=== PATIENT | male | born 1935 | race Caucasian/White ===

== ENCOUNTER 2016-08-31 14:00 | Emergency (ER) | payer OTHER ==
[2016-08-31 14:10] VITALS: BP 140/79; PULSE 70; TEMP 98; BMI 38.9
[2016-08-31] MEDS ORDERED: METHOCARBAMOL 500 MG TABLET PO ONE (15:13)
--- NOTE | 2016-08-31 15:13 | PDOC ---
History of Present Illness - General History Source: Patient Exam Limitations: No Limitations - History of Present Illness Initial Comments: 08/31/16 15:27 The patient is a 80 year old male, with a significant past medical history of diabetes, hypertension, hyperlipidemia, CABG (on coumadin), and colonic polyps, who presents to the emergency department complaining of right side chest pain for approximately 2 weeks. The patient reports the pain was initially localized to the right side of his chest, however, it now radiates into his right upper back, just below his shoulder. The patient denies any trauma to the area or heavy lifting. The patient reports the pain is worse when lying on his right side or coughing. Occasionally, he reports he hears the right side of his upper back crack (like a knuckle) when he sits on the couch. The patient denies any shortness of breath, diaphoresis, palpitations, or lower extremity edema. He denies any fever, chills, cough, headache, or dizziness. He denies any recent travel or sick contacts. Allergies: None reported. Past Surgical History: CABG (1997), umbilical hernia repair, cholecystectomy, left hand fx Social History: Former smoker. Social ETOH use. No recreational drug use. PCP: Dr. Brewer <Dao Orellana - Last Filed: 08/31/16 18:33> <Jesika Ospina - Last Filed: 08/31/16 18:49> - General Chief Complaint: Back Pain Stated Complaint: BACK PAIN Time Seen by Provider: 08/31/16 14:07 Past History <Dao Orellana - Last Filed: 08/31/16 18:33> - Past Medical History Anemia: No Asthma: No Cancer: No Cardiac Disorders: Yes (CABG 1997) CVA: No COPD: No CHF: No Dementia: No Diabetes: Yes GI Disorders: Yes (COLONIC POLYPS) Disorders: No HTN: Yes Hypercholesterolemia: Yes Liver Disease: No Seizures: No Thyroid Disease: No - Surgical History Abdominal Surgery: Yes (UMBILICAL HERNIA REPAIR X 2) Appendectomy: No Cardiac Surgery: No Cholecystectomy: Yes Lung Surgery: No Neurologic Surgery: No Orthopedic Surgery: Yes (LEFT HAND FX 1996) - Psycho/Social/Smoking Cessation Hx Suicidal Ideation: No Smoking History: Former smoker Have you smoked in the past 12 months: No Number of Cigarettes Smoked Daily: 0 If you are a former smoker, when did you quit?: 1967 Information on smoking cessation initiated: Yes Hx Alcohol Use: Yes Drug/Substance Use Hx: No Substance Use Type: Alcohol Hx Substance Use Treatment: No <Jesika Osipna - Last Filed: 08/31/16 18:49> - Past Medical History Allergies/Adverse Reactions: Allergies Allergy/AdvReac Type Severity Reaction Status Date / Time No Known Allergies Allergy Verified 08/31/16 14:05 Home Medications: Ambulatory Orders Canagliflozin [Invokana] 300 mg PO DAILY 08/31/16 Carvedilol [Coreg] 25 mg PO ASDIR 08/31/16 Digoxin [Lanoxin -] 0.125 mg PO DAILY 08/31/16 Metformin HCl [Glucophage] 1,000 mg PO BID 08/31/16 Methocarbamol [Robaxin -] 1 - 2 tab PO BID PRN #28 tablet 08/31/16 Simvastatin 20 mg PO DAILY 08/31/16 Tramadol HCl 50 mg PO Q6H PRN #12 tablet MDD 4 tabs 08/31/16 Warfarin Sodium [Coumadin] 5 mg PO ASDIR 08/31/16 Review of Systems - Review of Systems Able to Perform ROS?: Yes Comments:: 08/31/16 15:29 GENERAL/CONSTITUTIONAL: No fever or chills. No weakness. HEAD, EYES, EARS, NOSE AND THROAT: No change in vision. No ear pain or discharge. No sore throat. CARDIOVASCULAR: Yes: +chest pain. No shortness of breath. RESPIRATORY: No cough, wheezing, or hemoptysis. GASTROINTESTINAL: No nausea, vomiting, diarrhea or constipation. GENITOURINARY: No dysuria, frequency, or change in urination. MUSCULOSKELETAL: Yes: +right scapular pain, +back pain. No joint or muscle swelling. No neck pain. SKIN: No rash NEUROLOGIC: No headache, vertigo, loss of consciousness, or change in strength/ sensation. ENDOCRINE: No increased thirst. No abnormal weight change. HEMATOLOGIC/LYMPHATIC: No anemia, easy bleeding, or history of blood clots. ALLERGIC/IMMUNOLOGIC: No hives or skin allergy. <Dao Orellana - Last Filed: 08/31/16 18:33> *Physical Exam - Vital Signs Last Vital Signs Temp Pulse Resp BP Pulse Ox 98 F 70 18 140/79 96 08/31/16 14:00 08/31/16 14:00 08/31/16 14:00 08/31/16 14:00 08/31/16 14:00 <Dao Orellana - Last Filed: 08/31/16 18:33> - Vital Signs Last Vital Signs Temp Pulse Resp BP Pulse Ox 98 F 70 18 140/79 96 08/31/16 14:00 08/31/16 14:00 08/31/16 14:00 08/31/16 14:00 08/31/16 14:00 - Physical Exam Comments: GENERAL: Awake, alert, and fully oriented, in no acute distress. Appears uncomfortable. HEAD: No signs of trauma EYES: PERRLA, EOMI, sclera anicteric, conjunctiva clear ENT: Auricles normal inspection, hearing grossly normal, nares patent, oropharynx clear without exudates. Moist mucosa NECK: Normal ROM, supple, no lymphadenopathy, JVD, or masses LUNGS: Breath sounds equal, clear to auscultation bilaterally. No wheezes, and no crackles HEART: Regular rate and rhythm, normal S1 and S2, no murmurs, rubs or gallops ABDOMEN: Soft, nontender, normoactive bowel sounds. No guarding, no rebound. No masses EXTREMITIES: +Tenderness to the R upper back between the scapula and the spine, +muscle spasm. Remainder of extremities with normal range of motion, no edema. No clubbing or cyanosis. No cords, erythema, or tenderness NEUROLOGICAL: Cranial nerves II through XII grossly intact. Normal speech, normal gait SKIN: Warm, Dry, normal turgor, no rashes or lesions noted. <Jesika Ospina - Last Filed: 08/31/16 18:49> ED Treatment Course - RADIOLOGY Radiograph Interpretation: 08/31/16 18:33 EXAM: Right Scapula X-Ray INTERPRETED BY: Dr. Hernandez REVIEWED BY: Dr. Ospina IMPRESSION: No Fracture or acute pathology. EXAM: X-Ray right-sided ribs INTERPRETED BY: Dr. Hernandez REVIEWED BY: Dr. Ospina IMPRESSION: No Fracture or acute pathology. <Dao Orellana - Last Filed: 08/31/16 18:33> Medical Decision Making - Medical Decision Making Exam is suggestive of a rotator cuff injury. Will treat with analgesics and muscle relaxers. Stable for DC home with outpatient ortho f/u. <Jesika Ospina - Last Filed: 08/31/16 18:49> *DC/Admit/Observation/Transfer - Attestations Scribe Attestion: 08/31/16 15:30 Documentation prepared by Dao Orellana, acting as medical or surgical instrument maker for Jesika Ospina MD. <Dao Orellana - Last Filed: 08/31/16 18:33> - Discharge Dispostion Admit: No <Jesika Ospina - Last Filed: 08/31/16 18:49> Diagnosis at time of Disposition: Shoulder pain Qualifiers: Chronicity: acute Laterality: right Qualified Code(s): M25.511 - Pain in right shoulder - Discharge Dispostion Disposition: HOME Condition at time of disposition: Stable - Prescriptions Prescriptions: Methocarbamol [Robaxin -] 1 - 2 tab PO BID PRN #28 tablet PRN Reason: Muscle Spasms Tramadol HCl 50 mg PO Q6H PRN #12 tablet MDD 4 tabs PRN Reason: Severe Pain - Referrals Referrals: Abdifatah Marie MD [Staff Physician] - - Patient Instructions Printed Discharge Instructions: DI for Shoulder Pain
[2016-08-31] MEDS ORDERED: traMADol HCL 50 MG TABLET PO ONE (17:35)
[2016-08-31] MEDS ORDERED: traMADol HCL 50 MG TABLET ONE (17:50)
== END 2016-08-31 18:14 | disposition home or self-care (01) ==
LOC: FER 14:00
DX: M25.511 Pain in right shoulder (principal); E11.9 Type 2 diabetes mellitus without complications; I10 Essential (primary) hypertension; E78.00 Pure hypercholesterolemia, unspecified; Z95.1 Presence of aortocoronary bypass graft; Z79.01 Long term (current) use of anticoagulants; Z87.891 Personal history of nicotine dependence
CPT/HCPCS: 71101-TC-RT; 73010-TC; 99282-25

== ENCOUNTER 2017-02-16 09:05 | Inpatient (IN) | payer OTHER, BC ==
[2017-02-16] MEDS ORDERED: ACETAMINOPHEN 325 MG TABLET (FP) PO ONE (09:34)
--- NOTE | 2017-02-16 09:40 | PDOC ---
History of Present Illness - General Chief Complaint: Injury Stated Complaint: BIBA FALL, BACK PAIN Time Seen by Provider: 02/16/17 09:17 History Source: Patient, Spouse Exam Limitations: No Limitations - History of Present Illness Initial Comments: 02/16/17 09:35 CHIEF COMPLAINT: 81-year-old man was sitting on a chair with wheels yesterday when he fell, twisting his lower back, and hitting his head. HISTORY OF PRESENT ILLNESS: This patient is a 81-year-old man who has decided to go back to college. Yesterday he was at [facility] [employer] in class. He was sitting on a chair with rolling wheels. When he turned to get his jacket off the back of his chair, the chair slid on the wheels and he lost his balance falling on the floor. He hit the back of his head but there was no loss of consciousness. There is no neck pain. There is no headache. There is no dizziness. There is no change in vision. There is no nausea or vomiting. He also twisted his lower back in the process of the fall. He got up with the assistance of one of the young students. He continues to have pain across the lumbar region without radiation. There is no numbness or weakness in the legs. There is no change in bowel or bladder function. There is no change in sensation. Of note, last week when he saw his primary physician his INR was elevated. His Coumadin dose was adjusted from 5 mg 6 days a week and 10 mg on Saturdays to hold Coumadin for 1 day, then resume at 5 mg daily 7 days a week. He denies any abnormal bleeding of his gums or other areas. REVIEW OF SYSTEMS: GENERAL/CONSTITUTIONAL: No fever or chills. No weakness. No weight change. Positive pain in the lower back, increased with turning or bending. Able to ambulate. Patient is walking slower than normal. HEAD, EYES, EARS, NOSE AND THROAT: No change in vision. No ear pain or discharge. No sore throat. CARDIOVASCULAR: No chest pain or shortness of breath. RESPIRATORY: No cough, wheezing, or hemoptysis. GASTROINTESTINAL: No nausea, vomiting, diarrhea or constipation. No rectal bleeding. GENITOURINARY: No dysuria, frequency, or change in urination. MUSCULOSKELETAL: Positive lumbar back pain. No neck pain. No joint pain or extremity pain. SKIN AND BREASTS: No rash or easy bruising. NEUROLOGIC: No headache, vertigo, loss of consciousness, or loss of sensation. Positive head injury yesterday, minor, no symptoms currently. PSYCHIATRIC: No depression or anxiety. ENDOCRINE: No increased thirst. No abnormal weight change. HEMATOLOGIC/LYMPHATIC: No anemia, easy bleeding, or history of blood clots. Patient takes Coumadin daily. ALLERGIC/IMMUNOLOGIC: No hives or skin allergy. No latex allergy. Past History - Past Medical History Allergies/Adverse Reactions: Allergies Allergy/AdvReac Type Severity Reaction Status Date / Time No Known Allergies Allergy Verified 02/16/17 09:07 Home Medications: Ambulatory Orders Canagliflozin [Invokana] 300 mg PO DAILY 08/31/16 Carvedilol [Coreg] 6.25 mg PO BID 08/31/16 Digoxin [Lanoxin -] 0.125 mg PO DAILY 08/31/16 Metformin HCl [Glucophage] 1,000 mg PO BID 08/31/16 Simvastatin 20 mg PO ASDIR 08/31/16 Warfarin Sodium [Coumadin] 5 mg PO DAILY 08/31/16 Anemia: No Asthma: No Cancer: No Cardiac Disorders: Yes (CABG 1997, atrial fibrillation.) CVA: No COPD: No CHF: No Dementia: No Diabetes: Yes GI Disorders: Yes (COLONIC POLYPS) Disorders: No HTN: Yes Hypercholesterolemia: Yes Liver Disease: No Seizures: No Thyroid Disease: No - Surgical History Abdominal Surgery: Yes (UMBILICAL HERNIA REPAIR X 2) Appendectomy: No Cardiac Surgery: No Cholecystectomy: Yes Lung Surgery: No Neurologic Surgery: No Orthopedic Surgery: Yes (LEFT HAND FX 1996) - Suicide/Smoking/Psychosocial Hx Smoking History: Former smoker Have you smoked in the past 12 months: No Number of Cigarettes Smoked Daily: 0 If you are a former smoker, when did you quit?: 1967 Information on smoking cessation initiated: No Hx Alcohol Use: No Drug/Substance Use Hx: No Substance Use Type: Alcohol Hx Substance Use Treatment: No *Physical Exam - Vital Signs Last Vital Signs Temp Pulse Resp BP Pulse Ox 97.7 F 65 18 141/75 96 02/16/17 09:05 02/16/17 09:05 02/16/17 09:05 02/16/17 09:05 02/16/17 09:05 - Physical Exam Comments: 02/16/17 09:40 GENERAL: The patient is awake, alert, and fully oriented, in no acute distress. He complains of discomfort in his lumbar spine upon turning on the stretcher. HEAD: Normal with no signs of trauma. No hematoma. No scalp abrasion. EYES: Pupils equal, round and reactive to light, extraocular movements intact, sclera anicteric, conjunctiva clear. ENT: Ears normal, nares patent, oropharynx clear without exudates. Moist mucous membranes. NECK: Normal range of motion, supple without lymphadenopathy, JVD, or masses. No midline cervical spine tenderness. No lateral neck tenderness. No pain with range of motion. LUNGS: Breath sounds equal, clear to auscultation bilaterally. No wheezes, and no crackles. No rib tenderness. HEART: Regular rate and rhythm, normal S1 and S2 without murmur, rub or gallop. ABDOMEN: Soft, nontender, normoactive bowel sounds. No guarding, no rebound. No masses. BACK: There is tenderness diffusely in the lumbar spine both over the spinous processes and in the paralumbar region bilaterally. There is no deformity. The skin is normal without bruising. EXTREMITIES: Normal range of motion, mild pitting ankle edema. No clubbing or cyanosis. No cords, erythema, or tenderness. NEUROLOGICAL: Cranial nerves II through XII grossly intact. Normal speech, normal gait. Sensation and motor strength is normal in both lower extremities. PSYCH: Normal mood, normal affect. SKIN: Warm, Dry, normal turgor, no rashes or lesions noted. No bruising or ecchymosis. ED Treatment Course - LABORATORY CBC & Chemistry Diagram: 02/16/17 10:25 02/16/17 10:25 - RADIOLOGY Radiology Studies Ordered: Category Date Time Status HEAD CT WITHOUT CONTRAST [CT] Stat CT Scan 02/16/17 09:33 Ordered SPINE-LUMBAR SACRAL [RAD] Stat Radiology 02/16/17 09:34 Ordered Medical Decision Making - Medical Decision Making 02/16/17 09:42 Patient presents after a mechanical fall yesterday. He lost his balance while sitting on the chair on wheels that was moving. He did hit his head but he is completely asymptomatic from a neurological perspective. However, given his age and his Coumadin which was recently notable for elevated INR, CT of the head will be performed. Repeat INR level will be checked given the adjustment in his dose. He also has lumbar spine pain with tenderness after the fall. X-rays of the lumbosacral spine have been ordered. Symptomatic treatment with Percocet and Tylenol has been ordered. Patient is not a good candidate for nonsteroidals given his warfarin therapy. 02/16/17 13:04 I have been busy arranging ICU monitoring for Mr. Narvaez. His head CT shows a very small intrahemispheric bleed in the frontal area on the head CT. Stat IV vitamin K was given. Type and cross along with fresh frozen plasma was requested stat. Critical care consult with Dr. Javi Escobedo was accepted. Primary admitting team will be [facility], Dr. Conner, patient accepted. Neurosurgery consult with Dr. Covarrubias was accepted. Patient will go by ambulance, ALS unit, to [facility] ICU 6. 02/16/17 13:07 Lumbosacral spine x-ray shows a compression fracture of L1. CT scan of the lumbosacral spine confirms that this L1 fracture is acute. There is no spinal cord involvement. *DC/Admit/Observation/Transfer Diagnosis at time of Disposition: Intracerebral hemorrhage Qualifiers: Intracerebral hemorrhage etiology: traumatic Encounter type: initial encounter Laterality: unspecified laterality Loss of consciousness presence/duration: without LOC Qualified Code(s): S06.360A - Traumatic hemorrhage of cerebrum, unspecified, without loss of consciousness, initial encounter Lumbar compression fracture Qualifiers: Encounter type: initial encounter Lumbar vertebra fracture level: L1 Fracture type: closed Qualified Code(s): S32.010A - Wedge compression fracture of first lumbar vertebra, initial encounter for closed fracture - Discharge Dispostion Condition at time of disposition: Stable Admit: Yes Decision to Admit order Date/Time: 02/16/17 13:[address] Ubaldo arthur's team, Dr. Waters aware and accepting. - Referrals - Patient Instructions - Post Discharge Activity
[2017-02-16] MEDS ORDERED: ACETAMINOPHEN 325 MG TABLET (FP) ONE (09:44)
[2017-02-16 10:34] LABS: BASO % 0.4 % (0-2.0); EOS % 1.3 % (0-4.5); HEMATOCRIT 30.9 % (35.4-49); HEMOGLOBIN 10.5 GM/dl (11.7-16.9); LYMPH % 28.2 % (8-40); MCH 32.9 pg (25.7-33.7); MCHC 33.9 g/dl (32.0-35.9); MEAN PLT VOLUME 6.4 fl (7.5-11.1); MONO % 2.8 % (3.8-10.2); NEUT % 67.3 % (42.8-82.8); PLATELET COUNT 189 K/MM3 (134-434); RBC 3.18 M/mm3 (4.00-5.60); RDW 15.2 % (11.9-15.9); WHITE BLOOD COUNT 3.9 K/mm3 (4.0-10.8)
[2017-02-16 11:00] LABS: INR 2.62 (0.82-1.09); PROTHROMBIN TIME (PATIENT) 28.8 SEC (10.2-13.0)
[2017-02-16 11:07] LABS: ALBUMIN 3.1 g/dl (3.5-5.0); ALK PHOS 72 U/L (32-92); ANION GAP 11 (8-16); BILIRUBIN,TOTAL 1.3 mg/dl (0.2-1.0); BLOOD UREA NITROGEN 20 mg/dl (7-18); CALCIUM 9.8 mg/dl (8.4-10.2); CHLORIDE 97 mmol/L (98-107); CO2 25 mmol/L (22-28); CREATININE 0.9 mg/dl (0.6-1.3); GLUCOSE,RANDOM 152 mg/dl (74-106); POTASSIUM 4.7 mmol/L (3.5-5.1); SGOT/AST 19 U/L (10-42); SGPT/ALT 11 U/L (10-40); SODIUM 133 mmol/L (136-145); TOT PROT 9.2 g/dl (6.4-8.3)
[2017-02-16] MEDS ORDERED: PHYTONADIONE 10 MG/1 ML AMP IVPB ONE (11:25)
[2017-02-16] MEDS ORDERED: PHYTONADIONE 10 MG/1 ML AMP ONE (11:28)
[2017-02-16 14:56] VITALS: BMI 37.9
[2017-02-16] MEDS ORDERED: PATIENT'S OWN MEDICATION (NON-FORMULARY) (Simvastatin [Simvastatin] 20 MG) PO SCH (16:15)
--- NOTE | 2017-02-16 16:23 | PN ---
Teaching Attending Note Name of Resident: Cirilo Simon ATTENDING PHYSICIAN STATEMENT I saw and evaluated the patient. I reviewed the resident's note and discussed the case with the resident. I agree with the resident's findings and plan as documented. SUBJECTIVE: 81 yom with PMHx of CAD s/p CABG 1997, Atrial fibrillation on coumadin since 1997, HTN, HLD, NIDDM, was at class in college yesterday, sitting on chair with rolling wheels, when got up, chair slid and patient fell on his back on the floor hitting his head and lower back. He was supported up by one of the students. Patient reports having lower back pain since then. However denies any leg weakness, tingling, numbness, urinary or bowel symptoms. Has been ambulating since the fall but with pain. he waited for a day, but given pain, today came to [place] ED, when had head CT showing small acute Left sided frontal interhemisphere subdural hematoma and L1 compression fracture. As per him, his INR was high recently, he was on coumadin 5 mg for 6 days and 10 mg on Saturdays, but was told to hold coumadin for a day and start 5 mg daily. His INR here was 2.6. He received 10 mg IV Vitamin K and was transferred to [facility] for FFP and close neurological monitoring. Currently patient is in the ICU, denies any headache, neck pain, visual changes , weakness, tingling/numbness, speech changes. Only complaint is lower back pain worse with movements but neg for urinary,bowel or urinary concerns. 12 point ROS done, neg for bleed, neg except above. OBJECTIVE: Vital Signs Period Temp Pulse Resp BP Sys/Uribe Pulse Ox Last 24 Hr 97.7 F-98.2 F 65-89 17-22 108-141/43-85 90-98 Intake & Output 02/13/17 02/14/17 02/15/17 02/16/17 23:59 23:59 23:59 23:59 Weight 242 lb GENERAL: Awake, alert, and fully oriented, in no acute distress. HEAD: Normal with no signs of trauma. EYES: Pupils equal, round and reactive to light, extraocular movements intact, sclera anicteric, conjunctiva clear. No lid lag. EARS, NOSE, THROAT: Ears normal, nares patent, oropharynx clear without exudates. Moist mucous membranes. NECK: Normal range of motion, supple without lymphadenopathy, JVD, or masses. LUNGS: Breath sounds equal, clear to auscultation bilaterally. No wheezes, and no crackles. No accessory muscle use. HEART: S1S2 irregular, rate controlled ABDOMEN: Soft, nontender, not distended, normoactive bowel sounds, no guarding, no rebound, no masses. MUSCULOSKELETAL: lumbar spinal tenderness in the L1 region, SLR neg bilaterally , UPPER EXTREMITIES: 2+ pulses, warm, well-perfused. No cyanosis. No clubbing. No peripheral edema. LOWER EXTREMITIES: 2+ pulses, warm, well-perfused. No calf tenderness. No peripheral edema. NEUROLOGICAL: AAOx3, facial symmetry, visual lopez grossly intact, PERRLA, EOMI, sensation symmetric to light touch, no pronator drift, power 5/5, facial symmetry, tongue midline, toes downgoing PSYCHIATRIC: Cooperative. Good eye contact. Appropriate mood and affect. SKIN: Warm, dry, normal turgor, no rashes or lesions noted, normal capillary refill. Home Medication List Medication Instructions Recorded Confirmed Type Canagliflozin [Invokana] 300 mg PO DAILY 08/31/16 02/16/17 History Carvedilol [Coreg] 6.25 mg PO BID 08/31/16 02/16/17 History Digoxin [Lanoxin -] 0.125 mg PO DAILY 08/31/16 02/16/17 History Metformin HCl [Glucophage] 1,000 mg PO BID 08/31/16 02/16/17 History Simvastatin 20 mg PO ASDIR 08/31/16 02/16/17 History Warfarin Sodium [Coumadin] 5 mg PO DAILY 08/31/16 02/16/17 History Active Medications Generic Name Dose Route Start Last Admin Trade Name Freq PRN Reason Stop Dose Admin Carvedilol 6.25 mg 02/16/17 22:00 Coreg - PO BID [facility] Chlorhexidine Gluconate 1 applic 02/16/17 22:00 Hibiclens For Decolonization - TP HS LEIDY Digoxin 0.125 mg 02/17/17 10:00 Lanoxin - PO DAILY LEIDY Insulin Aspart 0 vial 02/16/17 16:30 Novolog Vial Sliding Scale - SQ ACHS [facility] Protocol Mupirocin 1 applic 02/16/17 22:00 Bactroban Ointment (For Decolonization) - NS 02/21/17 21:59 BID LEIDY Non-Formulary Medication 20 mg 02/16/17 16:15 Simvastatin [Simvastatin] PO ASDIR LEIDY Oxycodone/Acetaminophen 2 combo 02/16/17 16:03 Percocet 5/325 - PO Q4H PRN PAIN LEVEL 6-10 Laboratory Results - last 24 hr 02/16/17 02/16/17 02/16/17 10:25 10:25 10:25 WBC 3.9 L RBC 3.18 L Hgb 10.5 L Hct 30.9 L MCV 97.0 H MCH 32.9 MCHC 33.9 RDW 15.2 Plt Count 189 MPV 6.4 L Neutrophils % 67.3 D Lymphocytes % 28.2 D Monocytes % 2.8 L Eosinophils % 1.3 Basophils % 0.4 PT with INR 28.8 H INR 2.62 H D Sodium 133 L Potassium 4.7 Chloride 97 L Carbon Dioxide 25 Anion Gap 11 BUN 20 H Creatinine 0.9 Creat Clearance w eGFR > 60 Random Glucose 152 H Calcium 9.8 Total Bilirubin 1.3 H AST 19 D ALT 11 Alkaline Phosphatase 72 Total Protein 9.2 H Albumin 3.1 L Blood Type Antibody Screen 02/16/17 02/16/17 12:14 13:19 WBC RBC Hgb Hct MCV MCH MCHC RDW Plt Count MPV Neutrophils % Lymphocytes % Monocytes % Eosinophils % Basophils % PT with INR INR Sodium Potassium Chloride Carbon Dioxide Anion Gap BUN Creatinine Creat Clearance w eGFR Random Glucose Calcium Total Bilirubin AST ALT Alkaline Phosphatase Total Protein Albumin Blood Type O POSITIVE O POSITIVE Antibody Screen Negative EKG afib 60s, no acute ST-T changes CT brain - small acute left frontal interhemispheric subdural hematoma CT L spine - Acute mild to moderate L1 compression fracture Marked L4-L5 and moderate to marked L3-L4 central canal stenosis Lumbar spine Xray - probable acute L1 compression fracture ASSESSMENT AND PLAN: 81 yom with CAD s/p CABG, Afib on coumadin, HTN, HLD, NIDDM admitted with mechanical fall a day ago with SDH, Acute L1 compression fracture. -Acute left frontal interhemispheric subdural hematoma -Coumadin coagulopathy -Acute L1 compression fracture -mechanical fall -CAD s/p CABG -Atrial fibrllation on coumadin -HTN -HLD -NIDDM Plan: ICU neuro montoring. S/p Vitamin K 10 mg IV in ED. 4 units FFP. Repeat INR later today. CT brain follow up in 6 hours. Neurosurgery consulted in ED, Readdress once repeat CT head available, also discuss need for anti-epileptics. No ASA/NSAIDS, coumadin or ant-coagulation, suspect atleast for 14 days, then per neurosurgery. Tylenol/oxycodone prn for pain. PT eval once neurological status stable. Continue coreg to be held for SBP < 110 Continue digoxin, statin. HOld oral hypoglycemics, metformin. ISS, NPO till repeat CT brain available. DVTPPx with SCDs in bed Dispo ICU monitoring given bleed with elevated INR and need for close neurological monitoring. Plan discussed with patient in detail, all questions answered. Total critical care admit time spent in ICU 55 min.
[2017-02-16] MEDS ORDERED: SENNOSIDES 8.6MG TABLET (FP) PO PRN (16:39)
--- NOTE | 2017-02-16 16:54 | HP ---
CHIEF COMPLAINT: "I fell" PCP: Dr. Brewer HISTORY OF PRESENT ILLNESS: Mr. Narvaez is a pleasant 81yo M with a PMHx of Afib on Coumadin who presented to [place] [facility] s/p fall. 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 Was helped up by classmate. Subsequently had mid-back pain. Went home, and returned to the ER the next day due to unrelenting 10/10 sharp mid-back nonradiating pain worse with movements. Denies leg weakness or numbness, denies gait instability, denies urinary or bowel incontinence. Denies headache, neck pain, vision changes, dizziness, speech changes, mental status changes. In [place] [facility], patient was found to have L1 vertebral compression fracture on Lumbar CT. Head CT was notable for small acute L frontal interhemispheric hematoma. The patient denies neurologic symptoms including headache, only complained of back pain. Vital signs were within normal limits. BP 116/85. INR was therapeutic at 2.65. He was given IV Vitamin K 10mg x1. The patient was [facility] due to FFP availability. Recent Travel: Denies PAST MEDICAL HISTORY: CAD s/p CABG 1997, Afib on Coumadin, HLD, NIDDM PAST SURGICAL HISTORY: Umbilical hernia repair, cholecystectomy, CABG Social History: Smoking: Ex-smoker, 50+ pack year history Alcohol: Denies Drugs: Denies Allergies: No Known Allergies Allergy (Verified 02/16/17 09:07) HOME MEDICATIONS: Home Medications Medication Instructions Recorded Canagliflozin [Invokana] 300 mg PO DAILY 08/31/16 Carvedilol [Coreg] 6.25 mg PO BID 08/31/16 Digoxin [Lanoxin -] 0.125 mg PO DAILY 08/31/16 Metformin HCl [Glucophage] 1,000 mg PO BID 08/31/16 Simvastatin 20 mg PO ASDIR 08/31/16 Warfarin Sodium [Coumadin] 5 mg PO DAILY 08/31/16 REVIEW OF SYSTEMS CONSTITUTIONAL: Absent: fever, chills, diaphoresis, generalized weakness, malaise, loss of appetite, weight change HEENT: Absent: rhinorrhea, nasal congestion, throat pain, throat swelling, difficulty swallowing, mouth swelling, ear pain, eye pain, visual changes CARDIOVASCULAR: Absent: chest pain, syncope, palpitations, irregular heart rate, lightheadedness , peripheral edema RESPIRATORY: Absent: cough, shortness of breath, dyspnea with exertion, orthopnea, wheezing, stridor, hemoptysis GASTROINTESTINAL: Absent: abdominal pain, abdominal distension, nausea, vomiting, diarrhea, constipation, melena, hematochezia GENITOURINARY: Absent: dysuria, frequency, urgency, hesitancy, hematuria, flank pain, genital pain MUSCULOSKELETAL: Absent: myalgia, arthralgia, joint swelling, back pain, neck pain SKIN: Absent: rash, itching, pallor HEMATOLOGIC/IMMUNOLOGIC: Absent: easy bleeding, easy bruising, lymphadenopathy, frequent infections ENDOCRINE: Absent: unexplained weight gain, unexplained weight loss, heat intolerance, cold intolerance NEUROLOGIC: Absent: headache, focal weakness or paresthesias, dizziness, unsteady gait, seizure, mental status changes, bladder or bowel incontinence PSYCHIATRIC: Absent: anxiety, depression, suicidal or homicidal ideation, hallucinations. Vital Signs Temperature 98.2 F 02/16/17 14:50 Pulse Rate 84 02/16/17 16:03 Respiratory Rate 22 02/16/17 16:03 Blood Pressure 134/43 02/16/17 16:03 O2 Sat by Pulse Oximetry (%) 90 L 02/16/17 15:09 PHYSICAL EXAMINATION GEN: AAOx3, NAD, Lying very comfortably, smiling HEENT: Pupils are constricted but reactive, EOMi CV: S1, S2, irregularly irregular rhythm LUNG: Decreased lung sounds at bases, no focal crackles or wheezes ABD: Mild chronic distension from hernia surgeries, but soft, NT MSK: Bilateral venous stasis changes with 1+ pitting edema NEURO: CN 2-12 intact, no facial drool, no sensation or MSK deficits, 5/5 strength throughout. Laboratory Last Values WBC 3.9 K/mm3 (4.0-10.8) L 02/16/17 10:25 RBC 3.18 M/mm3 (4.00-5.60) L 02/16/17 10:25 Hgb 10.5 GM/dl (11.7-16.9) L 02/16/17 10:25 Hct 30.9 % (35.4-49) L 02/16/17 10:25 MCV 97.0 fl (80-96) H 02/16/17 10:25 MCH 32.9 pg (25.7-33.7) 02/16/17 10:25 MCHC 33.9 g/dl (32.0-35.9) 02/16/17 10:25 RDW 15.2 % (11.9-15.9) 02/16/17 10:25 Plt Count 189 K/MM3 (134-434) 02/16/17 10:25 MPV 6.4 fl (7.5-11.1) L 02/16/17 10:25 Neutrophils % 67.3 % (42.8-82.8) D 02/16/17 10:25 Lymphocytes % 28.2 % (8-40) D 02/16/17 10:25 Monocytes % 2.8 % (3.8-10.2) L 02/16/17 10:25 Eosinophils % 1.3 % (0-4.5) 02/16/17 10:25 Basophils % 0.4 % (0-2.0) 02/16/17 10:25 PT with INR 28.8 SEC (10.2-13.0) H 02/16/17 10:25 INR 2.62 (0.82-1.09) H D 02/16/17 10:25 Sodium 133 mmol/L (136-145) L 02/16/17 10:25 Potassium 4.7 mmol/L (3.5-5.1) 02/16/17 10:25 Chloride 97 mmol/L (98-107) L 02/16/17 10:25 Carbon Dioxide 25 mmol/L (22-28) 02/16/17 10:25 Anion Gap 11 (8-16) 02/16/17 10:25 BUN 20 mg/dl (7-18) H 02/16/17 10:25 Creatinine 0.9 mg/dl (0.6-1.3) 02/16/17 10:25 Creat Clearance w eGFR > 60 (>60) 02/16/17 10:25 Random Glucose 152 mg/dl (74-106) H 02/16/17 10:25 Calcium 9.8 mg/dl (8.4-10.2) 02/16/17 10:25 Total Bilirubin 1.3 mg/dl (0.2-1.0) H 02/16/17 10:25 AST 19 U/L (10-42) D 02/16/17 10:25 ALT 11 U/L (10-40) 02/16/17 10:25 Alkaline Phosphatase 72 U/L (32-92) 02/16/17 10:25 Total Protein 9.2 g/dl (6.4-8.3) H 02/16/17 10:25 Albumin 3.1 g/dl (3.5-5.0) L 02/16/17 10:25 Blood Type O POSITIVE 02/16/17 13:19 Antibody Screen Negative 02/16/17 12:14 Active Medications Generic Name Dose Route Start Last Admin Trade Name Freq PRN Reason Stop Dose Admin Carvedilol 6.25 mg 02/16/17 22:00 Coreg - PO BID [facility] Chlorhexidine Gluconate 1 applic 02/16/17 22:00 Hibiclens For Decolonization - TP HS [facility] Digoxin 0.125 mg 02/17/17 10:00 Lanoxin - PO DAILY [facility] Insulin Aspart 0 vial 02/16/17 16:30 Novolog Vial Sliding Scale - SQ ACHS [facility] Protocol Mupirocin 1 applic 02/16/17 22:00 Bactroban Ointment (For Decolonization) - NS 02/21/17 21:59 BID [facility] Non-Formulary Medication 20 mg 02/16/17 16:15 Simvastatin [Simvastatin] PO ASDIR [facility] Oxycodone/Acetaminophen 2 combo 02/16/17 16:03 Percocet 5/325 - PO Q4H PRN PAIN LEVEL 6-10 ASSESSMENT/PLAN: Mr. Narvaez is a pleasant 81yo M with a PMHx of Afib on Coumadin who presented to [place] [facility] s/p fall. Found to have subdural interhemispheric hematoma and L1 compression fracture #L Frontal Interhemispheric Subdural Hematoma - - 2/2 mechanical fall yesterday while on Coumadin. Hemodynamically stable. Will need to lower INR to subtherapeutic level. Already given IV Vit K 10mg. Will order 4 units FFP. Hold Coumadin. Repeat INR at 8pm. Repeat Head CT to assess if bleed has extended. NPO until repeat head CT findings return. Neuro checks. Neurosurgery on board. Dr Covarrubias aware of the case. # L1 Compression Fracture - 2/2 mechanical fall. No sustained neurological symptoms. Pain well controlled on Percocet PRN. Conservative management for now. PT eval ordered # Afib - Rate controlled, Continue Coreg 6.25 BID + Digoxin 0.125 daily. Coumadin held for bleed. Risks of stroke vs bleed explained to patient. # CAD - s/p CABG, not in ACS. # HLD - Continue statin # NIDDM - Hold oral hypoglycemics. Continue ISS + BGMs ACHS # Venous Insufficiency - Has venous stasis and edema bilaterally, monitor # FEN - No IVF, elec wnl. NPO for not until repeat Head CT back. # PPx - No pharmacologic AC due to bleed. SCDs. No GI ppx needed. PT ordered # Dispo - Admit to ICU for close neuro checks and hemodynamic monitoring. Total critical care time 60min d/w Dr Waters and Dr Ubaldo Simon MD - Resident PGY1 Internal Medicine Visit type - Emergency Visit Emergency Visit: No - New Patient This patient is new to me today: No - Critical Care Critical Care patient: No
[2017-02-16] MEDS: ACETAMINOPHEN 325 MG TABLET (FP) PO PRN (18:59)
[2017-02-16] MEDS: oxyCODONE HCL 5 MG TABLET PO PRN (18:59)
[2017-02-16] MEDS: INSULIN SLIDING SCALE (NOVOLOG) 1 VIAL SQ SCH ×2 (19:00→22:55)
--- NOTE | 2017-02-16 20:24 | CONSULT ---
Consult - text type - Consultation Consultation Note: Pulm/CCM Pt seen and examined in ICU CC: fall HPI: Briefly Mr. Narvaez is a 81yo M with a PMHx CAD s/p ?vessel CABG in " with resultant Afib on Coumadin since that time, who presented to [place] [facility] s/p mechanical fall on Saturday. 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 There was no visible trauma, there was no LOC, he was able to be helped up by classmate. He C/o mid-back pain. Went home, and returned to the ER today unrelenting 10/10 sharp mid-back non-radiating pain exacerbated by movements. He denied chest pain, dizzines, leg weakness or numbness, gait instability, denies urinary or bowel incontinence. Also denies headache, cervical neck pain, vision changes, speech changes, mental status changes. Today in [place] ER, patient was awake, alert, hemodyanmically stable. Imaging found L1 vertebral compression fracture on Lumbar CT and Head CT was notable for small acute L frontal interhemispheric hematoma. INR was therapeutic at 2.65. Given ICH and only on coumadin for afib, pt was given IV Vitamin K 10mg IV x1. Transferred to [facility] from [facility] for Neurosurg evaluation and correction of INR. Two FFP being infused and repeat INR being drawn. Neurosurg reviewed pt and intervention was deemed unnecessary. Repeat CT scan planned for AM. Recent Travel: Denies PAST MEDICAL HISTORY: CAD s/p CABG 1997, Afib on Coumadin, HLD, NIDDM PAST SURGICAL HISTORY: Umbilical hernia repair, cholecystectomy, CABG Social History: Smoking: Ex-smoker, 50+ pack year history Alcohol: Denies Drugs: Denies Allergies: No Known Allergies Allergy (Verified 02/16/17 09:07) HOME MEDICATIONS: Home Medications Medication Instructions Recorded Canagliflozin [Invokana] 300 mg PO DAILY 08/31/16 Carvedilol [Coreg] 6.25 mg PO BID 08/31/16 Digoxin [Lanoxin -] 0.125 mg PO DAILY 08/31/16 Metformin HCl [Glucophage] 1,000 mg PO BID 08/31/16 Simvastatin 20 mg PO ASDIR 08/31/16 Warfarin Sodium [Coumadin] 5 mg PO DAILY 08/31/16 REVIEW OF SYSTEMS 10 pt review negative except as per HPI. Vital Signs Temp 98.6 F 02/16/17 19:00 Pulse 78 02/16/17 20:00 Resp 20 02/16/17 20:00 BP 130/105 02/16/17 20:00 Pulse Ox 95 02/16/17 19:43 Intake & Output 02/15/17 02/16/17 02/16/17 23:59 11:59 23:59 Intake Total 452 Output Total 400 Balance 52 Weight 113.398 kg 109.769 kg Intake: Oral 120 Fresh Frozen Plasma 332 Output: Urine 400 Void 400 Other: Height 5 ft 7 in 5 ft 7 in Body Mass Index (BMI) 39.1 37.9 Weight Measurement Method Built in [facility] PHYSICAL EXAMINATION GEN: AAOx3, INAD, conversant HEENT: PERRL at 3mm, EOMI, no caroitid bruits CV: S1, S2, irregularly irregular rhythm LUNG: Clear anterior ABD: Mild chronic distension from hernia surgeries, but soft, NT MSK: Bilateral venous stasis changes with 1+ pitting edema NEURO: CN 2-12 intact, no facial drool, 5/5 x 4 ext, no pronator drift CT Head reviewed CT L spine reviewed Laboratory Last Values WBC 3.9 K/mm3 (4.0-10.8) L 02/16/17 10:25 RBC 3.18 M/mm3 (4.00-5.60) L 02/16/17 10:25 Hgb 10.5 GM/dl (11.7-16.9) L 02/16/17 10:25 Hct 30.9 % (35.4-49) L 02/16/17 10:25 MCV 97.0 fl (80-96) H 02/16/17 10:25 MCH 32.9 pg (25.7-33.7) 02/16/17 10:25 MCHC 33.9 g/dl (32.0-35.9) 02/16/17 10:25 RDW 15.2 % (11.9-15.9) 02/16/17 10:25 Plt Count 189 K/MM3 (134-434) 02/16/17 10:25 MPV 6.4 fl (7.5-11.1) L 02/16/17 10:25 Neutrophils % 67.3 % (42.8-82.8) D 02/16/17 10:25 Lymphocytes % 28.2 % (8-40) D 02/16/17 10:25 Monocytes % 2.8 % (3.8-10.2) L 02/16/17 10:25 Eosinophils % 1.3 % (0-4.5) 02/16/17 10:25 Basophils % 0.4 % (0-2.0) 02/16/17 10:25 PT with INR 28.8 SEC (10.2-13.0) H 02/16/17 10:25 INR 2.62 (0.82-1.09) H D 02/16/17 10:25 Sodium 133 mmol/L (136-145) L 02/16/17 10:25 Potassium 4.7 mmol/L (3.5-5.1) 02/16/17 10:25 Chloride 97 mmol/L (98-107) L 02/16/17 10:25 Carbon Dioxide 25 mmol/L (22-28) 02/16/17 10:25 Anion Gap 11 (8-16) 02/16/17 10:25 BUN 20 mg/dl (7-18) H 02/16/17 10:25 Creatinine 0.9 mg/dl (0.6-1.3) 02/16/17 10:25 Creat Clearance w eGFR > 60 (>60) 02/16/17 10:25 Random Glucose 152 mg/dl (74-106) H 02/16/17 10:25 Calcium 9.8 mg/dl (8.4-10.2) 02/16/17 10:25 Total Bilirubin 1.3 mg/dl (0.2-1.0) H 02/16/17 10:25 AST 19 U/L (10-42) D 02/16/17 10:25 ALT 11 U/L (10-40) 02/16/17 10:25 Alkaline Phosphatase 72 U/L (32-92) 02/16/17 10:25 Total Protein 9.2 g/dl (6.4-8.3) H 02/16/17 10:25 Albumin 3.1 g/dl (3.5-5.0) L 02/16/17 10:25 Blood Type O POSITIVE 02/16/17 13:19 Antibody Screen Negative 02/16/17 12:14 Active Medications Generic Name Dose Route Start Last Admin Trade Name Freq PRN Reason Stop Dose Admin Carvedilol 6.25 mg 02/16/17 22:00 Coreg - PO BID [facility] Chlorhexidine Gluconate 1 applic 02/16/17 22:00 Hibiclens For Decolonization - TP HS [facility] Digoxin 0.125 mg 02/17/17 10:00 Lanoxin - PO DAILY [facility] Insulin Aspart 0 vial 02/16/17 16:30 Novolog Vial Sliding Scale - SQ ACHS [facility] Protocol Mupirocin 1 applic 02/16/17 22:00 Bactroban Ointment (For Decolonization) - NS 02/21/17 21:59 BID [facility] Non-Formulary Medication 20 mg 02/16/17 16:15 Simvastatin [Simvastatin] PO ASDIR [facility] Oxycodone/Acetaminophen 2 combo 02/16/17 16:03 Percocet 5/325 - PO Q4H PRN PAIN LEVEL 6-10 ASSESSMENT/PLAN: 81yo M with a PMHx of Afib on Coumadin admitted after mechanical fall, found to have subdural interhemispheric hematoma and L1 compression fracture Neuro: Frontal Interhemispheric Subdural Hematoma , L1 Compression Fracture -correct INR 10 vit k, 2 FFP, repeat INR pending -frequent neuro check -repeat CT head in AM as per Neuro surg/ Dr Covarrubias aware of the case. -conservative management of CV: afib with rate control and anticoaguation -cont Coreg and Dig -rechallenge Coumadin as per Neurosurgery, likely later next week -Continue statin NIDDM - Hold oral hypoglycemics. Continue ISS + BGMs ACHS FEN - No IVF, elec wnl. NPO for not until repeat Head CT back PPx - No pharmacologic AC due to bleed. SCDs. No indicaiton for GI prophy Dispo - Admit to ICU for close neuro checks, ok for floor after repeat CT head in am. 35CCT Yves Flores ACNP [id number]
[2017-02-16 20:58] LABS: INR 1.67 (0.82-1.09); PROTHROMBIN TIME (PATIENT) 18.9 SEC (9.98-11.88)
[2017-02-16] MEDS ORDERED: CARVEDILOL 25 MG TABLET (FP) PO SCH ×2 (22:00)
--- NOTE | 2017-02-16 22:32 | EKG ---
Test Reason : Blood Pressure : / mmHG Vent. Rate : 066 BPM Atrial Rate : 066 BPM P-R Int : 000 ms QRS Dur : 096 ms QT Int : 406 ms P-R-T Axes : 000 -08 -02 degrees QTc Int : 425 ms POSSIBLE ATRIAL FIBRILLATION LOW VOLTAGE QRS NONSPECIFIC ST AND T WAVE ABNORMALITY ABNORMAL ECG NO PREVIOUS ECGS AVAILABLE Confirmed by NASEEM MARQUES MD ([id number]) on 02/16/2017 10:31:36 PM Referred By: CHARISSE TOLEDO Confirmed By:NASEEM MARQUES MD
[2017-02-16] MEDS ORDERED: INSULIN (NOVOLOG) ASPART 100 UNITS/ML 10ML VIAL ONE (22:48)
[2017-02-16] MEDS: DOCUSATE SODIUM 100 MG CAPSULE (FP) PO SCH (22:53)
[2017-02-16] MEDS: CARVEDILOL 6.25 MG TABLET (FP) PO SCH (22:53)
[2017-02-16] MEDS: ATORVASTATIN CA 10 MG TABLET (FP) PO SCH (22:55)
[2017-02-16] MEDS: CHLORHEXIDINE GLUCONATE 4% CLEANSER FOR DECOLONIZATION TP SCH (22:55)
[2017-02-16] MEDS: MUPIROCIN 2% TOPICAL OINTMENT FOR DECOLONIZATION NS SCH (22:55)
[2017-02-16] MEDS ORDERED: MELATONIN 5 MG TABLETS PO ONE (23:39)
[2017-02-17] MEDS: ACETAMINOPHEN 325 MG TABLET (FP) PO PRN ×4 (04:14→22:48)
[2017-02-17] MEDS: oxyCODONE HCL 5 MG TABLET PO PRN ×4 (04:14→22:47)
[2017-02-17 05:56] LABS: BASO % 0.4 % (0-2.0); EOS % 2.1 % (0-4.5); HEMATOCRIT 26.2 % (35.4-49); HEMOGLOBIN 9.1 GM/dL (11.7-16.9); LYMPH % 32.6 % (8-40); MCHC 34.7 g/dl (32.0-35.9); MEAN CELL VOLUME 97.8 fl (80-96); MEAN PLT VOLUME 6.8 fl (7.5-11.1); MONO % 3.6 % (3.8-10.2); NEUT % 61.3 % (42.8-82.8); PLATELET COUNT 142 K/MM3 (134-434); RBC 2.68 M/mm3 (4.00-5.60); RDW 15.1 % (11.9-15.9); WHITE BLOOD COUNT 3.1 K/mm3 (4.0-10.0)
[2017-02-17] MEDS: INSULIN SLIDING SCALE (NOVOLOG) 1 VIAL SQ SCH ×4 (06:12→22:00)
[2017-02-17 06:15] LABS: INR 1.45 (0.82-1.09); PROTHROMBIN TIME (PATIENT) 16.4 SEC (9.98-11.88)
[2017-02-17 06:24] LABS: ALBUMIN 2.8 g/dl (3.4-5.0); ALK PHOS 89 U/L (45-117); ANION GAP 7 (8-16); BILIRUBIN,TOTAL 1.2 mg/dL (0.2-1.0); BLOOD UREA NITROGEN 19 mg/dL (7-18); CALCIUM 9.3 mg/dL (8.5-10.1); CHLORIDE 102 mmol/L (98-107); CO2 27 mmol/L (21-32); CREATININE 0.9 mg/dL (0.7-1.3); GLUCOSE,RANDOM 128 mg/dL (74-106); MAGNESIUM 1.9 mg/dL (1.8-2.4); PHOSPHOROUS 3.5 mg/dL (2.5-4.9); POTASSIUM 4.2 mmol/L (3.5-5.1); SGOT/AST 14 U/L (15-37); SGPT/ALT 17 U/L (12-78); SODIUM 136 mmol/L (136-145); TOT PROT 8.4 g/dl (6.4-8.2)
[2017-02-17] MEDS ORDERED: DIGOXIN 0.125 MG TABLET (FP) PO SCH ×2 (10:00)
[2017-02-17] MEDS: CARVEDILOL 6.25 MG TABLET (FP) PO SCH ×2 (10:01→22:35)
[2017-02-17] MEDS: DOCUSATE SODIUM 100 MG CAPSULE (FP) PO SCH ×2 (10:01→22:35)
[2017-02-17] MEDS: MUPIROCIN 2% TOPICAL OINTMENT FOR DECOLONIZATION NS SCH ×2 (10:08→22:35)
--- NOTE | 2017-02-17 10:43 | PN ---
Progress Note (short form) - Note Progress Note: PULMONARY/CCM Pt seen and examined in the ICU. Repeat CT head without significant change. Denies headache, nausea or vomiting but with back pain which has been controlled with current regimen. Last Vital Signs Temp Pulse Resp BP Pulse Ox 98.2 F 67 17 118/53 96 02/17/17 06:00 02/17/17 10:01 02/17/17 08:00 02/17/17 08:00 02/17/17 08:34 Intake & Output 02/14/17 02/15/17 02/16/17 02/17/17 23:59 23:59 23:59 23:59 Intake Total 1312 430 Output Total 400 350 Balance 912 80 Weight 242 lb 247 lb 6.4 oz Gen: NAD at rest Heart: irregular Lung: decreased breath sounds at the bases Abd: soft, nontender Ext: no edema CBC, BMP 02/17/17 05:00 02/17/17 05:00 Active Medications Acetaminophen (Tylenol -) 650 mg PO Q4H PRN PRN Reason: PAIN LEVEL 6-10 Stop: 02/19/17 16:51 Last Admin: 02/17/17 04:14 Dose: 650 mg Atorvastatin Calcium (Lipitor -) 10 mg PO HS [facility] Last Admin: 02/16/17 22:55 Dose: 10 mg Carvedilol (Coreg -) 6.25 mg PO BID [facility] Last Admin: 02/17/17 10:01 Dose: 6.25 mg Chlorhexidine Gluconate (Hibiclens For Decolonization -) 1 applic TP HS [facility] Last Admin: 02/16/17 22:55 Dose: Not Given Digoxin (Lanoxin -) 0.125 mg PO DAILY [facility] Last Admin: 02/17/17 10:01 Dose: 0.125 mg Docusate Sodium (Colace -) 100 mg PO BID [facility] Last Admin: 02/17/17 10:01 Dose: 100 mg Insulin Aspart (Novolog Vial Sliding Scale -) 1 vial SQ ACHS [facility] PRN Reason: Protocol Last Admin: 02/17/17 06:12 Dose: Not Given Mupirocin (Bactroban Ointment (For Decolonization) -) 1 applic NS BID [facility] Stop: 02/21/17 21:59 Last Admin: 02/17/17 10:08 Dose: 1 applic Oxycodone HCl (Roxicodone -) 10 mg PO Q4H PRN PRN Reason: PAIN LEVEL 6-10 Last Admin: 02/17/17 10:01 Dose: 10 mg Senna (Senna -) 2 tab PO HS PRN PRN Reason: CONSTIPATION A/P s/p Fall Intracranial Hemorrhage Atrial Fibrillation DM - hold all anticoagulation - neuro checks - neuro consult regarding timing of resumption of anticoagulation, likely at least 1 week - rate control with coreg, digoxin - PO as tolerated - DVT prophylaxis - can monitor on telemetry
--- NOTE | 2017-02-17 11:34 | PN ---
Teaching Attending Note Name of Resident: . Time of evaluation: 7:40 AM SUBJECTIVE: Patient seen and examined. No headache, vision changes, new weakness, chest pain , dizziness, palpitations, abdominal or urinary complaints. OBJECTIVE: Vital Signs Period Temp Pulse Resp BP Sys/Uribe Pulse Ox Last 24 Hr 98 F-98.8 F 62-89 16-22 96-136/43-105 90-98 Intake & Output 02/14/17 02/15/17 02/16/17 02/17/17 23:59 23:59 23:59 23:59 Intake Total 1312 430 Output Total 400 350 Balance 912 80 Weight 242 lb 247 lb 6.4 oz General: lying in bed in no acute distress CVS:S1S2 irregular Chest: CTAB, no rales or wheezing abdomen: soft, obese, NT Extremities: no edema, chronic skin hyperpigmentation Neuro: AAOx3, power 5/5, sensation intact to light touch and symmetrical, EOMI, PERRLA, DTR bilaterally symmetric, no pronator drift, facial symmetry, non focal exam Active Medications Acetaminophen (Tylenol -) 650 mg PO Q4H PRN PRN Reason: PAIN LEVEL 6-10 Stop: 02/19/17 16:51 Last Admin: 02/17/17 04:14 Dose: 650 mg Atorvastatin Calcium (Lipitor -) 10 mg PO [facility] Last Admin: 02/16/17 22:55 Dose: 10 mg Carvedilol (Coreg -) 6.25 mg PO BID [facility] Last Admin: 02/17/17 10:01 Dose: 6.25 mg Chlorhexidine Gluconate (Hibiclens For Decolonization -) 1 applic TP [facility] Last Admin: 02/16/17 22:55 Dose: Not Given Digoxin (Lanoxin -) 0.125 mg PO DAILY [facility] Last Admin: 02/17/17 10:01 Dose: 0.125 mg Docusate Sodium (Colace -) 100 mg PO BID [facility] Last Admin: 02/17/17 10:01 Dose: 100 mg Insulin Aspart (Novolog Vial Sliding Scale -) 1 vial SQ ACHS [facility] PRN Reason: Protocol Last Admin: 02/17/17 06:12 Dose: Not Given Mupirocin (Bactroban Ointment (For Decolonization) -) 1 applic NS BID [facility] Stop: 02/21/17 21:59 Last Admin: 02/17/17 10:08 Dose: 1 applic Oxycodone HCl (Roxicodone -) 10 mg PO Q4H PRN PRN Reason: PAIN LEVEL 6-10 Last Admin: 02/17/17 10:01 Dose: 10 mg Senna (Senna -) 2 tab PO HS PRN PRN Reason: CONSTIPATION Laboratory Results - last 24 hr 02/16/17 02/16/17 02/16/17 12:14 13:19 20:30 WBC RBC Hgb Hct MCV MCH MCHC RDW Plt Count MPV Neutrophils % Lymphocytes % Monocytes % Eosinophils % Basophils % PT with INR 18.90 H INR 1.67 H Sodium Potassium Chloride Carbon Dioxide Anion Gap BUN Creatinine Creat Clearance w eGFR POC Glucometer Random Glucose Calcium Phosphorus Magnesium Total Bilirubin AST ALT Alkaline Phosphatase Total Protein Albumin Blood Type O POSITIVE O POSITIVE Antibody Screen Negative 02/16/17 02/17/17 02/17/17 22:52 05:00 05:00 WBC 3.1 L RBC 2.68 L Hgb 9.1 L Hct 26.2 L MCV 97.8 H MCH 34.0 H MCHC 34.7 RDW 15.1 Plt Count 142 MPV 6.8 L Neutrophils % 61.3 Lymphocytes % 32.6 Monocytes % 3.6 L Eosinophils % 2.1 Basophils % 0.4 PT with INR 16.40 H INR 1.45 H Sodium Potassium Chloride Carbon Dioxide Anion Gap BUN Creatinine Creat Clearance w eGFR POC Glucometer [phone] Random Glucose Calcium Phosphorus Magnesium Total Bilirubin AST ALT Alkaline Phosphatase Total Protein Albumin Blood Type Antibody Screen 02/17/17 02/17/17 05:00 06:09 WBC RBC Hgb Hct MCV MCH MCHC RDW Plt Count MPV Neutrophils % Lymphocytes % Monocytes % Eosinophils % Basophils % PT with INR INR Sodium 136 Potassium 4.2 Chloride 102 Carbon Dioxide 27 Anion Gap 7 L BUN 19 H Creatinine 0.9 Creat Clearance w eGFR > 60 POC Glucometer [phone] Random Glucose 128 H Calcium 9.3 Phosphorus 3.5 Magnesium 1.9 Total Bilirubin 1.2 H AST 14 L ALT 17 Alkaline Phosphatase 89 Total Protein 8.4 H Albumin 2.8 L Blood Type Antibody Screen CT brain 02/17/2017 - no change ASSESSMENT AND PLAN: 81 yom with CAD s/p CABG, Afib on coumadin, HTN, HLD, NIDDM admitted with mechanical fall a day ago with SDH, Acute L1 compression fracture. -Acute left frontal interhemispheric subdural hematoma -Coumadin coagulopathy -Acute L1 compression fracture -mechanical fall -CAD s/p CABG -Atrial fibrllation on coumadin -HTN -HLD -NIDDM Plan: Neuro exam unchanged.CT brain stable. S/p 4 units FFP and 10 mg IV VItamin K on admission, INR noted. Resume anti-coagulation per neurosurgery. Discussed with patient about potential risks of CVA in the absence of anti- coagulation for his atrial fibrillation but given SDH, risks of resuming coumadin currently outweigh benefits, patient relays understanding of the same. No ASA/NSAIDS. Tylenol/oxycodone prn for pain. PT eval as neurological stable now. Continue coreg , digoxin statin. Patient reports allergy to insulin, reports having localized itching after administration that last a day. . Discussed with patient to rechallenge to insulin while in hospital under monitoring as may need it in the future. Patient agreable to the same, discussed with RN, monitor closely for any allergic concerns. Continue ISS. Hold Metformin, oral hypoglycemics for now, resume on dc. PT eval and dispo planning in 24 hours if stable, pain controlled and disposition arranged. DVTPPx with SCDs in bed Ok for transfer to telemetry. Plan discussed with patient in detail, all questions answered. Total critical care time spent in ICU 30 min.
--- NOTE | 2017-02-17 19:38 | CONSULT ---
Consult - text type - Consultation Consultation Note: Neurosugery Consult Spike Narvaez is a pleasant 81 year old male who suffered a fall on Saturday at [facility]. At the end of his class, as he was preparing to stand, his rolling chair slid backwards and he fell landing on his backside while also hitting his head on a bar. The patient had no loss of consciousness and denies headache or other symptoms associated with the head injury. The patient immediately noted lower back pain and required assistance in standing and getting to his vehicle. Although his encouraged him to seek medical attention, he declined. When his back pain persisted the following morning, they decided to present to the ER at [place] where his Head CT was remarkable for a small, Left sided, intrahemispheric subdural hematoma. Lumbar CT was remarkable for an endplate fracture of L1. This was not present on imaging obtained in 2014 and is felt to represent an acute compression fracture. The patient has severe pain associated with bearing weight. On exam, the patient awakens easily and is A+Ox3. He is very appropriate and demonstrates fluid speech and is able to recall events from as far back as 1959. He has grossly full strength and normal sensation in his extremities and the only notable finding is that he demonstrates pain associated with shifting in bed. Repeat head CT is unchanged. The patient is taking Coumadin for atrial fibrillation. By his report, he has no mechanical heart valve or known vegetations/thrombi. I feel that if he can wait one week off Coumadin, his intracranial condition should stabilize. With regards to his Lumbar fracture, MRI Lumbar without contrast will be helpful in guiding management. I recommend TLSO bracing for comfort and likely treatment of this fracture. I will obtain standing plain films in the brace once MRI is reviewed. If there is suggestion of disc herniation or ligamentous injury on MRI or if the patient cannot bear weight or angulates in a brace, will consider further surgical management.
[2017-02-17] MEDS: ATORVASTATIN CA 10 MG TABLET (FP) PO SCH (22:34)
[2017-02-17] MEDS: CHLORHEXIDINE GLUCONATE 4% CLEANSER FOR DECOLONIZATION TP SCH (22:35)
[2017-02-18] MEDS: ACETAMINOPHEN 325 MG TABLET (FP) PO PRN ×3 (05:25→22:06)
[2017-02-18] MEDS: oxyCODONE HCL 5 MG TABLET PO PRN ×4 (05:25→22:07)
[2017-02-18] MEDS: INSULIN SLIDING SCALE (NOVOLOG) 1 VIAL SQ SCH ×4 (06:05→22:12)
[2017-02-18 06:11] LABS: BASO % 0.5 % (0-2.0); EOS % 3.3 % (0-4.5); HEMATOCRIT 28.6 % (35.4-49); HEMOGLOBIN 9.8 GM/dL (11.7-16.9); LYMPH % 40.6 % (8-40); MCH 33.9 pg (25.7-33.7); MCHC 34.3 g/dl (32.0-35.9); MEAN CELL VOLUME 98.8 fl (80-96); MEAN PLT VOLUME 7.1 fl (7.5-11.1); MONO % 3.3 % (3.8-10.2); NEUT % 52.3 % (42.8-82.8); PLATELET COUNT 157 K/MM3 (134-434); RBC 2.89 M/mm3 (4.00-5.60); RDW 15.8 % (11.9-15.9); WHITE BLOOD COUNT 3.4 K/mm3 (4.0-10.0)
[2017-02-18 06:21] LABS: INR 1.27 (0.82-1.09); PROTHROMBIN TIME (PATIENT) 14.3 SEC (9.98-11.88)
[2017-02-18 06:36] LABS: ALBUMIN 2.7 g/dl (3.4-5.0); ANION GAP 7 (8-16); BLOOD UREA NITROGEN 21 mg/dL (7-18); CALCIUM 10.1 mg/dL (8.5-10.1); CHLORIDE 99 mmol/L (98-107); CO2 29 mmol/L (21-32); GLUCOSE,RANDOM 93 mg/dL (74-106); MAGNESIUM 1.8 mg/dL (1.8-2.4); PHOSPHOROUS 3.2 mg/dL (2.5-4.9); POTASSIUM 4.5 mmol/L (3.5-5.1); SGOT/AST 13 U/L (15-37); SODIUM 135 mmol/L (136-145)
[2017-02-18 06:38] LABS: ALK PHOS 87 U/L (45-117); BILIRUBIN,TOTAL 1.1 mg/dL (0.2-1.0); SGPT/ALT 15 U/L (12-78); TOT PROT 8.9 g/dl (6.4-8.2)
[2017-02-18] MEDS ORDERED: SENNOSIDES 8.6MG TABLET (FP) PO PRN (07:33)
--- NOTE | 2017-02-18 08:00 | PN ---
Physical Exam: SUBJECTIVE: Patient seen and examined. Doing well. Asymptomatic. Back pain well controlled w/ pain meds OBJECTIVE: Vital Signs Period Temp Pulse Resp BP Sys/Uribe Pulse Ox Last 24 Hr 97.8 F-98.9 F 64-75 17-29 90-145/51-92 89-98 GEN: AAOx3, NAD, Lying very comfortably, smiling HEENT: Pupils are constricted but reactive, EOMi CV: S1, S2, irregularly irregular rhythm LUNG: Decreased lung sounds at bases, no focal crackles or wheezes ABD: Mild chronic distension from hernia surgeries, but soft, NT MSK: Bilateral venous stasis changes with 1+ pitting edema NEURO: CN 2-12 intact, no facial droop, no sensation or MSK deficits, 5/5 strength throughout. Active Medications Generic Name Dose Route Start Last Admin Trade Name Freq PRN Reason Stop Dose Admin Acetaminophen 650 mg 02/18/17 07:33 Tylenol - PO 02/19/17 16:51 Q4H PRN PAIN LEVEL 6-10 Atorvastatin Calcium 10 mg 02/18/17 22:00 Lipitor - PO HS [facility] Carvedilol 6.25 mg 02/18/17 10:00 Coreg - PO BID [facility] Digoxin 0.125 mg 02/18/17 10:00 Lanoxin - PO DAILY [facility] Docusate Sodium 100 mg 02/18/17 10:00 Colace - PO BID [facility] Insulin Aspart 1 vial 02/18/17 11:00 Novolog Vial Sliding Scale - SQ ACHS [facility] Protocol Oxycodone HCl 10 mg 02/18/17 07:33 Roxicodone - PO Q4H PRN PAIN LEVEL 6-10 Senna 2 tab 02/18/17 07:33 Senna - PO HS PRN CONSTIPATION ASSESSMENT/PLAN: Mr. Narvaez is a pleasant 81yo M with a PMHx of Afib on Coumadin who presented to [place] ER s/p fall. Found to have subdural interhemispheric hematoma and L1 compression fracture #L Frontal Interhemispheric Subdural Hematoma - - 2/2 mechanical fall yesterday while on Coumadin. S/p Vit K and 4u FFP. INR now 1.27. Repeat CT unchanged. Neurosurgery states no intervention. Recommends 1 week off Coumadin (till 02/23) # L1 Compression Fracture - 2/2 mechanical fall. No sustained neurological symptoms, but has pain, well controlled w/ Percocet PRN. As per Dr Covarrubias, will order Lumbar MRI and consider surgical intervention. TLSO brace. PT eval ordered # Afib - Rate controlled, Continue Coreg 6.25 BID + Digoxin 0.125 daily. Coumadin held for bleed. Risks of stroke vs bleed explained to patient. # CAD - s/p CABG, not in ACS. # HLD - Continue statin # NIDDM - Hold oral hypoglycemics. Continue ISS + BGMs ACHS # Venous Insufficiency - Has venous stasis and edema bilaterally, monitor # FEN - No IVF, elec wnl. NPO for not until repeat Head CT back. # PPx - No pharmacologic AC due to bleed. SCDs. No GI ppx needed. PT ordered # Dispo - Transfer to floors. Likely d/c today or tmrw d/w Dr Luiza Simon MD - Resident PGY1 Internal Medicine Visit type - Emergency Visit Emergency Visit: No - New Patient This patient is new to me today: No - Critical Care Critical Care patient: No - Discharge Referral Referred to [facility] Med P.C.: No
[2017-02-18] MEDS: DIGOXIN 0.125 MG TABLET (FP) PO SCH (10:46)
[2017-02-18] MEDS: CARVEDILOL 6.25 MG TABLET (FP) PO SCH ×2 (10:47→22:06)
[2017-02-18] MEDS: DOCUSATE SODIUM 100 MG CAPSULE (FP) PO SCH ×2 (10:47→22:06)
--- NOTE | 2017-02-18 11:37 | PN ---
Teaching Attending Note Name of Resident: Cirilo Simon ATTENDING PHYSICIAN STATEMENT Time of evaluation: 9:00 AM I saw and evaluated the patient. I reviewed the resident's note and discussed the case with the resident. I agree with the resident's findings and plan as documented. SUBJECTIVE: Patient seen and examined. no headache, new weakness, or new complaints. Still with back pain but medication helps. Overall feels good. OBJECTIVE: Vital Signs Period Temp Pulse Resp BP Sys/Uribe Pulse Ox Last 24 Hr 97.8 F-99.2 F 64-78 16-29 90-145/51-92 96-99 Intake & Output 02/15/17 02/16/17 02/17/17 02/18/17 23:59 23:59 23:59 23:59 Intake Total 1312 1280 Output Total 400 1300 200 Balance 912 -20 -200 Weight 242 lb 247 lb 6.4 oz 244 lb General: lying in bed in no acute distress CVS:S1S2 irregular Chest: CTAB, no rales or wheezing Abdomen: soft, obese, NT Extremities: no edema Musculoskeletal: lumbar spinal tenderness in L1 region, Neuro AAOX3, unchanged exam from yesterday Home Medication List Medication Instructions Recorded Confirmed Type Canagliflozin [Invokana] 300 mg PO DAILY 08/31/16 02/16/17 History Carvedilol [Coreg] 6.25 mg PO BID 08/31/16 02/16/17 History Digoxin [Lanoxin -] 0.125 mg PO DAILY 08/31/16 02/16/17 History Metformin HCl [Glucophage] 1,000 mg PO BID 08/31/16 02/16/17 History Simvastatin 20 mg PO ASDIR 08/31/16 02/16/17 History Warfarin Sodium [Coumadin] 5 mg PO DAILY 08/31/16 02/16/17 History Active Medications Generic Name Dose Route Start Last Admin Trade Name Freq PRN Reason Stop Dose Admin Acetaminophen 650 mg 02/18/17 07:33 Tylenol - PO 02/19/17 16:51 Q4H PRN PAIN LEVEL 6-10 Atorvastatin Calcium 10 mg 02/18/17 22:00 Lipitor - PO HS [facility] Carvedilol 6.25 mg 02/18/17 10:00 02/18/17 10:47 Coreg - PO Not Given BID [facility] Digoxin 0.125 mg 02/18/17 10:00 02/18/17 10:46 Lanoxin - PO 0.125 mg DAILY [facility] Administration Docusate Sodium 100 mg 02/18/17 10:00 02/18/17 10:47 Colace - PO 100 mg BID [facility] Administration Insulin Aspart 1 vial 02/18/17 11:00 Novolog Vial Sliding Scale - SQ ACHS [facility] Protocol Nystatin 1 applic 02/18/17 11:30 Nystop Powder - TP DAILY [facility] Oxycodone HCl 10 mg 02/18/17 07:33 02/18/17 10:47 Roxicodone - PO 10 mg Q4H PRN Administration PAIN LEVEL 6-10 Senna 2 tab 02/18/17 07:33 Senna - PO HS PRN CONSTIPATION Laboratory Results - last 24 hr 02/17/17 02/17/17 02/17/17 12:15 17:08 22:43 WBC RBC Hgb Hct MCV MCH MCHC RDW Plt Count MPV Neutrophils % Lymphocytes % Monocytes % Eosinophils % Basophils % PT with INR INR Sodium Potassium Chloride Carbon Dioxide Anion Gap BUN Creatinine Creat Clearance w eGFR POC Glucometer 162.27091 154.36332 140.34944 Random Glucose Calcium Phosphorus Magnesium Total Bilirubin AST ALT Alkaline Phosphatase Total Protein Albumin 02/18/17 02/18/17 02/18/17 05:18 06:00 06:00 WBC 3.4 L RBC 2.89 L Hgb 9.8 L Hct 28.6 L MCV 98.8 H MCH 33.9 H MCHC 34.3 RDW 15.8 Plt Count 157 MPV 7.1 L Neutrophils % 52.3 Lymphocytes % 40.6 H D Monocytes % 3.3 L Eosinophils % 3.3 Basophils % 0.5 PT with INR 14.30 H INR 1.27 H Sodium Potassium Chloride Carbon Dioxide Anion Gap BUN Creatinine Creat Clearance w eGFR POC Glucometer [phone] Random Glucose Calcium Phosphorus Magnesium Total Bilirubin AST ALT Alkaline Phosphatase Total Protein Albumin 02/18/17 06:00 WBC RBC Hgb Hct MCV MCH MCHC RDW Plt Count MPV Neutrophils % Lymphocytes % Monocytes % Eosinophils % Basophils % PT with INR INR Sodium 135 L Potassium 4.5 Chloride 99 Carbon Dioxide 29 Anion Gap 7 L BUN 21 H Creatinine 1.0 Creat Clearance w eGFR > 60 POC Glucometer Random Glucose 93 D Calcium 10.1 Phosphorus 3.2 Magnesium 1.8 Total Bilirubin 1.1 H AST 13 L ALT 15 Alkaline Phosphatase 87 Total Protein 8.9 H Albumin 2.7 L ASSESSMENT AND PLAN: 81 yom with CAD s/p CABG, Afib on coumadin, HTN, HLD, NIDDM admitted with mechanical fall a day ago with SDH, Acute L1 compression fracture. -Acute left frontal interhemispheric subdural hematoma -Coumadin coagulopathy -Acute L1 compression fracture -mechanical fall -CAD s/p CABG -Atrial fibrllation on coumadin -HTN -HLD -NIDDM Plan: Neuro exam unchanged.CT brain stable. S/p 4 units FFP and 10 mg IV VItamin K on admission, INR noted. Resume anti-coagulation per neurosurgery. Discussed with patient about potential risks of CVA in the absence of anti- coagulation for his atrial fibrillation but given SDH, risks of resuming coumadin currently outweigh benefits, patient relays understanding of the same. No ASA/NSAIDS. Tylenol/oxycodone prn for pain. PT eval as neurological stable now. Neurosurgery input noted, MRI L-spine and TLSO brace. PT eval with pain control and TLSO brace, if doing well, can have further work up outpatient. Continue coreg , digoxin statin. Patient reports allergy to insulin, reports having localized itching after administration that lasted a day. . Tolerating insulin well here, no concerns. Continue ISS, hold metformin/oral hypoglycemic, resume on dc. Nocturnal hypoxia noted, patient reports snoring at home suspect underlying WINSTON. Discuss with pulmonary for sleep study outpatient and possible nightly CPAP on d.c. Check daytime RA oxygen saturations. PT eval and dispo planning in 24 hours if stable, pain controlled and disposition arranged. DVTPPx with SCDs in bed Pending transfer to telemetry. Plan discussed with patient in detail, all questions answered. Total time spent in ICU 30 min.
--- NOTE | 2017-02-18 12:31 | PN ---
Teaching Attending Note Name of Resident: Juarez Wild ATTENDING PHYSICIAN STATEMENT I saw and evaluated the patient. I reviewed the resident's note and discussed the case with the resident. I agree with the resident's findings and plan as documented. SUBJECTIVE: Patient seen and examined in the ICU. Awake and alert. No dizziness or NGUYỄN. CT Head stable. Intake & Output 02/15/17 02/16/17 02/17/17 02/18/17 23:59 23:59 23:59 23:59 Intake Total 1312 1280 Output Total 400 1300 200 Balance 912 -20 -200 Weight 242 lb 247 lb 6.4 oz 244 lb Last Vital Signs Temp Pulse Resp BP Pulse Ox 99.2 F 78 22 90/60 99 02/18/17 10:11 02/18/17 10:46 02/18/17 10:11 02/18/17 10:11 02/18/17 10:43 Active Medications Acetaminophen (Tylenol -) 650 mg PO Q4H PRN PRN Reason: PAIN LEVEL 6-10 Stop: 02/19/17 16:51 Atorvastatin Calcium (Lipitor -) 10 mg PO HS [facility] Carvedilol (Coreg -) 6.25 mg PO BID [facility] Last Admin: 02/18/17 10:47 Dose: Not Given Digoxin (Lanoxin -) 0.125 mg PO DAILY [facility] Last Admin: 02/18/17 10:46 Dose: 0.125 mg Docusate Sodium (Colace -) 100 mg PO BID [facility] Last Admin: 02/18/17 10:47 Dose: 100 mg Insulin Aspart (Novolog Vial Sliding Scale -) 1 vial SQ ACHS [facility] PRN Reason: Protocol Nystatin (Nystop Powder -) 1 applic TP DAILY [facility] Oxycodone HCl (Roxicodone -) 10 mg PO Q4H PRN PRN Reason: PAIN LEVEL 6-10 Last Admin: 02/18/17 10:47 Dose: 10 mg Senna (Senna -) 2 tab PO HS PRN PRN Reason: CONSTIPATION Gen: NAD at rest Heart: irregular Lung: decreased breath sounds at the bases Abd: soft, nontender Ext: no edema Laboratory Results - last 24 hr 02/17/17 02/17/17 02/17/17 12:15 17:08 22:43 WBC RBC Hgb Hct MCV MCH MCHC RDW Plt Count MPV Neutrophils % Lymphocytes % Monocytes % Eosinophils % Basophils % PT with INR INR Sodium Potassium Chloride Carbon Dioxide Anion Gap BUN Creatinine Creat Clearance w eGFR POC Glucometer [phone] 140.73322 Random Glucose Calcium Phosphorus Magnesium Total Bilirubin AST ALT Alkaline Phosphatase Total Protein Albumin 02/18/17 02/18/17 02/18/17 05:18 06:00 06:00 WBC 3.4 L RBC 2.89 L Hgb 9.8 L Hct 28.6 L MCV 98.8 H MCH 33.9 H MCHC 34.3 RDW 15.8 Plt Count 157 MPV 7.1 L Neutrophils % 52.3 Lymphocytes % 40.6 H D Monocytes % 3.3 L Eosinophils % 3.3 Basophils % 0.5 PT with INR 14.30 H INR 1.27 H Sodium Potassium Chloride Carbon Dioxide Anion Gap BUN Creatinine Creat Clearance w eGFR POC Glucometer [phone] Random Glucose Calcium Phosphorus Magnesium Total Bilirubin AST ALT Alkaline Phosphatase Total Protein Albumin 02/18/17 06:00 WBC RBC Hgb Hct MCV MCH MCHC RDW Plt Count MPV Neutrophils % Lymphocytes % Monocytes % Eosinophils % Basophils % PT with INR INR Sodium 135 L Potassium 4.5 Chloride 99 Carbon Dioxide 29 Anion Gap 7 L BUN 21 H Creatinine 1.0 Creat Clearance w eGFR > 60 POC Glucometer Random Glucose 93 D Calcium 10.1 Phosphorus 3.2 Magnesium 1.8 Total Bilirubin 1.1 H AST 13 L ALT 15 Alkaline Phosphatase 87 Total Protein 8.9 H Albumin 2.7 L IMP: S/P Fall Intracranial Hemorrhage Atrial Fibrillation DM PLAN: - AC when ok with NSG - Neuro checks - Rate control with coreg, digoxin - PO as tolerated - DVT prophylaxis - Cardiac Telemetry monitoring - Incentive Spirometry Dr Medina Critical care time spent in reviewing chart, evaluating patient and formulating plan - 36 minutes.
[2017-02-18] MEDS: NYSTATIN POWDER 100,000 UNITS/GM - 15 GM TOPICAL POWDER TP SCH (14:00)
--- NOTE | 2017-02-18 14:20 | PN ---
Progress Note (short form) - Note Progress Note: Patient remains Neurologically stable Has pain with attempts to mobilize TLSO brace obtained Await MRI Lumbar and standing films with brace Physical Therapy once brace in place GI/DVT prophylaxis Discussed Anticoagulation management with Dr. Medina, plans currently are to resume Coumadin on Saturday
--- NOTE | 2017-02-18 14:24 | PN ---
Physical Exam: SUBJECTIVE: The patient is a 81M with a PMH of CAD s/p CABG with resultant a- fib on coumadin who fell in his wheelchair. He was found to have an L1 vertebral compression fracture OBJECTIVE: Vital Signs Period Temp Pulse Resp BP Sys/Uribe Pulse Ox Last 24 Hr 97.8 F-99.2 F 64-78 16-22 90-145/51-92 96-99 GENERAL: The patient is awake, alert, and fully oriented, in no acute distress. HEAD: Normal with no signs of trauma. EYES: PERRL, extraocular movements intact, sclera anicteric, conjunctiva clear. No ptosis. NECK: Trachea midline, full range of motion, supple. LUNGS: Breath sounds equal, clear to auscultation bilaterally, no wheezes, no crackles, no accessory muscle use. HEART: Regular rate and rhythm, S1, S2 without murmur, rub or gallop. ABDOMEN: Soft, nontender, nondistended, normoactive bowel sounds, no guarding, no rebound, no hepatosplenomegaly, no masses. EXTREMITIES: 2+ pulses, warm, well-perfused, no edema. MSK: TTP over lumbar spine. NEUROLOGICAL: Cranial nerves II through XII grossly intact. Normal speech, gait not observed. Neurovascularly intact in LE b/l. PSYCH: Normal mood, normal affect. SKIN: Warm, dry, normal turgor, no rashes or lesions noted Laboratory Results - last 24 hr 02/17/17 02/17/17 02/18/17 17:08 22:43 05:18 WBC RBC Hgb Hct MCV MCH MCHC RDW Plt Count MPV Neutrophils % Lymphocytes % Monocytes % Eosinophils % Basophils % PT with INR INR Sodium Potassium Chloride Carbon Dioxide Anion Gap BUN Creatinine Creat Clearance w eGFR POC Glucometer 154.83362 140.51246 110.78407 Random Glucose Calcium Phosphorus Magnesium Total Bilirubin AST ALT Alkaline Phosphatase Total Protein Albumin 02/18/17 02/18/17 02/18/17 06:00 06:00 06:00 WBC 3.4 L RBC 2.89 L Hgb 9.8 L Hct 28.6 L MCV 98.8 H MCH 33.9 H MCHC 34.3 RDW 15.8 Plt Count 157 MPV 7.1 L Neutrophils % 52.3 Lymphocytes % 40.6 H D Monocytes % 3.3 L Eosinophils % 3.3 Basophils % 0.5 PT with INR 14.30 H INR 1.27 H Sodium 135 L Potassium 4.5 Chloride 99 Carbon Dioxide 29 Anion Gap 7 L BUN 21 H Creatinine 1.0 Creat Clearance w eGFR > 60 POC Glucometer Random Glucose 93 D Calcium 10.1 Phosphorus 3.2 Magnesium 1.8 Total Bilirubin 1.1 H AST 13 L ALT 15 Alkaline Phosphatase 87 Total Protein 8.9 H Albumin 2.7 L 02/18/17 12:57 WBC RBC Hgb Hct MCV MCH MCHC RDW Plt Count MPV Neutrophils % Lymphocytes % Monocytes % Eosinophils % Basophils % PT with INR INR Sodium Potassium Chloride Carbon Dioxide Anion Gap BUN Creatinine Creat Clearance w eGFR POC Glucometer [phone] Random Glucose Calcium Phosphorus Magnesium Total Bilirubin AST ALT Alkaline Phosphatase Total Protein Albumin Active Medications Generic Name Dose Route Start Last Admin Trade Name Freq PRN Reason Stop Dose Admin Acetaminophen 650 mg 02/18/17 07:33 Tylenol - PO 02/19/17 16:51 Q4H PRN PAIN LEVEL 6-10 Atorvastatin Calcium 10 mg 02/18/17 22:00 Lipitor - PO HS [facility] Carvedilol 6.25 mg 02/18/17 10:00 02/18/17 10:47 Coreg - PO Not Given BID [facility] Digoxin 0.125 mg 02/18/17 10:00 02/18/17 10:46 Lanoxin - PO 0.125 mg DAILY [facility] Administration Docusate Sodium 100 mg 02/18/17 10:00 02/18/17 10:47 Colace - PO 100 mg BID [facility] Administration Insulin Aspart 1 vial 02/18/17 11:00 Novolog Vial Sliding Scale - SQ ACHS [facility] Protocol Nystatin 1 applic 02/18/17 11:30 Nystop Powder - TP DAILY [facility] Oxycodone HCl 10 mg 02/18/17 07:33 02/18/17 10:47 Roxicodone - PO 10 mg Q4H PRN Administration PAIN LEVEL 6-10 Senna 2 tab 02/18/17 07:33 Senna - PO HS PRN CONSTIPATION ASSESSMENT/PLAN: The patient is a 81M with a PMH of CAD s/p CABG with a-fib who has a lumbar fracture and small intracranial hemorrhage. Neuro: - Continue doing neuro checks, especially on LE - Restart anticoagulation on 02/22/17 CV: - Continue digoxin and carvedilol for a-fib control MSK: - Pain control with Oxy and Acetaminophen - Pending MRI lumbar spine PPX: - Restart AC on 02/22/17 FEN (Fluids, electrolytes, nutrition): - Diabetic diet Dispo: - Continue to monitor in ICU; july t/f to tele tomorrow Visit type - Emergency Visit Emergency Visit: Yes ED Registration Date: 02/16/17 Care time: The patient presented to the Emergency Department on the above date and was hospitalized for further evaluation of their emergent condition. - New Patient This patient is new to me today: Yes Date on this admission: 02/18/17 - Critical Care Critical Care patient: Yes Total Critical Care Time (in minutes): 40 Critical Care Statement: The care of this patient involved high complexity decision making to prevent further life threatening deterioration of the patient 's condition and/or to evaluate & treat vital organ system(s) failure or risk of failure.
[2017-02-18] MEDS: ATORVASTATIN CA 10 MG TABLET (FP) PO SCH (22:06)
[2017-02-18] MEDS ORDERED: MELATONIN 5 MG TABLETS PO ONE (23:36)
[2017-02-19] MEDS: ACETAMINOPHEN 325 MG TABLET (FP) PO PRN ×3 (02:49→11:45)
[2017-02-19] MEDS: oxyCODONE HCL 5 MG TABLET PO PRN ×4 (02:50→21:36)
[2017-02-19] MEDS: INSULIN SLIDING SCALE (NOVOLOG) 1 VIAL SQ SCH ×4 (06:07→21:51)
[2017-02-19 07:23] LABS: BASO % 0.5 % (0-2.0); EOS % 3.4 % (0-4.5); HEMATOCRIT 27.9 % (35.4-49); HEMOGLOBIN 9.2 GM/dL (11.7-16.9); LYMPH % 34.8 % (8-40); MCH 32.6 pg (25.7-33.7); MCHC 33.1 g/dl (32.0-35.9); MEAN CELL VOLUME 98.6 fl (80-96); MONO % 3.3 % (3.8-10.2); PLATELET COUNT 158 K/MM3 (134-434); RBC 2.83 M/mm3 (4.00-5.60); RDW 15.7 % (11.9-15.9); WHITE BLOOD COUNT 3.6 K/mm3 (4.0-10.0)
[2017-02-19 07:44] LABS: INR 1.27 (0.82-1.09); PROTHROMBIN TIME (PATIENT) 14.3 SEC (9.98-11.88)
[2017-02-19 07:46] LABS: ACTIVATED PTT 33.5 SECONDS (26.9-34.4)
[2017-02-19 07:53] LABS: CHLORIDE 97 mmol/L (98-107); POTASSIUM 4.8 mmol/L (3.5-5.1); SODIUM 133 mmol/L (136-145)
[2017-02-19 07:59] LABS: ALBUMIN 2.5 g/dl (3.4-5.0); ALK PHOS 87 U/L (45-117); ANION GAP 7 (8-16); BILIRUBIN,TOTAL 0.9 mg/dL (0.2-1.0); BLOOD UREA NITROGEN 24 mg/dL (7-18); CO2 29 mmol/L (21-32); CREATININE 1.1 mg/dL (0.7-1.3); GLUCOSE,RANDOM 106 mg/dL (74-106); MAGNESIUM 1.9 mg/dL (1.8-2.4); PHOSPHOROUS 3.6 mg/dL (2.5-4.9); SGOT/AST 11 U/L (15-37); SGPT/ALT 14 U/L (12-78); TOT PROT 8.5 g/dl (6.4-8.2)
--- NOTE | 2017-02-19 08:19 | PN ---
Physical Exam: SUBJECTIVE: Patient seen and examined. Doing well. Slept through the night. No difficulty breathing, no CP. Waiting for large TLSO brace and walk with PT OBJECTIVE: Vital Signs Period Temp Pulse Resp BP Sys/Uribe Pulse Ox Last 24 Hr 97.4 F-99.6 F 66-84 16-26 90-123/49-68 95-99 GEN: AAOx3, NAD, Lying very comfortably, smiling HEENT: Pupils are constricted but reactive, EOMi CV: S1, S2, irregularly irregular rhythm LUNG: Decreased lung sounds at bases, no focal crackles or wheezes ABD: Mild chronic distension from hernia surgeries, but soft, NT MSK: Bilateral venous stasis changes with 1+ pitting edema NEURO: CN 2-12 intact, no facial droop, no sensation or MSK deficits, 5/5 strength throughout. Active Medications Generic Name Dose Route Start Last Admin Trade Name Freq PRN Reason Stop Dose Admin Acetaminophen 650 mg 02/18/17 07:33 02/19/17 07:35 Tylenol - PO 02/19/17 16:51 650 mg Q4H PRN Administration PAIN LEVEL 6-10 Atorvastatin Calcium 10 mg 02/18/17 22:00 02/18/17 22:06 Lipitor - PO 10 mg HS [facility] Administration Carvedilol 6.25 mg 02/18/17 10:00 02/18/17 22:06 Coreg - PO 6.25 mg BID [facility] Administration Digoxin 0.125 mg 02/18/17 10:00 02/18/17 10:46 Lanoxin - PO 0.125 mg DAILY [facility] Administration Docusate Sodium 100 mg 02/18/17 10:00 02/18/17 22:06 Colace - PO 100 mg BID [facility] Administration Insulin Aspart 1 vial 02/18/17 11:00 02/19/17 06:07 Novolog Vial Sliding Scale - SQ Not Given ACHS [facility] Protocol Nystatin 1 applic 02/18/17 11:30 02/18/17 14:00 Nystop Powder - TP 1 applic DAILY [facility] Administration Oxycodone HCl 10 mg 02/18/17 07:33 02/19/17 07:37 Roxicodone - PO 10 mg Q4H PRN Administration PAIN LEVEL 6-10 Senna 2 tab 02/18/17 07:33 Senna - PO HS PRN CONSTIPATION ASSESSMENT/PLAN: Mr. Narvaez is a pleasant 81yo M with a PMHx of Afib on Coumadin who presented to [place] ER s/p fall. Found to have subdural interhemispheric hematoma and L1 compression fracture #L Frontal Interhemispheric Subdural Hematoma - - 2/2 mechanical fall while on Coumadin. S/p Vit K and 4u FFP. INR continues to be 1.27. Repeat CT unchanged. Neurosurgery states no intervention. Recommends 1 week off Coumadin (till 02/22) # L1 Compression Fracture - 2/2 mechanical fall. No sustained neurological symptoms, but has pain, well controlled w/ Percocet PRN. As per Dr Covarrubias, will order Lumbar MRI and consider surgical intervention. - TLSO brace ordered, will arrive tmrw. After patient gets TLSO brace, he needs Lumbar XR and PT evaluation. Will get VNS, but also may need ADILENE # Constipation - Allready on Colace and Senna, will add Relistor and Dulcolax. Likely because the patient has been in bed without TLSO brace. # Afib - Rate controlled, Continue Coreg 6.25 BID + Digoxin 0.125 daily. Coumadin held for bleed. Risks of stroke vs bleed explained to patient. # CAD - s/p CABG, not in ACS. # HLD - Continue statin # NIDDM - Hold oral hypoglycemics. Continue ISS + BGMs ACHS # Venous Insufficiency - Has venous stasis and edema bilaterally, monitor # FEN - No IVF, elec wnl. NPO for not until repeat Head CT back. # PPx - No pharmacologic AC due to bleed. SCDs. No GI ppx needed. # Dispo - Patient needs MRI today. On the schedule as per Radiology. TLSO brace arrives tmrw. Post brace, needs XR and PT eval, will get VNS, may also need ADILENE. d/w Dr Abel and Dr. Marci Simon MD - Resident PGY1 Internal Medicine Visit type - Emergency Visit Emergency Visit: No - New Patient This patient is new to me today: No - Critical Care Critical Care patient: No - Discharge Referral Referred to [facility] Med P.C.: No
[2017-02-19] MEDS: DOCUSATE SODIUM 100 MG CAPSULE (FP) PO SCH ×2 (09:24→21:35)
[2017-02-19] MEDS: CARVEDILOL 6.25 MG TABLET (FP) PO SCH ×2 (09:25→21:36)
[2017-02-19] MEDS: DIGOXIN 0.125 MG TABLET (FP) PO SCH (09:25)
[2017-02-19] MEDS: NYSTATIN POWDER 100,000 UNITS/GM - 15 GM TOPICAL POWDER TP SCH (09:26)
[2017-02-19 09:33] LABS: CHOLESTEROL 87 mg/dL (50-200); LDL CHOLESTEROL (ONLY SJRH) 53 mg/dL (5-100); TRIGLYCERIDES 74 mg/dL (35-160)
[2017-02-19 09:34] LABS: HDL CHOLESTEROL 28 mg/dL (40-60)
--- NOTE | 2017-02-19 10:42 | PN ---
Progress Note (short form) - Note Progress Note: Patient remains stable and in good spirits. Bowel movement pending. Awaiting MRI Lumbar and TLSO with standing films in brace. Will follow with team.
[2017-02-19] MEDS ORDERED: SENNOSIDES/DOCUSATE COMBO (SENNA PLUS) TABLET (UD) PO SCH (13:00)
[2017-02-19] MEDS ORDERED: BISACODYL 10 MG SUPP.RECT RC PRN (13:13)
--- NOTE | 2017-02-19 13:34 | PN ---
Teaching Attending Note Name of Resident: Cirilo Simon ATTENDING PHYSICIAN STATEMENT I saw and evaluated the patient. I reviewed the resident's note and discussed the case with the resident. I agree with the resident's findings and plan as documented. SUBJECTIVE:c/o back pain which is improved with pain medications. denies Cp, SOB , fever, chills, N/V/D, numbness/tingling of LE, bowel incontinence. no BM in 5 days OBJECTIVE: Last Vital Signs Temp Pulse Resp BP Pulse Ox 98 F 66 18 100/60 100 02/19/17 10:00 02/19/17 10:00 02/19/17 10:00 02/19/17 10:02/19/17 09:00 General NAD CV S1 S2 RRR no murmru/rub/gallop Lungs CTA B/L no wheezing/rales/rhonchi ASSESSMENT AND PLAN: 81 yo M with PMH CAD s/p CABG, Afib on coumadin, HTN, HLD, NIDDM admitted with mechanical fall a day ago with SDH, Acute L1 compression fracture. 1. Acute L1 compression fracture- s/p mechanical fall. evaluated by neurosurgery. no intervention at this time. awaiting TSLO brace and MRI. pain management. will need PT assessment post brace application 2. constipation- due to opiates. relistor x1. start stool softeners 3. SDH- s/p mechanical fall. s/p 4FFP this admission. stable on repeat imaging. no neurological deficits. cont to hold coumadin till thursday 02/22 4. Macrocytic anemia- Hgb stable. no signs of bleeding. iron studies normal. check Vitb12 and folate 5. CAD s/p CABG 6. DM- controlled. re-start metformin and ivonkana on discharge. cont iss, bgm 7. afib on coumadin- rate controlled. coumadin on hold due to SDH. will restart 02/22 8. HTN- controlled 9. dyslipidemia- statin 10. DVT ppx- scd. hold pharmacologic anticoagulation with recent intracranial bleeding 11. PT assessment. may require ADILENE on discharge.
[2017-02-19] MEDS: BISACODYL 5 MG TABLET.DR (FP) PO PRN (13:38)
[2017-02-19] MEDS: Methylnaltrexone Bromide 12 MG/0.6 ML KIT SQ SCH (14:48)
[2017-02-19] MEDS: ATORVASTATIN CA 10 MG TABLET (FP) PO SCH (21:35)
[2017-02-19] MEDS ORDERED: ACETAMINOPHEN 325 MG TABLET (FP) PO ONE (21:35)
[2017-02-19] MEDS ORDERED: PT OWN MED DRAWER 7, Y5N ONE (21:40)
[2017-02-19] MEDS ORDERED: MELATONIN 1 MG TABLET PO PRN (22:00)
[2017-02-20] MEDS: INSULIN SLIDING SCALE (NOVOLOG) 1 VIAL SQ SCH ×4 (06:19→21:14)
[2017-02-20] MEDS: oxyCODONE HCL 5 MG TABLET PO PRN ×2 (06:38→17:21)
[2017-02-20] MEDS ORDERED: MELATONIN 5 MG TABLETS PO PRN (07:23)
--- NOTE | 2017-02-20 07:34 | PN ---
Physical Exam: SUBJECTIVE: Patient seen and examined. Doing well. Got lumbar MRI last night. Asymptomatic. OBJECTIVE: Vital Signs Period Temp Pulse Resp BP Sys/Uribe Pulse Ox Last 24 Hr 97.5 F-98.2 F 66-85 18-20 100-132/55-72 100-100 GEN: AAOx3, NAD, Lying very comfortably, smiling HEENT: Pupils are constricted but reactive, EOMi CV: S1, S2, irregularly irregular rhythm LUNG: Decreased lung sounds at bases, no focal crackles or wheezes ABD: Mild chronic distension from hernia surgeries, but soft, NT MSK: Bilateral venous stasis changes with 1+ pitting edema NEURO: CN 2-12 intact, no facial droop, no sensation or MSK deficits, 5/5 strength throughout. Active Medications Generic Name Dose Route Start Last Admin Trade Name Freq PRN Reason Stop Dose Admin Atorvastatin Calcium 10 mg 02/18/17 22:00 02/19/17 21:35 Lipitor - PO 10 mg HS LEIDY Administration Bisacodyl 5 mg 02/19/17 13:23 02/19/17 13:38 Dulcolax - PO 5 mg DAILY PRN Administration CONSTIPATION Carvedilol 6.25 mg 02/18/17 10:00 02/19/17 21:36 Coreg - PO 6.25 mg BID LEIDY Administration Digoxin 0.125 mg 02/18/17 10:00 02/19/17 09:25 Lanoxin - PO 0.125 mg DAILY LEIDY Administration Docusate Sodium 100 mg 02/18/17 10:00 02/19/17 21:35 Colace - PO 100 mg BID LEIDY Administration Insulin Aspart 1 vial 02/18/17 11:00 02/20/17 06:19 Novolog Vial Sliding Scale - SQ Not Given ACHS LEIDY Protocol Melatonin 5 mg 02/20/17 07:23 Melatonin PO HS PRN INSOMNIA Methylnaltrexone [place] 12 mg 02/19/17 14:00 02/19/17 14:48 Relistor - SQ 12 mg DAILY LEIDY Administration Nystatin 1 applic 02/18/17 11:30 02/19/17 09:26 Nystop Powder - TP 1 applic DAILY LEIDY Administration Oxycodone HCl 10 mg 02/18/17 07:33 02/20/17 06:38 Roxicodone - PO 10 mg Q4H PRN Administration PAIN LEVEL 6-10 Senna 2 tab 12/11/17 07:33 Senna - PO HS PRN CONSTIPATION ASSESSMENT/PLAN: Mr. Narvaez is a pleasant 81yo M with a PMHx of Afib on Coumadin who presented to [place] ER s/p fall. Found to have subdural interhemispheric hematoma and L1 compression fracture #L Frontal Interhemispheric Subdural Hematoma - - 2/2 mechanical fall while on Coumadin. S/p Vit K and 4u FFP. Discussed with Dr Covarrubias Neurosurgery, would like to keep INR subtherapeutic around 1.2. Unlikely needs neurosurgical intervention. Can restart Coumadin thursday 02/22. Repeat CT unchanged. # L1 Compression Fracture - 2/2 mechanical fall. No sustained neurological symptoms, but has pain, well controlled w/ Percocet PRN. Discussed MRI findings with Dr Covarrubias, patient has simple fracture and chronic disc herniations causing spinal stenosis that could benefit from semi-elective procedure as outpatient. Patient currently awaiting TLSO back brace. Needs XR Lumbar lateral films and PT eval. If patient has difficulty bearing weight or angulating, he will come re-evaluate. Dispo pending PT eval. Pt already set up with VNS # Constipation - Allready on Colace and Senna, will add Relistor and Dulcolax. Likely because the patient has been in bed without TLSO brace. # Afib - Rate controlled, Continue Coreg 6.25 BID + Digoxin 0.125 daily. Coumadin held for bleed. Risks of stroke vs bleed explained to patient. # CAD - s/p CABG, not in ACS. # HLD - Continue statin # NIDDM - Hold oral hypoglycemics. Continue ISS + BGMs ACHS # Venous Insufficiency - Has venous stasis and edema bilaterally, monitor # FEN - No IVF, elec wnl. NPO for not until repeat Head CT back. # PPx - No pharmacologic AC due to bleed. SCDs. No GI ppx needed. # Dispo - TLSO brace arrives today. Post brace, needs XR and PT eval, will get VNS, may also need ADILENE depending on PT eval d/w Dr Page Simon MD - Resident PGY1 Internal Medicine Visit type - Emergency Visit Emergency Visit: No - New Patient This patient is new to me today: No - Critical Care Critical Care patient: No - Discharge Referral Referred to [facility] Med P.C.: No
[2017-02-20 08:20] LABS: HEMATOCRIT 28.7 % (35.4-49); HEMOGLOBIN 9.7 GM/dL (11.7-16.9); MCH 33.1 pg (25.7-33.7); MCHC 33.6 g/dl (32.0-35.9); MEAN CELL VOLUME 98.6 fl (80-96); MEAN PLT VOLUME 6.6 fl (7.5-11.1); PLATELET COUNT 173 K/MM3 (134-434); RBC 2.91 M/mm3 (4.00-5.60); RDW 15.5 % (11.9-15.9); WHITE BLOOD COUNT 3.7 K/mm3 (4.0-10.0)
[2017-02-20 08:51] LABS: CHLORIDE 97 mmol/L (98-107); SODIUM 134 mmol/L (136-145)
[2017-02-20 08:59] LABS: INR 1.27 (0.82-1.09); PROTHROMBIN TIME (PATIENT) 14.3 SEC (9.98-11.88)
[2017-02-20] MEDS ORDERED: PT OWN MED DRAWER 7, Y5N ONE (09:14)
[2017-02-20 09:23] LABS: ANION GAP 8 (8-16); BLOOD UREA NITROGEN 22 mg/dL (7-18); CALCIUM 10.6 mg/dL (8.5-10.1); CO2 29 mmol/L (21-32); CREATININE 0.9 mg/dL (0.7-1.3); GLUCOSE,RANDOM 105 mg/dL (74-106)
[2017-02-20] MEDS: CARVEDILOL 6.25 MG TABLET (FP) PO SCH ×2 (09:28→21:07)
[2017-02-20] MEDS: DIGOXIN 0.125 MG TABLET (FP) PO SCH (09:28)
[2017-02-20] MEDS: DOCUSATE SODIUM 100 MG CAPSULE (FP) PO SCH ×2 (09:28→21:07)
[2017-02-20] MEDS: NYSTATIN POWDER 100,000 UNITS/GM - 15 GM TOPICAL POWDER TP SCH (09:36)
--- NOTE | 2017-02-20 12:11 | PN ---
Teaching Attending Note Name of Resident: Cirilo Simon ATTENDING PHYSICIAN STATEMENT I saw and evaluated the patient. I reviewed the resident's note and discussed the case with the resident. I agree with the resident's findings and plan as documented. SUBJECTIVE:continues to have back pain. relieved with pain medication. denies Cp , SOB, fever, chills, N/V/C/D OBJECTIVE: Last Vital Signs Temp Pulse Resp BP Pulse Ox 98.7 F 69 18 142/70 100 02/20/17 08:00 02/20/17 09:28 02/20/17 08:00 02/20/17 08:00 02/19/17 22:00 General NAD ASSESSMENT AND PLAN: 81 yo M with PMH CAD s/p CABG, Afib on coumadin, HTN, HLD, NIDDM admitted with mechanical fall a day ago with SDH, Acute L1 compression fracture. 1. Acute L1 compression fracture- s/p mechanical fall. evaluated by neurosurgery. MRI showing disc bulge at L3-L4 and L4-L5 bulge. awaiting TSLO brace. will need XR and PT eval after brace is placed. 2. constipation- due to opiates. no BM. relistor yesterday. start stool softeners 3. SDH- s/p mechanical fall. s/p 4FFP this admission. stable on repeat imaging. no neurological deficits. cont to hold coumadin till thursday 02/22 4. Macrocytic anemia- Hgb stable. no signs of bleeding. iron studies normal. check Vitb12 and folate 5. CAD s/p CABG 6. DM- controlled. re-start metformin and ivonkana on discharge. cont iss, bgm 7. afib on coumadin- rate controlled. coumadin on hold due to SDH. will restart 02/22 8. HTN- controlled 9. dyslipidemia- statin 10. DVT ppx- scd. hold pharmacologic anticoagulation with recent intracranial bleeding 11. PT assessment. may require ADILENE on discharge. if ambulates well with brace can d/c home with TSLO Brace. explained to pt plan of discharge is pending his ability to walk with PT. verbalized understanding of plan
[2017-02-20] MEDS ORDERED: INSULIN (NOVOLOG) ASPART 100 UNITS/ML 10ML VIAL ONE ×2 (12:17→17:17)
[2017-02-20] MEDS: Methylnaltrexone Bromide 12 MG/0.6 ML KIT SQ SCH (17:20)
--- NOTE | 2017-02-20 17:38 | PN ---
Progress Note (short form) - Note Progress Note: Patient remains in bed awaiting his TLSO brace. Neurologically stable. Will review his ability to bear weight and standing plain film radiographs in brace to determine discharge plans. Case and expected recovery reviewed in detail with patient and spouse. All questions answered. I explained that most likely, his simple L1 compression fracture will heal in the brace after 3 months , however, if he develops deficits/cannot stand/angulates in the brace, then he may benefit from focal stabilization. I explained that his L34 & L45 stenosis, which is longstanding, would be potentially incorporated into any treatment plan and that even if he heals completely, these could be electively addresed in the future.
[2017-02-20] MEDS: ATORVASTATIN CA 10 MG TABLET (FP) PO SCH (21:07)
[2017-02-21] MEDS: oxyCODONE HCL 5 MG TABLET PO PRN ×5 (03:30→20:21)
[2017-02-21] MEDS ORDERED: ACETAMINOPHEN 325 MG TABLET (FP) PO ONE (03:40)
[2017-02-21] MEDS: INSULIN SLIDING SCALE (NOVOLOG) 1 VIAL SQ SCH ×4 (06:13→21:10)
--- NOTE | 2017-02-21 06:56 | PN ---
Physical Exam: SUBJECTIVE: Patient seen and examined. Doing well last night. Had back pain last night, well tolerated with pain meds. Still has not received brace yet. OBJECTIVE: Vital Signs Period Temp Pulse Resp BP Sys/Uribe Pulse Ox Last 24 Hr 97.7 F-98.8 F 69-85 18-20 95-142/50-72 97-98 GEN: AAOx3, NAD, Lying very comfortably, smiling HEENT: Pupils reactive, EOMi CV: S1, S2, irregularly irregular rhythm LUNG: Decreased lung sounds at bases, no focal crackles or wheezes ABD: Mild chronic distension from hernia surgeries, but soft, NT MSK: Bilateral venous stasis changes with 1+ pitting edema NEURO: CN 2-12 intact, no facial droop, no sensation or MSK deficits, 5/5 strength throughout. Active Medications Generic Name Dose Route Start Last Admin Trade Name Freq PRN Reason Stop Dose Admin Acetaminophen 650 mg 02/21/17 05:46 Tylenol - PO 02/24/17 05:45 Q4H PRN PAIN Atorvastatin Calcium 10 mg 02/18/17 22:00 02/20/17 21:07 Lipitor - PO 10 mg HS LEIDY Administration Bisacodyl 5 mg 02/19/17 13:23 02/19/17 13:38 Dulcolax - PO 5 mg DAILY PRN Administration CONSTIPATION Carvedilol 6.25 mg 02/18/17 10:00 02/20/17 21:07 Coreg - PO 6.25 mg BID LEIDY Administration Digoxin 0.125 mg 02/18/17 10:00 02/20/17 09:28 Lanoxin - PO 0.125 mg DAILY LEIDY Administration Docusate Sodium 100 mg 02/18/17 10:00 02/20/17 21:07 Colace - PO 100 mg BID LEIDY Administration Insulin Aspart 1 vial 02/18/17 11:00 02/21/17 06:13 Novolog Vial Sliding Scale - SQ Not Given ACHS LEIDY Protocol Melatonin 5 mg 02/20/17 07:23 Melatonin PO HS PRN INSOMNIA Methylnaltrexone [place] 12 mg 02/19/17 14:00 02/20/17 17:20 Relistor - SQ 12 mg DAILY LEIDY Administration Nystatin 1 applic 02/18/17 11:30 02/20/17 09:36 Nystop Powder - TP Not Given DAILY LEIDY Oxycodone HCl 10 mg 02/21/17 05:46 Roxicodone - PO Q4H PRN PAIN Senna 2 tab 02/18/17 07:33 Senna - PO HS PRN CONSTIPATION ASSESSMENT/PLAN: Mr. Narvaez is a pleasant 81yo M with a PMHx of Afib on Coumadin who presented to [place] [facility] s/p fall. Found to have subdural interhemispheric hematoma and L1 compression fracture #L Frontal Interhemispheric Subdural Hematoma - - 2/2 mechanical fall while on Coumadin. S/p Vit K and 4u FFP. INR correctly subtherapeutic. No neurosurgical intervention. Can restart Coumadin tomorrow # L1 Compression Fracture - 2/2 mechanical fall. No sustained neurological symptoms, but has pain, well controlled w/ Percocet PRN. TLSO brace arrived and did not fit, a larger brace being ordered now. Post brace, needs lateral spinal films to assess angulation, and then PT eval to determine dispo. # Constipation - Already on Colace and Senna, added Relistor and Dulcolax. Likely because the patient has been in bed without TLSO brace. # Afib - Rate controlled, Continue Coreg 6.25 BID + Digoxin 0.125 daily. Coumadin held for bleed. Risks of stroke vs bleed explained to patient. # CAD - s/p CABG, not in ACS. # HLD - Continue statin # NIDDM - Hold oral hypoglycemics. Continue ISS + BGMs ACHS # Venous Insufficiency - Has venous stasis and edema bilaterally, monitor # FEN - No IVF, elec wnl. Diabetic diet # PPx - No pharmacologic AC due to bleed. SCDs. No GI ppx needed. # Dispo - Still awaiting TLSO brace. Post brace, needs XR and PT eval, will get VNS, may also need ADILENE depending on PT eval d/w Dr Page Simon MD - Resident PGY1 Internal Medicine Visit type - Emergency Visit Emergency Visit: No - New Patient This patient is new to me today: No - Critical Care Critical Care patient: No - Discharge Referral Referred to [facility] Med P.C.: No
[2017-02-21] MEDS: ACETAMINOPHEN 325 MG TABLET (FP) PO PRN ×4 (08:08→20:20)
[2017-02-21] MEDS ORDERED: PT OWN MED DRAWER 7, Y5N ONE (09:24)
[2017-02-21] MEDS: DOCUSATE SODIUM 100 MG CAPSULE (FP) PO SCH ×2 (10:29→21:09)
[2017-02-21] MEDS: DIGOXIN 0.125 MG TABLET (FP) PO SCH (10:29)
[2017-02-21] MEDS: CARVEDILOL 6.25 MG TABLET (FP) PO SCH ×2 (10:29→21:09)
[2017-02-21] MEDS: BISACODYL 5 MG TABLET.DR (FP) PO PRN (10:30)
[2017-02-21] MEDS: NYSTATIN POWDER 100,000 UNITS/GM - 15 GM TOPICAL POWDER TP SCH (10:30)
[2017-02-21] MEDS: Methylnaltrexone Bromide 12 MG/0.6 ML KIT SQ SCH (11:57)
--- NOTE | 2017-02-21 17:28 | PN ---
Teaching Attending Note Name of Resident: Cirilo Simon ATTENDING PHYSICIAN STATEMENT I saw and evaluated the patient. I reviewed the resident's note and discussed the case with the resident. I agree with the resident's findings and plan as documented. SUBJECTIVE:pain controlled iwth pain medications. denies Cp, SOB, fever, chills OBJECTIVE: Last Vital Signs Temp Pulse Resp BP Pulse Ox 97.8 F 67 18 124/61 98 02/21/17 14:00 02/21/17 14:00 02/21/17 10:00 02/21/17 14:00 02/21/17 09:00 General NAD ASSESSMENT AND PLAN: 81 yo M with PMH CAD s/p CABG, Afib on coumadin, HTN, HLD, NIDDM admitted with mechanical fall a day ago with SDH, Acute L1 compression fracture. 1. Acute L1 compression fracture- s/p mechanical fall. evaluated by neurosurgery. MRI showing disc bulge at L3-L4 and L4-L5 bulge. awaiting TSLO brace. brace today was too small. requiring XL. will need XR and PT eval after brace is placed. 2. constipation- due to opiates. no BM. s/p relistor. on stool softeners. consider additional relistor if no BM by tomorrow 3. SDH- s/p mechanical fall. s/p 4FFP this admission. stable on repeat imaging. no neurological deficits. cont to hold coumadin till thursday 02/22 4. Macrocytic anemia- Hgb stable. no signs of bleeding. iron studies normal. Vitb12 and folate 5. CAD s/p CABG 6. DM- controlled. re-start metformin and ivonkana on discharge. cont iss, bgm 7. afib on coumadin- rate controlled. coumadin on hold due to SDH. will restart 02/22 8. HTN- controlled 9. dyslipidemia- statin 10. DVT ppx- scd. hold pharmacologic anticoagulation with recent intracranial bleeding 11. PT assessment. may require ADILENE on discharge. if ambulates well with brace can d/c home with TSLO Brace. explained to pt plan of discharge is pending his ability to walk with PT. verbalized understanding of plan. can d/c cardiac monitoring
[2017-02-21] MEDS: ATORVASTATIN CA 10 MG TABLET (FP) PO SCH (21:09)
[2017-02-22] MEDS: oxyCODONE HCL 5 MG TABLET PO PRN ×5 (02:07→20:06)
[2017-02-22] MEDS: ACETAMINOPHEN 325 MG TABLET (FP) PO PRN ×5 (02:07→20:03)
[2017-02-22] MEDS: INSULIN SLIDING SCALE (NOVOLOG) 1 VIAL SQ SCH ×4 (06:16→22:20)
--- NOTE | 2017-02-22 07:00 | PN ---
Physical Exam: SUBJECTIVE: Patient seen and examined. Doing well. No signs/symptoms of stroke. Back pain is well controlled OBJECTIVE: Vital Signs Period Temp Pulse Resp BP Sys/Uribe Pulse Ox Last 24 Hr 97.4 F-98.8 F 67-71 18-20 91-134/53-68 98-98 GEN: AAOx3, NAD, Lying very comfortably, smiling HEENT: Pupils reactive, EOMi CV: S1, S2, irregularly irregular rhythm LUNG: Decreased lung sounds at bases, no focal crackles or wheezes ABD: Mild chronic distension from hernia surgeries, but soft, NT MSK: Bilateral venous stasis changes with 1+ pitting edema NEURO: CN 2-12 intact, no facial droop, no sensation or MSK deficits, 5/5 strength throughout. Active Medications Generic Name Dose Route Start Last Admin Trade Name Freq PRN Reason Stop Dose Admin Acetaminophen 650 mg 02/21/17 05:46 02/22/17 02:07 Tylenol - PO 02/24/17 05:45 650 mg Q4H PRN Administration PAIN Atorvastatin Calcium 10 mg 02/18/17 22:00 02/21/17 21:09 Lipitor - PO 10 mg HS LEIDY Administration Bisacodyl 5 mg 02/19/17 13:23 02/21/17 10:30 Dulcolax - PO 5 mg DAILY PRN Administration CONSTIPATION Carvedilol 6.25 mg 02/18/17 10:00 02/21/17 21:09 Coreg - PO 6.25 mg BID LEIDY Administration Digoxin 0.125 mg 02/18/17 10:00 02/21/17 10:29 Lanoxin - PO 0.125 mg DAILY LEIDY Administration Docusate Sodium 100 mg 02/18/17 10:00 02/21/17 21:09 Colace - PO 100 mg BID LEIDY Administration Insulin Aspart 1 vial 02/18/17 11:00 02/22/17 06:16 Novolog Vial Sliding Scale - SQ Not Given ACHS LEIDY Protocol Melatonin 5 mg 02/20/17 07:23 Melatonin PO HS PRN INSOMNIA Methylnaltrexone [place] 12 mg 02/19/17 14:00 02/21/17 11:57 Relistor - SQ 12 mg DAILY LEIDY Administration Nystatin 1 applic 02/18/17 11:30 02/21/17 10:30 Nystop Powder - TP Not Given DAILY LEIDY Oxycodone HCl 10 mg 02/21/17 05:46 02/22/17 02:07 Roxicodone - PO 10 mg Q4H PRN Administration PAIN Senna 2 tab 02/18/17 07:33 Senna - PO HS PRN CONSTIPATION Warfarin Sodium 5 mg 02/22/17 18:00 Coumadin - PO DAILY@1800 [facility] ASSESSMENT/PLAN: Mr. Narvaez is a pleasant 81yo M with a PMHx of Afib on Coumadin who presented to [place] ER s/p fall. Found to have subdural interhemispheric hematoma and L1 compression fracture #L Frontal Interhemispheric Subdural Hematoma - - 2/2 mechanical fall while on Coumadin. S/p Vit K and 4u FFP to make INR subtherapeutic. No neurosurgical intervention. No Coumadin today for surgery tmrw. # L1 Compression Fracture - 2/2 mechanical fall. No sustained neurological symptoms, but has pain, well controlled w/ Percocet PRN. TLSO brace arrived. Pt ambulated well w/ PT. Patient seemed comfortable while walking but was back pain was significant. PT recommends short term physical rehab. Pt also obtained lateral XRs. Not angulating as per Dr Covarrubias. However, on re-examination of the patient states that his back pain is excruciating and bearing weight is difficult. Dr Covarrubias notified. Patient scheduled for vertebral stabilization procedure tmrw. # Constipation - Already on Colace and Senna, added Relistor and Dulcolax. Will order enema # Afib - Rate controlled, Continue Coreg 6.25 BID + Digoxin 0.125 daily. Coumadin held for bleed. Risks of stroke vs bleed explained to patient. # CAD - s/p CABG, not in ACS. # HLD - Continue statin # NIDDM - Well controlled. Continue ISS + BGMs ACHS # Venous Insufficiency - Has venous stasis and edema bilaterally, monitor # FEN - No IVF, elec wnl. Diabetic diet. NPO after midnight # PPx - No pharmacologic AC due to bleed. SCDs. No GI ppx needed. # Dispo - OR tomorrow. No anticoag. NPO after midnight. To SNF on Saturday d/w Dr Page Simon MD - Resident PGY1 Internal Medicine Visit type - Emergency Visit Emergency Visit: No - New Patient This patient is new to me today: No - Critical Care Critical Care patient: No - Discharge Referral Referred to [facility] Med P.C.: No
[2017-02-22] MEDS: CARVEDILOL 6.25 MG TABLET (FP) PO SCH ×2 (10:25→22:04)
[2017-02-22] MEDS: DOCUSATE SODIUM 100 MG CAPSULE (FP) PO SCH ×2 (10:25→22:04)
[2017-02-22] MEDS: DIGOXIN 0.125 MG TABLET (FP) PO SCH (10:25)
[2017-02-22] MEDS: NYSTATIN POWDER 100,000 UNITS/GM - 15 GM TOPICAL POWDER TP SCH (10:53)
--- NOTE | 2017-02-22 11:35 | PN ---
Teaching Attending Note Name of Resident: Cirilo Simon ATTENDING PHYSICIAN STATEMENT I saw and evaluated the patient. I reviewed the resident's note and discussed the case with the resident. I agree with the resident's findings and plan as documented. SUBJECTIVE:no complaints OBJECTIVE: Last Vital Signs Temp Pulse Resp BP Pulse Ox 97.8 F 85 20 105/57 97 02/22/17 06:13 02/22/17 10:25 02/22/17 09:00 02/22/17 06:13 02/22/17 09:00 General NAD ASSESSMENT AND PLAN: 81 yo M with PMH CAD s/p CABG, Afib on coumadin, HTN, HLD, NIDDM admitted with mechanical fall a day ago with SDH, Acute L1 compression fracture. 1. Acute L1 compression fracture- s/p mechanical fall. evaluated by neurosurgery. MRI showing disc bulge at L3-L4 and L4-L5 bulge. awaiting TSLO brace. will need XR and PT eval after brace is placed. 2. constipation- due to opiates. no BM. s/p relistor. on stool softeners.refusing enema 3. SDH- s/p mechanical fall. s/p 4FFP this admission. stable on repeat imaging. no neurological deficits. will start coumadin today 4. Macrocytic anemia- Hgb stable. no signs of bleeding. iron studies normal. Vitb12 and folate 5. CAD s/p CABG 6. DM- controlled. re-start metformin and ivonkana on discharge. cont iss, bgm 7. afib on coumadin- rate controlled. coumadin on hold due to SDH. will restart today 8. HTN- controlled 9. dyslipidemia- statin 10. DVT ppx- scd. hold pharmacologic anticoagulation with recent intracranial bleeding 11. PT assessment. may require ADILENE on discharge. if ambulates well with brace can d/c home with TSLO Brace. explained to pt plan of discharge is pending his ability to walk with PT. verbalized understanding of plan. can d/c cardiac monitoring
[2017-02-22] MEDS: Methylnaltrexone Bromide 12 MG/0.6 ML KIT SQ SCH (11:53)
--- NOTE | 2017-02-22 13:21 | PN ---
Progress Note (short form) - Note Progress Note: Patient fit with appropriate sized TLSO brace for L1 compression fracture. Standing films in brace show good alignment and no angulation. Patient able to stand and bear weight with better pain control. Ambulation still somewhat painful. Patient may resume anticoagulation and be discharged to Rehabiliation. No routine cranial imaging required, however, any change in mental status, exam or development of headaches should be evaluated with non-contrast head CT on an expedited basis. I gave my office information to the patient and will see him in 3 months to assess his fracture healing.
[2017-02-22 17:53] LABS: INR 1.39 (0.82-1.09); PROTHROMBIN TIME (PATIENT) 15.7 SEC (9.98-11.88)
[2017-02-22] MEDS ORDERED: WARFARIN NA 5 MG TABLET (UD) PO SCH (18:00)
[2017-02-22] MEDS ORDERED: MINERAL OIL ENEMA 133 ML ENEMA PR ONE (18:11)
[2017-02-22 18:22] LABS: ANION GAP 6 (8-16); BLOOD UREA NITROGEN 27 mg/dL (7-18); CALCIUM 9.8 mg/dL (8.5-10.1); CHLORIDE 98 mmol/L (98-107); CO2 31 mmol/L (21-32); CREATININE 0.8 mg/dL (0.7-1.3); GLUCOSE,RANDOM 174 mg/dL (74-106); POTASSIUM 5.1 mmol/L (3.5-5.1); SODIUM 135 mmol/L (136-145)
[2017-02-22] MEDS: ATORVASTATIN CA 10 MG TABLET (FP) PO SCH (22:04)
[2017-02-22] MEDS: BISACODYL 5 MG TABLET.DR (FP) PO PRN (22:04)
[2017-02-23] MEDS: oxyCODONE HCL 5 MG TABLET PO PRN (02:50)
[2017-02-23] MEDS: ACETAMINOPHEN 325 MG TABLET (FP) PO PRN (02:50)
[2017-02-23] MEDS ORDERED: GENTAMICIN SO4 80 MG/2 ML VIAL ONE (09:38)
[2017-02-23] MEDS ORDERED: THROMBIN (BOVINE) 5,000 UNIT VIAL TP ONE ×4 (09:38→12:50)
[2017-02-23] MEDS ORDERED: VANCOMYCIN 1,000 MG VIAL (RESTRICTED TO ID ONLY) ONE ×2 (09:38→11:06)
[2017-02-23] MEDS ORDERED: LIDOCAINE 1%/EPI 1:100000 (20 ML MULTI DOSE VIAL) ONE (09:39)
[2017-02-23] MEDS: CARVEDILOL 6.25 MG TABLET (FP) PO SCH ×2 (09:41→21:45)
[2017-02-23] MEDS ORDERED: PROPOFOL 20 ML ONE (10:11)
[2017-02-23] MEDS ORDERED: ROCURONIUM BROMIDE 50 MG/5 ML VIAL ONE ×2 (10:11→11:35)
[2017-02-23] MEDS ORDERED: fentaNYL CITRATE 250 MCG/5 ML VIAL ONE (10:11)
[2017-02-23] MEDS ORDERED: ceFAZolin SODIUM 1 GM VIAL ONE ×2 (10:12→13:34)
[2017-02-23] MEDS ORDERED: DEXAMETHASONE SOD PHOSPHATE 4 MG/1 ML VIAL ONE ×2 (10:12→13:44)
[2017-02-23] MEDS ORDERED: ONDANSETRON 4 MG/2 ML VIAL ONE ×2 (10:12→13:44)
[2017-02-23] MEDS ORDERED: PHENYLEPHRINE HCL 10 MG/1 ML SINGLE DOSE VIAL ONE ×2 (10:44→13:02)
[2017-02-23] MEDS ORDERED: ceFAZolin SODIUM 1 GM VIAL IVPB ONE ×2 (10:45)
[2017-02-23] MEDS ORDERED: LIDOCAINE 1%/EPI 1:100000 (20 ML MULTI DOSE VIAL) IJ ONE (11:07)
[2017-02-23] MEDS ORDERED: VANCOMYCIN 1 GRAM (PRE-DOCKED) 1,000 MG/250 ML BAG IVPB ONE ×2 (11:10)
[2017-02-23] MEDS ORDERED: DESFLURANE GAS 240 ML BOTTLE IH ONE (11:12)
[2017-02-23] MEDS ORDERED: BACITRACIN 50,000 UNITS VIAL TP ONE (11:35)
[2017-02-23] MEDS ORDERED: BUPIVACAINE HCL/PF 0.5% (5MG/ML) 10 ML VIAL ONE ×2 (12:31→12:33)
[2017-02-23] MEDS ORDERED: GLYCOPYRROLATE 0.2 MG/1 ML VIAL ONE (13:36)
[2017-02-23] MEDS ORDERED: NEOSTIGMINE METHYLSULFATE 0.5 MG/ML - 10 ML MDV ONE (13:36)
[2017-02-23] MEDS ORDERED: CALCIUM CHLORIDE 1 GM/10 ML *DISP.SYRIN ONE (13:53)
[2017-02-23] MEDS ORDERED: BUPIVACAINE HCL/PF 0.5% (5MG/ML) 10 ML VIAL IJ ONE (14:00)
--- NOTE | 2017-02-23 14:36 | PN ---
Progress Note (short form) - Note Progress Note: pt not evaluated as been in surgery all day Last Vital Signs Temp Pulse Resp BP Pulse Ox 98 F 63 18 128/70 97 02/23/17 09:30 02/23/17 09:30 02/23/17 09:30 02/23/17 09:30 02/23/17 09:21 81 yo M with PMH CAD s/p CABG, Afib on coumadin, HTN, HLD, NIDDM admitted with mechanical fall a day ago with SDH, Acute L1 compression fracture. 1. Acute L1 compression fracture- s/p mechanical fall. evaluated by neurosurgery. MRI showing disc bulge at L3-L4 and L4-L5 bulge. significant pain on ambulation with brace. after long discussion with neurosurgery, pt decided to go for laminectomy. in OR currently. as per neurosurg can be OOB to chair and ambulating with brace post-op. 2. constipation- due to opiates. no BM. s/p relistor. on stool softeners.refusing enema 3. SDH- s/p mechanical fall. s/p 4FFP this admission. stable on repeat imaging. no neurological deficits. w 4. Macrocytic anemia- Hgb stable. no signs of bleeding. iron studies normal. Vitb12 and folate 5. CAD s/p CABG 6. DM- controlled. re-start metformin and ivonkana on discharge. cont iss, bgm 7. afib on coumadin- rate controlled. coumadin on hold for surgery, can re- start 02/25. will not bridge in setting of neurosurgery. 8. HTN- controlled 9. dyslipidemia- statin 10. DVT ppx- scd. hold pharmacologic anticoagulation with recent intracranial bleeding 11. will need ADILENE on discharge Visit type - Emergency Visit Emergency Visit: Yes ED Registration Date: 02/16/17 Care time: The patient presented to the Emergency Department on the above date and was hospitalized for further evaluation of their emergent condition. - New Patient This patient is new to me today: No - Critical Care Critical Care patient: No - Discharge Referral Referred to [facility] Med P.C.: No
[2017-02-23] MEDS ORDERED: MIDAZOLAM HCL 2 MG/2 ML SINGLE DOSE VIAL ONE (14:44)
[2017-02-23] MEDS ORDERED: HYDROmorphone HCL CARPU-JECT 1 MG/1 ML DISP.SYRIN IVPUSH PRN (14:58)
[2017-02-23] MEDS ORDERED: SODIUM CHLORIDE 1,000 ML IV SCH (15:15)
--- NOTE | 2017-02-23 15:18 | OP ---
Operative Note - Note: Operative Date: 02/23/17 Pre-Operative Diagnosis: L1 compression fracture, spinal stenosis L3/4 and L4/5 Surgeon: Enmanuel Covarrubias Child Care Development Specialist: Rema Rodríguez Anesthesiologist/OPERATOR HELPER: Alexi Olivia Anesthesia: General Estimated Blood Loss (mls): 1,500 Drains, Volume Out (mls): 300 (urine) Blood Volume Replaced (mls): 965 (2 PRBC/FFP) Fluid Volume Replaced (mls): 2,200 (1800 LR 400 NS) Operative Report Dictated: Yes
[2017-02-23 15:24] LABS: HEMOGLOBIN 10.3 GM/dL (11.7-16.9); RBC 3.23 M/mm3 (4.00-5.60); RDW 18.9 % (11.9-15.9)
--- NOTE | 2017-02-23 15:26 | SURG ---
Surgery Top Lift And Automatic Window Repairer Note Top Lift And Automatic Window Repairer: Rema Rodríguez PA-C Date of Service: 02/23/17 Diagnosis: lumbar stenosis L3/L4 and L4/L5, compression fracture of L1 Procedure: posterior fusion of T12 thru L2, laminectomy of L3/L4 and L4/L5 I was present for the entirety of the operative procedure. For further detail, please refer to operative report. Visit type - Case Type Case Type: ED Admission - Emergency Emergency Visit: Yes ED Registration Date: 02/16/17 Care time: The patient presented to the Emergency Department on the above date and was hospitalized for further evaluation of their emergent condition. - New patient This patient is new to me today: Yes Date on this admission: 02/23/17
[2017-02-23] MEDS: LORazepam 2 MG/ML SDV VIAL IVPUSH ONE ×3 (15:32→17:55)
[2017-02-23 15:33] LABS: BASO % 0.4 % (0-2.0); EOS % 0.6 % (0-4.5); HEMATOCRIT 30.5 % (35.4-49); LYMPH % 17.8 % (8-40); MCH 31.9 pg (25.7-33.7); MCHC 33.8 g/dl (32.0-35.9); MEAN CELL VOLUME 94.4 fl (80-96); MEAN PLT VOLUME 6.9 fl (7.5-11.1); MONO % 1.2 % (3.8-10.2); PLATELET COUNT 180 K/MM3 (134-434); WHITE BLOOD COUNT 4.9 K/mm3 (4.0-10.0)
[2017-02-23 15:47] LABS: INR 1.3 (0.82-1.09); PROTHROMBIN TIME (PATIENT) 14.7 SEC (9.98-11.88)
[2017-02-23 15:49] LABS: ANION GAP 8 (8-16); BLOOD UREA NITROGEN 25 mg/dL (7-18); CALCIUM 10.7 mg/dL (8.5-10.1); CHLORIDE 99 mmol/L (98-107); CO2 28 mmol/L (21-32); CREATININE 0.9 mg/dL (0.7-1.3); GLUCOSE,RANDOM 157 mg/dL (74-106); POTASSIUM 5.4 mmol/L (3.5-5.1); SODIUM 135 mmol/L (136-145)
[2017-02-23] MEDS ORDERED: MELATONIN 5 MG TABLETS PO PRN (16:23)
[2017-02-23] MEDS ORDERED: HYDROmorphone HCL CARPU-JECT 2 MG/1 ML DISP.SYRIN ONE (16:24)
[2017-02-23] MEDS: INSULIN SLIDING SCALE (NOVOLOG) 1 VIAL SQ SCH ×2 (17:30→21:58)
[2017-02-23] MEDS: HYDROmorphone HCL CARPU-JECT 2 MG/1 ML DISP.SYRIN IVPB PRN (20:22)
--- NOTE | 2017-02-23 20:50 | CONSULT ---
Consult Consult Specialty:: Pulm/CCM Reason for Consultation:: Post-op spinal surgery - History of Present Illness History of Present Illness: 81yom with PMHx HTN, HLD, NIDDM, CAD, A-fib on coumadin who suffered a mechanical fall c/b SDH and acute L1 compression fracture c/b disc bulge at L3- L4 and L4-L5 bulge with significant pain on ambulation now s/p laminectomy c/b moderate intra-op bleeding w/hypotension and decreased urine output being transferred to ICU for post-op care. In the OR EBL~1500cc. He received 2U PRBC and FFP. On arrival to ICU patient extubated, VSS, somnolent, PEÑA. GLORIA to bulb draining small amt bloody drainage. As per Dr. Morillo 2 U FFP given for INR 1.3. - History Source History Provided By: Patient, Medical Record - Past Medical History Cardio/Vascular: Yes: AFIB, CAD, HTN, Hyperlipdemia Musculoskeletal: Yes: Chronic low back pain Endocrine: Yes: Diabetes Mellitus - Alcohol/Substance Use Hx Alcohol Use: No - Smoking History Smoking history: Former smoker Have you smoked in the past 12 months: No Aproximately how many cigarettes per day: 0 If you are a former smoker, when did you quit?: 1967 Home Medications - Allergies Allergies/Adverse Reactions: Allergies Allergy/AdvReac Type Severity Reaction Status Date / Time No Known Allergies Allergy Verified 02/16/17 09:07 - Home Medications Home Medications: Ambulatory Orders Canagliflozin [Invokana] 300 mg PO DAILY 08/31/16 Carvedilol [Coreg] 6.25 mg PO BID 08/31/16 Digoxin [Lanoxin -] 0.125 mg PO DAILY 08/31/16 Metformin HCl [Glucophage] 1,000 mg PO BID 08/31/16 Simvastatin 20 mg PO ASDIR 08/31/16 Warfarin Sodium [Coumadin] 5 mg PO DAILY 08/31/16 Family Disease History - Family Disease History Family History: Unremarkable Physical Exam Vital Signs: Vital Signs Temperature 98.0 F 02/23/17 18:00 Pulse Rate 77 02/23/17 18:00 Respiratory Rate 15 02/23/17 18:00 Blood Pressure 125/76 02/23/17 18:00 O2 Sat by Pulse Oximetry (%) 100 02/23/17 17:30 Constitutional: Yes: Well Nourished, No Distress, Obese Eyes: Yes: WNL, PERRL HENT: Yes: Atraumatic, Normocephalic Neck: Yes: Supple, Trachea Midline Cardiovascular: Yes: Regular Rate and Rhythm, S1, S2 Respiratory: Yes: CTA Bilaterally Gastrointestinal: Yes: Soft, Abdomen, Obese Renal/: Yes: Wong Present Musculoskeletal: Yes: Back Pain Edema: Yes Edema: LLE: Trace, RLE: Trace Peripheral Pulses WNL: Yes Integumentary: Yes: WNL Wound/Incision: Yes: Clean/Dry, Dressing Dry and Intact, Other (GLORIA draining) Neurological: Yes: Alert, Oriented Labs: CBC, BMP 02/23/17 15:15 02/23/17 15:15 CBC,CMP WBC 4.2 K/mm3 (4.0-10.0) 02/23/17 21:30 RBC 2.79 M/mm3 (4.00-5.60) L 02/23/17 21:30 Hgb 9.0 GM/dL (11.7-16.9) L D 02/23/17 21:30 Hct 26.1 % (35.4-49) L 02/23/17 21:30 MCV 93.5 fl (80-96) 02/23/17 21:30 MCH 32.1 pg (25.7-33.7) 02/23/17 21:30 MCHC 34.4 g/dl (32.0-35.9) 02/23/17 21:30 RDW 18.9 % (11.9-15.9) H 02/23/17 21:30 Plt Count 145 K/MM3 (134-434) 02/23/17 21:30 MPV 6.6 fl (7.5-11.1) L 02/23/17 21:30 Neutrophils % 80.0 % (42.8-82.8) D 02/23/17 15:15 Lymphocytes % 17.8 % (8-40) D 02/23/17 15:15 Monocytes % 1.2 % (3.8-10.2) L 02/23/17 15:15 Eosinophils % 0.6 % (0-4.5) D 02/23/17 15:15 Basophils % 0.4 % (0-2.0) 02/23/17 15:15 Sodium 135 mmol/L (136-145) L 02/23/17 15:15 Potassium 5.4 mmol/L (3.5-5.1) H 02/23/17 15:15 Chloride 99 mmol/L (98-107) 02/23/17 15:15 Carbon Dioxide 28 mmol/L (21-32) 02/23/17 15:15 Anion Gap 8 (8-16) 02/23/17 15:15 BUN 25 mg/dL (7-18) H 02/23/17 15:15 Creatinine 0.9 mg/dL (0.7-1.3) 02/23/17 15:15 Creat Clearance w eGFR > 60 (>60) 02/19/17 05:05 POC Glucometer 120 UNITS (80-120) 02/23/17 06:32 Random Glucose 157 mg/dL (74-106) H 02/23/17 15:15 Calcium 10.7 mg/dL (8.5-10.1) H 02/23/17 15:15 Phosphorus 3.6 mg/dL (2.5-4.9) 02/19/17 05:05 Magnesium 1.9 mg/dL (1.8-2.4) 02/19/17 05:05 Total Bilirubin 0.9 mg/dL (0.2-1.0) 02/19/17 05:05 AST 11 U/L (15-37) L 02/19/17 05:05 ALT 14 U/L (12-78) 02/19/17 05:05 Alkaline Phosphatase 87 U/L (45-117) 02/19/17 05:05 Total Protein 8.5 g/dl (6.4-8.2) H 02/19/17 05:05 Albumin 2.5 g/dl (3.4-5.0) L 02/19/17 05:05 Triglycerides Cancelled 02/19/17 06:30 Cholesterol Cancelled 02/19/17 06:30 Total LDL Cholesterol Cancelled 02/19/17 06:30 HDL Cholesterol Cancelled 02/19/17 06:30 Vitamin B12 377 pg/ml (180-914) 02/20/17 06:45 Serum Folate 9 ng/ml (3.1-17.5) 02/20/17 06:45 Active Medications Acetaminophen (Tylenol -) 650 mg PO Q6H [facility] Stop: 02/24/17 05:45 Last Admin: 02/23/17 21:46 Dose: 650 mg Atorvastatin Calcium (Lipitor -) 10 mg PO HS [facility] Last Admin: 02/23/17 21:46 Dose: 10 mg Bisacodyl (Dulcolax -) 5 mg PO DAILY [facility] Carvedilol (Coreg -) 6.25 mg PO BID [facility] Last Admin: 02/23/17 21:45 Dose: 6.25 mg Chlorhexidine Gluconate (Hibiclens For Decolonization -) 1 applic TP HS [facility] Last Admin: 02/23/17 21:46 Dose: 1 applic Digoxin (Lanoxin -) 0.125 mg PO DAILY [facility] Docusate Sodium (Colace -) 100 mg PO BID [facility] Last Admin: 02/23/17 21:45 Dose: 100 mg Heparin Sodium (Porcine) (Heparin -) 5,000 unit SQ TID [facility] Hydromorphone HCl (Dilaudid Injection -) 1 mg IVPB Q4H PRN PRN Reason: PAIN Last Admin: 02/23/17 20:22 Dose: 1 mg Cefazolin Sodium (Ancef -) 1 gm in 10 mls @ 100 mls/hr IVPUSH Q8H-IV [facility] Last Admin: 02/23/17 21:43 Dose: 100 mls/hr Sodium Chloride (Normal Saline -) 1,000 mls @ 150 mls/hr IV ASDIR [facility] Last Admin: 02/23/17 17:30 Dose: 150 mls/hr Insulin Aspart (Novolog Vial Sliding Scale -) 1 vial SQ ACHS [facility] PRN Reason: Protocol Last Admin: 02/23/17 21:58 Dose: 4 units Melatonin (Melatonin) 5 mg PO HS PRN PRN Reason: INSOMNIA Mupirocin (Bactroban Ointment (For Decolonization) -) 1 applic NS BID [facility] Stop: 02/28/17 21:59 Last Admin: 02/23/17 21:45 Dose: 1 applic Nystatin (Nystop Powder -) 1 applic TP DAILY [facility] Senna (Senna -) 2 tab PO HS PRN PRN Reason: CONSTIPATION Vital Signs Period Temp Pulse Resp BP Sys/Uribe Pulse Ox Last 24 Hr 97.7 F-98.4 F 63-84 11-20 98-143/50-82 97-100 Problem List - Problems (1) Lumbar compression fracture Code(s): S32.000A - WEDGE COMPRESSION FRACTURE OF UNSP LUMBAR VERTEBRA, INIT Qualifiers: Encounter type: initial encounter Lumbar vertebra fracture level: L1 Fracture type: closed Qualified Code(s): S32.010A - Wedge compression fracture of first lumbar vertebra, initial encounter for closed fracture Assessment/Plan 81 yom w mechanical fall c/b SDH and L1 compression fracture with bulging disk and painful ambulation now s/p laminectomy c/b intra-op bleeding Plan: -Trend CBC -Monitor GLORIA drainageoutput -Pain management -Activity as per surgical team -bowel regimen -Advance diet -restart coumadin as per neurosurgery -Cont statin, Coreg 6.25 BID and digoxin 0.125 qd -DVT proh with SCD until Hgb stable
[2017-02-23] MEDS: CEFAZOLIN 1 GM PUSH 1 GM/10 ML DISP.SYRIN IVPUSH SCH (21:43)
[2017-02-23] MEDS: MUPIROCIN 2% TOPICAL OINTMENT FOR DECOLONIZATION NS SCH (21:45)
[2017-02-23] MEDS: DOCUSATE SODIUM 100 MG CAPSULE (FP) PO SCH (21:45)
[2017-02-23] MEDS: ATORVASTATIN CA 10 MG TABLET (FP) PO SCH (21:46)
[2017-02-23] MEDS: CHLORHEXIDINE GLUCONATE 4% CLEANSER FOR DECOLONIZATION TP SCH (21:46)
[2017-02-23] MEDS: ACETAMINOPHEN 325 MG TABLET (FP) PO SCH (21:46)
[2017-02-23 22:05] LABS: HEMATOCRIT 26.1 % (35.4-49); MCH 32.1 pg (25.7-33.7); MCHC 34.4 g/dl (32.0-35.9); MEAN CELL VOLUME 93.5 fl (80-96); MEAN PLT VOLUME 6.6 fl (7.5-11.1); PLATELET COUNT 145 K/MM3 (134-434); RBC 2.79 M/mm3 (4.00-5.60); RDW 18.9 % (11.9-15.9); WHITE BLOOD COUNT 4.2 K/mm3 (4.0-10.0)
[2017-02-23 22:18] LABS: INR 1.3 (0.82-1.09); PROTHROMBIN TIME (PATIENT) 14.7 SEC (9.98-11.88)
[2017-02-24] MEDS: CEFAZOLIN 1 GM PUSH 1 GM/10 ML DISP.SYRIN IVPUSH SCH ×3 (01:16→17:17)
[2017-02-24] MEDS: HYDROmorphone HCL CARPU-JECT 2 MG/1 ML DISP.SYRIN IVPB PRN ×4 (02:23→21:39)
[2017-02-24] MEDS: ACETAMINOPHEN 325 MG TABLET (FP) PO SCH (03:17)
[2017-02-24] MEDS: INSULIN SLIDING SCALE (NOVOLOG) 1 VIAL SQ SCH ×4 (06:14→22:25)
[2017-02-24 06:24] LABS: BASO % 0.1 % (0-2.0); EOS % 0.1 % (0-4.5); HEMATOCRIT 22.5 % (35.4-49); HEMOGLOBIN 7.7 GM/dL (11.7-16.9); LYMPH % 18.8 % (8-40); MCH 32.1 pg (25.7-33.7); MCHC 34.1 g/dl (32.0-35.9); MEAN CELL VOLUME 94.2 fl (80-96); MEAN PLT VOLUME 6.6 fl (7.5-11.1); MONO % 5.2 % (3.8-10.2); NEUT % 75.8 % (42.8-82.8); PLATELET COUNT 142 K/MM3 (134-434); RBC 2.39 M/mm3 (4.00-5.60); WHITE BLOOD COUNT 3.8 K/mm3 (4.0-10.0)
[2017-02-24 06:46] LABS: ALBUMIN 2.3 g/dl (3.4-5.0); ANION GAP 7 (8-16); BILIRUBIN,TOTAL 0.6 mg/dL (0.2-1.0); BLOOD UREA NITROGEN 25 mg/dL (7-18); CHLORIDE 104 mmol/L (98-107); CO2 29 mmol/L (21-32); CREATININE 0.8 mg/dL (0.7-1.3); GLUCOSE,RANDOM 129 mg/dL (74-106); POTASSIUM 4.8 mmol/L (3.5-5.1); SGOT/AST 11 U/L (15-37); SGPT/ALT 14 U/L (12-78); SODIUM 140 mmol/L (136-145); TOT PROT 6.9 g/dl (6.4-8.2)
[2017-02-24 06:47] LABS: ALK PHOS 91 U/L (45-117)
[2017-02-24] MEDS ORDERED: SENNOSIDES 8.6MG TABLET (FP) PO PRN (07:33)
--- NOTE | 2017-02-24 08:18 | PN ---
Progress Note (short form) - Note Progress Note: PULM/CCM Pt seen and examined in ICU 24HR: Now POD #1 L1 compression fracture, spinal stenosis L3/4 and L4/5 H/h down 9--> 7 but hemodynamically stable, minimal out put in GLORIA resting comfortably, pain controlled Vital Signs Temp 98.3 F 02/24/17 06:00 Pulse 69 02/24/17 06:00 Resp 17 02/24/17 06:00 BP 109/55 02/24/17 06:00 Pulse Ox 100 02/24/17 04:00 Intake & Output 02/23/17 02/23/17 02/24/17 11:59 23:59 11:59 Intake Total 1820 3891 2090 Output Total 250 2390 330 Balance 1570 1501 1760 Weight 117.055 kg 115.167 kg Intake: IV 1800 2225 1200 Normal Saline - 1,000 ml 825 1200 @ 150 mls/hr IV ASDIR [facility] Rx#:[id number] IVPB 100 100 Oral 20 0 240 Blood Product 965 Fresh Frozen Plasma 601 550 Output: Drainage 240 30 Right Back 110 30 Urine 250 650 300 Void 300 300 Estimated Blood Loss 1500 Other: Voiding Method Urinal Indwelling Catheter Indwelling Catheter Weight Measurement [facility] Active Medications Atorvastatin Calcium (Lipitor -) 10 mg PO HS [facility] Last Admin: 02/23/17 21:46 Dose: 10 mg Bisacodyl (Dulcolax -) 5 mg PO DAILY [facility] Carvedilol (Coreg -) 6.25 mg PO BID [facility] Last Admin: 02/23/17 21:45 Dose: 6.25 mg Chlorhexidine Gluconate (Hibiclens For Decolonization -) 1 applic TP [facility] Last Admin: 02/23/17 21:46 Dose: 1 applic Digoxin (Lanoxin -) 0.125 mg PO DAILY [facility] Docusate Sodium (Colace -) 100 mg PO BID [facility] Last Admin: 02/23/17 21:45 Dose: 100 mg Heparin Sodium (Porcine) (Heparin -) 5,000 unit SQ TID [facility] Hydromorphone HCl (Dilaudid Injection -) 1 mg IVPB Q4H PRN PRN Reason: PAIN Last Admin: 02/24/17 02:23 Dose: 1 mg Cefazolin Sodium (Ancef -) 1 gm in 10 mls @ 100 mls/hr IVPUSH Q8H-IV [facility] Last Admin: 02/24/17 01:16 Dose: 100 mls/hr Sodium Chloride (Normal Saline -) 1,000 mls @ 150 mls/hr IV ASDIR [facility] Last Admin: 02/23/17 17:30 Dose: 150 mls/hr Insulin Aspart (Novolog Vial Sliding Scale -) 1 vial SQ ACHS [facility] PRN Reason: Protocol Last Admin: 02/24/17 06:14 Dose: 2 units Melatonin (Melatonin) 5 mg PO HS PRN PRN Reason: INSOMNIA Mupirocin (Bactroban Ointment (For Decolonization) -) 1 applic NS BID [facility] Stop: 02/28/17 21:59 Last Admin: 02/23/17 21:45 Dose: 1 applic Nystatin (Nystop Powder -) 1 applic TP DAILY [facility] Senna (Senna -) 2 tab PO HS PRN PRN Reason: CONSTIPATION CBCD WBC 3.8 K/mm3 (4.0-10.0) L 02/24/17 06:00 RBC 2.39 M/mm3 (4.00-5.60) L 02/24/17 06:00 Hgb 7.7 GM/dL (11.7-16.9) L D 02/24/17 06:00 Hct 22.5 % (35.4-49) L 02/24/17 06:00 MCV 94.2 fl (80-96) 02/24/17 06:00 MCHC 34.1 g/dl (32.0-35.9) 02/24/17 06:00 RDW 19.0 % (11.9-15.9) H 02/24/17 06:00 Plt Count 142 K/MM3 (134-434) 02/24/17 06:00 MPV 6.6 fl (7.5-11.1) L 02/24/17 06:00 CMP Sodium 140 mmol/L (136-145) 02/24/17 06:00 Potassium 4.8 mmol/L (3.5-5.1) 02/24/17 06:00 Chloride 104 mmol/L (98-107) 02/24/17 06:00 Carbon Dioxide 29 mmol/L (21-32) 02/24/17 06:00 Anion Gap 7 (8-16) L 02/24/17 06:00 BUN 25 mg/dL (7-18) H 02/24/17 06:00 Creatinine 0.8 mg/dL (0.7-1.3) 02/24/17 06:00 Creat Clearance w eGFR > 60 (>60) 02/24/17 06:00 Calcium 9.0 mg/dL (8.5-10.1) 02/24/17 06:00 Total Bilirubin 0.6 mg/dL (0.2-1.0) D 02/24/17 06:00 AST 11 U/L (15-37) L 02/24/17 06:00 ALT 14 U/L (12-78) 02/24/17 06:00 Alkaline Phosphatase 91 U/L (45-117) 02/24/17 06:00 Total Protein 6.9 g/dl (6.4-8.2) 02/24/17 06:00 Albumin 2.3 g/dl (3.4-5.0) L 02/24/17 06:00 Constitutional: Yes: Well Nourished, No Distress= Eyes: Yes: WNL, PERRL HENT: Yes: Atraumatic, Normocephalic Neck: Yes: Supple, Trachea Midline Cardiovascular: Yes: Regular Rate and Rhythm, S1, S2 Respiratory: Yes: CTA Bilaterally Gastrointestinal: Yes: Soft, Abdomen, Obese, +BS Renal/: Yes: Wong Present Musculoskeletal: Yes: Back Pain, improved Edema: Yes Edema: LLE: Trace, RLE: Trace Peripheral Pulses WNL: Yes x 4 Integumentary: Yes: WNL Wound/Incision: Yes: Clean/Dry, Dressing Dry and Intact, GLORIA with small amt of sang output Neurological: Yes: Alert, Oriented Assessment/Plan 81 yom w mechanical fall c/b SDH and L1 compression fracture with bulging disk and painful ambulation now s/p laminectomy c/b intra-op bleeding Plan: -Trend CBC. 2 x PRBC ordered by surgery, will repeat CBC post -Monitor GLORIA drainageoutput -Pain management -Activity as per surgical team -bowel regimen -Advance diet -restart coumadin as per neurosurgery -Cont statin, Coreg 6.25 BID and digoxin 0.125 qd -DVT --SQH ok per Surg -ok for tele vs floor if approp response to red cells Yves Flores [id number] Critical Care Total Critical Care Time (in minutes): 35 Critical Care Statement: The care of this patient involved high complexity decision making to prevent further life threatening deterioration of the patient 's condition and/or to evaluate & treat vital organ system(s) failure or risk of failure.
[2017-02-24] MEDS ORDERED: PT OWN MED DRAWER 7, Y5N ONE ×3 (08:29→22:07)
--- NOTE | 2017-02-24 08:43 | PN ---
Progress Note (short form) - Note Progress Note: Anesthesia Post op Pt seen and examined S:Alert and awake eating breakfast O: Vital Signs Temperature 98.1 F 02/24/17 08:00 Pulse Rate 76 02/24/17 08:00 Respiratory Rate 02/24/17 08:00 Blood Pressure 104/51 02/24/17 08:00 O2 Sat by Pulse Oximetry (%) 100 02/24/17 04:00 CBC, BMP 02/24/17 06:00 02/24/17 06:00 A/P:Current Active Problems Intracerebral hemorrhage (Acute) Lumbar compression fracture (Acute) s/p decompression fixation of pedicle screws Anemic No apparent anesthesia related complications noted Continue current care Herrera Morgan MD
--- NOTE | 2017-02-24 08:46 | PN ---
Teaching Attending Note Name of Resident: Cirilo Simon ATTENDING PHYSICIAN STATEMENT I saw and evaluated the patient. I reviewed the resident's note and discussed the case with the resident. I agree with the resident's findings and plan as documented. SUBJECTIVE:asymptomatic. states he does not have pain but has not been out of bed. denies Cp, SOB, fever, chills, N/V/D. no BM OBJECTIVE: Last Vital Signs Temp Pulse Resp BP Pulse Ox 98.3 F 69 17 109/55 100 02/24/17 06:00 02/24/17 06:00 02/24/17 06:00 02/24/17 06:00 02/24/17 04:00 Intake & Output 02/21/17 02/22/17 02/23/17 02/24/17 23:59 23:59 23:59 23:59 Intake Total 306 798 7547 2090 Output Total 206 267 5710 330 Balance 75 170 3071 1760 Weight 258 lb 1 oz 253 lb 14.4 oz ASSESSMENT AND PLAN: 81 yo M with PMH CAD s/p CABG, Afib on coumadin, HTN, HLD, NIDDM admitted with mechanical fall a day ago with SDH, Acute L1 compression fracture. 1. Acute L1 compression fracture- s/p mechanical fall. s/p T12-L2 posterior fusion and laminectomy L3-L4 and L4-L5 on 02/23. imaging reviewed. with GLORIA drain with serosangenous drainage 110cc. OOB to chair with TSLO brace. plan for GLORIA to be removed tomorrow. PT assesssment tomorrow. pain control. incentive spirometer. 2. acute blood loss anemia- due to surgery. s/p 2 PRBC and 5 FFP this admission. will give additional 2 units PRBC and check hgb post-txn 3. constipation- due to opiates. will give enema this evening. cont stool softeners 4. SDH- s/p mechanical fall. s/p 4FFP this admission. stable on repeat imaging. no neurological deficits. w 5. CAD s/p CABG 6. DM- controlled. re-start metformin and ivonkana on discharge. cont iss, bgm 7. afib on coumadin- rate controlled. coumadin on hold for surgery, can re- start 02/25. will not bridge in setting of neurosurgery. 8. HTN- controlled 9. dyslipidemia- statin 10. DVT ppx- scd. hold pharmacologic anticoagulation with recent intracranial bleeding 11. will need ADILENE on discharge The care of this patient involved high complexity decision making to prevent further life threatening deterioration of the patient's condition and/or to evaluate & treat vital organ system(s) failure or risk of failure. 38 minutes
[2017-02-24] MEDS: MUPIROCIN 2% TOPICAL OINTMENT FOR DECOLONIZATION NS SCH ×2 (09:38→21:38)
[2017-02-24] MEDS: BISACODYL 5 MG TABLET.DR (FP) PO SCH (09:39)
[2017-02-24] MEDS: DIGOXIN 0.125 MG TABLET (FP) PO SCH (09:39)
[2017-02-24] MEDS: CARVEDILOL 6.25 MG TABLET (FP) PO SCH ×2 (09:39→21:39)
[2017-02-24] MEDS: HEPARIN NA (PORCINE) 5,000 UNITS/ML 1ML VIAL SQ SCH ×3 (09:39→21:39)
[2017-02-24] MEDS: DOCUSATE SODIUM 100 MG CAPSULE (FP) PO SCH ×2 (09:39→21:38)
[2017-02-24] MEDS: NYSTATIN POWDER 100,000 UNITS/GM - 15 GM TOPICAL POWDER TP SCH (09:40)
[2017-02-24] MEDS ORDERED: MINERAL OIL ENEMA 133 ML ENEMA PR ONE (10:50)
--- NOTE | 2017-02-24 14:33 | PN ---
Physical Exam: SUBJECTIVE: Patient seen and examined. Was sad this AM due to prior incident with PACU nurse. States he has no back pain, but has not tried to move. Has not moved bowels since admission. No CP, no SOB, no fevers, chills OBJECTIVE: Vital Signs Period Temp Pulse Resp BP Sys/Uribe Pulse Ox Last 24 Hr 97.7 F-98.4 F 65-84 11-19 85-143/49-84 97-100 GEN: AAOx3, NAD, Lying comfortably. HEENT: Pupils reactive, EOMi CV: S1, S2, irregularly irregular rhythm LUNG: Decreased lung sounds at bases, no focal crackles or wheezes ABD: Mild chronic distension from hernia surgeries, but soft, NT MSK: Back has +GLORIA drain with sanguinous fluid. Bilateral venous stasis changes with 1+ pitting edema NEURO: CN 2-12 intact, no facial droop, no sensation or MSK deficits, 5/5 strength throughout. Active Medications Generic Name Dose Route Start Last Admin Trade Name Freq PRN Reason Stop Dose Admin Atorvastatin Calcium 10 mg 02/23/17 22:00 02/23/17 21:46 Lipitor - PO 10 mg HS [facility] Administration Bisacodyl 5 mg 02/24/17 10:00 02/24/17 09:39 Dulcolax - PO 5 mg DAILY [facility] Administration Carvedilol 6.25 mg 02/23/17 22:00 02/24/17 09:39 Coreg - PO 6.25 mg BID [facility] Administration Chlorhexidine Gluconate 1 applic 02/23/17 22:00 02/23/17 21:46 Hibiclens For Decolonization - TP 1 applic HS [facility] Administration Digoxin 0.125 mg 02/24/17 10:00 02/24/17 09:39 Lanoxin - PO 0.125 mg DAILY [facility] Administration Docusate Sodium 100 mg 02/23/17 22:00 02/24/17 09:39 Colace - PO 100 mg BID [facility] Administration Heparin Sodium (Porcine) 5,000 unit 02/24/17 10:00 02/24/17 14:13 Heparin - SQ 5,000 unit TID [facility] Administration Hydromorphone HCl 1 mg 02/23/17 14:54 02/24/17 10:59 Dilaudid Injection - IVPB 1 mg Q4H PRN Administration PAIN Cefazolin Sodium 1 gm in 10 mls @ 100 mls/hr 02/23/17 22:00 02/24/17 10:59 Ancef - IVPUSH 100 mls/hr Q8H-IV [facility] Administration Insulin Aspart 1 vial 02/23/17 16:30 02/24/17 11:03 Novolog Vial Sliding Scale - SQ 4 units ACHS [facility] Administration Protocol Melatonin 5 mg 02/23/17 16:23 Melatonin PO HS PRN [facility] Mupirocin 1 applic 02/23/17 22:00 02/24/17 09:38 Bactroban Ointment (For Decolonization) - NS 02/28/17 21:59 1 applic BID [facility] Administration Nystatin 1 applic 02/24/17 10:00 02/24/17 09:40 Nystop Powder - TP 1 applic DAILY [facility] Administration Senna 2 tab 02/24/17 07:33 Senna - PO HS PRN CONSTIPATION ASSESSMENT/PLAN: 81yo M with a PMHx of Afib on Coumadin who presented to [place] ER s/p fall. Found to have subdural interhemispheric hematoma and L1 compression fracture #L Frontal Interhemispheric Subdural Hematoma - - 2/2 mechanical fall while on Coumadin. Repeat head CT showed that bleed was stable. S/p Vit K and 4u FFP to make INR subtherapeutic w/ goal around 1.2. No neurosurgical intervention to be done. Continue to hold Coumadin until tmrw. # L1 Compression Fracture - 2/2 mechanical fall. POD #1 from T12-L2 posterior fusion for compression fx and L3/L4 + L4/L5 laminectomy for disc herniations. GLORIA drain in place draining ~ 300cc sanguinous. In ICU for post-op management. Wong to measure Is&Os. # Acute Normocytic Anemia - Secondary to surgical blood loss. Asymptomatic. EBL from procedure was 1,500. Patient received 2uPRBC during procedure, but AM Hgb still dropped to 7.7. Will order another 2uPRBC. CBC post transfusion. # Constipation - Already on Colace and Senna, added Relistor and Dulcolax. Likely because the patient has been in bed for most of hospital stay. Abd looks more distended now, though patient not complaining of pain. Will give another mineral oil enema today. # Afib - Rate controlled, Continue Coreg 6.25 BID + Digoxin 0.125 daily. Hold Coumadin until tmrw # CAD - s/p CABG, not in ACS. # HLD - Continue statin # NIDDM - Well controlled on ISS ACHS. Hold oral hypoglycemics. # Venous Insufficiency - Has venous stasis and edema bilaterally, monitor # FEN - No IVF, elec wnl. Diabetic diet # PPx - No pharmacologic AC due to bleed. SCDs. No GI ppx needed. # Dispo - POD#1 from spinal fixation surgery. Will need PT eval on Saturday and d/ c to SNF. SW has worked on placement. d/w Dr Page Simon MD - PGY1 Internal Medicine Resident Visit type - Emergency Visit Emergency Visit: No - New Patient This patient is new to me today: No - Critical Care Critical Care patient: No - Discharge Referral Referred to [facility] No
[2017-02-24 16:36] LABS: HEMATOCRIT 28.4 % (35.4-49); HEMOGLOBIN 9.6 GM/dL (11.7-16.9); MCH 31.3 pg (25.7-33.7); MCHC 33.9 g/dl (32.0-35.9); MEAN CELL VOLUME 92.3 fl (80-96); MEAN PLT VOLUME 6.7 fl (7.5-11.1); PLATELET COUNT 155 K/MM3 (134-434); RBC 3.08 M/mm3 (4.00-5.60); RDW 18.5 % (11.9-15.9); WHITE BLOOD COUNT 3.9 K/mm3 (4.0-10.0)
[2017-02-24 18:55] LABS: INR 1.27 (0.82-1.09); PROTHROMBIN TIME (PATIENT) 14.3 SEC (9.98-11.88)
[2017-02-24] MEDS: ATORVASTATIN CA 10 MG TABLET (FP) PO SCH (21:39)
[2017-02-24] MEDS: CHLORHEXIDINE GLUCONATE 4% CLEANSER FOR DECOLONIZATION TP SCH (21:39)
[2017-02-25] MEDS: CEFAZOLIN 1 GM PUSH 1 GM/10 ML DISP.SYRIN IVPUSH SCH ×3 (02:00→21:37)
[2017-02-25] MEDS: HEPARIN NA (PORCINE) 5,000 UNITS/ML 1ML VIAL SQ SCH ×3 (06:20→21:40)
[2017-02-25] MEDS: INSULIN SLIDING SCALE (NOVOLOG) 1 VIAL SQ SCH ×4 (06:21→21:53)
[2017-02-25 06:31] LABS: HEMATOCRIT 28.5 % (35.4-49); HEMOGLOBIN 9.6 GM/dL (11.7-16.9); MCH 31.4 pg (25.7-33.7); MCHC 33.8 g/dl (32.0-35.9); MEAN PLT VOLUME 6.6 fl (7.5-11.1); PLATELET COUNT 156 K/MM3 (134-434); RBC 3.07 M/mm3 (4.00-5.60); RDW 19.1 % (11.9-15.9); WHITE BLOOD COUNT 4.4 K/mm3 (4.0-10.0)
[2017-02-25] MEDS ORDERED: INSULIN (NOVOLOG) ASPART 100 UNITS/ML 10ML VIAL ONE ×2 (06:31→17:15)
[2017-02-25 06:48] LABS: INR 1.27 (0.82-1.09); PROTHROMBIN TIME (PATIENT) 14.4 SEC (9.98-11.88)
[2017-02-25 06:52] LABS: ANION GAP 5 (8-16); BLOOD UREA NITROGEN 22 mg/dL (7-18); CALCIUM 9.5 mg/dL (8.5-10.1); CHLORIDE 101 mmol/L (98-107); CO2 32 mmol/L (21-32); CREATININE 0.8 mg/dL (0.7-1.3); GLUCOSE,RANDOM 166 mg/dL (74-106); POTASSIUM 4.7 mmol/L (3.5-5.1); SODIUM 138 mmol/L (136-145)
[2017-02-25] MEDS ORDERED: ACETAMINOPHEN 325 MG TABLET (FP) PO PRN ×4 (10:26→14:47)
[2017-02-25] MEDS: BISACODYL 5 MG TABLET.DR (FP) PO SCH (10:52)
[2017-02-25] MEDS: DOCUSATE SODIUM 100 MG CAPSULE (FP) PO SCH ×2 (10:52→21:38)
[2017-02-25] MEDS: CARVEDILOL 6.25 MG TABLET (FP) PO SCH ×2 (10:52→21:39)
[2017-02-25] MEDS: MUPIROCIN 2% TOPICAL OINTMENT FOR DECOLONIZATION NS SCH ×2 (10:53→21:38)
[2017-02-25] MEDS: DIGOXIN 0.125 MG TABLET (FP) PO SCH (10:53)
[2017-02-25] MEDS: NYSTATIN POWDER 100,000 UNITS/GM - 15 GM TOPICAL POWDER TP SCH (10:55)
[2017-02-25] MEDS ORDERED: HEMOQUE TEST 1 EACH EACH ONE (11:05)
[2017-02-25] MEDS ORDERED: oxyCODONE HCL 5 MG TABLET PO PRN ×4 (11:19→14:47)
--- NOTE | 2017-02-25 11:57 | PN ---
Teaching Attending Note Name of Resident: Ghazal Helms ATTENDING PHYSICIAN STATEMENT I saw and evaluated the patient. I reviewed the resident's note and discussed the case with the resident. I agree with the resident's findings and plan as documented. SUBJECTIVE:states back pain is controlled with pain medication. has not been out of bed like encouraged due to fear of pain. denies CP, SOB< fever, chills, no BM OBJECTIVE: Last Vital Signs Temp Pulse Resp BP Pulse Ox 98.4 F 80 16 128/80 100 02/25/17 06:00 02/25/17 10:53 02/25/17 06:00 02/25/17 06:00 02/25/17 10:10 General NAD Adomen soft slightly distended. ASSESSMENT AND PLAN: 81 yo M with PMH CAD s/p CABG, Afib on coumadin, HTN, HLD, NIDDM admitted with mechanical fall a day ago with SDH, Acute L1 compression fracture. 1. Acute L1 compression fracture- s/p mechanical fall. s/p T12-L2 posterior fusion and laminectomy L3-L4 and L4-L5 on 02/23. imaging reviewed. with GLORIA drain with serosangenous drainage 110cc. OOB to chair with TSLO brace. plan for GLORIA to be removed. PT assessment. pain control. incentive spirometer. 2. acute blood loss anemia- due to surgery. s/p 2 PRBC and 5 FFP this admission. will give additional 2 units PRBC and check hgb post-txn 3. constipation- due to opiates. no response to enema. give relistor x1. check AXR. cont stool softeners 4. SDH- s/p mechanical fall. s/p 4FFP this admission. stable on repeat imaging. no neurological deficits. 5. CAD s/p CABG 6. DM- controlled. re-start metformin and ivonkana on discharge. cont iss, bgm 7. afib on coumadin- rate controlled. coumadin on hold for surgery, can re- start 02/25. will not bridge in setting of neurosurgery. 8. HTN- controlled 9. dyslipidemia- statin 10. DVT ppx- scd. hold pharmacologic anticoagulation with recent intracranial bleeding 11. stable for transfer out of MICU. will need ADILENE on discharge pending neurosurgery eval The care of this patient involved high complexity decision making to prevent further life threatening deterioration of the patient's condition and/or to evaluate & treat vital organ system(s) failure or risk of failure. 32 minutes
--- NOTE | 2017-02-25 12:37 | PN ---
Teaching Attending Note Name of Resident: John Diez ATTENDING PHYSICIAN STATEMENT I saw and evaluated the patient. I reviewed the resident's note and discussed the case with the resident. I agree with the resident's findings and plan as documented. SUBJECTIVE: Pt seen and examined in the ICU. States pain better controlled on oral regimen. Denies headache, nausea or vomiting. No extremity weakness or numbness. OBJECTIVE: Last Vital Signs Temp Pulse Resp BP Pulse Ox 98.4 F 80 16 128/80 100 02/25/17 06:00 02/25/17 10:53 02/25/17 06:00 02/25/17 06:00 02/25/17 10:10 Intake & Output 02/22/17 02/23/17 02/24/17 02/25/17 23:59 23:59 23:59 23:59 Intake Total 470 5711 3740 100 Output Total 300 2640 1315 630 Balance 170 3071 2425 -530 Weight 258 lb 1 oz 253 lb 14.4 oz 253 lb 6.4 oz Gen: NAD at rest Heart: irregular Lung: decreased breath sounds at the bases Abd: soft, nontender Ext: no edema Back: drain with serosanguinous drainage CBC, BMP 02/25/17 06:15 02/25/17 06:15 Active Medications Acetaminophen (Tylenol -) 650 mg PO Q4H PRN PRN Reason: PAIN LEVEL 6-10 Acetaminophen (Tylenol -) 325 mg PO Q4H PRN PRN Reason: pain 1-5 Atorvastatin Calcium (Lipitor -) 10 mg PO [facility] Last Admin: 02/24/17 21:39 Dose: 10 mg Bisacodyl (Dulcolax -) 5 mg PO DAILY [facility] Last Admin: 02/25/17 10:52 Dose: 5 mg Carvedilol (Coreg -) 6.25 mg PO BID [facility] Last Admin: 02/25/17 10:52 Dose: 6.25 mg Chlorhexidine Gluconate (Hibiclens For Decolonization -) 1 applic TP [facility] Last Admin: 02/24/17 21:39 Dose: 1 applic Digoxin (Lanoxin -) 0.125 mg PO DAILY [facility] Last Admin: 02/25/17 10:53 Dose: 0.125 mg Docusate Sodium (Colace -) 100 mg PO BID [facility] Last Admin: 02/25/17 10:52 Dose: 100 mg Heparin Sodium (Porcine) (Heparin -) 5,000 unit SQ TID [facility] Last Admin: 02/25/17 06:20 Dose: 5,000 unit Cefazolin Sodium (Ancef -) 1 gm in 10 mls @ 100 mls/hr IVPUSH Q8H-IV [facility] Last Admin: 02/25/17 10:52 Dose: 100 mls/hr Insulin Aspart (Novolog Vial Sliding Scale -) 1 vial SQ ACHS [facility] PRN Reason: Protocol Last Admin: 02/25/17 12:19 Dose: 4 units Melatonin (Melatonin) 5 mg PO HS PRN PRN Reason: INSOMNIA Methylnaltrexone Mallory (Relistor -) 8 mg SQ ONCE ONE Stop: 02/25/17 11:59 Mupirocin (Bactroban Ointment (For Decolonization) -) 1 applic NS BID [facility] Stop: 02/28/17 21:59 Last Admin: 02/25/17 10:53 Dose: 1 applic Nystatin (Nystop Powder -) 1 applic TP DAILY [facility] Last Admin: 02/25/17 10:55 Dose: 1 applic Oxycodone HCl (Roxicodone -) 5 mg PO Q4H PRN PRN Reason: pain 1-5 Oxycodone HCl (Roxicodone -) 10 mg PO Q4H PRN PRN Reason: PAIN LEVEL 6-10 Senna (Senna -) 2 tab PO HS PRN PRN Reason: CONSTIPATION ASSESSMENT AND PLAN: s/p Fall Subdural Hematoma Lumbar Stenosis L1 compression fracture s/p posterior fusion of T12- L2/Laminectomy L3/L4 and L4/L5 Atrial Fibrillation Hypercholesterolemia - pain control - incentive spirometry - monitor drain output - rate control - resume anticoagulation when ok with surgery - OOB to chair - physical therapy - can monitor on floor
[2017-02-25] MEDS ORDERED: Methylnaltrexone Bromide 12 MG/0.6 ML KIT SQ ONE (13:00)
--- NOTE | 2017-02-25 13:46 | PN ---
Progress Note, Physician History of Present Illness: patient seen and examined at bedside complains of pain in the back - Current Medication List Current Medications: Active Medications Acetaminophen (Tylenol -) 650 mg PO Q4H PRN PRN Reason: PAIN LEVEL 6-10 Acetaminophen (Tylenol -) 325 mg PO Q4H PRN PRN Reason: pain 1-5 Atorvastatin Calcium (Lipitor -) 10 mg PO HS [facility] Last Admin: 02/24/17 21:39 Dose: 10 mg Bisacodyl (Dulcolax -) 5 mg PO DAILY [facility] Last Admin: 02/25/17 10:52 Dose: 5 mg Carvedilol (Coreg -) 6.25 mg PO BID [facility] Last Admin: 02/25/17 10:52 Dose: 6.25 mg Chlorhexidine Gluconate (Hibiclens For Decolonization -) 1 applic TP HS [facility] Last Admin: 02/24/17 21:39 Dose: 1 applic Digoxin (Lanoxin -) 0.125 mg PO DAILY [facility] Last Admin: 02/25/17 10:53 Dose: 0.125 mg Docusate Sodium (Colace -) 100 mg PO BID [facility] Last Admin: 02/25/17 10:52 Dose: 100 mg Heparin Sodium (Porcine) (Heparin -) 5,000 unit SQ TID [facility] Last Admin: 02/25/17 06:20 Dose: 5,000 unit Cefazolin Sodium (Ancef -) 1 gm in 10 mls @ 100 mls/hr IVPUSH Q8H-IV [facility] Last Admin: 02/25/17 10:52 Dose: 100 mls/hr Insulin Aspart (Novolog Vial Sliding Scale -) 1 vial SQ ACHS [facility] PRN Reason: Protocol Last Admin: 02/25/17 12:19 Dose: 4 units Melatonin (Melatonin) 5 mg PO HS PRN PRN Reason: INSOMNIA Mupirocin (Bactroban Ointment (For Decolonization) -) 1 applic NS BID [facility] Stop: 02/28/17 21:59 Last Admin: 02/25/17 10:53 Dose: 1 applic Nystatin (Nystop Powder -) 1 applic TP DAILY [facility] Last Admin: 02/25/17 10:55 Dose: 1 applic Oxycodone HCl (Roxicodone -) 5 mg PO Q4H PRN PRN Reason: pain 1-5 Oxycodone HCl (Roxicodone -) 10 mg PO Q4H PRN PRN Reason: PAIN LEVEL 6-10 Senna (Senna -) 2 tab PO HS PRN PRN Reason: CONSTIPATION - Objective Vital Signs: Vital Signs Temperature 98.4 F 02/25/17 06:00 Pulse Rate 80 02/25/17 10:53 Respiratory Rate 16 02/25/17 06:00 Blood Pressure 128/80 02/25/17 06:00 O2 Sat by Pulse Oximetry (%) 100 02/25/17 10:10 Constitutional: Yes: No Distress, Calm, Obese Eyes: Yes: EOM Intact HENT: Yes: Atraumatic Neck: Yes: Supple Cardiovascular: Yes: Pulse Irregular Respiratory: Yes: CTA Bilaterally Gastrointestinal: Yes: Soft Neurological: Yes: Alert, Oriented, Cran Nerves II-XII Intact, Other (4/5 strength in lower extremities movement mostly inhibited due to pain GLORIA drainage serosangenous) Labs: CBC, BMP 02/25/17 06:15 02/25/17 06:15 INR, PTT INR 1.27 (0.82-1.09) H 02/25/17 06:15 Assessment/Plan 81 yo M with PMH CAD s/p CABG, Afib on coumadin, HTN, HLD, NIDDM admitted with mechanical fall a day ago with SDH, Acute L1 compression fracture. mechanical fall s/p SDH while on coumadin continue to hold coumadin for now acute L1 compression fracture POD#2 s/p T12-L2 posterior fusion and laminectomy L3-L4 and L4-L5 GLORIA drain with serosangenous drainage Change pain control from dilaudid to percocet per patient's request OOC to chair TLSO brace PT consult acute blood loss anemia: secondary to operative blood loss s/p transfusion 2 units yesterday and 2 units during procedure Hb stable at this time trend H/H transfuse PRN Afib: Rate controlled restart coumadin when cleared by surgery and medical team DM: ISS HTN: Continue current medications BP controlled HLD: Continue statin FEN: no IVF no electrolyte issues advance diet PPx: HSQ/SCDs no GI PPx indicated PT consult CCTime 35 min Can transfer to med/surg
--- NOTE | 2017-02-25 15:43 | PN ---
Physical Exam: SUBJECTIVE: Patient seen and examined in ICU. He is complaining of back pain and constipation. No overnight events. OBJECTIVE: Vital Signs Period Temp Pulse Resp BP Sys/Uribe Pulse Ox Last 24 Hr 97.8 F-98.4 F 70-84 14-21 90-142/55-94 100-100 GENERAL: The patient is awake, alert, and fully oriented, in no acute distress. HEAD: Normal with no signs of trauma. EYES: PERRL, extraocular movements intact, ENT: oropharynx clear without exudates, moist mucous membranes. NECK: Trachea midline, full range of motion, supple LUNGS: Breath sounds equal, clear to auscultation bilaterally, no wheezes, no crackles, no accessory muscle use. HEART: Regular rate and rhythm, S1, S2 without murmur, rub or gallop. ABDOMEN: Soft, nontender, nondistended, normoactive bowel sounds, no guarding, no rebound, no hepatosplenomegaly, no masses. EXTREMITIES: 2+ pulses, warm, no edema. NEUROLOGICAL: No facial asymmetry, motor 5/5 in upper extremities, 3/5 in hip flexion, 5/5 in feet b/l, sensation intact, normal speech, gait not observed. PSYCH: Normal mood, normal affect. SKIN: Warm, dry, normal turgor, no rashes or lesions noted, GLORIA drain- serosanguineous fluid-65 cc. Laboratory Results - last 24 hr 02/24/17 02/24/17 02/24/17 16:27 16:27 16:27 WBC 3.9 L RBC 3.08 L D Hgb 9.6 L D Hct 28.4 L D MCV 92.3 MCH 31.3 MCHC 33.9 RDW 18.5 H Plt Count 155 MPV 6.7 L PT with INR 14.30 H INR 1.27 H PTT (Actin FS) 29.5 Sodium Potassium Chloride Carbon Dioxide Anion Gap BUN Creatinine Random Glucose Calcium 02/25/17 02/25/17 02/25/17 06:15 06:15 06:15 WBC 4.4 RBC 3.07 L Hgb 9.6 L Hct 28.5 L MCV 93.0 MCH 31.4 MCHC 33.8 RDW 19.1 H Plt Count 156 MPV 6.6 L PT with INR 14.40 H INR 1.27 H PTT (Actin FS) Sodium 138 Potassium 4.7 Chloride 101 Carbon Dioxide 32 Anion Gap 5 L BUN 22 H Creatinine 0.8 Random Glucose 166 H D Calcium 9.5 Active Medications Generic Name Dose Route Start Last Admin Trade Name Freq PRN Reason Stop Dose Admin Acetaminophen 650 mg 02/25/17 14:47 Tylenol - PO Q4H PRN PAIN LEVEL 6-10 Acetaminophen 325 mg 02/25/17 14:47 Tylenol - PO Q4H PRN pain 1-5 Atorvastatin Calcium 10 mg 02/25/17 22:00 Lipitor - PO HS [facility] Bisacodyl 5 mg 02/26/17 10:00 Dulcolax - PO DAILY [facility] Carvedilol 6.25 mg 02/25/17 22:00 Coreg - PO BID [facility] Digoxin 0.125 mg 02/26/17 10:00 Lanoxin - PO DAILY [facility] Docusate Sodium 100 mg 02/25/17 22:00 Colace - PO BID [facility] Heparin Sodium (Porcine) 5,000 unit 02/25/17 22:00 Heparin - SQ TID [facility] Cefazolin Sodium 1 gm in 10 mls @ 100 mls/hr 02/25/17 18:00 Ancef - IVPUSH Q8H-IV [facility] Insulin Aspart 1 vial 02/25/17 16:30 Novolog Vial Sliding Scale - SQ ACHS [facility] Protocol Melatonin 5 mg 02/25/17 14:47 Melatonin PO HS PRN INSOMNIA Mupirocin 1 applic 02/25/17 22:00 Bactroban Ointment (For Decolonization) - NS 02/28/17 21:59 BID [facility] Nystatin 1 applic 02/26/17 10:00 Nystop Powder - TP DAILY [facility] Oxycodone HCl 5 mg 02/25/17 14:47 Roxicodone - PO Q4H PRN pain 1-5 Oxycodone HCl 10 mg 02/25/17 14:47 Roxicodone - PO Q4H PRN PAIN LEVEL 6-10 Senna 2 tab 02/25/17 14:47 Senna - PO HS PRN CONSTIPATION ASSESSMENT/PLAN: 81 yo M with PMH CAD s/p CABG, Afib on coumadin, HTN, HLD, NIDDM s/p mechanical fall. He is admited for SDH, acute L1 compression fracture. Acute L1 compression fracture- s/p mechanical fall. s/p T12-L2 posterior fusion and laminectomy L3-L4 and L4-L5 on 02/23. imaging reviewed. with GLORIA drain with serosangenous drainage, PT eval., pain control with Oxycodone and Tylenol acute blood loss anemia due to surgery, s/p 2 PRBC and another 2 u post op, 5 FFP constipation due to opiates cont stool softeners Subdural interhemispheric hematoma no surgery recommended s/p mechanical fall, 4FFP given stable on repeat imaging no neurological deficits coumadin held will follow up with Neurosurgery recommendations CAD s/p CABG stable DM controlled, cont iss, bgm will restart home meds at discharge afib on coumadin rate controlled. coumadin on hold for surgery HTN controlled dyslipidemia cont. statin DVT ppx scds F/E/N no/no changes/diabetic diet Disposition stable for transfer to med surg Problem List - Problems (1) Intracerebral hemorrhage Code(s): I61.9 - NONTRAUMATIC INTRACEREBRAL HEMORRHAGE, UNSPECIFIED Qualifiers: Intracerebral hemorrhage etiology: traumatic Encounter type: initial encounter Laterality: unspecified laterality Loss of consciousness presence/ duration: without LOC Qualified Code(s): S06.360A - Traumatic hemorrhage of cerebrum, unspecified, without loss of consciousness, initial encounter (2) Lumbar compression fracture Code(s): S32.000A - WEDGE COMPRESSION FRACTURE OF UNSP LUMBAR VERTEBRA, INIT Qualifiers: Encounter type: initial encounter Lumbar vertebra fracture level: L1 Fracture type: closed Qualified Code(s): S32.010A - Wedge compression fracture of first lumbar vertebra, initial encounter for closed fracture Visit type - Emergency Visit Emergency Visit: Yes ED Registration Date: 02/16/17 Care time: The patient presented to the Emergency Department on the above date and was hospitalized for further evaluation of their emergent condition. - New Patient This patient is new to me today: Yes Date on this admission: 02/25/17 - Critical Care Critical Care patient: Yes Total Critical Care Time (in minutes): 40 Critical Care Statement: The care of this patient involved high complexity decision making to prevent further life threatening deterioration of the patient 's condition and/or to evaluate & treat vital organ system(s) failure or risk of failure.
--- NOTE | 2017-02-25 16:55 | PROC ---
Procedure Note Procedure: Patient seen and examined at bedside with Dr Covarrubias. GLORIA drain pulled with 15cc Serossanginous d/c in bulb, drain with tip fully intact. Patient tolerated procedure well. Incision c/d/i with sara insitu. No evidence of tracking erythema, edema or ecchymosis. Dermabond 4x4 and op site applied.
[2017-02-25] MEDS: SENNOSIDES 8.6MG TABLET (FP) PO PRN (21:38)
[2017-02-25] MEDS: ATORVASTATIN CA 10 MG TABLET (FP) PO SCH (21:39)
[2017-02-25] MEDS: MELATONIN 5 MG TABLETS PO PRN (21:39)
[2017-02-26] MEDS: CEFAZOLIN 1 GM PUSH 1 GM/10 ML DISP.SYRIN IVPUSH SCH ×3 (03:08→18:02)
[2017-02-26] MEDS: HEPARIN NA (PORCINE) 5,000 UNITS/ML 1ML VIAL SQ SCH ×3 (06:32→22:39)
[2017-02-26] MEDS: INSULIN SLIDING SCALE (NOVOLOG) 1 VIAL SQ SCH ×6 (06:32→22:44)
[2017-02-26 08:30] LABS: BASO % 0.1 % (0-2.0); HEMOGLOBIN 9.6 GM/dL (11.7-16.9); LYMPH % 19.4 % (8-40); MCH 30.8 pg (25.7-33.7); MCHC 33.2 g/dl (32.0-35.9); MEAN CELL VOLUME 92.7 fl (80-96); MEAN PLT VOLUME 6.7 fl (7.5-11.1); MONO % 3.8 % (3.8-10.2); NEUT % 76.7 % (42.8-82.8); PLATELET COUNT 173 K/MM3 (134-434); RBC 3.13 M/mm3 (4.00-5.60); WHITE BLOOD COUNT 4.7 K/mm3 (4.0-10.0)
[2017-02-26 09:00] LABS: CHLORIDE 99 mmol/L (98-107); POTASSIUM 4.1 mmol/L (3.5-5.1); SODIUM 137 mmol/L (136-145)
[2017-02-26 09:06] LABS: ALBUMIN 2.4 g/dl (3.4-5.0); ALK PHOS 134 U/L (45-117); ANION GAP 10 (8-16); BILIRUBIN,TOTAL 1.4 mg/dL (0.2-1.0); BLOOD UREA NITROGEN 22 mg/dL (7-18); CALCIUM 9.5 mg/dL (8.5-10.1); CO2 28 mmol/L (21-32); CREATININE 0.7 mg/dL (0.7-1.3); GLUCOSE,RANDOM 153 mg/dL (74-106); PHOSPHOROUS 2.1 mg/dL (2.5-4.9); SGOT/AST 14 U/L (15-37); SGPT/ALT 14 U/L (12-78); TOT PROT 7.8 g/dl (6.4-8.2)
[2017-02-26 09:23] LABS: INR 1.36 (0.82-1.09); PROTHROMBIN TIME (PATIENT) 15.4 SEC (9.98-11.88)
[2017-02-26 09:26] LABS: ACTIVATED PTT 29.8 SECONDS (26.9-34.4)
[2017-02-26] MEDS: MUPIROCIN 2% TOPICAL OINTMENT FOR DECOLONIZATION NS SCH ×2 (10:31→22:40)
[2017-02-26] MEDS: DIGOXIN 0.125 MG TABLET (FP) PO SCH (10:55)
[2017-02-26] MEDS: DOCUSATE SODIUM 100 MG CAPSULE (FP) PO SCH ×2 (10:55→22:39)
[2017-02-26] MEDS: BISACODYL 5 MG TABLET.DR (FP) PO SCH (10:55)
[2017-02-26] MEDS: CARVEDILOL 6.25 MG TABLET (FP) PO SCH ×2 (10:56→22:39)
[2017-02-26] MEDS ORDERED: INSULIN (NOVOLOG) ASPART 100 UNITS/ML 10ML VIAL ONE (11:23)
[2017-02-26] MEDS ORDERED: BISACODYL 10 MG SUPP.RECT PR ONE (13:13)
--- NOTE | 2017-02-26 13:31 | PN ---
Teaching Attending Note Name of Resident: Herrera Moore ATTENDING PHYSICIAN STATEMENT Time of evaluation: 11:30 AM I saw and evaluated the patient. I reviewed the resident's note and discussed the case with the resident. I agree with the resident's findings and plan as documented. SUBJECTIVE: Patient seen and examined. Awake, appropriately conversant, OX3, at bedside , reports some back pain, worsening. Denies any headache. Denies any nausea, vomiting or abdominal pain, had a BM twice since yesterday per him, also patient and report passing gas. No complaints otherwise. OBJECTIVE: Vital Signs Period Temp Pulse Resp BP Sys/Uribe Pulse Ox Last 24 Hr 97.2 F-98.4 F 81-95 18-20 110-139/71-80 94-95 Intake & Output 02/23/17 02/24/17 02/25/17 02/26/17 23:59 23:59 23:59 23:59 Intake Total 5711 3740 1230 375 Output Total 2640 1315 1465 Balance 3071 2425 -235 375 Weight 258 lb 1 oz 253 lb 14.4 oz 253 lb 6.4 oz General: sitting in bed in no acute distress CVS:S1S2 irregular Chest: decreased effort, no rales or wheezing Abdomen: soft, distended, NT, scattered bowel sounds Extremities; no edema musculoskeletal: dressing in place, no drain noted neuro:AAOX3, facial symmetry, EOMI, PERRLA, power 5/5, foot flexion/extension 5/ 5, limited exam otherwise LE from back pain but no focal deficit noted. Home Medication List Medication Instructions Recorded Confirmed Type Canagliflozin [Invokana] 300 mg PO DAILY 08/31/16 02/16/17 History Carvedilol [Coreg] 6.25 mg PO BID 08/31/16 02/16/17 History Digoxin [Lanoxin -] 0.125 mg PO DAILY 08/31/16 02/16/17 History Metformin HCl [Glucophage] 1,000 mg PO BID 08/31/16 02/16/17 History Simvastatin 20 mg PO ASDIR 08/31/16 02/16/17 History Warfarin Sodium [Coumadin] 5 mg PO DAILY 08/31/16 02/16/17 History Active Medications Generic Name Dose Route Start Last Admin Trade Name Freq PRN Reason Stop Dose Admin Acetaminophen 650 mg 02/25/17 14:47 Tylenol - PO Q4H PRN PAIN LEVEL 6-10 Acetaminophen 325 mg 02/25/17 14:47 Tylenol - PO Q4H PRN pain 1-5 Atorvastatin Calcium 10 mg 02/25/17 22:00 02/25/17 21:39 Lipitor - PO 10 mg HS [facility] Administration Bisacodyl 5 mg 02/26/17 10:00 02/26/17 10:55 Dulcolax - PO 5 mg DAILY [facility] Administration Carvedilol 6.25 mg 02/25/17 22:00 02/26/17 10:56 Coreg - PO 6.25 mg BID [facility] Administration Digoxin 0.125 mg 02/26/17 10:00 02/26/17 10:55 Lanoxin - PO 0.125 mg DAILY [facility] Administration Docusate Sodium 100 mg 02/25/17 22:00 02/26/17 10:55 Colace - PO 100 mg BID [facility] Administration Heparin Sodium (Porcine) 5,000 unit 02/25/17 22:00 02/26/17 06:32 Heparin - SQ Not Given TID [facility] Cefazolin Sodium 1 gm in 10 mls @ 100 mls/hr 02/25/17 18:00 02/26/17 11:16 Ancef - IVPUSH 100 mls/hr Q8H-IV [facility] Administration Sodium Phosphate 30 mm/ 510 mls @ 63.75 mls/hr 02/26/17 14:00 Dextrose IVPB 02/26/17 21:59 ONCE ONE Influenza Virus Vaccine Quadrival 60 mcg 02/26/17 11:43 Flulaval Quad [id number] IM 02/26/17 11:44 .ONCE ONE Insulin Aspart 1 vial 02/25/17 16:30 02/26/17 12:02 Novolog Vial Sliding Scale - SQ 2 units ACHS [facility] Administration Protocol Melatonin 5 mg 02/25/17 14:47 02/25/17 21:39 Melatonin PO 5 mg HS PRN Administration INSOMNIA Mupirocin 1 applic 02/25/17 22:00 02/26/17 10:31 Bactroban Ointment (For Decolonization) - NS 02/28/17 21:59 Not Given BID [facility] Nystatin 1 applic 02/26/17 10:00 Nystop Powder - TP DAILY [facility] Oxycodone HCl 5 mg 02/25/17 14:47 Roxicodone - PO Q4H PRN pain 1-5 Oxycodone HCl 10 mg 02/25/17 14:47 Roxicodone - PO Q4H PRN PAIN LEVEL 6-10 Senna 2 tab 02/25/17 14:47 02/25/17 21:38 Senna - PO 2 tab HS PRN Administration CONSTIPATION Laboratory Results - last 24 hr 02/22/17 02/25/17 02/25/17 17:15 12:06 16:52 WBC RBC Hgb Hct MCV MCH MCHC RDW Plt Count MPV Neutrophils % Lymphocytes % Monocytes % Eosinophils % Basophils % PT with INR INR PTT (Actin FS) Sodium Potassium Chloride Carbon Dioxide Anion Gap BUN Creatinine Creat Clearance w eGFR POC Glucometer [phone] Random Glucose Calcium Phosphorus Magnesium Total Bilirubin AST ALT Alkaline Phosphatase Total Protein Albumin Blood Type O POSITIVE Antibody Screen Negative Crossmatch See Detail Crossmatch IS Only See Detail 02/25/17 02/26/17 02/26/17 21:42 07:34 07:34 WBC 4.7 RBC 3.13 L Hgb 9.6 L Hct 29.0 L MCV 92.7 MCH 30.8 MCHC 33.2 RDW 18.0 H Plt Count 173 MPV 6.7 L Neutrophils % 76.7 Lymphocytes % 19.4 Monocytes % 3.8 Eosinophils % 0.0 D Basophils % 0.1 PT with INR 15.40 H INR 1.36 H PTT (Actin FS) 29.8 Sodium Potassium Chloride Carbon Dioxide Anion Gap BUN Creatinine Creat Clearance w eGFR POC Glucometer 174 Random Glucose Calcium Phosphorus Magnesium Total Bilirubin AST ALT Alkaline Phosphatase Total Protein Albumin Blood Type Antibody Screen Crossmatch Crossmatch IS Only 02/26/17 02/26/17 07:34 11:07 WBC RBC Hgb Hct MCV MCH MCHC RDW Plt Count MPV Neutrophils % Lymphocytes % Monocytes % Eosinophils % Basophils % PT with INR INR PTT (Actin FS) Sodium 137 Potassium 4.1 Chloride 99 Carbon Dioxide 28 Anion Gap 10 BUN 22 H Creatinine 0.7 Creat Clearance w eGFR > 60 POC Glucometer 170 Random Glucose 153 H Calcium 9.5 Phosphorus 2.1 L D Magnesium 2.0 Total Bilirubin 1.4 H D AST 14 L D ALT 14 Alkaline Phosphatase 134 H D Total Protein 7.8 Albumin 2.4 L Blood Type Antibody Screen Crossmatch Crossmatch IS Only CT brain - almost resolved bleed, no acute findings ASSESSMENT AND PLAN: 81 yo M with PMH CAD s/p CABG, Afib on coumadin, HTN, HLD, NIDDM admitted with mechanical fall a day ago with SDH, Acute L1 compression fracture s/p T12-L2 posterior fusion and L3-L4/L4-L5 laminectomy mariam 02/23. - Acute L1 compression fracture- s/p mechanical fall. PD #3 T12-L2 posterior fusion and laminectomy L3-L4 and L4-L5 on 02/23. - acute blood loss anemia, likely from surgical blood loss (965 per operative noted). s/p total 4units pRBC and additional FFP since surgery - constipation,? Ileus, abdominal xray noted - SDH- s/p mechanical fall. s/p 4FFP this admission. stable on repeat imaging. no neurological deficits. - CAD s/p CABG - DM- controlled - afib on coumadin- rate controlled. coumadin on hold for surgery, can re- start 02/25. will not bridge in setting of neurosurgery. - HTN- controlled - dyslipidemia- statin Plan: As discussed with , patient called her and was hallucinating this AM, currently OX3, at baseline. CT brain neg for acute bleed, shows almost resolved SDH. Suspect delirium from pain, hospitalization vs narcotic related ( reports prior h/o hallucinations with morphine). Neuro checks q4h for now. GLORIA drain removed, pain control with oxycodone/acetaminophen, PT eval, OOB to chair, TLSO brace, incentive spirometer, taper oxygen as tolerated Coumadin resumption per neurosurgery. Aggressive bowel regimen, senna/colace. s/p relistor x 1 yesterday and enema a day ago. Abdominal xray noted. However abdominal exam currently benign, and non tender. No BM charted, however patient reports passing gas. Check CT A/P non contrast and surgical consult NPO accordingly. Patient currently with no nausea, v omitting or concerning symptoms. Encourage ambulation. Aggressive bowel regimen if no obstruction confirmed on CT A/P. h/H stabilized now, continue to trend. Continue coreg/digoxin/statin. Coumadin resumption per neurosurgery. restart metformin and ivonkana on d/c, ISS, diabetic diet. DVTPPX, on heparin currently, confirm with neurosurgery. Plan discussed with patient and at bedside in detail, all questions answered.
[2017-02-26] MEDS: NYSTATIN POWDER 100,000 UNITS/GM - 15 GM TOPICAL POWDER TP SCH (13:40)
[2017-02-26] MEDS ORDERED: SODIUM PHOSPHATE - 30 MM in DEXTROSE 5%-WATER - 500 ML IVPB ONE (14:00)
[2017-02-26] MEDS ORDERED: FLU VACCINE QUAD 60 MCG/0.5 ML (MDV 17-18) IM ONE (14:00)
--- NOTE | 2017-02-26 14:03 | PN ---
Progress Note (short form) - Note Progress Note: Awake and conversant. (+) back pain. No CP or SOB. Intake & Output 02/23/17 02/24/17 02/25/17 02/26/17 23:59 23:59 23:59 23:59 Intake Total 5711 3740 1230 375 Output Total 2640 1315 1465 Balance 3071 2425 -235 375 Weight 258 lb 1 oz 253 lb 14.4 oz 253 lb 6.4 oz Last Vital Signs Temp Pulse Resp BP Pulse Ox 97.2 F L 94 H 18 139/80 95 02/26/17 10:00 02/26/17 10:55 02/26/17 10:00 02/26/17 10:00 02/26/17 09:00 Active Medications Acetaminophen (Tylenol -) 650 mg PO Q4H PRN PRN Reason: PAIN LEVEL 6-10 Acetaminophen (Tylenol -) 325 mg PO Q4H PRN PRN Reason: pain 1-5 Atorvastatin Calcium (Lipitor -) 10 mg PO HS [facility] Last Admin: 02/25/17 21:39 Dose: 10 mg Bisacodyl (Dulcolax -) 5 mg PO DAILY [facility] Last Admin: 02/26/17 10:55 Dose: 5 mg Carvedilol (Coreg -) 6.25 mg PO BID [facility] Last Admin: 02/26/17 10:56 Dose: 6.25 mg Digoxin (Lanoxin -) 0.125 mg PO DAILY [facility] Last Admin: 02/26/17 10:55 Dose: 0.125 mg Docusate Sodium (Colace -) 100 mg PO BID [facility] Last Admin: 02/26/17 10:55 Dose: 100 mg Heparin Sodium (Porcine) (Heparin -) 5,000 unit SQ TID [facility] Last Admin: 02/26/17 06:32 Dose: Not Given Cefazolin Sodium (Ancef -) 1 gm in 10 mls @ 100 mls/hr IVPUSH Q8H-IV [facility] Last Admin: 02/26/17 11:16 Dose: 100 mls/hr Sodium Phosphate 30 mm/ (Dextrose) 510 mls @ 63.75 mls/hr IVPB ONCE ONE Stop: 02/26/17 21:59 Insulin Aspart (Novolog Vial Sliding Scale -) 1 vial SQ ACHS [facility] PRN Reason: Protocol Last Admin: 02/26/17 12:02 Dose: 2 units Melatonin (Melatonin) 5 mg PO HS PRN PRN Reason: INSOMNIA Last Admin: 02/25/17 21:39 Dose: 5 mg Mupirocin (Bactroban Ointment (For Decolonization) -) 1 applic NS BID [facility] Stop: 02/28/17 21:59 Last Admin: 02/26/17 10:31 Dose: Not Given Nystatin (Nystop Powder -) 1 applic TP DAILY [facility] Last Admin: 02/26/17 13:40 Dose: 1 applic Oxycodone HCl (Roxicodone -) 5 mg PO Q4H PRN PRN Reason: pain 1-5 Oxycodone HCl (Roxicodone -) 10 mg PO Q4H PRN PRN Reason: PAIN LEVEL 6-10 Senna (Senna -) 2 tab PO HS PRN PRN Reason: CONSTIPATION Last Admin: 02/25/17 21:38 Dose: 2 tab Gen: NAD at rest Heart: irregular Lung: decreased breath sounds at the bases Abd: soft, nontender Ext: no edema Laboratory Results - last 24 hr 02/22/17 02/25/17 02/25/17 17:15 12:06 16:52 WBC RBC Hgb Hct MCV MCH MCHC RDW Plt Count MPV Neutrophils % Lymphocytes % Monocytes % Eosinophils % Basophils % PT with INR INR PTT (Actin FS) Sodium Potassium Chloride Carbon Dioxide Anion Gap BUN Creatinine Creat Clearance w eGFR POC Glucometer [phone] Random Glucose Calcium Phosphorus Magnesium Total Bilirubin AST ALT Alkaline Phosphatase Total Protein Albumin Blood Type O POSITIVE Antibody Screen Negative Crossmatch See Detail Crossmatch IS Only See Detail 02/25/17 02/26/17 02/26/17 21:42 07:34 07:34 WBC 4.7 RBC 3.13 L Hgb 9.6 L Hct 29.0 L MCV 92.7 MCH 30.8 MCHC 33.2 RDW 18.0 H Plt Count 173 MPV 6.7 L Neutrophils % 76.7 Lymphocytes % 19.4 Monocytes % 3.8 Eosinophils % 0.0 D Basophils % 0.1 PT with INR 15.40 H INR 1.36 H PTT (Actin FS) 29.8 Sodium Potassium Chloride Carbon Dioxide Anion Gap BUN Creatinine Creat Clearance w eGFR POC Glucometer 174 Random Glucose Calcium Phosphorus Magnesium Total Bilirubin AST ALT Alkaline Phosphatase Total Protein Albumin Blood Type Antibody Screen Crossmatch Crossmatch IS Only 02/26/17 02/26/17 07:34 11:07 WBC RBC Hgb Hct MCV MCH MCHC RDW Plt Count MPV Neutrophils % Lymphocytes % Monocytes % Eosinophils % Basophils % PT with INR INR PTT (Actin FS) Sodium 137 Potassium 4.1 Chloride 99 Carbon Dioxide 28 Anion Gap 10 BUN 22 H Creatinine 0.7 Creat Clearance w eGFR > 60 POC Glucometer 170 Random Glucose 153 H Calcium 9.5 Phosphorus 2.1 L D Magnesium 2.0 Total Bilirubin 1.4 H D AST 14 L D ALT 14 Alkaline Phosphatase 134 H D Total Protein 7.8 Albumin 2.4 L Blood Type Antibody Screen Crossmatch Crossmatch IS Only ASSESSMENT AND PLAN: s/p Fall Subdural Hematoma Lumbar Stenosis L1 compression fracture s/p posterior fusion of T12- L2/Laminectomy L3/L4 and L4/L5 Atrial Fibrillation Hypercholesterolemia - pain control - incentive spirometry - rate control - resume anticoagulation when ok with surgery - OOB to chair - physical therapy Dr Medina
--- NOTE | 2017-02-26 16:27 | PN ---
Physical Exam: SUBJECTIVE: Briefly, 81yo M with hx of Afib on Coumadin here s/p mechanical fall found to have hemorrhage of falx cerebri and L1 compression fracture. In recent events , pt is POD#3 from spinal fusion T12-L2 and laminectomy. Pt noted to be delirious throughout the night [facility] When questioned why he wants to go, pt only stated he felt more comfortable there and would speak in circles. Pt however is alert and oriented x3, but continues to have inappropriate responses this morning to some questioning. Pt only reports how his stomach is bloated. Denies any neurological symptoms, fevers/ chills, headaches, SOB, CP/discomfort. Pt reports flatus and bowel movements of normal character without any blood noted, however there are no reports in medical chart of BM. OBJECTIVE: Vital Signs Period Temp Pulse Resp BP Sys/Uribe Pulse Ox Last 24 Hr 97.2 F-98.1 F 82-95 18-20 122-139/67-80 94-95 GENERAL: NAD, awake, alert, laying in bed HEENT: NC/AT, EOMI, FRANCI, No JVD, no scleral icterus, no tongue deviation or uvula deviation. LUNGS: CTA bilaterally, no wheezes, rhonchi, or rales appreciated. No accessory muscle use. HEART: RRR, S1, S2 without murmur noted ABDOMEN: Soft, distended, hypo-normoactive BS, nontender, no guarding, no rebound, no hepatosplenomegaly, no masses. EXTREMITIES: 2+ DP pulses, warm, well-perfused, no edema. NEUROLOGICAL: Cranial nerves II through XII grossly intact. Strength 5/5 in lower extremities with exception of hip flexion (which could not be assessed). Normal speech, gait not observed. PSYCH: Normal mood, normal affect, cyclical thinking noted. SKIN: Warm, dry, no rashes or lesions noted Laboratory Results - last 24 hr 02/22/17 02/25/17 02/25/17 17:15 12:06 16:52 WBC RBC Hgb Hct MCV MCH MCHC RDW Plt Count MPV Neutrophils % Lymphocytes % Monocytes % Eosinophils % Basophils % PT with INR INR PTT (Actin FS) Sodium Potassium Chloride Carbon Dioxide Anion Gap BUN Creatinine Creat Clearance w eGFR POC Glucometer [phone] Random Glucose Calcium Phosphorus Magnesium Total Bilirubin AST ALT Alkaline Phosphatase Total Protein Albumin Blood Type O POSITIVE Antibody Screen Negative Crossmatch See Detail Crossmatch IS Only See Detail 02/25/17 02/26/17 02/26/17 21:42 07:34 07:34 WBC 4.7 RBC 3.13 L Hgb 9.6 L Hct 29.0 L MCV 92.7 MCH 30.8 MCHC 33.2 RDW 18.0 H Plt Count 173 MPV 6.7 L Neutrophils % 76.7 Lymphocytes % 19.4 Monocytes % 3.8 Eosinophils % 0.0 D Basophils % 0.1 PT with INR 15.40 H INR 1.36 H PTT (Actin FS) 29.8 Sodium Potassium Chloride Carbon Dioxide Anion Gap BUN Creatinine Creat Clearance w eGFR POC Glucometer 174 Random Glucose Calcium Phosphorus Magnesium Total Bilirubin AST ALT Alkaline Phosphatase Total Protein Albumin Blood Type Antibody Screen Crossmatch Crossmatch IS Only 02/26/17 02/26/17 07:34 11:07 WBC RBC Hgb Hct MCV MCH MCHC RDW Plt Count MPV Neutrophils % Lymphocytes % Monocytes % Eosinophils % Basophils % PT with INR INR PTT (Actin FS) Sodium 137 Potassium 4.1 Chloride 99 Carbon Dioxide 28 Anion Gap 10 BUN 22 H Creatinine 0.7 Creat Clearance w eGFR > 60 POC Glucometer 170 Random Glucose 153 H Calcium 9.5 Phosphorus 2.1 L D Magnesium 2.0 Total Bilirubin 1.4 H D AST 14 L D ALT 14 Alkaline Phosphatase 134 H D Total Protein 7.8 Albumin 2.4 L Blood Type Antibody Screen Crossmatch Crossmatch IS Only Active Medications Generic Name Dose Route Start Last Admin Trade Name Valerioq PRN Reason Stop Dose Admin Acetaminophen 650 mg 02/25/17 14:47 Tylenol - PO Q4H PRN PAIN LEVEL 6-10 Acetaminophen 325 mg 02/25/17 14:47 Tylenol - PO Q4H PRN pain 1-5 Atorvastatin Calcium 10 mg 02/25/17 22:00 02/25/17 21:39 Lipitor - PO 10 mg HS [facility] Administration Bisacodyl 5 mg 02/26/17 10:00 02/26/17 10:55 Dulcolax - PO 5 mg DAILY [facility] Administration Carvedilol 6.25 mg 02/25/17 22:00 02/26/17 10:56 Coreg - PO 6.25 mg BID [facility] Administration Digoxin 0.125 mg 02/26/17 10:00 02/26/17 10:55 Lanoxin - PO 0.125 mg DAILY [facility] Administration Docusate Sodium 100 mg 02/25/17 22:00 02/26/17 10:55 Colace - PO 100 mg BID [facility] Administration Heparin Sodium (Porcine) 5,000 unit 02/25/17 22:00 02/26/17 14:00 Heparin - SQ 5,000 unit TID [facility] Administration Cefazolin Sodium 1 gm in 10 mls @ 100 mls/hr 02/25/17 18:00 02/26/17 11:16 Ancef - IVPUSH 100 mls/hr Q8H-IV [facility] Administration Sodium Phosphate 30 mm/ 510 mls @ 63.75 mls/hr 02/26/17 14:00 Dextrose IVPB 02/26/17 21:59 ONCE ONE Insulin Aspart 1 vial 02/25/17 16:30 02/26/17 16:21 Novolog Vial Sliding Scale - SQ Not Given ACHS [facility] Protocol Melatonin 5 mg 02/25/17 14:47 02/25/17 21:39 Melatonin PO 5 mg HS PRN Administration INSOMNIA Mupirocin 1 applic 02/25/17 22:00 02/26/17 10:31 Bactroban Ointment (For Decolonization) - NS 02/28/17 21:59 Not Given BID [facility] Nystatin 1 applic 02/26/17 10:00 02/26/17 13:40 Nystop Powder - TP 1 applic DAILY [facility] Administration Oxycodone HCl 5 mg 02/25/17 14:47 Roxicodone - PO Q4H PRN pain 1-5 Oxycodone HCl 10 mg 02/25/17 14:47 Roxicodone - PO Q4H PRN PAIN LEVEL 6-10 Senna 2 tab 02/25/17 14:47 02/25/17 21:38 Senna - PO 2 tab HS PRN Administration CONSTIPATION ASSESSMENT/PLAN: 81yo M with hx of Afib on coumadin s/p mechanical fall found to have falx cerebri hemorrhage and L1 compression fx. Now PO3 spinal fusion and laminectomy 1) L frontal interhemispheric subdural hematoma --2/2 mechanical fall on Coumadin --S/p Vit K and 4U FFP initially --Spoke to pt's who reports that pt called her in the middle of the night reporting some hallucinations --In light of confusion will repeat Head CT noncontrast stat; showed resolving ICH from previous imaging --Most likely suspect delirium from pain and hospitalization --Currently A&Ox3 and more at baseline upon re-evaluation at later point --Neuro checks q4h for now 2) Abdominal distention --AXR shows diffuse distention with "less likely distal obstruction" however cannot r/o --Will administer dulcolax enema --Senna and Colace already on board --With refractory nature to bowel regiment would order CT Abd without contrast to r/o any obstruction --Most likely due to post-surgical intervention and prior pain medication use, however cannot r/o obstruction based on AXR findings 3) L1 compression fx --2/2 to mechanical fall --POD 3 T12-L2 posterior fusion and laminectomy of L3-L4/L4-L5 --GLORIA drained removed yesterday by neurosurgery with minimal drainage --Discussed with neurosurgery: would recommend resuming Coumadin tomorrow, however ideally will have CT Abd report to hopefully r/o mechanical obstruction. --Hgb stable currently 4) Acute normocytic anemia --Currently 9.6 Hgb today and stable --Resolving 5) Atrial fibrillation --Currently rate controlled --Coreg 6.25mg BID PO --Digoxin 0.125mg PO daily --Holding coumadin now; hopes of resuming tomorrow as above 6) CAD --s/p CABG; not in ACS 7) NIDDM --Remains controlled --ISS --BGM 8) HLD --Continue home statin FEN: Fluids: None currently Electrolyte abnormalities: Hypophosphatemia; repleted with NaPhos; trend tomorrow Nutrition: NPO due to distention for now; most likely will resume soon PPX DVT - SCDs for now; will resume coumadin soon Dispo: Continue M/S mgmt; will begin d/c planning and continue to work with physical therapy Case discussed with Dr. Ubaldo Moore, DO - Internal Medicine PGY-1 Visit type - Emergency Visit Emergency Visit: No - New Patient This patient is new to me today: No - Critical Care Critical Care patient: No
--- NOTE | 2017-02-26 17:21 | PN ---
Progress Note (short form) - Note Progress Note: Patient improving after Lumbar stabilization. Able to ambulate a few steps today with PT while wearing brace. Patient states that this was not possible prior to surgery. CT Abdomen pending to rule out obstruction, however, his abdomen is soft and he is passing gas. It seems that bowel regimen will yield results soon. Head CT unremarkable. He may resume anticoagulation and is ready for discharge to Rehabilitation[facility] from Neurosurgery standpoint. Skin clip removal can be planned for early March.
[2017-02-26] MEDS: SENNOSIDES 8.6MG TABLET (FP) PO PRN (22:39)
[2017-02-26] MEDS: ATORVASTATIN CA 10 MG TABLET (FP) PO SCH (22:39)
[2017-02-27] MEDS ORDERED: PT OWN MED DRAWER 7, Y5N ONE ×2 (02:07→10:02)
[2017-02-27] MEDS: CEFAZOLIN 1 GM PUSH 1 GM/10 ML DISP.SYRIN IVPUSH SCH ×2 (02:32→10:03)
[2017-02-27] MEDS: INSULIN SLIDING SCALE (NOVOLOG) 1 VIAL SQ SCH ×4 (06:31→22:06)
[2017-02-27] MEDS: HEPARIN NA (PORCINE) 5,000 UNITS/ML 1ML VIAL SQ SCH ×2 (06:31→15:53)
--- NOTE | 2017-02-27 07:33 | PN ---
Physical Exam: SUBJECTIVE: No acute events overnight. Pt noted to have continued bowel movements. Pt only complains of some back pain otherwise no new problems voiced. OBJECTIVE: Vital Signs Period Temp Pulse Resp BP Sys/Uribe Pulse Ox Last 24 Hr 97.2 F-98.0 F 78-94 18-18 122-144/67-80 95-98 GENERAL: NAD, awake, alert, laying in bed HEENT: NC/AT, EOMI, FRANCI, No JVD, no scleral icterus, no tongue deviation or uvula deviation. LUNGS: CTA bilaterally, no wheezes, rhonchi, or rales appreciated. No accessory muscle use. HEART: RRR, S1, S2 without murmur noted ABDOMEN: Soft, distended, hypo-normoactive BS, nontender, no guarding, no rebound, no hepatosplenomegaly, no masses. EXTREMITIES: 2+ DP pulses, warm, well-perfused, no edema. NEUROLOGICAL: Cranial nerves II through XII grossly intact. Strength 5/5 in lower extremities. Normal speech, gait not observed. PSYCH: Normal mood, normal affect, cyclical thinking noted. SKIN: Warm, dry, no rashes or lesions noted Laboratory Results - last 24 hr 02/22/17 02/23/17 02/23/17 17:15 18:09 21:56 WBC RBC Hgb Hct MCV MCH MCHC RDW Plt Count MPV Neutrophils % Lymphocytes % Monocytes % Eosinophils % Basophils % PT with INR INR PTT (Actin FS) Sodium Potassium Chloride Carbon Dioxide Anion Gap BUN Creatinine Creat Clearance w eGFR POC Glucometer [phone] Random Glucose Calcium Phosphorus Magnesium Total Bilirubin AST ALT Alkaline Phosphatase Total Protein Albumin Blood Type O POSITIVE Antibody Screen Negative Crossmatch See Detail Crossmatch IS Only See Detail 02/24/17 02/24/17 02/24/17 05:45 10:43 16:56 WBC RBC Hgb Hct MCV MCH MCHC RDW Plt Count MPV Neutrophils % Lymphocytes % Monocytes % Eosinophils % Basophils % PT with INR INR PTT (Actin FS) Sodium Potassium Chloride Carbon Dioxide Anion Gap BUN Creatinine Creat Clearance w eGFR POC Glucometer [phone] 170.22742 Random Glucose Calcium Phosphorus Magnesium Total Bilirubin AST ALT Alkaline Phosphatase Total Protein Albumin Blood Type Antibody Screen Crossmatch Crossmatch IS Only 02/24/17 02/25/17 02/26/17 21:59 06:14 07:34 WBC 4.7 RBC 3.13 L Hgb 9.6 L Hct 29.0 L MCV 92.7 MCH 30.8 MCHC 33.2 RDW 18.0 H Plt Count 173 MPV 6.7 L Neutrophils % 76.7 Lymphocytes % 19.4 Monocytes % 3.8 Eosinophils % 0.0 D Basophils % 0.1 PT with INR INR PTT (Actin FS) Sodium Potassium Chloride Carbon Dioxide Anion Gap BUN Creatinine Creat Clearance w eGFR POC Glucometer [phone] Random Glucose Calcium Phosphorus Magnesium Total Bilirubin AST ALT Alkaline Phosphatase Total Protein Albumin Blood Type Antibody Screen Crossmatch Crossmatch IS Only 02/26/17 02/26/17 02/26/17 07:34 07:34 11:07 WBC RBC Hgb Hct MCV MCH MCHC RDW Plt Count MPV Neutrophils % Lymphocytes % Monocytes % Eosinophils % Basophils % PT with INR 15.40 H INR 1.36 H PTT (Actin FS) 29.8 Sodium 137 Potassium 4.1 Chloride 99 Carbon Dioxide 28 Anion Gap 10 BUN 22 H Creatinine 0.7 Creat Clearance w eGFR > 60 POC Glucometer 170 Random Glucose 153 H Calcium 9.5 Phosphorus 2.1 L D Magnesium 2.0 Total Bilirubin 1.4 H D AST 14 L D ALT 14 Alkaline Phosphatase 134 H D Total Protein 7.8 Albumin 2.4 L Blood Type Antibody Screen Crossmatch Crossmatch IS Only 02/26/17 02/26/17 02/26/17 16:10 18:51 22:43 WBC RBC Hgb Hct MCV MCH MCHC RDW Plt Count MPV Neutrophils % Lymphocytes % Monocytes % Eosinophils % Basophils % PT with INR INR PTT (Actin FS) Sodium Potassium Chloride Carbon Dioxide Anion Gap BUN Creatinine Creat Clearance w eGFR POC Glucometer 163 171 176 Random Glucose Calcium Phosphorus Magnesium Total Bilirubin AST ALT Alkaline Phosphatase Total Protein Albumin Blood Type Antibody Screen Crossmatch Crossmatch IS Only 02/27/17 06:30 WBC RBC Hgb Hct MCV MCH MCHC RDW Plt Count MPV Neutrophils % Lymphocytes % Monocytes % Eosinophils % Basophils % PT with INR INR PTT (Actin FS) Sodium Potassium Chloride Carbon Dioxide Anion Gap BUN Creatinine Creat Clearance w eGFR POC Glucometer 171 Random Glucose Calcium Phosphorus Magnesium Total Bilirubin AST ALT Alkaline Phosphatase Total Protein Albumin Blood Type Antibody Screen Crossmatch Crossmatch IS Only Active Medications Generic Name Dose Route Start Last Admin Trade Name Freq PRN Reason Stop Dose Admin Acetaminophen 650 mg 02/25/17 14:47 Tylenol - PO Q4H PRN PAIN LEVEL 6-10 Acetaminophen 325 mg 02/25/17 14:47 Tylenol - PO Q4H PRN pain 1-5 Atorvastatin Calcium 10 mg 02/25/17 22:00 02/26/17 22:39 Lipitor - PO 10 mg HS [facility] Administration Bisacodyl 5 mg 02/26/17 10:00 02/26/17 10:55 Dulcolax - PO 5 mg DAILY [facility] Administration Carvedilol 6.25 mg 02/25/17 22:00 02/26/17 22:39 Coreg - PO 6.25 mg BID [facility] Administration Digoxin 0.125 mg 02/26/17 10:00 02/26/17 10:55 Lanoxin - PO 0.125 mg DAILY [facility] Administration Docusate Sodium 100 mg 02/25/17 22:00 02/26/17 22:39 Colace - PO 100 mg BID [facility] Administration Heparin Sodium (Porcine) 5,000 unit 02/25/17 22:00 02/27/17 06:31 Heparin - SQ 5,000 unit TID [facility] Administration Cefazolin Sodium 1 gm in 10 mls @ 100 mls/hr 02/25/17 18:00 02/27/17 02:32 Ancef - IVPUSH 100 mls/hr Q8H-IV [facility] Administration Insulin Aspart 1 vial 02/25/17 16:30 02/27/17 06:31 Novolog Vial Sliding Scale - SQ 2 units ACHS [facility] Administration Protocol Melatonin 5 mg 02/25/17 14:47 02/25/17 21:39 Melatonin PO 5 mg HS PRN Administration INSOMNIA Mupirocin 1 applic 02/25/17 22:00 02/26/17 22:40 Bactroban Ointment (For Decolonization) - NS 02/28/17 21:59 Not Given BID [facility] Nystatin 1 applic 02/26/17 10:00 02/26/17 13:40 Nystop Powder - TP 1 applic DAILY [facility] Administration Oxycodone HCl 5 mg 02/25/17 14:47 Roxicodone - PO Q4H PRN pain 1-5 Oxycodone HCl 10 mg 02/25/17 14:47 Roxicodone - PO Q4H PRN PAIN LEVEL 6-10 Senna 2 tab 02/25/17 14:47 02/26/17 22:39 Senna - PO 2 tab HS PRN Administration CONSTIPATION ASSESSMENT/PLAN: 81yo M with hx of Afib on coumadin s/p mechanical fall found to have falx cerebri hemorrhage and L1 compression fx. Now POD4 spinal fusion and laminectomy 1) L frontal interhemispheric subdural hematoma --2/2 mechanical fall on Coumadin --S/p Vit K and 4U FFP initially --Spoke to pt's who reports that pt was delirious this AM --Pt currently Oriented x3 --Rpt head CT noncontrast from previous day showed resolving ICH --Most likely 2/2 to pain, hospitalization, and some narcotic usage 2) Abdominal distention --Resolving --Continues to have BM --Continue Senna and Colace 3) L1 compression fx --2/2 to mechanical fall --POD 4 T12-L2 posterior fusion and laminectomy of L3-L4/L4-L5 --Hgb stable currently 4) Acute normocytic anemia --Currently 9.6 Hgb today and stable --Resolving 5) Atrial fibrillation --Currently rate controlled --Coreg 6.25mg BID PO --Digoxin 0.125mg PO daily --RESTARTED Coumadin 5mg PO --Check INR tomorrow; previous INR from 02/26 1.34 6) CAD --s/p CABG; not in ACS 7) NIDDM --Remains controlled --ISS --BGM 8) HLD --Continue home statin FEN: Fluids: None currently Electrolyte abnormalities: Hypophosphatemia; repleted; continue to trend Nutrition: Diabetic and sodium controlled diet PPX DVT - SCDs for now; will resume coumadin soon Dispo: Continue M/S mgmt; will begin d/c planning for tomorrow to [place] Case discussed with Dr. Ubaldo Moore, DO - Internal Medicine PGY-1 Visit type - Emergency Visit Emergency Visit: No - New Patient This patient is new to me today: No - Critical Care Critical Care patient: No
[2017-02-27 08:04] LABS: ALBUMIN 2.4 g/dl (3.4-5.0); ANION GAP 9 (8-16); BLOOD UREA NITROGEN 19 mg/dL (7-18); CALCIUM 9.5 mg/dL (8.5-10.1); CHLORIDE 96 mmol/L (98-107); CO2 31 mmol/L (21-32); GLUCOSE,RANDOM 144 mg/dL (74-106); MAGNESIUM 1.9 mg/dL (1.8-2.4); PHOSPHOROUS 2.6 mg/dL (2.5-4.9); POTASSIUM 4.2 mmol/L (3.5-5.1); SGOT/AST 18 U/L (15-37); SODIUM 136 mmol/L (136-145)
[2017-02-27 08:06] LABS: ALK PHOS 145 U/L (45-117); BILIRUBIN,TOTAL 1.3 mg/dL (0.2-1.0); CREATININE 0.7 mg/dL (0.7-1.3); SGPT/ALT 14 U/L (12-78); TOT PROT 7.7 g/dl (6.4-8.2)
[2017-02-27] MEDS: DOCUSATE SODIUM 100 MG CAPSULE (FP) PO SCH ×2 (09:59→22:04)
[2017-02-27] MEDS: DIGOXIN 0.125 MG TABLET (FP) PO SCH (09:59)
[2017-02-27] MEDS: CARVEDILOL 6.25 MG TABLET (FP) PO SCH ×2 (09:59→22:04)
[2017-02-27] MEDS: BISACODYL 5 MG TABLET.DR (FP) PO SCH (09:59)
[2017-02-27] MEDS: MUPIROCIN 2% TOPICAL OINTMENT FOR DECOLONIZATION NS SCH ×2 (10:00→22:06)
[2017-02-27] MEDS: NYSTATIN POWDER 100,000 UNITS/GM - 15 GM TOPICAL POWDER TP SCH (10:00)
[2017-02-27] MEDS ORDERED: INSULIN (NOVOLOG) ASPART 100 UNITS/ML 10ML VIAL ONE ×2 (11:33→17:41)
[2017-02-27] MEDS: WARFARIN NA 5 MG TABLET (UD) PO SCH ×2 (17:11→17:26)
--- NOTE | 2017-02-27 18:24 | PN ---
Teaching Attending Note Name of Resident: Herrera Moore ATTENDING PHYSICIAN STATEMENT Tme of evaluation: 11:10 Am I saw and evaluated the patient. I reviewed the resident's note and discussed the case with the resident. I agree with the resident's findings and plan as documented. SUBJECTIVE: Patient seen and examined. No abdominal pain. Still with back pain but better. No headache or new complaints. OBJECTIVE: Vital Signs Period Temp Pulse Resp BP Sys/Uribe Pulse Ox Last 24 Hr 97.4 F-98.0 F 78-89 18-18 110-153/67-77 95-98 Intake & Output 02/24/17 02/25/17 02/26/17 02/27/17 23:59 23:59 23:59 23:59 Intake Total 3740 1230 1445 1735 Output Total 1315 1465 Balance 2425 -235 1445 1735 Weight 253 lb 14.4 oz 253 lb 6.4 oz General; lying in bed in no acute distress CVS:S1S2 irregular Chest: decreased effort, no rales or wheezing Abdomen: soft, less distended, NT, positive bowel sounds neuro AAOx3, unchanged exam Home Medication List Medication Instructions Recorded Confirmed Type Canagliflozin [Invokana] 300 mg PO DAILY 08/31/16 02/16/17 History Carvedilol [Coreg] 6.25 mg PO BID 08/31/16 02/16/17 History Digoxin [Lanoxin -] 0.125 mg PO DAILY 08/31/16 02/16/17 History Metformin HCl [Glucophage] 1,000 mg PO BID 08/31/16 02/16/17 History Simvastatin 20 mg PO ASDIR 08/31/16 02/16/17 History Warfarin Sodium [Coumadin] 5 mg PO DAILY 08/31/16 02/16/17 History Active Medications Generic Name Dose Route Start Last Admin Trade Name Freq PRN Reason Stop Dose Admin Acetaminophen 650 mg 02/25/17 14:47 Tylenol - PO Q4H PRN PAIN LEVEL 6-10 Acetaminophen 325 mg 02/25/17 14:47 Tylenol - PO Q4H PRN pain 1-5 Atorvastatin Calcium 10 mg 02/25/17 22:00 02/26/17 22:39 Lipitor - PO 10 mg HS [facility] Administration Bisacodyl 5 mg 02/26/17 10:00 02/27/17 09:59 Dulcolax - PO 5 mg DAILY [facility] Administration Carvedilol 6.25 mg 02/25/17 22:00 02/27/17 09:59 Coreg - PO 6.25 mg BID [facility] Administration Digoxin 0.125 mg 02/26/17 10:00 02/27/17 09:59 Lanoxin - PO 0.125 mg DAILY [facility] Administration Docusate Sodium 100 mg 02/25/17 22:00 02/27/17 09:59 Colace - PO 100 mg BID [facility] Administration Insulin Aspart 1 vial 02/25/17 16:30 02/27/17 17:11 Novolog Vial Sliding Scale - SQ Not Given ACHS [facility] Protocol Melatonin 5 mg 02/25/17 14:47 02/25/17 21:39 Melatonin PO 5 mg HS PRN Administration INSOMNIA Mupirocin 1 applic 02/25/17 22:00 02/27/17 10:00 Bactroban Ointment (For Decolonization) - NS 02/28/17 21:59 Not Given BID [facility] Nystatin 1 applic 02/26/17 10:00 02/27/17 10:00 Nystop Powder - TP 1 applic DAILY [facility] Administration Oxycodone HCl 5 mg 02/25/17 14:47 Roxicodone - PO Q4H PRN pain 1-5 Oxycodone HCl 10 mg 02/25/17 14:47 Roxicodone - PO Q4H PRN PAIN LEVEL 6-10 Senna 2 tab 02/25/17 14:47 02/26/17 22:39 Senna - PO 2 tab HS PRN Administration CONSTIPATION Warfarin Sodium 5 mg 02/27/17 18:00 02/27/17 17:26 Coumadin - PO 5 mg DAILY@1800 [facility] Administration Laboratory Results - last 24 hr 02/22/17 02/23/17 02/23/17 17:15 18:09 21:56 Sodium Potassium Chloride Carbon Dioxide Anion Gap BUN Creatinine Creat Clearance w eGFR POC Glucometer 216.53816 201.23938 Random Glucose Calcium Phosphorus Magnesium Total Bilirubin AST ALT Alkaline Phosphatase Total Protein Albumin Blood Type O POSITIVE Antibody Screen Negative Crossmatch See Detail Crossmatch IS Only See Detail 02/24/17 02/24/17 02/24/17 05:45 10:43 16:56 Sodium Potassium Chloride Carbon Dioxide Anion Gap BUN Creatinine Creat Clearance w eGFR POC Glucometer 174.61745 228.66989 170.61654 Random Glucose Calcium Phosphorus Magnesium Total Bilirubin AST ALT Alkaline Phosphatase Total Protein Albumin Blood Type Antibody Screen Crossmatch Crossmatch IS Only 02/24/17 02/25/17 02/26/17 21:59 06:14 18:51 Sodium Potassium Chloride Carbon Dioxide Anion Gap BUN Creatinine Creat Clearance w eGFR POC Glucometer 206.14507 198.31069 171 Random Glucose Calcium Phosphorus Magnesium Total Bilirubin AST ALT Alkaline Phosphatase Total Protein Albumin Blood Type Antibody Screen Crossmatch Crossmatch IS Only 02/26/17 02/27/17 02/27/17 22:43 06:30 07:15 Sodium 136 Potassium 4.2 Chloride 96 L Carbon Dioxide 31 Anion Gap 9 BUN 19 H Creatinine 0.7 Creat Clearance w eGFR > 60 POC Glucometer 176 171 Random Glucose 144 H Calcium 9.5 Phosphorus 2.6 D Magnesium 1.9 Total Bilirubin 1.3 H AST 18 D ALT 14 Alkaline Phosphatase 145 H Total Protein 7.7 Albumin 2.4 L Blood Type Antibody Screen Crossmatch Crossmatch IS Only 02/27/17 02/27/17 11:31 17:10 Sodium Potassium Chloride Carbon Dioxide Anion Gap BUN Creatinine Creat Clearance w eGFR POC Glucometer 234 145 Random Glucose Calcium Phosphorus Magnesium Total Bilirubin AST ALT Alkaline Phosphatase Total Protein Albumin Blood Type Antibody Screen Crossmatch Crossmatch IS Only CT A/P results reviewed ASSESSMENT AND PLAN: 81 yo M with PMH CAD s/p CABG, Afib on coumadin, HTN, HLD, NIDDM admitted with mechanical fall a day ago with SDH, Acute L1 compression fracture s/p T12-L2 posterior fusion and L3-L4/L4-L5 laminectomy mariam 02/23. - Acute L1 compression fracture- s/p mechanical fall. PD #3 T12-L2 posterior fusion and laminectomy L3-L4 and L4-L5 on 02/23. - acute blood loss anemia, likely from surgical blood loss (965 per operative noted). s/p total 4units pRBC and additional FFP since surgery - constipation,? Ileus, abdominal xray noted - SDH- s/p mechanical fall. s/p 4FFP this admission. stable on repeat imaging. no neurological deficits. - CAD s/p CABG - DM- controlled - afib on coumadin- rate controlled. coumadin on hold for surgery, can re- start 02/25. will not bridge in setting of neurosurgery. - HTN- controlled - dyslipidemia- statin Plan: As discussed with , patient called her and was hallucinating this AM, currently OX3, at baseline. CT brain neg for acute bleed, shows almost resolved SDH. Suspect delirium from pain, hospitalization vs narcotic related ( reports prior h/o hallucinations with morphine). Neuro checks q4h for now. GLORIA drain removed, pain control with oxycodone/acetaminophen, PT eval, OOB to chair, TLSO brace, incentive spirometer, taper oxygen as tolerated Coumadin resumption today as discussed with neurosurgery. s/p BM, CT A/P non concerning. Bowel regimen on narcotics. Encourage ambulation. h/H stabilized now, continue to trend. Continue coreg/digoxin/statin. Coumadin resumption per neurosurgery. restart metformin and ivonkana on d/c, ISS, diabetic diet. DVTPPX, on heparin currently, started on coumadin today. Plan for d/c to [facility] in 24 hours as disposition arranged. Plan discussed with patient and at bedside in detail, all questions answered
[2017-02-27] MEDS: SENNOSIDES 8.6MG TABLET (FP) PO PRN (22:04)
[2017-02-27] MEDS: ATORVASTATIN CA 10 MG TABLET (FP) PO SCH (22:04)
[2017-02-27] MEDS: MELATONIN 5 MG TABLETS PO PRN (22:04)
[2017-02-28] MEDS: INSULIN SLIDING SCALE (NOVOLOG) 1 VIAL SQ SCH ×2 (06:41→11:26)
[2017-02-28] MEDS ORDERED: PT OWN MED DRAWER 7, Y5N ONE (06:47)
[2017-02-28] MEDS ORDERED: INSULIN (NOVOLOG) ASPART 100 UNITS/ML 10ML VIAL ONE (06:47)
[2017-02-28] MEDS ORDERED: INSULIN DETEMIR 100 UNITS/ML MDV SQ ONE (06:47)
--- NOTE | 2017-02-28 07:16 | DS ---
Physical Exam: SUBJECTIVE: No events overnight per nursing. Pt's only complaint is that he couldn't sleep. Pt reports continued bowel movements and no new symptoms. OBJECTIVE: Vital Signs Period Temp Pulse Resp BP Sys/Uribe Pulse Ox Last 24 Hr 97.5 F-98.6 F 81-86 18-18 110-153/61-87 95-96 PHYSICAL EXAM GENERAL: NAD, awake, alert, laying in bed HEENT: NC/AT, EOMI, FRANCI, No JVD, no scleral icterus, no tongue deviation or uvula deviation. LUNGS: CTA bilaterally, no wheezes, rhonchi, or rales appreciated. No accessory muscle use. HEART: RRR, S1, S2 without murmur noted ABDOMEN: Soft, distended, hypo-normoactive BS, nontender, no guarding, no rebound, no hepatosplenomegaly, no masses. EXTREMITIES: 2+ DP pulses, warm, well-perfused, no edema. NEUROLOGICAL: Cranial nerves II through XII grossly intact. Strength 5/5 in lower extremities. Normal speech, gait not observed. PSYCH: Normal mood, normal affect, more appropriate thinking today SKIN: Warm, dry, no rashes or lesions noted LABS Laboratory Results - last 24 hr 02/22/17 02/24/17 02/24/17 17:15 16:56 21:59 Sodium Potassium Chloride Carbon Dioxide Anion Gap BUN Creatinine Creat Clearance w eGFR POC Glucometer 170.82918 206.11207 Random Glucose Calcium Phosphorus Magnesium Total Bilirubin AST ALT Alkaline Phosphatase Total Protein Albumin Blood Type O POSITIVE Antibody Screen Negative Crossmatch See Detail Crossmatch IS Only See Detail 02/25/17 02/27/17 02/27/17 06:14 07:15 11:31 Sodium 136 Potassium 4.2 Chloride 96 L Carbon Dioxide 31 Anion Gap 9 BUN 19 H Creatinine 0.7 Creat Clearance w eGFR > 60 POC Glucometer 198.00601 234 Random Glucose 144 H Calcium 9.5 Phosphorus 2.6 D Magnesium 1.9 Total Bilirubin 1.3 H AST 18 D ALT 14 Alkaline Phosphatase 145 H Total Protein 7.7 Albumin 2.4 L Blood Type Antibody Screen Crossmatch Crossmatch IS Only 02/27/17 02/27/17 02/28/17 17:10 22:05 06:40 Sodium Potassium Chloride Carbon Dioxide Anion Gap BUN Creatinine Creat Clearance w eGFR POC Glucometer 145 153 169 Random Glucose Calcium Phosphorus Magnesium Total Bilirubin AST ALT Alkaline Phosphatase Total Protein Albumin Blood Type Antibody Screen Crossmatch Crossmatch IS Only HOSPITAL COURSE: Date of Admission:02/16/17 Date of Discharge: 02/28/17 Pt with known Afib on Coumadin presented to the ER s/p mechanical fall and was found to have a subdrual and interhemispheric hematoma and L1 compression fracture confirmed by CT Head and CT Lumbar spine respectively. Pt was managed by holding Coumadin, receiving Vitamin K IV, and 4U of FFP. Pt's INR was monitored and repeat Head CT showed a stablization of hemorrhage. Neurosurgery was consulted and agreed with conservative management for his ICH. For his L1 Compression fx pt received Lumbar MRI showing: Acute subacute compression fracture with residual bone marrow edema of L1 vertebral body with no retropulsion of significance with no evidence of epidural or prevertebral hematoma amongst chronic changes. Pt was taken to the OR by neurosurgery after having his ICH stabilized and received a T12-L2 posterior spinal fusion with Laminectomy of L3-L4 and L4-L5 due to spinal foraminal stenosis seen perioperatively. Pt's hospitalization was complicated with some waxing and waning delirium which a final Head CT w/o contrast was performed showing almost complete resolution of his ICH and no other acute changes. His delirium attributed to hospital stay and pain while on post-operative percocet and has markedly improved since initial presentation. Pt is being discharged in stable condition currently to [facility] facility in stable condition. Pt agrees with plan and plan was discussed with per 's request. He has appropriate follow-up with his general medical doctor, and neurosurgery for evaluation of post-op spinal surgery. Pt to follow his INR on 03-01 with [facility] facility. Minutes to complete discharge: 38 Discharge Summary Reason For Visit: INTRACEREBRAL BLEED Current Active Problems Intracerebral hemorrhage (Acute) Lumbar compression fracture (Acute) Condition: Improved - Instructions Diet, Activity, Other Instructions: RECOMMENDATIONS - You were admitted because you fell which caused you to have a small bleed in your head and a compression fracture of your back - The bleed is stable and resolving, you can continue with your Coumadin 5mg dose once per day. There is a small risk of stroke during this time, please be aware of the signs and symptoms of stroke such as weakness or numbness of the face or extremities, change in mental status, etc. - For the fracture, Dr. Covarrubias ordered a TLSO back brace which you received in the hospital. Please continue wearing that until you see Dr. Covarrubias in his office. -Please call Dr. Covarrubias's office the beginning of the new year, March 12, to facilitate staple removal. MEDICATION CHANGES - RESUME Coumadin 5mg once per day dose as usual - Check INR on 03-01 to follow - Continue pt's bowel regiment due to constipation from pain medication --If needed pt has required a docolax suppository which helped resolved his constipation before FOLLOWUPS - Dr. Brewer (Primary Care Doctor) - followup in 2 weeks - Dr. Enmanuel Covarrubias (Neurosurgeon) - followup in 1 week -INR on 03/01/2017 Referrals: Enmanuel Covarrubias MD, FAANS [Staff Physician] - Dilip Brewer MD [Primary Care Provider] - Disposition: [facility] - Home Medications Comprehensive Discharge Medication List: Ambulatory Orders Canagliflozin [Invokana] 300 mg PO DAILY 08/31/16 Carvedilol [Coreg] 6.25 mg PO BID 08/31/16 Digoxin [Lanoxin -] 0.125 mg PO DAILY 08/31/16 Metformin HCl [Glucophage] 1,000 mg PO BID 08/31/16 Simvastatin 20 mg PO ASDIR 08/31/16 Warfarin Sodium [Coumadin] 5 mg PO DAILY 08/31/16 This patient is new to me today: No Emergency Visit: No Critical Care patient: No - Discharge Referral Referred to [facility] No
[2017-02-28 07:28] LABS: HEMATOCRIT 30.2 % (35.4-49); HEMOGLOBIN 9.9 GM/dL (11.7-16.9); MCH 30.6 pg (25.7-33.7); MCHC 32.7 g/dl (32.0-35.9); MEAN CELL VOLUME 93.6 fl (80-96); MEAN PLT VOLUME 6.2 fl (7.5-11.1); PLATELET COUNT 233 K/MM3 (134-434); RBC 3.23 M/mm3 (4.00-5.60); RDW 17.5 % (11.9-15.9); WHITE BLOOD COUNT 5.4 K/mm3 (4.0-10.0)
[2017-02-28 07:46] LABS: INR 1.44 (0.82-1.09); PROTHROMBIN TIME (PATIENT) 16.3 SEC (9.98-11.88)
[2017-02-28 07:49] LABS: ANION GAP 7 (8-16); BLOOD UREA NITROGEN 18 mg/dL (7-18); CALCIUM 9.3 mg/dL (8.5-10.1); CHLORIDE 97 mmol/L (98-107); CO2 31 mmol/L (21-32); CREATININE 0.6 mg/dL (0.7-1.3); GLUCOSE,RANDOM 124 mg/dL (74-106); MAGNESIUM 1.8 mg/dL (1.8-2.4); PHOSPHOROUS 2.8 mg/dL (2.5-4.9); POTASSIUM 4.2 mmol/L (3.5-5.1); SODIUM 135 mmol/L (136-145)
--- NOTE | 2017-02-28 09:17 | PN ---
Progress Note (short form) - Note Progress Note: Patient resting comfortably in bed. No complaints. Having BM. Improved ambulation in TLSO. Patient ready for discharge to Rehab. Skin clips can be removed in early March. Discharge plans and subsequent followup discussed with patient and spouse yesterday.
[2017-02-28] MEDS: CARVEDILOL 6.25 MG TABLET (FP) PO SCH (09:37)
[2017-02-28] MEDS: NYSTATIN POWDER 100,000 UNITS/GM - 15 GM TOPICAL POWDER TP SCH (09:37)
[2017-02-28] MEDS: BISACODYL 5 MG TABLET.DR (FP) PO SCH (09:37)
[2017-02-28] MEDS: MUPIROCIN 2% TOPICAL OINTMENT FOR DECOLONIZATION NS SCH (09:37)
[2017-02-28] MEDS: DIGOXIN 0.125 MG TABLET (FP) PO SCH (09:37)
[2017-02-28] MEDS: DOCUSATE SODIUM 100 MG CAPSULE (FP) PO SCH (09:37)
[2017-02-28 09:38] VITALS: PULSE 77
[2017-02-28 09:39] VITALS: BP 130/85; TEMP 98.3
--- NOTE | 2017-02-28 12:04 | PN ---
Progress Note (short form) - Note Progress Note: Overall better. No CP or SOB. No acute events overnight. Intake & Output 02/25/17 02/26/17 02/27/17 02/28/17 23:59 23:59 23:59 23:59 Intake Total 1230 1445 2085 375 Output Total 1465 300 Balance -235 1445 2085 75 Weight 253 lb 6.4 oz Last Vital Signs Temp Pulse Resp BP Pulse Ox 98.3 F 77 20 130/85 96 02/28/17 09:39 02/28/17 09:39 02/28/17 09:39 02/28/17 09:39 02/27/17 21:00 Active Medications Acetaminophen (Tylenol -) 650 mg PO Q4H PRN PRN Reason: PAIN LEVEL 6-10 Acetaminophen (Tylenol -) 325 mg PO Q4H PRN PRN Reason: pain 1-5 Atorvastatin Calcium (Lipitor -) 10 mg PO HS [facility] Last Admin: 02/27/17 22:04 Dose: 10 mg Bisacodyl (Dulcolax -) 5 mg PO DAILY [facility] Last Admin: 02/28/17 09:37 Dose: 5 mg Carvedilol (Coreg -) 6.25 mg PO BID [facility] Last Admin: 02/28/17 09:37 Dose: 6.25 mg Digoxin (Lanoxin -) 0.125 mg PO DAILY [facility] Last Admin: 02/28/17 09:37 Dose: 0.125 mg Docusate Sodium (Colace -) 100 mg PO BID [facility] Last Admin: 02/28/17 09:37 Dose: 100 mg Insulin Aspart (Novolog Vial Sliding Scale -) 1 vial SQ ACHS [facility] PRN Reason: Protocol Last Admin: 02/28/17 11:26 Dose: Not Given Melatonin (Melatonin) 5 mg PO HS PRN PRN Reason: INSOMNIA Last Admin: 02/27/17 22:04 Dose: 5 mg Mupirocin (Bactroban Ointment (For Decolonization) -) 1 applic NS BID [facility] Stop: 02/28/17 21:59 Last Admin: 02/28/17 09:37 Dose: Not Given Nystatin (Nystop Powder -) 1 applic TP DAILY [facility] Last Admin: 02/28/17 09:37 Dose: 1 applic Oxycodone HCl (Roxicodone -) 5 mg PO Q4H PRN PRN Reason: pain 1-5 Oxycodone HCl (Roxicodone -) 10 mg PO Q4H PRN PRN Reason: PAIN LEVEL 6-10 Senna (Senna -) 2 tab PO HS PRN PRN Reason: CONSTIPATION Last Admin: 02/27/17 22:04 Dose: 2 tab Warfarin Sodium (Coumadin -) 5 mg PO DAILY@1800 [facility] Last Admin: 02/27/17 17:26 Dose: 5 mg Gen: NAD at rest Heart: irregular Lung: decreased breath sounds at the bases Abd: soft, nontender Ext: no edema Laboratory Results - last 24 hr 02/27/17 02/27/17 02/28/17 17:10 22:05 06:40 WBC RBC Hgb Hct MCV MCH MCHC RDW Plt Count MPV PT with INR INR Sodium Potassium Chloride Carbon Dioxide Anion Gap BUN Creatinine POC Glucometer 145 153 169 Random Glucose Calcium Phosphorus Magnesium 02/28/17 02/28/17 02/28/17 07:00 07:00 07:00 WBC 5.4 RBC 3.23 L Hgb 9.9 L Hct 30.2 L MCV 93.6 MCH 30.6 MCHC 32.7 RDW 17.5 H Plt Count 233 D MPV 6.2 L PT with INR 16.30 H INR 1.44 H Sodium 135 L Potassium 4.2 Chloride 97 L Carbon Dioxide 31 Anion Gap 7 L BUN 18 Creatinine 0.6 L POC Glucometer Random Glucose 124 H Calcium 9.3 Phosphorus 2.8 Magnesium 1.8 02/28/17 11:25 WBC RBC Hgb Hct MCV MCH MCHC RDW Plt Count MPV PT with INR INR Sodium Potassium Chloride Carbon Dioxide Anion Gap BUN Creatinine POC Glucometer 146 Random Glucose Calcium Phosphorus Magnesium ASSESSMENT AND PLAN: s/p Fall Subdural Hematoma Lumbar Stenosis L1 compression fracture s/p posterior fusion of T12- L2/Laminectomy L3/L4 and L4/L5 Atrial Fibrillation Hypercholesterolemia - pain control - incentive spirometry - rate control - OOB to chair - D/C planning in progress Dr Medina
--- NOTE | 2017-02-28 12:56 | PN ---
Teaching Attending Note Name of Resident: Herrera Moore ATTENDING PHYSICIAN STATEMENT Time of evaluation; 10:30 AM I saw and evaluated the patient. I reviewed the resident's note and discussed the case with the resident. I agree with the resident's findings and plan as documented. SUBJECTIVE: Patient seen and examined. pain well controlled, AAOx3, appropriate, no abdominal pain or new complaints. OBJECTIVE: Vital Signs Period Temp Pulse Resp BP Sys/Uribe Pulse Ox Last 24 Hr 97.5 F-98.6 F 77-86 18-20 110-144/61-87 94-96 Intake & Output 02/25/17 02/26/17 02/27/17 02/28/17 23:59 23:59 23:59 23:59 Intake Total 1230 1445 2085 375 Output Total 1465 300 Balance -235 1445 2085 75 Weight 253 lb 6.4 oz General: lying in bed in no acute distress Abdomen: soft, less distended, NT, positive bowel sounds Neuro AAOx3, grossly nonfocal exam Active Medications Acetaminophen (Tylenol -) 650 mg PO Q4H PRN PRN Reason: PAIN LEVEL 6-10 Acetaminophen (Tylenol -) 325 mg PO Q4H PRN PRN Reason: pain 1-5 Atorvastatin Calcium (Lipitor -) 10 mg PO HS [facility] Last Admin: 02/27/17 22:04 Dose: 10 mg Bisacodyl (Dulcolax -) 5 mg PO DAILY [facility] Last Admin: 02/28/17 09:37 Dose: 5 mg Carvedilol (Coreg -) 6.25 mg PO BID [facility] Last Admin: 02/28/17 09:37 Dose: 6.25 mg Digoxin (Lanoxin -) 0.125 mg PO DAILY [facility] Last Admin: 02/28/17 09:37 Dose: 0.125 mg Docusate Sodium (Colace -) 100 mg PO BID [facility] Last Admin: 02/28/17 09:37 Dose: 100 mg Insulin Aspart (Novolog Vial Sliding Scale -) 1 vial SQ ACHS [facility] PRN Reason: Protocol Last Admin: 02/28/17 11:26 Dose: Not Given Melatonin (Melatonin) 5 mg PO HS PRN PRN Reason: INSOMNIA Last Admin: 02/27/17 22:04 Dose: 5 mg Mupirocin (Bactroban Ointment (For Decolonization) -) 1 applic NS BID [facility] Stop: 02/28/17 21:59 Last Admin: 02/28/17 09:37 Dose: Not Given Nystatin (Nystop Powder -) 1 applic TP DAILY [facility] Last Admin: 02/28/17 09:37 Dose: 1 applic Oxycodone HCl (Roxicodone -) 5 mg PO Q4H PRN PRN Reason: pain 1-5 Oxycodone HCl (Roxicodone -) 10 mg PO Q4H PRN PRN Reason: PAIN LEVEL 6-10 Senna (Senna -) 2 tab PO HS PRN PRN Reason: CONSTIPATION Last Admin: 02/27/17 22:04 Dose: 2 tab Warfarin Sodium (Coumadin -) 5 mg PO DAILY@1800 [facility] Last Admin: 02/27/17 17:26 Dose: 5 mg Laboratory Results - last 24 hr 02/27/17 02/27/17 02/28/17 17:10 22:05 06:40 WBC RBC Hgb Hct MCV MCH MCHC RDW Plt Count MPV PT with INR INR Sodium Potassium Chloride Carbon Dioxide Anion Gap BUN Creatinine POC Glucometer 145 153 169 Random Glucose Calcium Phosphorus Magnesium 02/28/17 02/28/17 02/28/17 07:00 07:00 07:00 WBC 5.4 RBC 3.23 L Hgb 9.9 L Hct 30.2 L MCV 93.6 MCH 30.6 MCHC 32.7 RDW 17.5 H Plt Count 233 D MPV 6.2 L PT with INR 16.30 H INR 1.44 H Sodium 135 L Potassium 4.2 Chloride 97 L Carbon Dioxide 31 Anion Gap 7 L BUN 18 Creatinine 0.6 L POC Glucometer Random Glucose 124 H Calcium 9.3 Phosphorus 2.8 Magnesium 1.8 02/28/17 11:25 WBC RBC Hgb Hct MCV MCH MCHC RDW Plt Count MPV PT with INR INR Sodium Potassium Chloride Carbon Dioxide Anion Gap BUN Creatinine POC Glucometer 146 Random Glucose Calcium Phosphorus Magnesium ASSESSMENT AND PLAN: 81 yo M with PMH CAD s/p CABG, Afib on coumadin, HTN, HLD, NIDDM admitted with mechanical fall a day ago with SDH, Acute L1 compression fracture s/p T12-L2 posterior fusion and L3-L4/L4-L5 laminectomy mariam 02/23. - Acute L1 compression fracture- s/p mechanical fall. PD #3 T12-L2 posterior fusion and laminectomy L3-L4 and L4-L5 on 02/23. - acute blood loss anemia, likely from surgical blood loss (965 per operative noted). s/p total 4units pRBC and additional FFP since surgery - constipation,? Ileus, abdominal xray noted - SDH- s/p mechanical fall. s/p 4FFP this admission. stable on repeat imaging. no neurological deficits. - CAD s/p CABG - DM- controlled - afib on coumadin- rate controlled. coumadin on hold for surgery, can re- start 02/25. will not bridge in setting of neurosurgery. - HTN- controlled - dyslipidemia- statin Plan: doing well, not using oxycodone. Had multiple BM, abdomen soft with no concerns. Coumadin resumed, INR noted. resume home DM meds and continue home anti-hypertensives. Dc to [facility] today, plan and follow up instructions discussed with patient and in detail, all questions answered.
== END 2017-02-28 15:22 | DRG 453 ==
LOC: FER 09:05 → JERBED 12:44 → JICU 15:45 → J4W 02-18 21:03 → J8W 02-23 12:29 → JICU 02-23 15:15 → J5S 02-25 15:43
PROVIDERS: ADMIT Internal Medicine; ATTEND Hospitalist
PROC: 30233K1 Transfusion of Nonautologous Frozen Plasma into Peripheral Vein, Percutaneous Approach (ICD-10-PCS; 2017-02-16)
PROC: 0RGA071 Fusion of Thoracolumbar Vertebral Joint with Autologous Tissue Substitute, Posterior Approach, Posterior Column, Open Approach (ICD-10-PCS; 2017-02-23)
PROC: 0SG00AJ Fusion of Lumbar Vertebral Joint with Interbody Fusion Device, Posterior Approach, Anterior Column, Open Approach (ICD-10-PCS; 2017-02-23)
PROC: 01NB0ZZ Release Lumbar Nerve, Open Approach (ICD-10-PCS; 2017-02-23)
PROC: 0JX70ZC Transfer Back Subcutaneous Tissue and Fascia with Skin, Subcutaneous Tissue and Fascia, Open Approach (ICD-10-PCS; 2017-02-23)
PROC: 30233N1 Transfusion of Nonautologous Red Blood Cells into Peripheral Vein, Percutaneous Approach (ICD-10-PCS; 2017-02-23)
PROC: 0RGA0AJ Fusion of Thoracolumbar Vertebral Joint with Interbody Fusion Device, Posterior Approach, Anterior Column, Open Approach (ICD-10-PCS; principal; 2017-02-23 10:00)
DX: S32.010A Wedge compression fracture of first lumbar vertebra, initial encounter for closed fracture (principal); S06.5X0A Traumatic subdural hemorrhage without loss of consciousness, initial encounter; D68.8 Other specified coagulation defects; D62 Acute posthemorrhagic anemia; F05 Delirium due to known physiological condition; E11.9 Type 2 diabetes mellitus without complications; I48.91 Unspecified atrial fibrillation; I87.2 Venous insufficiency (chronic) (peripheral); M48.061 Spinal stenosis, lumbar region without neurogenic claudication; I25.10 Atherosclerotic heart disease of native coronary artery without angina pectoris; W07.XXXA Fall from chair, initial encounter; Y93.89 Activity, other specified; Y92.214 College as the place of occurrence of the external cause; Z95.1 Presence of aortocoronary bypass graft; E78.5 Hyperlipidemia, unspecified; Z79.01 Long term (current) use of anticoagulants; Z87.891 Personal history of nicotine dependence
CPT/HCPCS: 36415; 36430; 36511; 70450-TC; 71010-TC; 72050-TC; 72070-TC; 72100-TC; 72131-TC; 72148-TC; 74000-TC; 74176-TC; 76000-TC; 80048; 80053; 80061; 82607; 82728; 82746; 83540; 83550; 83721; 83735; 84100; 85025; 85027; 85610; 85730; 86850; 86900; 86901; 86922; 90688; 93005; 94010; 94760; 97116-GP; 97161-GP; 99284-25; G0008; J1644; P9017; P9038; P9058

== ENCOUNTER 2017-05-24 08:45 | Inpatient (IN) | payer OTHER, BC ==
--- NOTE | 2017-05-24 09:06 | PDOC ---
History of Present Illness - General Stated Complaint: FALL Time Seen by Provider: 05/24/17 09:06 Past History - Past Medical History Allergies/Adverse Reactions: Allergies Allergy/AdvReac Type Severity Reaction Status Date / Time No Known Allergies Allergy Verified 02/16/17 09:07 Home Medications: Ambulatory Orders Canagliflozin [Invokana] 300 mg PO DAILY 08/31/16 Carvedilol [Coreg] 6.25 mg PO BID 08/31/16 Digoxin [Lanoxin -] 0.125 mg PO DAILY 08/31/16 Metformin HCl [Glucophage] 1,000 mg PO BID 08/31/16 Simvastatin 20 mg PO ASDIR 08/31/16 Warfarin Sodium [Coumadin] 5 mg PO DAILY 08/31/16 Bisacodyl [Bisacodyl -] 5 mg PO Q48H PRN tablet. 02/28/17 Docusate Sodium [Colace -] 100 mg PO BID capsule 02/28/17 Insulin Sliding Scale [Novolog Vial Sliding Scale -] 1 vial SQ ACHS units 02/28 Sennosides [Senna -] 2 tab PO HS PRN tablet 02/28/17 Anemia: No Asthma: No Cancer: No Cardiac Disorders: Yes (CABG 1997, atrial fibrillation.) CVA: No COPD: No CHF: No Dementia: No Diabetes: Yes GI Disorders: Yes (COLONIC POLYPS) Disorders: No HTN: Yes Hypercholesterolemia: Yes Liver Disease: No Seizures: No Thyroid Disease: No - Surgical History Abdominal Surgery: Yes (UMBILICAL HERNIA REPAIR X 2) Appendectomy: No Cardiac Surgery: No Cholecystectomy: Yes Lung Surgery: No Neurologic Surgery: No Orthopedic Surgery: Yes (LEFT HAND FX 1996) - Suicide/Smoking/Psychosocial Hx Smoking History: Former smoker Have you smoked in the past 12 months: No Number of Cigarettes Smoked Daily: 0 If you are a former smoker, when did you quit?: 1968 Hx Alcohol Use: No Drug/Substance Use Hx: No Substance Use Type: Alcohol Hx Substance Use Treatment: No *DC/Admit/Observation/Transfer - Referrals Referrals: Dilip Brewer MD [Primary Care Provider] - - Patient Instructions - Post Discharge Activity
--- NOTE | 2017-05-24 09:51 | PDOC ---
*Physical Exam - Vital Signs Last Vital Signs Temp Pulse Resp BP Pulse Ox 98 F 85 16 122/74 100 05/24/17 09:00 05/24/17 09:00 05/24/17 09:00 05/24/17 09:00 05/24/17 09:37 Heart Score/ECG Review #1 ECG reviewed & interpreted by me at: 09:10 05/24/17 09:50 atrial fibrillation 88, TWI V1-V3, ST & T abnormality, no GEM, QTC 430 msec ED Treatment Course - LABORATORY CBC & Chemistry Diagram: 05/30/17 07:45 05/30/17 07:45 Medical Decision Making - Medical Decision Making 05/24/17 09:49 Pt seen by the Advanced Practice Provider under my direct supervision Ancillary studies reviewed I agree with plan as outlined by the Advanced Practice Provider [id number] Wilson *DC/Admit/Observation/Transfer Diagnosis at time of Disposition: Bilateral leg weakness, Back pain - Discharge Dispostion Condition at time of disposition: Stable - Referrals - Patient Instructions - Post Discharge Activity
--- NOTE | 2017-05-24 09:57 | PDOC ---
History of Present Illness - General Chief Complaint: Pain, Acute Stated Complaint: FALL Time Seen by Provider: 05/24/17 09:06 History Source: Patient Exam Limitations: No Limitations - History of Present Illness Initial Comments: CHIEF COMPLAINT: 81 y/o afebrile male with PMH NIDDM, HTN, HLD, (CABG - on coumadin), a-fib, colonic polyps, lumbar spine trauma with slipped discs and rods BIB EMS for leg weakness. HISTORY OF PRESENT ILLNESS: The patient had surgery on his lumbar spine in February of 2017 s/p fall. He states 4 weeks ago his doctor scheduled an MRI to check the progress of healing. He went to the MRI appointment in [place] and the heat transfer technician dropped him on the table by accident. Since that time he's been in excrutiating pain and has needed a walker to get around. He states last night he got up to go into the bedroom and his legs became very weak and shaky. He states he slid down his walker onto his knees and then laid down on the floor. He states he couldn't get up so he slept there all night. When his tried to help him up this morning he could not stand because his legs were too weak. He denies f/c, n/v/d, CP, SOB, abd pain, numbness/tingling in extremities, saddle anesthesia, bowel/bladder incontinence. Allergies: None reported. Past Surgical History: CABG (1997), umbilical hernia repair, cholecystectomy, left hand fx Social History: Former smoker. Social ETOH use. No recreational drug use. PCP: Dr. Brewer Factory Assembler: Dr. Pizano Vital signs on arrival are within normal limits. REVIEW OF SYSTEMS: GENERAL/CONSTITUTIONAL: No fever/chills. +weakness. No weight change. HEAD, EYES, EARS, NOSE AND THROAT: No change in vision. No ear pain or discharge. No sore throat. CARDIOVASCULAR: No chest pain or shortness of breath. RESPIRATORY: No cough, wheezing, or hemoptysis. GASTROINTESTINAL: No abd pain, nausea, vomiting, diarrhea. GENITOURINARY: No dysuria, frequency, or change in urination. MUSCULOSKELETAL: No joint or muscle swelling or pain. No neck pain. + left back pain SKIN: No rash or easy bruising. NEUROLOGIC: No headache, vertigo, loss of consciousness, or loss of sensation. +leg weakness PHYSICAL EXAM: GENERAL: The patient is awake, alert, and fully oriented, in no acute distress. He admits he has no pain while lying flat on his back. HEAD: Normal with no signs of trauma. ENT: Pupils equal, round and reactive to light, extraocular movements intact, sclera anicteric, conjunctiva clear. Neck supple. LUNGS: Clear to auscultation bilaterally. Normal excursion. No respiratory distress or use of accessory muscles. CV: RRR, S1/S2, no MRG. Cap refill < 2 sec. ABDOMEN: Soft, non-distended, non-tender even to deep palpation, no hepatomegaly or splenomegaly, no masses. BACK: Pain with palpation of left posterior ribs, T8-T10. Well healed lumbar spine scar from L1-L5. No midline spine TTP, crepitus or step offs. EXTREMITIES: Normal range of motion. Brawny edema to b/l LEs. NEUROLOGICAL: Normal speech. Gait not assessed. CN II-XII grossly intact. No saddle anesthesia. Motor and sensory intact in b/l LEs. PSYCH: Normal mood, normal affect. SKIN: Warm, dry, normal turgor, no rashes or lesions noted. Past History - Past Medical History Allergies/Adverse Reactions: Allergies Allergy/AdvReac Type Severity Reaction Status Date / Time No Known Allergies Allergy Verified 05/24/17 10:26 Home Medications: Ambulatory Orders Carvedilol [Coreg -] 6.25 mg PO BID 05/24/17 Digoxin [Lanoxin -] 0.125 mg PO DAILY 05/24/17 Diltiazem Cd [Cardizem Cd -] 120 mg PO DAILY 05/24/17 Metformin HCl [Metformin HCl ER] 1,000 mg PO BID 05/24/17 Oxycodone HCl/Acetaminophen [Percocet 5-325 mg Tablet] 1 tab PO Q6H PRN Simvastatin [Zocor] 10 mg PO HS 05/24/17 Sitagliptin Phosphate [Januvia] 100 mg PO DAILY 05/24/17 Warfarin Sodium 4 mg PO ASDIR 05/24/17 Warfarin Sodium 5 mg PO ASDIR 05/24/17 Zolpidem Tartrate [Ambien] 5 mg PO HS 05/24/17 Anemia: No Asthma: No Cancer: No Cardiac Disorders: Yes (CABG 1997, atrial fibrillation.) CVA: No COPD: No CHF: No DVT: No Dementia: No Diabetes: Yes GI Disorders: Yes (COLONIC POLYPS) Disorders: No HTN: Yes Hypercholesterolemia: Yes Liver Disease: No Seizures: No Thyroid Disease: No - Surgical History Abdominal Surgery: Yes (UMBILICAL HERNIA REPAIR X 2) Appendectomy: No Cardiac Surgery: No Cholecystectomy: Yes GI Surgery: Yes (amb hernia) Lung Surgery: No Neurologic Surgery: No Orthopedic Surgery: Yes (LEFT HAND FX 1996) - Suicide/Smoking/Psychosocial Hx Smoking History: Former smoker Have you smoked in the past 12 months: No Number of Cigarettes Smoked Daily: 0 If you are a former smoker, when did you quit?: 1967 Information on smoking cessation initiated: No Hx Alcohol Use: No Drug/Substance Use Hx: No Substance Use Type: Alcohol Hx Substance Use Treatment: No *Physical Exam - Vital Signs Last Vital Signs Temp Pulse Resp BP Pulse Ox 98 F 85 16 122/74 100 05/24/17 09:00 05/24/17 09:00 05/24/17 09:00 05/24/17 09:00 05/24/17 09:37 Heart Score/ECG Review - ECG Intrepretation Comment:: Twelve-lead EKG was performed and reviewed by Dr. Shaikh. There is atrial fibrillation. The axis is normal. The intervals are normal. There are no ST or T wave abnormalities. Impression: Abnormal twelve-lead EKG ED Treatment Course - LABORATORY CBC & Chemistry Diagram: 05/24/17 10:25 05/24/17 10:25 - RADIOLOGY Radiology Studies Ordered: Category Date Time Status LUMBAR SPINE MRI W/O CONTRAST [MRI] Stat MRI 05/24/17 09:46 Ordered RIBS-LEFT SIDE [RAD] Stat Radiology 05/24/17 09:46 Ordered Medical Decision Making - Medical Decision Making A/P: 81 y/o male with progressively worsening LE weakness secondary to back trauma 4 weeks ago. Plan is as follows: 1. Labs 2. EKG 3. Rib xray 4. MRI lumbar spine patient states he does not need pain medication at this time. Creatinine at 1.4 - elevated from normal. Will give IV fluids Spoke with Dr. Brewer, patient's PCP, who would like the patient admitted to the Hospitalist with most likely discharge in 3 days to a rehab facility. Microblogged Hospitalist for admission at 2:57pm. Spoke with Hospitalist resident who accepts admission to Dr. Hedrick patient and his made aware of the plan. *DC/Admit/Observation/Transfer Diagnosis at time of Disposition: Bilateral leg weakness Back pain Qualifiers: Back pain location: thoracic back pain Chronicity: chronic Back pain laterality : bilateral Qualified Code(s): M54.6 - Pain in thoracic spine - Discharge Dispostion Condition at time of disposition: Stable Admit: Yes - Referrals Referrals: Dilip Brewer MD [Primary Care Provider] - - Patient Instructions - Post Discharge Activity
[2017-05-24 10:03] VITALS: BMI 33.6
[2017-05-24 10:35] LABS: BASO % 0.4 % (0-2.0); EOS % 2.2 % (0-4.5); HEMOGLOBIN 11.7 GM/dL (11.7-16.9); LYMPH % 34.1 % (8-40); MCH 32.4 pg (25.7-33.7); MCHC 34.5 g/dl (32.0-35.9); MEAN PLT VOLUME 6.3 fl (7.5-11.1); MONO % 2.8 % (3.8-10.2); NEUT % 60.5 % (42.8-82.8); PLATELET COUNT 271 K/MM3 (134-434); RBC 3.61 M/mm3 (4.00-5.60); RDW 15.8 % (11.9-15.9); WHITE BLOOD COUNT 5.5 K/mm3 (4.0-10.0)
[2017-05-24 10:59] LABS: ALBUMIN 3.4 g/dl (3.4-5.0); ANION GAP 8 (8-16); BILIRUBIN,TOTAL 0.4 mg/dL (0.2-1.0); BLOOD UREA NITROGEN 36 mg/dL (7-18); CALCIUM 10.2 mg/dL (8.5-10.1); CHLORIDE 99 mmol/L (98-107); CO2 27 mmol/L (21-32); CREATININE 1.4 mg/dL (0.7-1.3); GLUCOSE,RANDOM 106 mg/dL (74-106); MAGNESIUM 1.4 mg/dL (1.8-2.4); POTASSIUM 4.3 mmol/L (3.5-5.1); SGOT/AST 8 U/L (15-37); SGPT/ALT 13 U/L (12-78); SODIUM 134 mmol/L (136-145); TOT PROT 9.1 g/dl (6.4-8.2)
[2017-05-24 11:02] LABS: INR 2.47 (0.82-1.09); PROTHROMBIN TIME (PATIENT) 27.9 SEC (9.98-11.88)
[2017-05-24 11:05] LABS: ACTIVATED PTT 47.7 SECONDS (26.9-34.4)
[2017-05-24 11:13] LABS: ALK PHOS 85 U/L (45-117)
[2017-05-24] MEDS ORDERED: SODIUM CHLORIDE 1,000 ML IV STA (11:50)
--- NOTE | 2017-05-24 14:51 | EKG ---
Test Reason : Blood Pressure : / mmHG Vent. Rate : 088 BPM Atrial Rate : 108 BPM P-R Int : 000 ms QRS Dur : 092 ms QT Int : 356 ms P-R-T Axes : 000 -18 001 degrees QTc Int : 430 ms ATRIAL FIBRILLATION ABNORMAL ECG WHEN COMPARED WITH ECG OF 16-FEB-2017 12:37, INVERTED T WAVES HAVE REPLACED NONSPECIFIC T WAVE ABNORMALITY IN ANTERIOR LEADS Confirmed by BLAKE KILGORE MD ([id number]) on 05/24/2017 2:51:10 PM Referred By: Confirmed By:BLAKE KILGORE MD
--- NOTE | 2017-05-24 15:31 | HP ---
CHIEF COMPLAINT: "My legs gave out" PCP: Dr. Brewer Bottle And Glass Inspector: Dr. Pizano HISTORY OF PRESENT ILLNESS: This is a 81 yo M with PMH of lumbar surgery 02/23/17 (posterior fusion T12-L2, laminectomy L3/L4/L5), NIDDM, HTN, HLD, (CABG on coum), a-fib, colonic polyps, who presents due to b/l LE weakness and back pain. Initial lumbar surgery was preceded by mechanical fall and patient has been residing in a Rehab facility until this wed when he was discharged. At the rehab he was able to ambulate easily with a walker. When he got home, he experienced b/l LE weakness (wobbly legs) while attempting to ambulate with walker, slid out of walker to floor and stayed on the floor until admission; he has not tried to ambulate since. He reports worsened lower back pain 4 w ago after possible re-injury (unclear etiology). His last lumbar MRI was 4 weeks ago. He states his lumbar pain only occurs with bending forward and does not occur at rest. It is sharp, across the whole lumbar are and nonradiating. He denies CP, SOB, f/c, n/v/d, abd pain, numbness/tingling in LE, saddle anesthesia or incontinence. ER course was notable for: (1)labs (2)ekg, cxr (3)lumbar MRI Recent Travel: denies PAST MEDICAL HISTORY: as above PAST SURGICAL HISTORY:CABG (1997), umbilical hernia repair, cholecystectomy, left hand fx Social History: lives with Smoking:Former smoker Alcohol:Social ETOH Drugs: denies Family History: noncontributory Allergies No Known Allergies Allergy (Verified 05/24/17 10:26) HOME MEDICATIONS: Home Medications Medication Instructions Recorded Carvedilol [Coreg -] 6.25 mg PO BID 05/24/17 Digoxin [Lanoxin -] 0.125 mg PO DAILY 05/24/17 Diltiazem Cd [Cardizem Cd -] 120 mg PO DAILY 05/24/17 Metformin HCl [Metformin HCl ER] 1,000 mg PO BID 05/24/17 Oxycodone HCl/Acetaminophen 1 tab PO Q6H PRN 05/24/17 [Percocet 5-325 mg Tablet] Simvastatin [Zocor] 10 mg PO HS 05/24/17 Sitagliptin Phosphate [Januvia] 100 mg PO DAILY 05/24/17 Warfarin Sodium 4 mg PO ASDIR 05/24/17 Warfarin Sodium 5 mg PO ASDIR 05/24/17 Zolpidem Tartrate [Ambien] 5 mg PO HS 05/24/17 REVIEW OF SYSTEMS CONSTITUTIONAL: Absent: fever, chills, loss of appetite, weight change HEENT: Absent: rhinorrhea, nasal congestion, throat pain CARDIOVASCULAR: Absent: chest pain, syncope, palpitations, irregular heart rate, lightheadedness , peripheral edema RESPIRATORY: Absent: cough, shortness of breath GASTROINTESTINAL: Absent: abdominal pain, abdominal distension, nausea, vomiting, diarrhea, constipation GENITOURINARY: Absent: dysuria, flank pain, genital pain MUSCULOSKELETAL: Absent: myalgia, arthralgia SKIN: Absent: rash, itching, pallor HEMATOLOGIC/IMMUNOLOGIC: Absent: frequent infections ENDOCRINE: Absent: unexplained weight gain, unexplained weight loss NEUROLOGIC: Absent: headache, focal weakness or paresthesias PSYCHIATRIC: Absent: anxiety, depression PHYSICAL EXAMINATION Vital Signs - 24 hr 05/24/17 05/24/17 09:00 09:37 Temperature 98 F Pulse Rate 85 Respiratory 16 Rate Blood Pressure 122/74 O2 Sat by Pulse 100 100 Oximetry (%) GENERAL: Awake, alert, and fully oriented, in no acute distress. HEAD: Normal with no signs of trauma. EYES: Pupils equal, round and reactive to light, extraocular movements intact, sclera anicteric, conjunctiva clear. No lid lag. EARS, NOSE, THROAT: Moist mucous membranes. NECK: supple LUNGS: Breath sounds equal, clear to auscultation bilaterally. HEART: irergularly irregular, normal S1 and S2 ABDOMEN: Soft, nontender, not distended, normoactive bowel sounds, no guarding, no rebound, no masses. MUSCULOSKELETAL: No CVA tenderness. mild r sided paraspinal lumbar tenderness UPPER EXTREMITIES: 2+ pulses, warm, well-perfused. No cyanosis. No clubbing. No peripheral edema. LOWER EXTREMITIES: 1+ pulses, warm, well-perfused. stasis dermatitis, No calf tenderness. trace peripheral edema. NEUROLOGICAL: Cranial nerves II-XII grossly intact. Normal speech. LE strength 5/5 b/l, 1+ patellare reflexes b/l, sensation intact, rectal tone intact PSYCHIATRIC: Cooperative. Good eye contact. Appropriate mood and affect. SKIN: Warm, dry Laboratory Results - last 24 hr 05/24/17 05/24/17 05/24/17 10:25 10:25 10:25 WBC 5.5 RBC 3.61 L Hgb 11.7 D Hct 34.0 L MCV 94.0 MCH 32.4 MCHC 34.5 RDW 15.8 Plt Count 271 MPV 6.3 L Neutrophils % 60.5 D Lymphocytes % 34.1 D Monocytes % 2.8 L Eosinophils % 2.2 D Basophils % 0.4 D PT with INR 27.90 H INR 2.47 H D PTT (Actin FS) 47.7 H D Sodium 134 L Potassium 4.3 Chloride 99 Carbon Dioxide 27 Anion Gap 8 BUN 36 H D Creatinine 1.4 H D Creat Clearance w eGFR 48.89 Random Glucose 106 Calcium 10.2 H Magnesium 1.4 L D Total Bilirubin 0.4 D AST 8 L D ALT 13 Alkaline Phosphatase 85 D Creatine Kinase 26 L Troponin I < 0.02 Total Protein 9.1 H Albumin 3.4 D Digoxin 0.3425 L ASSESSMENT/PLAN: This is a 81 yo M with PMH of lumbar surgery 02/23/17 (posterior fusion T12-L2, laminectomy L3/L4/L5), NIDDM, HTN, HLD, (CABG on coum), a-fib, colonic polyps, who presents due to b/l LE weakness. Worsening back pain and leg weakness in setting of prior lumbar surgery -questionable trauma withing last month -f/u lumbar MRI; neuro consult, neurosurgery consult -PT -pain control tylenol, oxycodone, iv morphine if necessary ABRAN -prerenal due to volume contraction, BUN/creat 36/1.4 baseline 0.7 -expect improvement with gentle IV hydration NS @ 75 -monitor creat -avoid nephrotoxic agents Hypomagnesemia -Mag 1gm IV Digoxin below desired level -0.03 currently; admisister .25 once then resume .125 daily; f/u am level Dispo: adm m/s, will need SNIF placement Problem List - Problem (1) Back pain Code(s): M54.9 - DORSALGIA, UNSPECIFIED Qualifiers: Back pain location: thoracic back pain Chronicity: chronic Back pain laterality: bilateral Qualified Code(s): M54.6 - Pain in thoracic spine; G89.29 - Other chronic pain; G89.29 - Other chronic pain (2) Bilateral leg weakness Code(s): R29.898 - OTH SYMPTOMS AND SIGNS INVOLVING THE MUSCULOSKELETAL SYSTEM (3) A-fib Code(s): I48.91 - UNSPECIFIED ATRIAL FIBRILLATION (4) Diabetes Code(s): E11.9 - TYPE 2 DIABETES MELLITUS WITHOUT COMPLICATIONS (5) HTN (hypertension) Code(s): I10 - ESSENTIAL (PRIMARY) HYPERTENSION (6) HLD (hyperlipidemia) Code(s): E78.5 - HYPERLIPIDEMIA, UNSPECIFIED Visit type - Emergency Visit Emergency Visit: Yes ED Registration Date: 05/24/17 Care time: The patient presented to the Emergency Department on the above date and was hospitalized for further evaluation of their emergent condition. - New Patient This patient is new to me today: No - Critical Care Critical Care patient: No
[2017-05-24] MEDS ORDERED: ACETAMINOPHEN 325 MG TABLET (FP) PO PRN (16:02)
--- NOTE | 2017-05-24 16:19 | HP ---
<Asad Bedolla - Last Filed: 05/24/17 18:10> CHIEF COMPLAINT: Leg weakness PCP: Dr. Berwer [place] Measurer: Dr. Pizano HISTORY OF PRESENT ILLNESS: 81 year old M with pmh of NIDDM, HTN, HLD, Afib, Colonic polyps, and lumbar surgery 02/23/2017 presented with bilateral lower extremity weakness/back pain. Patient states after his surgery in February, he went to rehab. After rehab 3 days prior he was walking at home with a walker. Yesterday, patient experienced lower extremity weakness (wobbly) and fell on the floor on his rug. Patient states his witnessed the fall and decided to leave him on the rug to sleep until the morning. Patient woke up and was unable to get up off the floor so he came to the ER. Patient denies fever, chills, chest pain, sob, n/v/d, abd pain, numbness/tingling, bowel/bladder incontinence. Patient states the pain is sharp and stabbing, but states he does not have pain at this time. ER course was notable for: (1) labs- cr-1.4 (2) EKG- Atrial fibrillation (3) Xray, lumbar spine MRI Recent Travel: denies PAST MEDICAL HISTORY: as per hpi PAST SURGICAL HISTORY: cabg, cholecystectomy, hernia repair, lumbar spine surgery Social History: Smoking: denies Alcohol: denies Drugs: denies Family History: Allergies No Known Allergies Allergy (Verified 05/24/17 10:26) HOME MEDICATIONS: Home Medications Medication Instructions Recorded Carvedilol [Coreg -] 6.25 mg PO BID 05/24/17 Digoxin [Lanoxin -] 0.125 mg PO DAILY 05/24/17 Diltiazem Cd [Cardizem Cd -] 120 mg PO DAILY 05/24/17 Metformin HCl [Metformin HCl ER] 1,000 mg PO BID 05/24/17 Oxycodone HCl/Acetaminophen 1 tab PO Q6H PRN 05/24/17 [Percocet 5-325 mg Tablet] Simvastatin [Zocor] 10 mg PO HS 05/24/17 Sitagliptin Phosphate [Januvia] 100 mg PO DAILY 05/24/17 Warfarin Sodium 4 mg PO ASDIR 05/24/17 Warfarin Sodium 5 mg PO ASDIR 05/24/17 Zolpidem Tartrate [Ambien] 5 mg PO HS 05/24/17 REVIEW OF SYSTEMS CONSTITUTIONAL: Absent: fever, chills, diaphoresis, generalized weakness, malaise HEENT: Absent: throat pain, throat swelling, difficulty swallowing CARDIOVASCULAR: Absent: chest pain, syncope, palpitations, lightheadedness, peripheral edema RESPIRATORY: Absent: cough, shortness of breath, dyspnea with exertion, orthopnea GASTROINTESTINAL: Absent: abdominal pain, abdominal distension, nausea, vomiting, diarrhea, constipation GENITOURINARY: Absent: dysuria, frequency, urgency, hesitancy, hematuria, flank pain, genital pain MUSCULOSKELETAL: Absent: myalgia, arthralgia, joint swelling, neck pain +Back pain NEUROLOGIC: Absent: headache, focal weakness or paresthesias, dizziness, unsteady gait, bladder or bowel incontinence PHYSICAL EXAMINATION Vital Signs - 24 hr 05/24/17 05/24/17 09:00 09:37 Temperature 98 F Pulse Rate 85 Respiratory 16 Rate Blood Pressure 122/74 O2 Sat by Pulse 100 100 Oximetry (%) GENERAL: Awake, alert, and fully oriented, in no acute distress. HEAD: Normal with no signs of trauma. EYES: Pupils equal, round and reactive to light, extraocular movements intact, sclera anicteric, conjunctiva clear. No lid lag. EARS, NOSE, THROAT: Ears normal, nares patent, oropharynx clear without exudates. Moist mucous membranes. NECK: Normal range of motion, supple without lymphadenopathy, JVD, or masses. LUNGS: Breath sounds equal, clear to auscultation bilaterally. No wheezes, and no crackles. No accessory muscle use. HEART: Regular rate and rhythm, normal S1 and S2 without murmur, rub or gallop. ABDOMEN: Soft, nontender, not distended, normoactive bowel sounds, no guarding, no rebound, no masses. No hepatomegaly or splenomegaly. MUSCULOSKELETAL: Normal range of motion at all joints. No bony deformities or tenderness. No CVA tenderness. UPPER EXTREMITIES: 2+ pulses, warm, well-perfused. No cyanosis. No clubbing. No peripheral edema. LOWER EXTREMITIES: 2+ pulses, warm, well-perfused. No calf tenderness. 2+ edema b/l NEUROLOGICAL: Cranial nerves II-XII intact. Normal speech. Normal gait. Lower extremities 5/5 strength, sensation intact b/l, reflexes 2+, no point tenderness along spine PSYCHIATRIC: Cooperative. Good eye contact. Appropriate mood and affect. SKIN: Warm, dry, normal turgor, no rashes or lesions noted, normal capillary refill. +Lumbar spine surgical scar Laboratory Results - last 24 hr 05/24/17 05/24/17 05/24/17 10:25 10:25 10:25 WBC 5.5 RBC 3.61 L Hgb 11.7 D Hct 34.0 L MCV 94.0 MCH 32.4 MCHC 34.5 RDW 15.8 Plt Count 271 MPV 6.3 L Neutrophils % 60.5 D Lymphocytes % 34.1 D Monocytes % 2.8 L Eosinophils % 2.2 D Basophils % 0.4 D PT with INR 27.90 H INR 2.47 H D PTT (Actin FS) 47.7 H D Sodium 134 L Potassium 4.3 Chloride 99 Carbon Dioxide 27 Anion Gap 8 BUN 36 H D Creatinine 1.4 H D Creat Clearance w eGFR 48.89 Random Glucose 106 Calcium 10.2 H Magnesium 1.4 L D Total Bilirubin 0.4 D AST 8 L D ALT 13 Alkaline Phosphatase 85 D Creatine Kinase 26 L Troponin I < 0.02 Total Protein 9.1 H Albumin 3.4 D Digoxin 0.3425 L ASSESSMENT/PLAN: 81 year old M with pmh of NIDDM, HTN, HLD, Atrial fibrillation on Coumadin, colonic polyps, and 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 #Low back pain with lower extremity weakness -Tylenol 650 mg q4h prn -Oxycodone 5mg q4h prn -Physical Therapy -Physician consultation, Dr. Covarrubias and Dr. Moreno #ABRAN, likely 2/2 to dehydration -NS @ 75 cc/hr -Avoid nephrotoxic medications -Monitor cr -Monitor urine output #NIDDM -BGM ACHS -ISS ACHS #HTN -Coreg 6.125 mg bid -Cardizem 120 mg po daily #HLD -Simvastatin 10 mg hs #Atrial Fibrillation on coumadin -Digoxin 0.125mg po daily, dig level low -Cardizem 120 mg po daily -Coreg 6.125 mg bid -Coumadin 5 mg po (Sat-) -Coumadin 4mg po (Sat-Sat) -INR b/w 2-3. Will give 1 dose of 3mg Coumadin today #FEN/GI -NS @ 75 cc/hr -Monitor electrolytes -Diabetic/Sodium Diet #PPx -Coumadin #Dispo: Will need PT and rehab Visit type - Emergency Visit Emergency Visit: Yes ED Registration Date: 05/24/17 Care time: The patient presented to the Emergency Department on the above date and was hospitalized for further evaluation of their emergent condition. - New Patient This patient is new to me today: Yes Date on this admission: 05/24/17 - Critical Care Critical Care patient: No Hospitalist Screening - Colonoscopy Questionnaire Colonoscopy Questionnaire: Colonoscopy Questionnaire - Patient: 50 - 75 years old and never had a screening colonoscopy: Unknown History of colon or rectal polyps, or CA: Unknown History of IBD, Crohn's disease or UC: Unknown History of abdominal radiation therapy as a child: Unknown - Relative: 1 with colon or rectal CA, or polyps at age 60 or younger: Unknown Colon or rectal CA diagnosed at age 45 or younger: Unknown Multiple relatives with colon or rectal CA: Unknown - Outcome: Screening Result: Negative Screen <Sasha Hedrick - Last Filed: 05/24/17 19:03> Patient is comfortable, c/o having low back pain, and having difficulty with his gait, s/p fall at night , where he ended up sleeping on the floor. Vital Signs Temperature 97.7 F 05/24/17 18:41 Pulse Rate 97 H 05/24/17 18:41 Respiratory Rate 20 05/24/17 18:41 Blood Pressure 132/69 05/24/17 18:41 O2 Sat by Pulse Oximetry (%) 99 05/24/17 16:20 CBCD WBC 5.5 K/mm3 (4.0-10.0) 05/24/17 10:25 RBC 3.61 M/mm3 (4.00-5.60) L 05/24/17 10:25 Hgb 11.7 GM/dL (11.7-16.9) D 05/24/17 10:25 Hct 34.0 % (35.4-49) L 05/24/17 10:25 MCV 94.0 fl (80-96) 05/24/17 10:25 MCHC 34.5 g/dl (32.0-35.9) 05/24/17 10:25 RDW 15.8 % (11.9-15.9) 05/24/17 10:25 Plt Count 271 K/MM3 (134-434) 05/24/17 10:25 MPV 6.3 fl (7.5-11.1) L 05/24/17 10:25 CMP Sodium 134 mmol/L (136-145) L 05/24/17 10:25 Potassium 4.3 mmol/L (3.5-5.1) 05/24/17 10:25 Chloride 99 mmol/L (98-107) 05/24/17 10:25 Carbon Dioxide 27 mmol/L (21-32) 05/24/17 10:25 Anion Gap 8 (8-16) 05/24/17 10:25 BUN 36 mg/dL (7-18) H D 05/24/17 10:25 Creatinine 1.4 mg/dL (0.7-1.3) H D 05/24/17 10:25 Creat Clearance w eGFR 48.89 (>60) 05/24/17 10:25 Random Glucose 106 mg/dL (74-106) 05/24/17 10:25 Calcium 10.2 mg/dL (8.5-10.1) H 05/24/17 10:25 Total Bilirubin 0.4 mg/dL (0.2-1.0) D 05/24/17 10:25 AST 8 U/L (15-37) L D 05/24/17 10:25 ALT 13 U/L (12-78) 05/24/17 10:25 Alkaline Phosphatase 85 U/L (45-117) D 05/24/17 10:25 Total Protein 9.1 g/dl (6.4-8.2) H 05/24/17 10:25 Albumin 3.4 g/dl (3.4-5.0) D 05/24/17 10:25 CARDIAC ENZYMES Creatine Kinase 26 IU/L (39-308) L 05/24/17 10:25 Troponin I < 0.02 ng/ml (0.00-0.05) 05/24/17 10:25 Current Medications Generic Name Dose Route Start Last Admin Trade Name Freq PRN Reason Stop Dose Admin Acetaminophen 650 mg 05/24/17 16:02 Tylenol - PO Q4H PRN PAIN LEVEL 1-5 Atorvastatin Calcium 10 mg 05/24/17 22:00 Lipitor - PO HS [facility] Carvedilol 6.25 mg 05/24/17 22:00 Coreg - PO BID [facility] Digoxin 0.125 mg 05/25/17 10:00 Lanoxin - PO DAILY [facility] Diltiazem HCl 120 mg 05/25/17 10:00 Cardizem Cd - PO DAILY [facility] Sodium Chloride 1,000 mls @ 75 mls/hr 05/24/17 16:15 05/24/17 17:44 Normal Saline - IV 75 mls/hr ASDIR [facility] Administration Insulin Aspart 1 vial 05/24/17 16:30 05/24/17 17:12 Novolog Vial Sliding Scale - SQ Not Given ACHS [facility] Protocol Oxycodone HCl 5 mg 05/24/17 16:02 Roxicodone - PO Q4H PRN PAIN LEVEL 6-10 Warfarin Sodium 5 mg 05/27/17 18:00 Coumadin - PO [email or web address] [facility] Warfarin Sodium 4 mg 05/25/17 18:00 Coumadin - PO [email or web address] [facility] Home Medications Medication Instructions Recorded Carvedilol [Coreg -] 6.25 mg PO BID 05/24/17 Digoxin [Lanoxin -] 0.125 mg PO DAILY 05/24/17 Diltiazem Cd [Cardizem Cd -] 120 mg PO DAILY 05/24/17 Metformin HCl [Metformin HCl ER] 1,000 mg PO BID 05/24/17 Oxycodone HCl/Acetaminophen 1 tab PO Q6H PRN 05/24/17 [Percocet 5-325 mg Tablet] Simvastatin [Zocor] 10 mg PO HS 05/24/17 Sitagliptin Phosphate [Januvia] 100 mg PO DAILY 05/24/17 Warfarin Sodium 4 mg PO ASDIR 05/24/17 Warfarin Sodium 5 mg PO ASDIR 05/24/17 Zolpidem Tartrate [Ambien] 5 mg PO HS 05/24/17 PE: lying in bed with no acute distress. Pleasant gentleman. Heart: Irregularly-irregular, rate controlled, S1S2 positive Abdomen:soft, NT, ND,positive for BS, lying in bed with elevated head and having dinner. Ext: left calf larger than the right , as per patient his left lower extremity larger than Right. No calf pain. Neuro: cn 2-12 grossly intact, gait is not observed. A/P: # Low back pain with difficulty with ambulation s/p fall , will get neurosx and neurology to see the patient.mri is pending of lower back #afib rate is controlled on coumadin Hospitalist Screening - Colonoscopy Questionnaire Colonoscopy Questionnaire: Colonoscopy Questionnaire
[2017-05-24] MEDS ORDERED: MAGNESIUM SULF 50% (8.12 MEQ/2 ML-1 GM VIAL) IVPB ONE (16:30)
[2017-05-24] MEDS: INSULIN SLIDING SCALE (NOVOLOG) 1 VIAL SQ SCH ×2 (17:12→22:01)
[2017-05-24] MEDS: SODIUM CHLORIDE 1,000 ML IV SCH (17:44)
[2017-05-24] MEDS ORDERED: HEPARIN NA (PORCINE) 5,000 UNITS/ML 1ML VIAL SQ SCH (18:00)
[2017-05-24] MEDS ORDERED: WARFARIN NA 3 MG TABLET PO ONE (18:08)
[2017-05-24] MEDS: CARVEDILOL 6.25 MG TABLET (FP) PO SCH (22:04)
[2017-05-24] MEDS: ATORVASTATIN CA 10 MG TABLET (FP) PO SCH (22:04)
[2017-05-25] MEDS: INSULIN SLIDING SCALE (NOVOLOG) 1 VIAL SQ SCH ×4 (06:06→21:35)
[2017-05-25 08:45] LABS: BASO % 0.3 % (0-2.0); EOS % 1.9 % (0-4.5); HEMATOCRIT 32.2 % (35.4-49); LYMPH % 41.5 % (8-40); MCHC 34.2 g/dl (32.0-35.9); MEAN CELL VOLUME 93.7 fl (80-96); MEAN PLT VOLUME 6.5 fl (7.5-11.1); MONO % 2.6 % (3.8-10.2); NEUT % 53.7 % (42.8-82.8); PLATELET COUNT 260 K/MM3 (134-434); RBC 3.44 M/mm3 (4.00-5.60); RDW 15.6 % (11.9-15.9); WHITE BLOOD COUNT 4.4 K/mm3 (4.0-10.0)
[2017-05-25 08:55] LABS: INR 2.16 (0.82-1.09); PROTHROMBIN TIME (PATIENT) 24.4 SEC (9.98-11.88)
[2017-05-25 08:59] LABS: ACTIVATED PTT 41.9 SECONDS (26.9-34.4)
[2017-05-25 09:08] LABS: ANION GAP 6 (8-16); BLOOD UREA NITROGEN 19 mg/dL (7-18); CALCIUM 9.5 mg/dL (8.5-10.1); CHLORIDE 103 mmol/L (98-107); CO2 28 mmol/L (21-32); CREATININE 0.7 mg/dL (0.7-1.3); GLUCOSE,RANDOM 109 mg/dL (74-106); MAGNESIUM 1.4 mg/dL (1.8-2.4); POTASSIUM 4.4 mmol/L (3.5-5.1); SODIUM 137 mmol/L (136-145)
--- NOTE | 2017-05-25 09:43 | PN ---
Physical Exam: SUBJECTIVE: Patient seen and examined Patient is comfortable lying in bed with no acute distress, is at bedside. States that he gets pain when he stands up. OBJECTIVE: Vital Signs Temperature 97.8 F 05/25/17 08:00 Pulse Rate 87 05/25/17 08:00 Respiratory Rate 18 05/25/17 08:00 Blood Pressure 135/64 05/25/17 08:00 O2 Sat by Pulse Oximetry (%) 97 05/25/17 06:00 GENERAL: The patient is awake, alert, and fully oriented, in no acute distress. HEAD: Normal with no signs of trauma. EYES: PERRL, extraocular movements intact, sclera anicteric, conjunctiva clear. No ptosis. ENT: Ears normal, nares patent, oropharynx clear without exudates, moist mucous membranes. NECK: Trachea midline, full range of motion, supple. LUNGS: Breath sounds equal, clear to auscultation bilaterally, no wheezes, no crackles, no accessory muscle use. HEART: Regular rate and rhythm, S1, S2 without murmur, rub or gallop. ABDOMEN: Soft, nontender, nondistended, normoactive bowel sounds, no guarding, no rebound, no hepatosplenomegaly, no masses. EXTREMITIES: 2+ pulses, warm, well-perfused, no edema. NEUROLOGICAL: Cranial nerves II through XII grossly intact. Normal speech, gait not observed. PSYCH: Normal mood, normal affect. SKIN: Warm, dry, normal turgor, no rashes or lesions noted CBCD WBC 4.4 K/mm3 (4.0-10.0) 05/25/17 08:00 RBC 3.44 M/mm3 (4.00-5.60) L 05/25/17 08:00 Hgb 11.0 GM/dL (11.7-16.9) L 05/25/17 08:00 Hct 32.2 % (35.4-49) L 05/25/17 08:00 MCV 93.7 fl (80-96) 05/25/17 08:00 MCHC 34.2 g/dl (32.0-35.9) 05/25/17 08:00 RDW 15.6 % (11.9-15.9) 05/25/17 08:00 Plt Count 260 K/MM3 (134-434) 05/25/17 08:00 MPV 6.5 fl (7.5-11.1) L 05/25/17 08:00 CMP Sodium 137 mmol/L (136-145) 05/25/17 08:00 Potassium 4.4 mmol/L (3.5-5.1) 05/25/17 08:00 Chloride 103 mmol/L (98-107) 05/25/17 08:00 Carbon Dioxide 28 mmol/L (21-32) 05/25/17 08:00 Anion Gap 6 (8-16) L 05/25/17 08:00 BUN 19 mg/dL (7-18) H D 05/25/17 08:00 Creatinine 0.7 mg/dL (0.7-1.3) D 05/25/17 08:00 Creat Clearance w eGFR 48.89 (>60) 05/24/17 10:25 Random Glucose 109 mg/dL (74-106) H 05/25/17 08:00 Calcium 9.5 mg/dL (8.5-10.1) 05/25/17 08:00 Total Bilirubin 0.4 mg/dL (0.2-1.0) D 05/24/17 10:25 AST 8 U/L (15-37) L D 05/24/17 10:25 ALT 13 U/L (12-78) 05/24/17 10:25 Alkaline Phosphatase 85 U/L (45-117) D 05/24/17 10:25 Total Protein 9.1 g/dl (6.4-8.2) H 05/24/17 10:25 Albumin 3.4 g/dl (3.4-5.0) D 05/24/17 10:25 CARDIAC ENZYMES Creatine Kinase 26 IU/L (39-308) L 05/24/17 10:25 Troponin I < 0.02 ng/ml (0.00-0.05) 05/24/17 10:25 Current Medications Generic Name Dose Route Start Last Admin Trade Name Freq PRN Reason Stop Dose Admin Acetaminophen 650 mg 05/24/17 16:02 Tylenol - PO Q4H PRN PAIN LEVEL 1-5 Atorvastatin Calcium 10 mg 05/24/17 22:00 05/24/17 22:04 Lipitor - PO 10 mg HS [facility] Administration Carvedilol 6.25 mg 05/24/17 22:00 05/24/17 22:04 Coreg - PO 6.25 mg BID [facility] Administration Digoxin 0.125 mg 05/25/17 10:00 Lanoxin - PO DAILY [facility] Diltiazem HCl 120 mg 05/25/17 10:00 Cardizem Cd - PO DAILY [facility] Sodium Chloride 1,000 mls @ 75 mls/hr 05/24/17 16:15 05/24/17 17:44 Normal Saline - IV 75 mls/hr ASDIR [facility] Administration Insulin Aspart 1 vial 05/24/17 16:30 05/25/17 06:06 Novolog Vial Sliding Scale - SQ Not Given ACHS [facility] Protocol Oxycodone HCl 5 mg 05/24/17 16:02 Roxicodone - PO Q4H PRN PAIN LEVEL 6-10 Warfarin Sodium 5 mg 05/27/17 18:00 Coumadin - PO [email or web address] [facility] Warfarin Sodium 4 mg 05/25/17 18:00 Coumadin - PO [email or web address] [facility] Home Medications Medication Instructions Recorded Carvedilol [Coreg -] 6.25 mg PO BID 05/24/17 Digoxin [Lanoxin -] 0.125 mg PO DAILY 05/24/17 Diltiazem Cd [Cardizem Cd -] 120 mg PO DAILY 05/24/17 Metformin HCl [Metformin HCl ER] 1,000 mg PO BID 05/24/17 Oxycodone HCl/Acetaminophen 1 tab PO Q6H PRN 05/24/17 [Percocet 5-325 mg Tablet] Simvastatin [Zocor] 10 mg PO HS 05/24/17 Sitagliptin Phosphate [Januvia] 100 mg PO DAILY 05/24/17 Warfarin Sodium 4 mg PO ASDIR 05/24/17 Warfarin Sodium 5 mg PO ASDIR 05/24/17 Zolpidem Tartrate [Ambien] 5 mg PO HS 05/24/17 Laboratory Tests 05/24/17 05/24/17 05/25/17 10:25 10:25 08:00 INR 2.47 H D 2.16 H Digoxin 0.3425 L A/P: 81 year old M with pmh of NIDDM, HTN, HLD, Atrial fibrillation on Coumadin, colonic polyps, and 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 #Low back pain with lower extremity weakness continue Tylenol with Oxycodone 5mg q4h prn, Physical Therapy, consulted and Dr. Moreno #ABRAN continue iVF #NIDDM BGM ACHS. ISS ACHS #HTN: continue Coreg 6.125 mg bid, Cardizem 120 mg po daily #HLD continue Simvastatin 10 mg hs #Atrial Fibrillation on coumadin; Digoxin 0.125mg po daily, continue Cardizem 120 mg po daily -Coreg 6.125 mg bid, Coumadin 5 mg po (Sat-), Coumadin 4mg po (Sat-Sat) -INR b/w 2-3. Will give 1 dose of 3mg Coumadin today #PPx :Coumadin PT and rehab Visit type - Emergency Visit Emergency Visit: Yes ED Registration Date: 05/24/17 Care time: The patient presented to the Emergency Department on the above date and was hospitalized for further evaluation of their emergent condition. - New Patient This patient is new to me today: No - Critical Care Critical Care patient: No - Discharge Referral Referred to [facility] Med [facility].C.: No
[2017-05-25] MEDS: DIGOXIN 0.125 MG TABLET (FP) PO SCH (10:23)
[2017-05-25] MEDS: CARVEDILOL 6.25 MG TABLET (FP) PO SCH ×2 (10:24→21:36)
[2017-05-25] MEDS: SODIUM CHLORIDE 1,000 ML IV SCH ×2 (16:16→21:43)
[2017-05-25] MEDS: WARFARIN NA 2 MG TABLET (UD) PO SCH (17:17)
[2017-05-25] MEDS: ATORVASTATIN CA 10 MG TABLET (FP) PO SCH (21:36)
[2017-05-26] MEDS: INSULIN SLIDING SCALE (NOVOLOG) 1 VIAL SQ SCH ×4 (06:34→21:59)
[2017-05-26 08:16] LABS: INR 1.89 (0.82-1.09); PROTHROMBIN TIME (PATIENT) 21.4 SEC (9.98-11.88)
[2017-05-26] MEDS: CARVEDILOL 6.25 MG TABLET (FP) PO SCH ×2 (10:05→21:58)
[2017-05-26] MEDS: DIGOXIN 0.125 MG TABLET (FP) PO SCH (10:05)
[2017-05-26] MEDS ORDERED: MAGNESIUM SULF 50% (8.12 MEQ/2 ML-1 GM VIAL) IVPB ONE (11:36)
[2017-05-26] MEDS ORDERED: INSULIN (NOVOLOG) ASPART 100 UNITS/ML 10ML VIAL ONE ×2 (11:43→16:45)
[2017-05-26] MEDS: MAGNESIUM OXIDE 400 MG TABLET (FP) PO SCH ×2 (13:09→21:58)
[2017-05-26] MEDS: oxyCODONE HCL 5 MG TABLET PO PRN ×2 (13:14→21:58)
[2017-05-26] MEDS: DOCUSATE SODIUM 100 MG CAPSULE (FP) PO SCH ×2 (13:19→21:58)
[2017-05-26] MEDS ORDERED: MAGNESIUM 4GM/H20 - 4 GM/100 ML IVPB IVPB ONE (13:30)
--- NOTE | 2017-05-26 15:03 | PN ---
Physical Exam: SUBJECTIVE: Patient seen and examined No acute events overnight. Patient with pain when moving. Has not had a bowel movement. OBJECTIVE: Vital Signs Period Temp Pulse Resp BP Sys/Uribe Pulse Ox Last 24 Hr 97.7 F-98.4 F 77-100 18-22 120-140/60-73 99-99 GENERAL: Awake, alert, and fully oriented, in no acute distress. HEAD: Normal with no signs of trauma. EYES: Pupils equal, round and reactive to light, extraocular movements intact, sclera anicteric, conjunctiva clear. No lid lag. EARS, NOSE, THROAT: Ears normal, nares patent, oropharynx clear without exudates. Moist mucous membranes. NECK: Normal range of motion, supple without lymphadenopathy, JVD, or masses. LUNGS: Breath sounds equal, clear to auscultation bilaterally. No wheezes, and no crackles. No accessory muscle use. HEART: irregularly irregular, normal S1 and S2 without murmur, rub or gallop. ABDOMEN: Soft, nontender, not distended, normoactive bowel sounds, no guarding, no rebound, no masses. No hepatomegaly or splenomegaly. MUSCULOSKELETAL: Normal range of motion at all joints. No bony deformities or tenderness. No CVA tenderness. UPPER EXTREMITIES: 2+ pulses, warm, well-perfused. No cyanosis. No clubbing. No peripheral edema. LOWER EXTREMITIES: 2+ pulses, warm, well-perfused. No calf tenderness. 2+ edema b/l NEUROLOGICAL: Cranial nerves II-XII intact. Normal speech. Normal gait. Lower extremities 5/5 strength, sensation intact b/l, reflexes 2+, no point tenderness along spine PSYCHIATRIC: Cooperative. Good eye contact. Appropriate mood and affect. SKIN: Warm, dry, normal turgor, no rashes or lesions noted, normal capillary refill. +Lumbar spine surgical scar Laboratory Results - last 24 hr 05/25/17 05/25/17 05/26/17 16:15 21:32 06:32 PT with INR INR POC Glucometer 135 163 102 05/26/17 05/26/17 06:40 11:42 PT with INR 21.40 H INR 1.89 H POC Glucometer 189 Active Medications Generic Name Dose Route Start Last Admin Trade Name Freq PRN Reason Stop Dose Admin Acetaminophen 650 mg 05/24/17 16:02 Tylenol - PO Q4H PRN PAIN LEVEL 1-5 Atorvastatin Calcium 10 mg 05/24/17 22:00 05/25/17 21:36 Lipitor - PO 10 mg HS [facility] Administration Carvedilol 6.25 mg 05/24/17 22:00 05/26/17 10:05 Coreg - PO 6.25 mg BID [facility] Administration Digoxin 0.125 mg 05/25/17 10:00 05/26/17 10:05 Lanoxin - PO 0.125 mg DAILY [facility] Administration Diltiazem HCl 120 mg 05/25/17 10:00 05/26/17 10:05 Cardizem Cd - PO 120 mg DAILY [facility] Administration Docusate Sodium 100 mg 05/26/17 14:00 05/26/17 13:19 Colace - PO 100 mg TID [facility] Administration Sodium Chloride 1,000 mls @ 75 mls/hr 05/24/17 16:15 05/25/17 21:43 Normal Saline - IV 75 mls/hr ASDIR [facility] Administration Magnesium Sulfate 4 gm in 100 mls @ 50 mls/hr 05/26/17 13:30 Magnesium 4gm/H20 - IVPB 05/26/17 15:29 ONCE ONE Insulin Aspart 1 vial 05/24/17 16:30 05/26/17 11:44 Novolog Vial Sliding Scale - SQ 2 units ACHS [facility] Administration Protocol Magnesium Oxide 400 mg 05/26/17 11:45 05/26/17 13:09 Mag-Ox - PO 05/28/17 22:01 400 mg BID [facility] Administration Oxycodone HCl 5 mg 05/24/17 16:02 05/26/17 13:14 Roxicodone - PO 5 mg Q4H PRN Administration PAIN LEVEL 6-10 Senna 8.6 mg 05/26/17 13:15 Senna Oral Solution - PO BID [facility] Warfarin Sodium 5 mg 05/27/17 18:00 Coumadin - PO [email or web address] [facility] Warfarin Sodium 4 mg 05/25/17 18:00 05/25/17 17:17 Coumadin - PO 4 mg [email or web address]@1800 [facility] Administration ASSESSMENT/PLAN: 81 year old M with pmh of NIDDM, HTN, HLD, Atrial fibrillation on Coumadin, colonic polyps, and 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 #Low back pain with lower extremity weakness -Tylenol 650 mg q4h prn -Oxycodone 5mg q4h prn -Physical Therapy -Physician consultation, Dr. Covarrubias and Dr. Moreno #ABRAN, likely 2/2 to dehydration -NS @ 75 cc/hr -Avoid nephrotoxic medications -Monitor cr -Monitor urine output #NIDDM -BGM ACHS -ISS ACHS #HTN -Coreg 6.125 mg bid -Cardizem 120 mg po daily #HLD -Simvastatin 10 mg hs #Atrial Fibrillation on coumadin -Digoxin 0.125mg po daily, dig level low -Cardizem 120 mg po daily -Coreg 6.125 mg bid -Coumadin 5 mg po (Sat-) -Coumadin 4mg po (Sat-Sat) -INR low today #FEN/GI -NS @ 75 cc/hr -Monitor electrolytes -Diabetic/Sodium Diet #PPx -Coumadin #Dispo: Will need PT and rehab Visit type - Emergency Visit Emergency Visit: Yes ED Registration Date: 05/24/17 Care time: The patient presented to the Emergency Department on the above date and was hospitalized for further evaluation of their emergent condition. - New Patient This patient is new to me today: No - Critical Care Critical Care patient: No
[2017-05-26] MEDS: SODIUM CHLORIDE 1,000 ML IV SCH (15:14)
[2017-05-26] MEDS: WARFARIN NA 2 MG TABLET (UD) PO SCH (17:13)
[2017-05-26] MEDS: SENNOSIDES 8.8 MG/5 ML BULK BOTTLE PO SCH ×2 (17:40→22:49)
--- NOTE | 2017-05-26 18:45 | CON.NEURO ---
Consult Consult Specialty:: Neurology Referred by:: Dr. Valdez Reason for Consultation:: Lumbar Spine pain - History of Present Illness Chief Complaint: Back Pain, My Legs wobbled and I slid to the floor History of Present Illness: The patient is a 81 year old man who recently underwent spinal surgery and in March had MRI scheduled to f/u on the healing but reports that the technicians accidentally dropped him on the table and that this hurt his back. Since then he has had severe back pain, just to the side of the incision scar without radiation, weakness or sensory loss. He denies bowel or bladder dysfunction. He says though the the pain has required him to ambulate with a walker and the other day, he suddenly felt his legs wobble and he slowly slid to the floor. He wasn't able to get up from the position and his suggested that he sleep the night there. The next day he still wasn't able to arise, and he was brought here. He still reports that his legs move fine and that he is without sensory loss, bowel or bladder dysfunction. - History Source History Provided By: Patient, Medical Record Limitations to Obtaining History: No Limitations - Past Medical History Cardio/Vascular: Yes: AFIB, CAD, HTN, Hyperlipdemia Gastrointestinal: Yes: Other (colonic polyps) Musculoskeletal: Yes: Chronic low back pain Endocrine: Yes: Diabetes Mellitus - Past Surgical History Past Surgical History: Yes: Laminectomy - Alcohol/Substance Use Hx Alcohol Use: No - Smoking History Smoking history: Former smoker Have you smoked in the past 12 months: No Aproximately how many cigarettes per day: 0 If you are a former smoker, when did you quit?: 1967 Home Medications - Allergies Allergies/Adverse Reactions: Allergies Allergy/AdvReac Type Severity Reaction Status Date / Time No Known Allergies Allergy Verified 05/24/17 10:26 - Home Medications Home Medications: Ambulatory Orders Carvedilol [Coreg -] 6.25 mg PO BID 05/24/17 Digoxin [Lanoxin -] 0.125 mg PO DAILY 05/24/17 Diltiazem Cd [Cardizem Cd -] 120 mg PO DAILY 05/24/17 Metformin HCl [Metformin HCl ER] 1,000 mg PO BID 05/24/17 Oxycodone HCl/Acetaminophen [Percocet 5-325 mg Tablet] 1 tab PO Q6H PRN Simvastatin [Zocor] 10 mg PO HS 05/24/17 Sitagliptin Phosphate [Januvia] 100 mg PO DAILY 05/24/17 Warfarin Sodium 4 mg PO ASDIR 05/24/17 Warfarin Sodium 5 mg PO ASDIR 05/24/17 Zolpidem Tartrate [Ambien] 5 mg PO HS 05/24/17 Physical Exam-Neuro Vital Signs: Vital Signs Temperature 98.4 F 05/26/17 14:09 Pulse Rate 100 H 05/26/17 14:09 Respiratory Rate 19 05/26/17 14:09 Blood Pressure 120/73 05/26/17 14:09 O2 Sat by Pulse Oximetry (%) 99 05/26/17 09:00 Constitutional: Yes: Well Nourished, Calm Labs: CBC, BMP 05/25/17 08:00 INR, PTT INR 1.89 (0.82-1.09) H 05/26/17 06:40 - Neuro Exam Level Of Consciousness: Yes: Alert, Oriented to Person, Oriented to Place, Oriented to Time Eyes: Yes: GONZALES Speech: WNL Cranial Nerves II-XII Intact: Yes DTR's: 1+ Left Achilles, 1+ Right Achilles, 2+ Left Bicep, 2+ Right Bicep, 2+ Left Tricep, 2+ Right Tricep, 2+ Left Brachioradialis, 2+ Right Brachioradialis Babinski: Absent Response to light touch: Normal Motor Strength: 5/5: Left Arm, Right Arm, Left Leg, Right Leg Gait: Deferred Imaging - Results MRI: Report Reviewed (Several small compression fractures without impact on neural structures), Image Reviewed Problem List - Problems (1) Back pain Code(s): M54.9 - DORSALGIA, UNSPECIFIED Qualifiers: Back pain location: thoracic back pain Chronicity: chronic Back pain laterality: bilateral Qualified Code(s): M54.6 - Pain in thoracic spine; G89.29 - Other chronic pain; G89.29 - Other chronic pain (2) Lumbar compression fracture Code(s): S32.000A - WEDGE COMPRESSION FRACTURE OF UNSP LUMBAR VERTEBRA, INIT Qualifiers: Encounter type: initial encounter Lumbar vertebra fracture level: L1 Fracture type: closed Qualified Code(s): S32.010A - Wedge compression fracture of first lumbar vertebra, initial encounter for closed fracture Assessment/Plan He has no deficits from this but two small compression fractures wtihout impact on neural structures and the main issue is the pain that they cause. Consideration to cement or other pain management techniques to control this, but fortunately, as there is no radicular or cauda equina impact, neurologically , he is fine. Recommend contacting surgeon who operated on patient at [place] and also Pain Management. thanks.
[2017-05-26 19:08] LABS: ANION GAP 13 (8-16); BLOOD UREA NITROGEN 18 mg/dL (7-18); CALCIUM 9.1 mg/dL (8.5-10.1); CHLORIDE 103 mmol/L (98-107); CO2 22 mmol/L (21-32); CREATININE 0.7 mg/dL (0.7-1.3); GLUCOSE,RANDOM 186 mg/dL (74-106); MAGNESIUM 2.7 mg/dL (1.8-2.4); PHOSPHOROUS 2.6 mg/dL (2.5-4.9); POTASSIUM 4.2 mmol/L (3.5-5.1); SODIUM 138 mmol/L (136-145)
[2017-05-26] MEDS: ATORVASTATIN CA 10 MG TABLET (FP) PO SCH (21:58)
[2017-05-27] MEDS: SODIUM CHLORIDE 1,000 ML IV SCH ×3 (04:30→18:16)
[2017-05-27] MEDS: DOCUSATE SODIUM 100 MG CAPSULE (FP) PO SCH ×3 (05:56→21:29)
[2017-05-27] MEDS: INSULIN SLIDING SCALE (NOVOLOG) 1 VIAL SQ SCH ×4 (06:01→21:29)
[2017-05-27 08:07] LABS: BASO % 0.3 % (0-2.0); EOS % 2.2 % (0-4.5); HEMATOCRIT 29.6 % (35.4-49); LYMPH % 29.8 % (8-40); MCH 32.1 pg (25.7-33.7); MCHC 33.9 g/dl (32.0-35.9); MEAN CELL VOLUME 94.6 fl (80-96); MEAN PLT VOLUME 6.4 fl (7.5-11.1); MONO % 3.3 % (3.8-10.2); NEUT % 64.4 % (42.8-82.8); PLATELET COUNT 239 K/MM3 (134-434); RBC 3.13 M/mm3 (4.00-5.60); RDW 15.7 % (11.9-15.9)
[2017-05-27 08:16] LABS: ANION GAP 6 (8-16); BLOOD UREA NITROGEN 15 mg/dL (7-18); CALCIUM 8.8 mg/dL (8.5-10.1); CHLORIDE 105 mmol/L (98-107); CO2 27 mmol/L (21-32); GLUCOSE,RANDOM 122 mg/dL (74-106); MAGNESIUM 1.8 mg/dL (1.8-2.4); SODIUM 138 mmol/L (136-145)
[2017-05-27 08:17] LABS: CREATININE 0.7 mg/dL (0.7-1.3); PHOSPHOROUS 2.4 mg/dL (2.5-4.9)
[2017-05-27 08:22] LABS: INR 1.75 (0.82-1.09); PROTHROMBIN TIME (PATIENT) 19.8 SEC (9.98-11.88)
[2017-05-27] MEDS: DIGOXIN 0.125 MG TABLET (FP) PO SCH (09:57)
[2017-05-27] MEDS: MAGNESIUM OXIDE 400 MG TABLET (FP) PO SCH ×2 (09:58→21:29)
[2017-05-27] MEDS: CARVEDILOL 6.25 MG TABLET (FP) PO SCH ×2 (09:58→21:29)
[2017-05-27] MEDS: SENNOSIDES 8.8 MG/5 ML BULK BOTTLE PO SCH ×2 (10:00→21:32)
[2017-05-27] MEDS: oxyCODONE HCL 5 MG TABLET PO PRN (10:08)
[2017-05-27] MEDS ORDERED: INSULIN (NOVOLOG) ASPART 100 UNITS/ML 10ML VIAL ONE (12:01)
--- NOTE | 2017-05-27 12:23 | PN ---
Teaching Attending Note Name of Resident: Asad Bedolla ATTENDING PHYSICIAN STATEMENT I saw and evaluated the patient. I reviewed the resident's note and discussed the case with the resident. I agree with the resident's findings and plan as documented. SUBJECTIVE: Patient complains of pain in his lower back whenever he moves. He says he can move his legs without pain but he is unable to participate with PT. OBJECTIVE: Vital Signs Period Temp Pulse Resp BP Sys/Uribe Pulse Ox Last 24 Hr 97 F-98.4 F 78-100 18-21 106-148/64-92 96-97 HEART: Irregularly irregular LUNGS: Clear ABDOMEN: Soft, non-tender, non-distended, normal BS EXTREMITIES: No edema Laboratory Results - last 24 hr 05/26/17 05/26/17 05/26/17 16:32 18:00 21:57 WBC RBC Hgb Hct MCV MCH MCHC RDW Plt Count MPV Neutrophils % Lymphocytes % Monocytes % Eosinophils % Basophils % PT with INR INR Sodium 138 Potassium 4.2 Chloride 103 Carbon Dioxide 22 D Anion Gap 13 BUN 18 Creatinine 0.7 POC Glucometer 201 137 Random Glucose 186 H D Calcium 9.1 Phosphorus 2.6 Magnesium 2.7 H D 05/27/17 05/27/17 05/27/17 05:56 06:30 06:30 WBC 6.0 D RBC 3.13 L Hgb 10.0 L Hct 29.6 L MCV 94.6 MCH 32.1 MCHC 33.9 RDW 15.7 Plt Count 239 MPV 6.4 L Neutrophils % 64.4 Lymphocytes % 29.8 D Monocytes % 3.3 L Eosinophils % 2.2 Basophils % 0.3 PT with INR 19.80 H INR 1.75 H Sodium Potassium Chloride Carbon Dioxide Anion Gap BUN Creatinine POC Glucometer 134 Random Glucose Calcium Phosphorus Magnesium 05/27/17 05/27/17 06:30 11:48 WBC RBC Hgb Hct MCV MCH MCHC RDW Plt Count MPV Neutrophils % Lymphocytes % Monocytes % Eosinophils % Basophils % PT with INR INR Sodium 138 Potassium 5.0 Chloride 105 Carbon Dioxide 27 D Anion Gap 6 L BUN 15 Creatinine 0.7 POC Glucometer 215 Random Glucose 122 H D Calcium 8.8 Phosphorus 2.4 L Magnesium 1.8 D Current Medications Generic Name Dose Route Start Last Admin Trade Name Freq PRN Reason Stop Dose Admin Acetaminophen 650 mg 05/24/17 16:02 Tylenol - PO Q4H PRN PAIN LEVEL 1-5 Atorvastatin Calcium 10 mg 05/24/17 22:00 05/26/17 21:58 Lipitor - PO 10 mg HS [facility] Administration Carvedilol 6.25 mg 05/24/17 22:00 05/27/17 09:58 Coreg - PO 6.25 mg BID [facility] Administration Digoxin 0.125 mg 05/25/17 10:00 05/27/17 09:57 Lanoxin - PO 0.125 mg DAILY [facility] Administration Diltiazem HCl 120 mg 05/25/17 10:00 05/27/17 09:59 Cardizem Cd - PO 120 mg DAILY [facility] Administration Docusate Sodium 100 mg 05/26/17 14:00 05/27/17 05:56 Colace - PO Not Given TID [facility] Sodium Chloride 1,000 mls @ 75 mls/hr 05/24/17 16:15 05/27/17 04:30 Normal Saline - IV 75 mls/hr ASDIR [facility] Administration Insulin Aspart 1 vial 05/24/17 16:30 05/27/17 12:07 Novolog Vial Sliding Scale - SQ 4 units ACHS [facility] Administration Protocol Magnesium Oxide 400 mg 05/26/17 11:45 05/27/17 09:58 Mag-Ox - PO 05/28/17 22:01 400 mg BID [facility] Administration Oxycodone HCl 5 mg 05/24/17 16:02 05/27/17 10:08 Roxicodone - PO 5 mg Q4H PRN Administration PAIN LEVEL 6-10 Senna 8.6 mg 05/26/17 13:15 05/27/17 10:00 Senna Oral Solution - PO 8.6 mg BID [facility] Administration Warfarin Sodium 5 mg 05/27/17 18:00 Coumadin - PO MoTuWeTh@1800 [facility] Warfarin Sodium 4 mg 05/25/17 18:00 05/26/17 17:13 Coumadin - PO 4 mg SuFrSa@1800 [facility] Administration ASSESSMENT AND PLAN: This is a 81 year old man with a history of type 2 DM, HTN, hyperlipidemia, atrial fibrillation, lumbar burst fracture and stabilization with pedicle screws who presented with low back pain and leg weakness. 1. T12 and L4 fractures - No improvement in symptoms with pain medication, PT - Neurosurgery consult 2. Acute kidney injury - Resolved 3. Type 2 DM - Continue Novolog sliding scale 4. HTN - Continue Coreg, Cardizem CD 5. Hyperlipidemia - Continue Lipitor 6. Permanent atrial fibrillation - Continue Coreg, Digoxin - Adjust Coumadin per INR
--- NOTE | 2017-05-27 13:41 | PN ---
Progress Note, Physician History of Present Illness: The patient is a 81 year old man who recently underwent spinal surgery and in March had MRI scheduled to f/u on the healing but reports that the technicians accidentally dropped him on the table and that this hurt his back. Since then he has had severe back pain, just to the side of the incision scar without radiation, weakness or sensory loss. He denies bowel or bladder dysfunction. He says though the the pain has required him to ambulate with a walker and the other day, he suddenly felt his legs wobble and he slowly slid to the floor. He wasn't able to get up from the position and his suggested that he sleep the night there. The next day he still wasn't able to arise, and he was brought here. He still reports that his legs move fine and that he is without sensory loss, bowel or bladder dysfunction. - Current Medication List Current Medications: Active Medications Acetaminophen (Tylenol -) 650 mg PO Q4H PRN PRN Reason: PAIN LEVEL 1-5 Atorvastatin Calcium (Lipitor -) 10 mg PO HS [facility] Last Admin: 05/26/17 21:58 Dose: 10 mg Carvedilol (Coreg -) 6.25 mg PO BID [facility] Last Admin: 05/27/17 09:58 Dose: 6.25 mg Digoxin (Lanoxin -) 0.125 mg PO DAILY [facility] Last Admin: 05/27/17 09:57 Dose: 0.125 mg Diltiazem HCl (Cardizem Cd -) 120 mg PO DAILY [facility] Last Admin: 05/27/17 09:59 Dose: 120 mg Docusate Sodium (Colace -) 100 mg PO TID [facility] Last Admin: 05/27/17 13:32 Dose: 100 mg Sodium Chloride (Normal Saline -) 1,000 mls @ 75 mls/hr IV ASDIR [facility] Last Admin: 05/27/17 04:30 Dose: 75 mls/hr Insulin Aspart (Novolog Vial Sliding Scale -) 1 vial SQ ACHS [facility] PRN Reason: Protocol Last Admin: 05/27/17 12:07 Dose: 4 units Magnesium Oxide (Mag-Ox -) 400 mg PO BID [facility] Stop: 05/28/17 22:01 Last Admin: 05/27/17 09:58 Dose: 400 mg Oxycodone HCl (Roxicodone -) 5 mg PO Q4H PRN PRN Reason: PAIN LEVEL 6-10 Last Admin: 05/27/17 10:08 Dose: 5 mg Senna (Senna Oral Solution -) 8.6 mg PO BID [facility] Last Admin: 05/27/17 10:00 Dose: 8.6 mg Warfarin Sodium (Coumadin -) 5 mg PO MoTuWeTh@1800 [facility] Warfarin Sodium (Coumadin -) 4 mg PO SuFrSa@1800 [facility] Last Admin: 05/26/17 17:13 Dose: 4 mg - Objective Vital Signs: Vital Signs Temperature 97.7 F 05/27/17 08:00 Pulse Rate 89 05/27/17 10:25 Respiratory Rate 18 05/27/17 08:00 Blood Pressure 130/73 05/27/17 10:25 O2 Sat by Pulse Oximetry (%) 97 05/27/17 08:11 Neurological: Yes: WNL Labs: CBC, BMP 05/27/17 06:30 05/27/17 06:30 INR, PTT INR 1.75 (0.82-1.09) H 05/27/17 06:30 Problem List - Problems (1) Back pain Code(s): M54.9 - DORSALGIA, UNSPECIFIED Qualifiers: Back pain location: thoracic back pain Chronicity: chronic Back pain laterality: bilateral Qualified Code(s): M54.6 - Pain in thoracic spine; G89.29 - Other chronic pain; G89.29 - Other chronic pain (2) Lumbar compression fracture Code(s): S32.000A - WEDGE COMPRESSION FRACTURE OF UNSP LUMBAR VERTEBRA, INIT Qualifiers: Encounter type: initial encounter Lumbar vertebra fracture level: L1 Fracture type: closed Qualified Code(s): S32.010A - Wedge compression fracture of first lumbar vertebra, initial encounter for closed fracture Assessment/Plan He has no deficits from this but two small compression fractures wtihout impact on neural structures and the main issue is the pain that they cause. Consideration to cement or other pain management techniques to control this, but fortunately, as there is no radicular or cauda equina impact, neurologically , he is fine. Recommend contacting Dr. Justin and Pain management.
[2017-05-27] MEDS ORDERED: NAPH,MB-DB/K PH,MBDB POWDER PACKET PO ONE (15:44)
--- NOTE | 2017-05-27 15:44 | PN ---
Physical Exam: SUBJECTIVE: Patient seen and examined No acute events overnight. Patient feels well this morning. Denies pain except for upon movement OBJECTIVE: Vital Signs Period Temp Pulse Resp BP Sys/Uribe Pulse Ox Last 24 Hr 97 F-98.0 F 78-89 18-21 106-148/58-92 96-97 GENERAL: Awake, alert, and fully oriented, in no acute distress. HEAD: Normal with no signs of trauma. EYES: Pupils equal, round and reactive to light, extraocular movements intact, sclera anicteric, conjunctiva clear. No lid lag. EARS, NOSE, THROAT: Ears normal, nares patent, oropharynx clear without exudates. Moist mucous membranes. NECK: Normal range of motion, supple without lymphadenopathy, JVD, or masses. LUNGS: Breath sounds equal, clear to auscultation bilaterally. No wheezes, and no crackles. No accessory muscle use. HEART: irregularly irregular, normal S1 and S2 without murmur, rub or gallop. ABDOMEN: Soft, nontender, not distended, normoactive bowel sounds, no guarding, no rebound, no masses. No hepatomegaly or splenomegaly. MUSCULOSKELETAL: Normal range of motion at all joints. No bony deformities or tenderness. No CVA tenderness. UPPER EXTREMITIES: 2+ pulses, warm, well-perfused. No cyanosis. No clubbing. No peripheral edema. LOWER EXTREMITIES: 2+ pulses, warm, well-perfused. No calf tenderness. 2+ edema b/l NEUROLOGICAL: Cranial nerves II-XII intact. Normal speech. Normal gait. Lower extremities 5/5 strength, sensation intact b/l, reflexes 2+, no point tenderness along spine PSYCHIATRIC: Cooperative. Good eye contact. Appropriate mood and affect. SKIN: Warm, dry, normal turgor, no rashes or lesions noted, normal capillary refill. +Lumbar spine surgical scar Laboratory Results - last 24 hr 05/26/17 05/26/17 05/26/17 16:32 18:00 21:57 WBC RBC Hgb Hct MCV MCH MCHC RDW Plt Count MPV Neutrophils % Lymphocytes % Monocytes % Eosinophils % Basophils % PT with INR INR Sodium 138 Potassium 4.2 Chloride 103 Carbon Dioxide 22 D Anion Gap 13 BUN 18 Creatinine 0.7 POC Glucometer 201 137 Random Glucose 186 H D Calcium 9.1 Phosphorus 2.6 Magnesium 2.7 H D 0305/27/17 05/27/17 05:56 06:30 06:30 WBC 6.0 D RBC 3.13 L Hgb 10.0 L Hct 29.6 L MCV 94.6 MCH 32.1 MCHC 33.9 RDW 15.7 Plt Count 239 MPV 6.4 L Neutrophils % 64.4 Lymphocytes % 29.8 D Monocytes % 3.3 L Eosinophils % 2.2 Basophils % 0.3 PT with INR 19.80 H INR 1.75 H Sodium Potassium Chloride Carbon Dioxide Anion Gap BUN Creatinine POC Glucometer 134 Random Glucose Calcium Phosphorus Magnesium 05/27/17 05/27/17 06:30 11:48 WBC RBC Hgb Hct MCV MCH MCHC RDW Plt Count MPV Neutrophils % Lymphocytes % Monocytes % Eosinophils % Basophils % PT with INR INR Sodium 138 Potassium 5.0 Chloride 105 Carbon Dioxide 27 D Anion Gap 6 L BUN 15 Creatinine 0.7 POC Glucometer 215 Random Glucose 122 H D Calcium 8.8 Phosphorus 2.4 L Magnesium 1.8 D Active Medications Generic Name Dose Route Start Last Admin Trade Name Freq PRN Reason Stop Dose Admin Acetaminophen 650 mg 05/24/17 16:02 Tylenol - PO Q4H PRN PAIN LEVEL 1-5 Atorvastatin Calcium 10 mg 05/24/17 22:00 05/26/17 21:58 Lipitor - PO 10 mg HS [facility] Administration Carvedilol 6.25 mg 05/24/17 22:00 05/27/17 09:58 Coreg - PO 6.25 mg BID [facility] Administration Digoxin 0.125 mg 05/25/17 10:00 05/27/17 09:57 Lanoxin - PO 0.125 mg DAILY [facility] Administration Diltiazem HCl 120 mg 05/25/17 10:00 05/27/17 09:59 Cardizem Cd - PO 120 mg DAILY [facility] Administration Docusate Sodium 100 mg 05/26/17 14:00 05/27/17 13:32 Colace - PO 100 mg TID [facility] Administration Sodium Chloride 1,000 mls @ 75 mls/hr 05/24/17 16:15 05/27/17 04:30 Normal Saline - IV 75 mls/hr ASDIR [facility] Administration Insulin Aspart 1 vial 05/24/17 16:30 05/27/17 12:07 Novolog Vial Sliding Scale - SQ 4 units ACHS [facility] Administration Protocol Magnesium Oxide 400 mg 05/26/17 11:45 05/27/17 09:58 Mag-Ox - PO 05/28/17 22:01 400 mg BID [facility] Administration Oxycodone HCl 5 mg 05/24/17 16:02 05/27/17 10:08 Roxicodone - PO 5 mg Q4H PRN Administration PAIN LEVEL 6-10 Senna 8.6 mg 05/26/17 13:15 05/27/17 10:00 Senna Oral Solution - PO 8.6 mg BID [facility] Administration Warfarin Sodium 5 mg 05/27/17 18:00 Coumadin - PO MoTuWeTh@1800 [facility] Warfarin Sodium 4 mg 05/25/17 18:00 05/26/17 17:13 Coumadin - PO 4 mg SuFrSa@1800 [facility] Administration ASSESSMENT/PLAN: 81 year old M with pmh of NIDDM, HTN, HLD, Atrial fibrillation on Coumadin, colonic polyps, and 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 #Low back pain with lower extremity weakness -Tylenol 650 mg q4h prn -Oxycodone 5mg q4h prn -Physical Therapy -Physician consultation, Dr. Covarrubias and Dr. Moreno -Pending neruosx #ABRAN, likely 2/2 to dehydration -NS @ 75 cc/hr -Avoid nephrotoxic medications -Monitor cr -Monitor urine output #NIDDM -BGM ACHS -ISS ACHS #HTN -Coreg 6.125 mg bid -Cardizem 120 mg po daily #HLD -Simvastatin 10 mg hs #Atrial Fibrillation on coumadin -Digoxin 0.125mg po daily, dig level low -Cardizem 120 mg po daily -Coreg 6.125 mg bid -Coumadin 5 mg po (Sat-) -Coumadin 4mg po () -INR low today #FEN/GI -NS @ 75 cc/hr -Monitor electrolytes -Diabetic/Sodium Diet #PPx -Coumadin #Dispo: Will need PT and rehab Visit type - Emergency Visit Emergency Visit: Yes ED Registration Date: 05/24/17 Care time: The patient presented to the Emergency Department on the above date and was hospitalized for further evaluation of their emergent condition. - New Patient This patient is new to me today: No - Critical Care Critical Care patient: No
[2017-05-27] MEDS ORDERED: WARFARIN NA 5 MG TABLET (UD) PO SCH (18:00)
[2017-05-27] MEDS: ATORVASTATIN CA 10 MG TABLET (FP) PO SCH (21:29)
[2017-05-27] MEDS ORDERED: oxyCODONE HCL 5 MG TABLET PO STA (21:44)
[2017-05-28] MEDS: INSULIN SLIDING SCALE (NOVOLOG) 1 VIAL SQ SCH ×4 (06:08→21:43)
[2017-05-28] MEDS: SODIUM CHLORIDE 1,000 ML IV SCH (06:08)
[2017-05-28] MEDS: DOCUSATE SODIUM 100 MG CAPSULE (FP) PO SCH ×3 (06:14→21:37)
[2017-05-28 08:24] LABS: BASO % 0.4 % (0-2.0); EOS % 3.1 % (0-4.5); HEMATOCRIT 30.4 % (35.4-49); HEMOGLOBIN 10.4 GM/dL (11.7-16.9); LYMPH % 39.6 % (8-40); MCH 32.1 pg (25.7-33.7); MCHC 34.1 g/dl (32.0-35.9); MEAN CELL VOLUME 94.2 fl (80-96); MEAN PLT VOLUME 6.6 fl (7.5-11.1); MONO % 3.2 % (3.8-10.2); NEUT % 53.7 % (42.8-82.8); PLATELET COUNT 254 K/MM3 (134-434); RBC 3.23 M/mm3 (4.00-5.60); RDW 15.6 % (11.9-15.9); WHITE BLOOD COUNT 5.3 K/mm3 (4.0-10.0)
[2017-05-28 08:41] LABS: ANION GAP 7 (8-16); BLOOD UREA NITROGEN 12 mg/dL (7-18); CALCIUM 9.1 mg/dL (8.5-10.1); CHLORIDE 105 mmol/L (98-107); CO2 25 mmol/L (21-32); CREATININE 0.6 mg/dL (0.7-1.3); GLUCOSE,RANDOM 114 mg/dL (74-106); MAGNESIUM 1.6 mg/dL (1.8-2.4); PHOSPHOROUS 2.8 mg/dL (2.5-4.9); POTASSIUM 4.5 mmol/L (3.5-5.1); SODIUM 137 mmol/L (136-145)
[2017-05-28 08:51] LABS: INR 1.57 (0.82-1.09); PROTHROMBIN TIME (PATIENT) 17.7 SEC (9.98-11.88)
--- NOTE | 2017-05-28 10:12 | PN ---
Progress Note, Physician Chief Complaint: Back Pain History of Present Illness: The patient is a 81 year old man who recently underwent spinal surgery and in March had MRI scheduled to f/u on the healing but reports that the technicians accidentally dropped him on the table and that this hurt his back. Since then he has had severe back pain, just to the side of the incision scar without radiation, weakness or sensory loss. He denies bowel or bladder dysfunction. He says though the the pain has required him to ambulate with a walker and the other day, he suddenly felt his legs wobble and he slowly slid to the floor. He wasn't able to get up from the position and his suggested that he sleep the night there. The next day he still wasn't able to arise, and he was brought here. He still reports that his legs move fine and that he is without sensory loss, bowel or bladder dysfunction. Pain localized to his lower back, and only present when he moves. - Current Medication List Current Medications: Active Medications Acetaminophen (Tylenol -) 650 mg PO Q4H PRN PRN Reason: PAIN LEVEL 1-5 Atorvastatin Calcium (Lipitor -) 10 mg PO HS [facility] Last Admin: 05/27/17 21:29 Dose: 10 mg Carvedilol (Coreg -) 6.25 mg PO BID [facility] Last Admin: 05/27/17 21:29 Dose: 6.25 mg Digoxin (Lanoxin -) 0.125 mg PO DAILY [facility] Last Admin: 05/27/17 09:57 Dose: 0.125 mg Diltiazem HCl (Cardizem Cd -) 120 mg PO DAILY [facility] Last Admin: 05/27/17 09:59 Dose: 120 mg Docusate Sodium (Colace -) 100 mg PO TID [facility] Last Admin: 05/28/17 06:14 Dose: 100 mg Sodium Chloride (Normal Saline -) 1,000 mls @ 75 mls/hr IV ASDIR [facility] Last Admin: 05/28/17 06:08 Dose: 75 mls/hr Insulin Aspart (Novolog Vial Sliding Scale -) 1 vial SQ ACHS [facility] PRN Reason: Protocol Last Admin: 05/28/17 06:08 Dose: Not Given Magnesium Oxide (Mag-Ox -) 400 mg PO BID [facility] Stop: 05/28/17 22:01 Last Admin: 05/27/17 21:29 Dose: 400 mg Senna (Senna -) 8.6 tab PO BID [facility] Warfarin Sodium (Coumadin -) 5 mg PO MoTuWeTh@1800 [facility] Last Admin: 05/27/17 18:15 Dose: 5 mg Warfarin Sodium (Coumadin -) 4 mg PO SuFrSa@1800 [facility] Last Admin: 05/26/17 17:13 Dose: 4 mg - Objective Vital Signs: Vital Signs Temperature 97.9 F 05/28/17 05:24 Pulse Rate 75 05/28/17 05:24 Respiratory Rate 20 05/28/17 05:24 Blood Pressure 120/78 05/28/17 05:24 O2 Sat by Pulse Oximetry (%) 96 05/27/17 20:43 Neurological: Yes: WNL, Cran Nerves II-XII Intact (now sensory loss), Other ...Motor Strength: WNL Labs: CBC, BMP 05/28/17 07:35 05/28/17 07:35 INR, PTT INR 1.57 (0.82-1.09) H 05/28/17 07:35 Problem List - Problems (1) Back pain Code(s): M54.9 - DORSALGIA, UNSPECIFIED Qualifiers: Back pain location: thoracic back pain Chronicity: chronic Back pain laterality: bilateral Qualified Code(s): M54.6 - Pain in thoracic spine; G89.29 - Other chronic pain; G89.29 - Other chronic pain (2) Lumbar compression fracture Code(s): S32.000A - WEDGE COMPRESSION FRACTURE OF UNSP LUMBAR VERTEBRA, INIT Qualifiers: Encounter type: initial encounter Lumbar vertebra fracture level: L1 Fracture type: closed Qualified Code(s): S32.010A - Wedge compression fracture of first lumbar vertebra, initial encounter for closed fracture Assessment/Plan He has no deficits from this but two small compression fractures wtihout impact on neural structures and the main issue is the pain that they cause. Consideration to cement or other pain management techniques to control this, but fortunately, as there is no radicular or cauda equina impact, neurologically , he is fine. Await Dr. Ashby input.
[2017-05-28] MEDS: SENNOSIDES 8.6MG TABLET (FP) PO SCH ×2 (10:39→21:37)
[2017-05-28] MEDS: CARVEDILOL 6.25 MG TABLET (FP) PO SCH ×2 (10:41→21:37)
[2017-05-28] MEDS: MAGNESIUM OXIDE 400 MG TABLET (FP) PO SCH ×2 (10:41→21:37)
[2017-05-28] MEDS: DIGOXIN 0.125 MG TABLET (FP) PO SCH (10:41)
[2017-05-28] MEDS ORDERED: MAGNESIUM OXIDE 400 MG TABLET (FP) PO ONE (14:03)
[2017-05-28] MEDS ORDERED: HEPARIN NA (PORCINE) 5,000 UNITS/ML 1ML VIAL IVPUSH PRN ×2 (14:34)
[2017-05-28] MEDS ORDERED: diphenhydrAMINE HCL 25 MG CAPSULE (FP) PO ONE (14:41)
--- NOTE | 2017-05-28 14:58 | CONSULT ---
Consult - text type - Consultation Consultation Note: NEUROSURGERY CONSULTATION Spike Narvaez is a 81 year old retired [employer] who I treated for an L1 burst fracture in late 2016. 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 He did not respond to extensive efforts to conservatively manage this injury with bracing and immobilization. He could not stand and bear weight despite several different braces being applied. I treated him with a posterior stabilization from T12-L2 with pedicle screws and also decompressed some caudal Lumbar stenosis. Overall, he did quite well and returned to ambulation and declares: "I had no pain, no pain at all." The patient was undergoing MRI of his Lumbar spine on April 21, 2017 and fell while being prepared for his study. This immediately resulted in severe pain which has not abated. He suffered another event last Saturday when he slumped down after feeling that his legs were wobbly and he was unable to get up and wound up sleeping on the floor since while immobile, he didn't have pain, but all attempts to arise or shift position were excruciating. New MRI shows that there is a new fracture in T12 and L4. He has been largely bedbound and unable to participate in Physical Therapy since last week when he was admitted. I described the risks, benefits and alternatives to four different treatment strategies: 1 - Expectant management 2 - Bracing 3 - Percutaneous Cement Augmentation 4 - Extension of his fusion to T11 It would appear that expectant management is not working and the risks of being restricted to be for weeks would outweigh the benefits of avoiding any intervention. Although he has not been able to ambulate with a brace, we will attempt Physical Therapy in a brace once again to confirm that he is unable to bear weight and ambulate, even with a properly fitted brace. I am not certain that cement augmentation may be possible at T12 with the hardware blocking the traditional route to the body, however, I agree that an opinion from Dr. Mercer would be reasonable before formally excluding this option. If the patient is unable to achieve relief, it may be reasonable to consider extension of his construct. This would entail opening the rostral half of his incision and possibly extending it by 2-3 cm and removing the rods, placing new screws at T11 and placing new rods to the T11 level, allowing internal support across the new T12 fractures. I explained that the risks included, but were not limited to: , coma, paralysis, bleeding, infection, CSF leak possibly requiring spinal drainage or additional surgery, failure to fuse, instrumentation migration/malposition/malfunction and the need for additional surgery. I explained that surgery was not absolutely required and would need to be coordinated with his anticoagulation. The patient and his spouse verbalize an understanding of this information. They asked intelligent questions and were offered the option of seeking another opinion or another surgeon. All questions were answered. Informed consent was obtained. I will coordinate potential surgical planning with the primary care team and will await one additional attempt to manage this with bracing and an opinion from Dr. Mercer regarding the feasibility of cement augmentation prior to proceeding.
--- NOTE | 2017-05-28 15:16 | PN ---
Physical Exam: SUBJECTIVE: Patient seen and examined No acute events overnight. Patient refuses to get up with physical therapy 2/2 to pain. Currently asymptomatic OBJECTIVE: Vital Signs Period Temp Pulse Resp BP Sys/Uribe Pulse Ox Last 24 Hr 97.1 F-98.4 F 75-83 18-20 112-136/58-90 96-96 GENERAL: Awake, alert, and fully oriented, in no acute distress. HEAD: Normal with no signs of trauma. EYES: Pupils equal, round and reactive to light, extraocular movements intact, sclera anicteric, conjunctiva clear. No lid lag. EARS, NOSE, THROAT: Ears normal, nares patent, oropharynx clear without exudates. Moist mucous membranes. NECK: Normal range of motion, supple without lymphadenopathy, JVD, or masses. LUNGS: Breath sounds equal, clear to auscultation bilaterally. No wheezes, and no crackles. No accessory muscle use. HEART: irregularly irregular, normal S1 and S2 without murmur, rub or gallop. ABDOMEN: Soft, nontender, not distended, normoactive bowel sounds, no guarding, no rebound, no masses. No hepatomegaly or splenomegaly. MUSCULOSKELETAL: Normal range of motion at all joints. No bony deformities or tenderness. No CVA tenderness. UPPER EXTREMITIES: 2+ pulses, warm, well-perfused. No cyanosis. No clubbing. No peripheral edema. LOWER EXTREMITIES: 2+ pulses, warm, well-perfused. No calf tenderness. 2+ edema b/l NEUROLOGICAL: Cranial nerves II-XII intact. Normal speech. Normal gait. Lower extremities 5/5 strength, sensation intact b/l, reflexes 2+, no point tenderness along spine PSYCHIATRIC: Cooperative. Good eye contact. Appropriate mood and affect. SKIN: Warm, dry, normal turgor, no rashes or lesions noted, normal capillary refill. +Lumbar spine surgical scar Laboratory Results - last 24 hr 05/27/17 05/27/17 05/28/17 16:43 21:28 06:07 WBC RBC Hgb Hct MCV MCH MCHC RDW Plt Count MPV Neutrophils % Lymphocytes % Monocytes % Eosinophils % Basophils % PT with INR INR Sodium Potassium Chloride Carbon Dioxide Anion Gap BUN Creatinine POC Glucometer 125 139 120 Random Glucose Calcium Phosphorus Magnesium 05/28/17 05/28/17 05/28/17 07:35 07:35 07:35 WBC 5.3 RBC 3.23 L Hgb 10.4 L Hct 30.4 L MCV 94.2 MCH 32.1 MCHC 34.1 RDW 15.6 Plt Count 254 MPV 6.6 L Neutrophils % 53.7 Lymphocytes % 39.6 D Monocytes % 3.2 L Eosinophils % 3.1 Basophils % 0.4 PT with INR 17.70 H INR 1.57 H Sodium 137 Potassium 4.5 Chloride 105 Carbon Dioxide 25 Anion Gap 7 L BUN 12 Creatinine 0.6 L POC Glucometer Random Glucose 114 H Calcium 9.1 Phosphorus 2.8 Magnesium 1.6 L 05/28/17 11:33 WBC RBC Hgb Hct MCV MCH MCHC RDW Plt Count MPV Neutrophils % Lymphocytes % Monocytes % Eosinophils % Basophils % PT with INR INR Sodium Potassium Chloride Carbon Dioxide Anion Gap BUN Creatinine POC Glucometer 149 Random Glucose Calcium Phosphorus Magnesium Active Medications Generic Name Dose Route Start Last Admin Trade Name Freq PRN Reason Stop Dose Admin Acetaminophen 650 mg 05/24/17 16:02 Tylenol - PO Q4H PRN PAIN LEVEL 1-5 Atorvastatin Calcium 10 mg 05/24/17 22:00 05/27/17 21:29 Lipitor - PO 10 mg HS [facility] Administration Carvedilol 6.25 mg 05/24/17 22:00 05/28/17 10:41 Coreg - PO 6.25 mg BID [facility] Administration Digoxin 0.125 mg 05/25/17 10:00 05/28/17 10:41 Lanoxin - PO 0.125 mg DAILY [facility] Administration Diltiazem HCl 120 mg 05/25/17 10:00 05/28/17 10:41 Cardizem Cd - PO 120 mg DAILY [facility] Administration Docusate Sodium 100 mg 05/26/17 14:00 05/28/17 14:07 Colace - PO 100 mg TID [facility] Administration Heparin Sodium (Porcine) 1,000 unit 05/28/17 14:34 Heparin - IVPUSH PRN PRN Heparin Heparin Sodium (Porcine) 5,000 unit 05/28/17 14:34 Heparin - IVPUSH PRN PRN Heparin Sodium Chloride 1,000 mls @ 75 mls/hr 05/24/17 16:15 05/28/17 06:08 Normal Saline - IV 75 mls/hr ASDIR [facility] Administration HEPARIN SOD,PORK IN 0.45% NACL 25,000 units in 500 mls @ 20 mls/hr 05/28/17 15 :00 Heparin-1/2ns 25,000 Units/500 IVPB TITR [facility] Protocol 1,000 UNIT/HR Insulin Aspart 1 vial 05/24/17 16:30 05/28/17 11:35 Novolog Vial Sliding Scale - SQ Not Given ACHS [facility] Protocol Magnesium Oxide 400 mg 05/26/17 11:45 05/28/17 10:41 Mag-Ox - PO 05/28/17 22:01 400 mg BID [facility] Administration Senna 8.6 tab 05/28/17 10:00 05/28/17 10:39 Senna - PO Not Given BID [facility] ASSESSMENT/PLAN: 81 year old M with pmh of NIDDM, HTN, HLD, Atrial fibrillation on Coumadin, colonic polyps, and 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 #Low back pain with lower extremity weakness -Tylenol 650 mg q4h prn -Oxycodone 5mg q4h prn -Physical Therapy -Physician consultation, Dr. Covarrubias and Dr. Moreno -Case discussed with Dr. Covarrubias, will attempt brace management for a few days with PT. If patient cannot tolerate, he will opt for surgery. #ABRAN, likely 2/2 to dehydration, resolved -Avoid nephrotoxic medications -Monitor cr -Monitor urine output #NIDDM -BGM ACHS -ISS ACHS #HTN -Coreg 6.125 mg bid -Cardizem 120 mg po daily #HLD -Simvastatin 10 mg hs #Atrial Fibrillation on coumadin -Digoxin 0.125mg po daily, dig level low -Cardizem 120 mg po daily -Coreg 6.125 mg bid -Coumadin 5 mg po (Sat-) -Coumadin 4mg po () -Will hold coumadin and place on heparin drip in preparation for surgery #FEN/GI -No IVF -Monitor electrolytes -Diabetic/Sodium Diet #PPx -Heparin drip Visit type - Emergency Visit Emergency Visit: Yes ED Registration Date: 05/24/17 Care time: The patient presented to the Emergency Department on the above date and was hospitalized for further evaluation of their emergent condition. - New Patient This patient is new to me today: No - Critical Care Critical Care patient: No
--- NOTE | 2017-05-28 16:01 | PN ---
Teaching Attending Note Name of Resident: Asad Bedolla ATTENDING PHYSICIAN STATEMENT I saw and evaluated the patient. I reviewed the resident's note and discussed the case with the resident. I agree with the resident's findings and plan as documented. SUBJECTIVE: Patient has no complaints while lying still in bed. OBJECTIVE: Vital Signs Period Temp Pulse Resp BP Sys/Uribe Pulse Ox Last 24 Hr 97.1 F-98.4 F 75-80 20-20 112-136/58-90 96-96 HEART: Irregularly irregular LUNGS: Clear ABDOMEN: Soft, non-tender, non-distended, normal BS EXTREMITIES: No edema Laboratory Results - last 24 hr 05/27/17 05/27/17 05/28/17 16:43 21:28 06:07 WBC RBC Hgb Hct MCV MCH MCHC RDW Plt Count MPV Neutrophils % Lymphocytes % Monocytes % Eosinophils % Basophils % PT with INR INR Sodium Potassium Chloride Carbon Dioxide Anion Gap BUN Creatinine POC Glucometer 125 139 120 Random Glucose Calcium Phosphorus Magnesium 05/28/17 05/28/17 05/28/17 07:35 07:35 07:35 WBC 5.3 RBC 3.23 L Hgb 10.4 L Hct 30.4 L MCV 94.2 MCH 32.1 MCHC 34.1 RDW 15.6 Plt Count 254 MPV 6.6 L Neutrophils % 53.7 Lymphocytes % 39.6 D Monocytes % 3.2 L Eosinophils % 3.1 Basophils % 0.4 PT with INR 17.70 H INR 1.57 H Sodium 137 Potassium 4.5 Chloride 105 Carbon Dioxide 25 Anion Gap 7 L BUN 12 Creatinine 0.6 L POC Glucometer Random Glucose 114 H Calcium 9.1 Phosphorus 2.8 Magnesium 1.6 L 05/28/17 11:33 WBC RBC Hgb Hct MCV MCH MCHC RDW Plt Count MPV Neutrophils % Lymphocytes % Monocytes % Eosinophils % Basophils % PT with INR INR Sodium Potassium Chloride Carbon Dioxide Anion Gap BUN Creatinine POC Glucometer 149 Random Glucose Calcium Phosphorus Magnesium Current Medications Generic Name Dose Route Start Last Admin Trade Name Freq PRN Reason Stop Dose Admin Acetaminophen 650 mg 05/24/17 16:02 Tylenol - PO Q4H PRN PAIN LEVEL 1-5 Atorvastatin Calcium 10 mg 05/24/17 22:00 05/27/17 21:29 Lipitor - PO 10 mg HS LEIDY Administration Carvedilol 6.25 mg 05/24/17 22:00 05/28/17 10:41 Coreg - PO 6.25 mg BID [facility] Administration Digoxin 0.125 mg 05/25/17 10:00 05/28/17 10:41 Lanoxin - PO 0.125 mg DAILY [facility] Administration Diltiazem HCl 120 mg 05/25/17 10:00 05/28/17 10:41 Cardizem Cd - PO 120 mg DAILY [facility] Administration Docusate Sodium 100 mg 05/26/17 14:00 05/28/17 14:07 Colace - PO 100 mg TID [facility] Administration Heparin Sodium (Porcine) 1,000 unit 05/28/17 14:34 Heparin - IVPUSH PRN PRN Heparin Heparin Sodium (Porcine) 5,000 unit 05/28/17 14:34 Heparin - IVPUSH PRN PRN Heparin HEPARIN SOD,PORK IN 0.45% NACL 25,000 units in 500 mls @ 20 mls/hr 05/28/17 15 :00 Heparin-1/2ns 25,000 Units/500 IVPB TITR [facility] Protocol 1,000 UNIT/HR Insulin Aspart 1 vial 05/24/17 16:30 05/28/17 11:35 Novolog Vial Sliding Scale - SQ Not Given ACHS [facility] Protocol Magnesium Oxide 400 mg 05/26/17 11:45 05/28/17 10:41 Mag-Ox - PO 05/28/17 22:01 400 mg BID [facility] Administration Senna 8.6 tab 05/28/17 10:00 05/28/17 10:39 Senna - PO Not Given BID [facility] ASSESSMENT AND PLAN: This is a 81 year old man with a history of type 2 DM, HTN, hyperlipidemia, atrial fibrillation, lumbar burst fracture and stabilization with pedicle screws who presented with low back pain and leg weakness. 1. T12 and L4 fractures - No improvement in symptoms with pain medication, PT - Neurosurgery input appreciated 2. Acute kidney injury - Resolved 3. Type 2 DM - Continue Novolog sliding scale 4. HTN - Continue Coreg, Cardizem CD 5. Hyperlipidemia - Continue Lipitor 6. Permanent atrial fibrillation - Continue Coreg, Digoxin - Adjust Coumadin per INR - will need to hold if patient is to undergo surgery
[2017-05-28] MEDS ORDERED: WARFARIN NA 2.5 MG TABLET (FP) PO SCH (18:00)
[2017-05-28] MEDS: HEPARIN SOD,PORK IN 0.45% NACL 25,000 UNITS/500 ML INFUS.BAG IVPB SCH ×3 (18:35→21:40)
[2017-05-28] MEDS ORDERED: INSULIN (NOVOLOG) ASPART 100 UNITS/ML 10ML VIAL ONE (21:35)
[2017-05-28] MEDS: ATORVASTATIN CA 10 MG TABLET (FP) PO SCH (21:37)
[2017-05-29 00:52] LABS: INR 1.88 (0.82-1.09); PROTHROMBIN TIME (PATIENT) 21.3 SEC (9.98-11.88)
[2017-05-29] MEDS: HEPARIN SOD,PORK IN 0.45% NACL 25,000 UNITS/500 ML INFUS.BAG IVPB SCH ×2 (01:29→15:18)
[2017-05-29] MEDS: DOCUSATE SODIUM 100 MG CAPSULE (FP) PO SCH ×3 (06:08→22:15)
[2017-05-29] MEDS: INSULIN SLIDING SCALE (NOVOLOG) 1 VIAL SQ SCH ×4 (06:08→22:18)
[2017-05-29 08:49] LABS: BASO % 0.4 % (0-2.0); EOS % 3.6 % (0-4.5); HEMATOCRIT 29.1 % (35.4-49); HEMOGLOBIN 10.1 GM/dL (11.7-16.9); LYMPH % 39.5 % (8-40); MCH 32.3 pg (25.7-33.7); MCHC 34.6 g/dl (32.0-35.9); MEAN CELL VOLUME 93.5 fl (80-96); MEAN PLT VOLUME 6.5 fl (7.5-11.1); MONO % 2.8 % (3.8-10.2); NEUT % 53.7 % (42.8-82.8); PLATELET COUNT 258 K/MM3 (134-434); RBC 3.11 M/mm3 (4.00-5.60); RDW 15.6 % (11.9-15.9); WHITE BLOOD COUNT 4.9 K/mm3 (4.0-10.0)
[2017-05-29 09:17] LABS: ANION GAP 11 (8-16); BLOOD UREA NITROGEN 11 mg/dL (7-18); CALCIUM 9.7 mg/dL (8.5-10.1); CHLORIDE 102 mmol/L (98-107); CO2 24 mmol/L (21-32); CREATININE 0.5 mg/dL (0.7-1.3); GLUCOSE,RANDOM 119 mg/dL (74-106); POTASSIUM 4.2 mmol/L (3.5-5.1); SODIUM 137 mmol/L (136-145)
[2017-05-29] MEDS: SENNOSIDES 8.6MG TABLET (FP) PO SCH ×2 (09:37→22:16)
[2017-05-29] MEDS: CARVEDILOL 6.25 MG TABLET (FP) PO SCH ×2 (09:37→22:15)
[2017-05-29] MEDS: DIGOXIN 0.125 MG TABLET (FP) PO SCH (09:37)
[2017-05-29] MEDS ORDERED: INSULIN (NOVOLOG) ASPART 100 UNITS/ML 10ML VIAL ONE (11:33)
--- NOTE | 2017-05-29 13:12 | PN ---
Physical Exam: SUBJECTIVE: Patient seen and examined No acute events overnight. Feels fine this morning as long as he does not move. Patient denies fever, chills, numbness/tingling, saddle anesthesia, bowel/ bladder incontinence. OBJECTIVE: Vital Signs Period Temp Pulse Resp BP Sys/Uribe Pulse Ox Last 24 Hr 97.1 F-98.1 F 68-77 18-20 112-142/58-83 97 GENERAL: Awake, alert, and fully oriented, in no acute distress. HEAD: Normal with no signs of trauma. EYES: Pupils equal, round and reactive to light, extraocular movements intact, sclera anicteric, conjunctiva clear. No lid lag. EARS, NOSE, THROAT: Oropharynx clear without exudates. Moist mucous membranes. NECK: Normal range of motion, supple without lymphadenopathy, JVD, or masses. LUNGS: Breath sounds equal, clear to auscultation bilaterally. No wheezes, and no crackles. No accessory muscle use. HEART: Irregularly Irregular, normal S1 and S2 without murmur, rub or gallop. ABDOMEN: Soft, nontender, not distended, normoactive bowel sounds, no guarding, no rebound, no masses. No hepatomegaly or splenomegaly. MUSCULOSKELETAL: Normal range of motion at all joints. No bony deformities or tenderness. No CVA tenderness. UPPER EXTREMITIES: 2+ pulses, warm, well-perfused. No cyanosis. No clubbing. No peripheral edema. LOWER EXTREMITIES: 2+ pulses, warm, well-perfused. No calf tenderness. 1-2+ edema b/l from prior cabg NEUROLOGICAL: Cranial nerves II-XII intact. Normal speech. Normal gait. Lower extremities 5/5 strength, sensation intact b/l, reflexes 2+, no point tenderness along spine PSYCHIATRIC: Cooperative. Good eye contact. Appropriate mood and affect. SKIN: Warm, dry, normal turgor, no rashes or lesions noted, normal capillary refill. +Lumbar spine surgical scar Laboratory Results - last 24 hr 05/28/17 05/28/17 05/28/17 16:30 17:33 21:29 WBC RBC Hgb Hct MCV MCH MCHC RDW Plt Count MPV Neutrophils % Lymphocytes % Monocytes % Eosinophils % Basophils % PT with INR INR PTT (Actin FS) 35.5 H Sodium Potassium Chloride Carbon Dioxide Anion Gap BUN Creatinine POC Glucometer 138 189 Random Glucose Calcium 05/29/17 05/29/17 05/29/17 00:20 00:20 06:05 WBC RBC Hgb Hct MCV MCH MCHC RDW Plt Count MPV Neutrophils % Lymphocytes % Monocytes % Eosinophils % Basophils % PT with INR 21.30 H INR 1.88 H PTT (Actin FS) 69.3 H D Sodium Potassium Chloride Carbon Dioxide Anion Gap BUN Creatinine POC Glucometer 118 Random Glucose Calcium 05/29/17 05/29/17 05/29/17 07:50 07:50 12:09 WBC 4.9 RBC 3.11 L Hgb 10.1 L Hct 29.1 L MCV 93.5 MCH 32.3 MCHC 34.6 RDW 15.6 Plt Count 258 MPV 6.5 L Neutrophils % 53.7 Lymphocytes % 39.5 Monocytes % 2.8 L Eosinophils % 3.6 Basophils % 0.4 PT with INR INR PTT (Actin FS) Sodium 137 Potassium 4.2 Chloride 102 Carbon Dioxide 24 Anion Gap 11 BUN 11 Creatinine 0.5 L POC Glucometer 158 Random Glucose 119 H Calcium 9.7 Active Medications Generic Name Dose Route Start Last Admin Trade Name Freq PRN Reason Stop Dose Admin Acetaminophen 650 mg 05/24/17 16:02 Tylenol - PO Q4H PRN PAIN LEVEL 1-5 Atorvastatin Calcium 10 mg 05/24/17 22:00 05/28/17 21:37 Lipitor - PO 10 mg HS LEIDY Administration Carvedilol 6.25 mg 05/24/17 22:00 05/29/17 09:37 Coreg - PO 6.25 mg BID [facility] Administration Digoxin 0.125 mg 05/25/17 10:00 05/29/17 09:37 Lanoxin - PO 0.125 mg DAILY [facility] Administration Diltiazem HCl 120 mg 05/25/17 10:00 05/29/17 09:37 Cardizem Cd - PO 120 mg DAILY [facility] Administration Docusate Sodium 100 mg 05/26/17 14:00 05/29/17 06:08 Colace - PO Not Given TID [facility] Heparin Sodium (Porcine) 1,000 unit 05/28/17 14:34 Heparin - IVPUSH PRN PRN Heparin Heparin Sodium (Porcine) 5,000 unit 05/28/17 14:34 05/28/17 19:16 Heparin - IVPUSH 5,000 unit PRN PRN Administration Heparin HEPARIN SOD,PORK IN 0.45% NACL 25,000 units in 500 mls @ 20 mls/hr 05/28/17 15 :00 05/29/17 01:29 Heparin-1/2ns 25,000 Units/500 IVPB 1,150 unit/hr TITR [facility] 23 mls/hr Protocol Administration 1,000 UNIT/HR Insulin Aspart 1 vial 05/24/17 16:30 05/29/17 12:11 Novolog Vial Sliding Scale - SQ 2 units ACHS [facility] Administration Protocol Senna 8.6 tab 05/28/17 10:00 05/29/17 09:37 Senna - PO Not Given BID [facility] ASSESSMENT/PLAN: 81 year old M with pmh of NIDDM, HTN, HLD, Atrial fibrillation on Coumadin, colonic polyps, and 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 #Low back pain with lower extremity weakness s/p lumbar spine trauma -Tylenol 650 mg q4h prn -Oxycodone 5mg q4h prn -Physical Therapy -Physician consultation, Dr. Covarrubias and Dr. Moreno -Case discussed with Dr. Covarrubias, will attempt brace management for a few days with PT. If patient cannot tolerate, he will opt for surgery on WEDNESDAY 05/31. Patient walked 40 feet with PT today. -Lumbar Spine MRI-- Mild T12 & L4 compression fx, no interval change otherwise #ABRAN, likely 2/2 to dehydration, resolved -Avoid nephrotoxic medications -Monitor cr -Monitor urine output #NIDDM -BGM ACHS -ISS ACHS #HTN -Coreg 6.125 mg bid -Cardizem CD 120 mg po daily #HLD -Lipitor 10 mg po hs #Atrial Fibrillation on coumadin -Digoxin 0.125mg po daily, dig level low -Cardizem 120 mg po daily -Coreg 6.125 mg bid -Coumadin 5 mg po (Sat-) -Coumadin 4mg po (Sat-Sat) -Will hold coumadin and place on heparin drip in preparation for surgery #FEN/GI -No IVF -Monitor electrolytes -Diabetic/Sodium Diet #PPx -Heparin drip Visit type - Emergency Visit Emergency Visit: Yes ED Registration Date: 05/24/17 Care time: The patient presented to the Emergency Department on the above date and was hospitalized for further evaluation of their emergent condition. - New Patient This patient is new to me today: No - Critical Care Critical Care patient: No
--- NOTE | 2017-05-29 18:18 | PN ---
Teaching Attending Note Name of Resident: Asad Bedolla ATTENDING PHYSICIAN STATEMENT I saw and evaluated the patient. I reviewed the resident's note and discussed the case with the resident. I agree with the resident's findings and plan as documented. SUBJECTIVE: No fever or chills, has back pain . with limited ability to ambulate . denies weakness, numbness , tingling in LE , denies saddle anesthesia or urinary or fecal incontinence OBJECTIVE: NAD Cv: RRR Lungs: CTAB ext: no edema Neuro of LE : strength 5/5 in hip flexion, knee flexion and extension and ankle dorsiflexion and plantar flexion. nl sensatio to light touch . relfexes 2+ knee jerk b/l A/P : 81 y/o man with h/o DM II, HLP , A fib , Lumbar Fx s/p stabilization who presented with BAck pain and was found ot have T12, L4 new Fx 1- new T12, L4 Fx and old L1 Fx . - d/w Dr. Morillo, for fusion on Saturday if INR < 1.4 - tylenol for pain 2- h/o A fib: - cont dig, coreg and cardizem. - hold coumadin and place on heparin gtt 3- DM II: - hold metformin - cont SSI 4- dispo : HLOC
[2017-05-29] MEDS: ATORVASTATIN CA 10 MG TABLET (FP) PO SCH (22:15)
[2017-05-30] MEDS: DOCUSATE SODIUM 100 MG CAPSULE (FP) PO SCH ×3 (05:49→21:48)
[2017-05-30] MEDS: INSULIN SLIDING SCALE (NOVOLOG) 1 VIAL SQ SCH ×3 (06:07→17:09)
[2017-05-30 08:53] LABS: BASO % 0.4 % (0-2.0); EOS % 4.3 % (0-4.5); HEMATOCRIT 29.5 % (35.4-49); LYMPH % 38.4 % (8-40); MCH 32.2 pg (25.7-33.7); MEAN CELL VOLUME 94.7 fl (80-96); MEAN PLT VOLUME 6.4 fl (7.5-11.1); MONO % 3.5 % (3.8-10.2); NEUT % 53.4 % (42.8-82.8); PLATELET COUNT 279 K/MM3 (134-434); RBC 3.12 M/mm3 (4.00-5.60); RDW 15.9 % (11.9-15.9); WHITE BLOOD COUNT 4.8 K/mm3 (4.0-10.0)
[2017-05-30 09:11] LABS: CHLORIDE 102 mmol/L (98-107); POTASSIUM 4.5 mmol/L (3.5-5.1); SODIUM 139 mmol/L (136-145)
[2017-05-30 09:14] LABS: ANION GAP 11 (8-16); BLOOD UREA NITROGEN 13 mg/dL (7-18); CALCIUM 10.1 mg/dL (8.5-10.1); CO2 26 mmol/L (21-32); CREATININE 0.5 mg/dL (0.7-1.3); GLUCOSE,RANDOM 114 mg/dL (74-106); MAGNESIUM 1.7 mg/dL (1.8-2.4); PHOSPHOROUS 3.4 mg/dL (2.5-4.9)
[2017-05-30] MEDS: DIGOXIN 0.125 MG TABLET (FP) PO SCH (10:14)
[2017-05-30] MEDS: CARVEDILOL 6.25 MG TABLET (FP) PO SCH ×2 (10:14→21:47)
[2017-05-30] MEDS: SENNOSIDES 8.6MG TABLET (FP) PO SCH ×2 (10:19→21:57)
[2017-05-30] MEDS ORDERED: INSULIN (NOVOLOG) ASPART 100 UNITS/ML 10ML VIAL ONE (11:51)
[2017-05-30 12:04] LABS: INR 1.33 (0.82-1.09)
[2017-05-30] MEDS ORDERED: MAGNESIUM OXIDE 400 MG TABLET (FP) PO ONE (13:45)
--- NOTE | 2017-05-30 14:23 | PN ---
Physical Exam: SUBJECTIVE: Patient seen and examined No acute events overnight. Patient states his back hurt this morning after being washed. Otherwise he is comfortable in bed when not moving. No fevers, chills, numbness/weakness OBJECTIVE: Vital Signs Period Temp Pulse Resp BP Sys/Uribe Pulse Ox Last 24 Hr 97.7 F-98.1 F 63-80 18-20 107-141/66-73 97-98 GENERAL: Awake, alert, and fully oriented, in no acute distress. HEAD: Normal with no signs of trauma. EYES: Pupils equal, round and reactive to light, extraocular movements intact, sclera anicteric, conjunctiva clear. No lid lag. EARS, NOSE, THROAT: Oropharynx clear without exudates. Moist mucous membranes. NECK: Normal range of motion, supple without lymphadenopathy, JVD, or masses. LUNGS: Breath sounds equal, clear to auscultation bilaterally. No wheezes, and no crackles. No accessory muscle use. HEART: Irregularly Irregular, normal S1 and S2 without murmur, rub or gallop. ABDOMEN: Soft, nontender, not distended, normoactive bowel sounds, no guarding, no rebound, no masses. No hepatomegaly or splenomegaly. MUSCULOSKELETAL: Normal range of motion at all joints. No bony deformities or tenderness. No CVA tenderness. UPPER EXTREMITIES: 2+ pulses, warm, well-perfused. No cyanosis. No clubbing. No peripheral edema. LOWER EXTREMITIES: 2+ pulses, warm, well-perfused. No calf tenderness. 1-2+ edema b/l from prior cabg NEUROLOGICAL: Cranial nerves II-XII intact. Normal speech. Normal gait. Lower extremities 5/5 strength, sensation intact b/l, reflexes 2+, lower thoracic spine tenderness PSYCHIATRIC: Cooperative. Good eye contact. Appropriate mood and affect. SKIN: Warm, dry, normal turgor, no rashes or lesions noted, normal capillary refill. +Lumbar spine surgical scar Laboratory Results - last 24 hr 05/29/17 05/29/17 05/30/17 16:45 22:15 05:51 WBC RBC Hgb Hct MCV MCH MCHC RDW Plt Count MPV Neutrophils % Lymphocytes % Monocytes % Eosinophils % Basophils % PT with INR INR PTT (Actin FS) Sodium Potassium Chloride Carbon Dioxide Anion Gap BUN Creatinine POC Glucometer 196 173 106 Random Glucose Calcium Phosphorus Magnesium 03/05/30/17 05/30/17 07:45 07:45 07:45 WBC 4.8 RBC 3.12 L Hgb 10.0 L Hct 29.5 L MCV 94.7 MCH 32.2 MCHC 34.0 RDW 15.9 Plt Count 279 MPV 6.4 L Neutrophils % 53.4 Lymphocytes % 38.4 Monocytes % 3.5 L Eosinophils % 4.3 Basophils % 0.4 PT with INR 15.00 H INR 1.33 H PTT (Actin FS) 53.5 H Sodium Potassium Chloride Carbon Dioxide Anion Gap BUN Creatinine POC Glucometer Random Glucose Calcium Phosphorus Magnesium 05/30/17 05/30/17 07:45 11:50 WBC RBC Hgb Hct MCV MCH MCHC RDW Plt Count MPV Neutrophils % Lymphocytes % Monocytes % Eosinophils % Basophils % PT with INR INR PTT (Actin FS) Sodium 139 Potassium 4.5 Chloride 102 Carbon Dioxide 26 Anion Gap 11 BUN 13 Creatinine 0.5 L POC Glucometer 189 Random Glucose 114 H Calcium 10.1 Phosphorus 3.4 D Magnesium 1.7 L Active Medications Generic Name Dose Route Start Last Admin Trade Name Freq PRN Reason Stop Dose Admin Acetaminophen 650 mg 05/24/17 16:02 05/29/17 22:17 Tylenol - PO 650 mg Q4H PRN Administration PAIN LEVEL 1-5 Atorvastatin Calcium 10 mg 05/24/17 22:00 05/29/17 22:15 Lipitor - PO 10 mg HS LEIDY Administration Carvedilol 6.25 mg 05/24/17 22:00 05/30/17 10:14 Coreg - PO 6.25 mg BID LEIDY Administration Digoxin 0.125 mg 05/25/17 10:00 05/30/17 10:14 Lanoxin - PO 0.125 mg DAILY LEIDY Administration Diltiazem HCl 120 mg 05/25/17 10:00 05/30/17 10:14 Cardizem Cd - PO 120 mg DAILY LEIDY Administration Docusate Sodium 100 mg 05/26/17 14:00 05/30/17 14:07 Colace - PO Not Given TID LEIDY Heparin Sodium (Porcine) 1,000 unit 05/28/17 14:34 Heparin - IVPUSH PRN PRN Heparin Heparin Sodium (Porcine) 5,000 unit 05/28/17 14:34 05/28/17 19:16 Heparin - IVPUSH 5,000 unit PRN PRN Administration Heparin HEPARIN SOD,PORK IN 0.45% NACL 25,000 units in 500 mls @ 20 mls/hr 05/28/17 15 :00 05/29/17 15:18 Heparin-1/2ns 25,000 Units/500 IVPB 1,150 unit/hr TITR LEIDY 23 mls/hr Protocol Administration 1,000 UNIT/HR Insulin Aspart 1 vial 05/24/17 16:30 05/30/17 11:53 Novolog Vial Sliding Scale - SQ 2 units ACHS LEIDY Administration Protocol Senna 8.6 tab 05/28/17 10:00 05/30/17 10:19 Senna - PO 8.6 tab BID LEIDY Administration ASSESSMENT/PLAN: 81 year old M with pmh of NIDDM, HTN, HLD, Atrial fibrillation on Coumadin, colonic polyps, and 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 #Low back pain with lower extremity weakness s/p lumbar spine trauma -Tylenol 650 mg q4h prn -Oxycodone 5mg q4h prn -Physical Therapy -Physician consultation, Dr. Covarrubias and Dr. Moreno -Case discussed with Dr. Covarrubias, Patient for OR tomorrow. Patient wants to go ahead with surgery. INR 1.33 today. -Lumbar Spine MRI-- Mild T12 & L4 compression fx, no interval change otherwise #ABRAN, likely 2/2 to dehydration, resolved -Avoid nephrotoxic medications -Monitor cr -Monitor urine output #NIDDM -BGM ACHS -ISS ACHS -Will hold night coverage as patient will be npo after midnight. #HTN -Coreg 6.125 mg bid -Cardizem CD 120 mg po daily #HLD -Lipitor 10 mg po hs #Atrial Fibrillation on coumadin -Digoxin 0.125mg po daily, dig level low -Cardizem 120 mg po daily -Coreg 6.125 mg bid -Coumadin 5 mg po (Sat-) -Coumadin 4mg po (Sat-Sat) -Will hold coumadin and place on heparin drip in preparation for surgery -Discussed with nurse not to hold medications tomorrow morning. #FEN/GI -No IVF -Monitor electrolytes -Diabetic/Sodium Diet #PPx -Heparin drip, will be stopped at 0300 Visit type - Emergency Visit Emergency Visit: Yes ED Registration Date: 05/24/17 Care time: The patient presented to the Emergency Department on the above date and was hospitalized for further evaluation of their emergent condition. - New Patient This patient is new to me today: No - Critical Care Critical Care patient: No
[2017-05-30] MEDS: HEPARIN SOD,PORK IN 0.45% NACL 25,000 UNITS/500 ML INFUS.BAG IVPB SCH (14:31)
[2017-05-30] MEDS ORDERED: PT OWN MED DRAWER 7, Y5N ONE (14:32)
--- NOTE | 2017-05-30 16:01 | PN ---
Teaching Attending Note Name of Resident: Asad Bedolla ATTENDING PHYSICIAN STATEMENT I saw and evaluated the patient. I reviewed the resident's note and discussed the case with the resident. I agree with the resident's findings and plan as documented. SUBJECTIVE: back pain improved yesterday afternoon but worsened this am after being situationed in bed. No fever or chills, n o weakness , numbness, tingling or saddle anesthesia OBJECTIVE: NAD Cv: RRR Lungs: CTAB ext: no edema Neuro of LE : strength 5/5 in hip flexion, knee flexion and extension, ankle dorsiflexion and plantar flexion. nl sensation to light touch . relfexes 2+ knee jerk b/l A/P : 81 y/o man with h/o DM II, HLP , A fib , Lumbar Fx s/p stabilization who presented with BAck pain and was found ot have T12, L4 new Fx 1- New T12, L4 Fx and old L1 Fx . - for OR tomorrow . d/w patient , he is still willing to have surgery and not try kyphoplasty through IR or conservative managements with brace /PT - pre-Op risk stratification: this procedure is an intermediate risk procedure. the patient himself has DM , and A fib, but no signs of active heart failure, ACS, or arrhythmias. He has no CP or SOB. His EKG shows inverted T waves in anterior leads. HE does not have good functional capacity due ot his back pain. given all these factors, he will be at intermediate clinical risk for jaime-op cardiac complications for this intermediate risk , non emergent procedure. No further cardiac w/u is indicating before sx. - type and screen. INR 1.3 2- H/o A fib: - cont dig, coreg and cardizem. would not hold those meds before procedure - cont heparin gtt and stop 2 hours before sx . 3- DM II: - hold metformin - cont SSI , hold HS coverage since NPO after MN 4- dispo : HLOC
--- NOTE | 2017-05-30 16:08 | PN ---
Progress Note (short form) - Note Progress Note: Reviewed risks benefits and alternatives to Extension of fusion to T11 with patient and spouse. PLAN -Hibiclens shampoo/shower tonight -hold Heparin drip at 0300 -NPO post midnight
[2017-05-30] MEDS: ATORVASTATIN CA 10 MG TABLET (FP) PO SCH (21:48)
[2017-05-30] MEDS ORDERED: CHLORHEXIDINE GLUCONATE 4% CLEANSER FOR DECOLONIZATION TP SCH (22:00)
[2017-05-31] MEDS: DOCUSATE SODIUM 100 MG CAPSULE (FP) PO SCH ×3 (06:14→21:35)
[2017-05-31] MEDS: INSULIN SLIDING SCALE (NOVOLOG) 1 VIAL SQ SCH ×3 (06:14→16:48)
[2017-05-31] MEDS: DIGOXIN 0.125 MG TABLET (FP) PO SCH ×2 (07:56→09:20)
[2017-05-31] MEDS: CARVEDILOL 6.25 MG TABLET (FP) PO SCH ×3 (07:56→21:35)
[2017-05-31 08:20] LABS: BASO % 0.5 % (0-2.0); EOS % 2.7 % (0-4.5); HEMATOCRIT 28.6 % (35.4-49); HEMOGLOBIN 9.9 GM/dL (11.7-16.9); LYMPH % 30.6 % (8-40); MCH 32.4 pg (25.7-33.7); MCHC 34.7 g/dl (32.0-35.9); MEAN CELL VOLUME 93.4 fl (80-96); MEAN PLT VOLUME 6.1 fl (7.5-11.1); MONO % 3.8 % (3.8-10.2); NEUT % 62.4 % (42.8-82.8); PLATELET COUNT 271 K/MM3 (134-434); RBC 3.06 M/mm3 (4.00-5.60); RDW 15.6 % (11.9-15.9)
[2017-05-31 08:23] LABS: INR 1.18 (0.82-1.09); PROTHROMBIN TIME (PATIENT) 13.3 SEC (9.98-11.88)
[2017-05-31 08:26] LABS: ACTIVATED PTT 32.2 SECONDS (26.9-34.4)
[2017-05-31 08:56] LABS: CHLORIDE 102 mmol/L (98-107); POTASSIUM 4.4 mmol/L (3.5-5.1); SODIUM 136 mmol/L (136-145)
[2017-05-31 09:03] LABS: ANION GAP 6 (8-16); BLOOD UREA NITROGEN 11 mg/dL (7-18); CALCIUM 9.8 mg/dL (8.5-10.1); CO2 28 mmol/L (21-32); CREATININE 0.6 mg/dL (0.7-1.3); GLUCOSE,RANDOM 115 mg/dL (74-106); MAGNESIUM 1.7 mg/dL (1.8-2.4); PHOSPHOROUS 3.3 mg/dL (2.5-4.9)
[2017-05-31] MEDS: SENNOSIDES 8.6MG TABLET (FP) PO SCH (09:20)
[2017-05-31] MEDS ORDERED: BUPIVACAINE HCL/PF 0.5% (5MG/ML) 10 ML VIAL ONE (11:44)
[2017-05-31] MEDS ORDERED: LIDOCAINE 1%/EPI 1:100000 (20 ML MULTI DOSE VIAL) ONE (11:44)
[2017-05-31] MEDS ORDERED: THROMBIN (BOVINE) 20,000 UNIT VIAL TP ONE (11:56)
[2017-05-31] MEDS ORDERED: GENTAMICIN SO4 80 MG/2 ML VIAL ONE (12:24)
[2017-05-31] MEDS ORDERED: VANCOMYCIN 1,000 MG VIAL (RESTRICTED TO ID ONLY) ONE ×2 (12:24→13:14)
[2017-05-31] MEDS ORDERED: LIDOCAINE HCL/PF 2% SDV 5ML VIAL ONE (12:49)
[2017-05-31] MEDS ORDERED: PROPOFOL 20 ML ONE (12:49)
[2017-05-31] MEDS ORDERED: MIDAZOLAM HCL 2 MG/2 ML SINGLE DOSE VIAL ONE (12:49)
[2017-05-31] MEDS ORDERED: ROCURONIUM BROMIDE 50 MG/5 ML VIAL ONE ×2 (12:49→13:27)
[2017-05-31] MEDS ORDERED: fentaNYL CITRATE 250 MCG/5 ML VIAL ONE (12:49)
[2017-05-31] MEDS ORDERED: ceFAZolin SODIUM 1 GM VIAL ONE (13:11)
[2017-05-31] MEDS ORDERED: ceFAZolin SODIUM 1 GM VIAL IVPB ONE (13:17)
[2017-05-31] MEDS ORDERED: VANCOMYCIN 1,000 MG VIAL (RESTRICTED TO ID ONLY) IVPB ONE (13:20)
--- NOTE | 2017-05-31 13:43 | PN ---
Teaching Attending Note Name of Resident: Asad Bedolla ATTENDING PHYSICIAN STATEMENT I saw and evaluated the patient. I reviewed the resident's note and discussed the case with the resident. I agree with the resident's findings and plan as documented. SUBJECTIVE: No fever or chills. has back pain with ambulation. has no back pain when still in bed OBJECTIVE: NAD Cv: RRR Lungs: CTAB ext: no edema Neuro of LE : strength 5/5 in hip flexion, knee flexion and extension, ankle dorsiflexion and plantar flexion on both sides. nl sensation to light touch . reflexes 2+ knee jerk b/l A/P : 81 y/o man with h/o DM II, HLP , A fib , Lumbar Fx s/p stabilization who presented with BAck pain and was found ot have T12, L4 new Fx 1- New T12, L4 Fx and old L1 Fx . - OR today . heparin gtt held . 2- H/o A fib: - cont dig, coreg and cardizem. - after sx , and when safe form surgical standpoint, will resume coumadin with no bridging to avoid risk of bleed especially after spine sx 3- DM II: - hold metformin - cont SSI 4- dispo : HLOC
--- NOTE | 2017-05-31 13:57 | PN ---
Physical Exam: SUBJECTIVE: Patient seen and examined No acute events overnight. He denies back pain today. States his pain is only when he moves. No fevers, chills, numbness/weakness OBJECTIVE: Vital Signs Period Temp Pulse Resp BP Sys/Uribe Pulse Ox Last 24 Hr 97 F-97.8 F 70-90 20-20 114-145/60-80 97-98 GENERAL: Awake, alert, and fully oriented, in no acute distress. HEAD: Normal with no signs of trauma. EYES: Pupils equal, round and reactive to light, extraocular movements intact, sclera anicteric, conjunctiva clear. No lid lag. EARS, NOSE, THROAT: Oropharynx clear without exudates. Moist mucous membranes. NECK: Normal range of motion, supple without lymphadenopathy, JVD, or masses. LUNGS: Breath sounds equal, clear to auscultation bilaterally. No wheezes, and no crackles. No accessory muscle use. HEART: Irregularly Irregular, normal S1 and S2 without murmur, rub or gallop. ABDOMEN: Soft, nontender, not distended, normoactive bowel sounds, no guarding, no rebound, no masses. No hepatomegaly or splenomegaly. MUSCULOSKELETAL: Normal range of motion at all joints. No bony deformities or tenderness. No CVA tenderness. UPPER EXTREMITIES: 2+ pulses, warm, well-perfused. No cyanosis. No clubbing. No peripheral edema. LOWER EXTREMITIES: 2+ pulses, warm, well-perfused. No calf tenderness. 1-2+ edema b/l from prior cabg NEUROLOGICAL: Cranial nerves II-XII intact. Normal speech. Normal gait. Lower extremities 5/5 strength, sensation intact b/l, reflexes 2+ PSYCHIATRIC: Cooperative. Good eye contact. Appropriate mood and affect. SKIN: Warm, dry, normal turgor, no rashes or lesions noted, normal capillary refill. +Lumbar spine surgical scar Laboratory Results - last 24 hr 05/30/17 05/30/17 05/31/17 17:08 21:41 05:51 WBC RBC Hgb Hct MCV MCH MCHC RDW Plt Count MPV Neutrophils % Lymphocytes % Monocytes % Eosinophils % Basophils % PT with INR INR PTT (Actin FS) Sodium Potassium Chloride Carbon Dioxide Anion Gap BUN Creatinine POC Glucometer 133 158 110 Random Glucose Calcium Phosphorus Magnesium 05/31/17 05/31/17 05/31/17 07:55 07:55 07:55 WBC 5.0 RBC 3.06 L Hgb 9.9 L Hct 28.6 L MCV 93.4 MCH 32.4 MCHC 34.7 RDW 15.6 Plt Count 271 MPV 6.1 L Neutrophils % 62.4 Lymphocytes % 30.6 D Monocytes % 3.8 Eosinophils % 2.7 Basophils % 0.5 PT with INR 13.30 H INR 1.18 H PTT (Actin FS) 32.2 D Sodium 136 Potassium 4.4 Chloride 102 Carbon Dioxide 28 Anion Gap 6 L BUN 11 Creatinine 0.6 L POC Glucometer Random Glucose 115 H Calcium 9.8 Phosphorus 3.3 Magnesium 1.7 L Active Medications Generic Name Dose Route Start Last Admin Trade Name Freq PRN Reason Stop Dose Admin Acetaminophen 650 mg 05/24/17 16:02 05/29/17 22:17 Tylenol - PO 650 mg Q4H PRN Administration PAIN LEVEL 1-5 Atorvastatin Calcium 10 mg 05/24/17 22:00 05/30/17 21:48 Lipitor - PO 10 mg HS LEIDY Administration Carvedilol 6.25 mg 05/24/17 22:00 05/31/17 09:20 Coreg - PO Not Given BID [facility] Digoxin 0.125 mg 05/25/17 10:00 05/31/17 09:20 Lanoxin - PO Not Given DAILY [facility] Diltiazem HCl 120 mg 05/25/17 10:00 05/31/17 09:20 Cardizem Cd - PO Not Given DAILY [facility] Docusate Sodium 100 mg 05/26/17 14:00 05/31/17 13:10 Colace - PO Not Given TID [facility] Heparin Sodium (Porcine) 1,000 unit 05/28/17 14:34 Heparin - IVPUSH PRN PRN Heparin Heparin Sodium (Porcine) 5,000 unit 05/28/17 14:34 05/28/17 19:16 Heparin - IVPUSH 5,000 unit PRN PRN Administration Heparin HEPARIN SOD,PORK IN 0.45% NACL 25,000 units in 500 mls @ 20 mls/hr 05/28/17 15 :00 05/30/17 14:31 Heparin-1/2ns 25,000 Units/500 IVPB 1,150 unit/hr TITR LEIDY 23 mls/hr Protocol Administration 1,000 UNIT/HR Insulin Aspart 1 vial 05/30/17 16:30 05/31/17 12:00 Novolog Vial Sliding Scale - SQ Not Given TIDAC [facility] Protocol Senna 1 tab 05/30/17 22:00 05/31/17 09:20 Senna - PO Not Given BID [facility] ASSESSMENT/PLAN: 81 year old M with pmh of NIDDM, HTN, HLD, Atrial fibrillation on Coumadin, colonic polyps, and 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 #Low back pain with lower extremity weakness s/p lumbar spine trauma -Tylenol 650 mg q4h prn/Oxycodone 5mg q4h prn -Physical Therapy -Physician consultation, Dr. Covarrubias and Dr. Moreno -OR today, Heparin drip has been held. Will restart Coumadin once drains have been pulled. -Lumbar Spine MRI-- Mild T12 & L4 compression fx, no interval change otherwise #ABRAN, likely 2/2 to dehydration, resolved -Avoid nephrotoxic medications -Monitor cr -Monitor urine output #NIDDM -BGM ACHS -ISS ACHS #HTN -Coreg 6.125 mg bid -Cardizem CD 120 mg po daily #HLD -Lipitor 10 mg po hs #Atrial Fibrillation on coumadin -Digoxin 0.125mg po daily, dig level low -Cardizem 120 mg po daily -Coreg 6.125 mg bid -Coumadin 5 mg po (Sat-) -Coumadin 4mg po (Sat-Sat) -Will hold coumadin until after surgery and discussing with Neurosurgery #FEN/GI -No IVF -Monitor electrolytes -Diabetic/Sodium Diet #PPx -nothing as of now, pt in OR Visit type - Emergency Visit Emergency Visit: Yes ED Registration Date: 05/24/17 Care time: The patient presented to the Emergency Department on the above date and was hospitalized for further evaluation of their emergent condition. - New Patient This patient is new to me today: No - Critical Care Critical Care patient: No
[2017-05-31] MEDS ORDERED: DEXAMETHASONE SOD PHOSPHATE 4 MG/1 ML VIAL ONE (14:02)
[2017-05-31] MEDS ORDERED: ONDANSETRON 4 MG/2 ML VIAL ONE (14:02)
[2017-05-31] MEDS ORDERED: GLYCOPYRROLATE 0.2 MG/1 ML VIAL ONE (14:02)
[2017-05-31] MEDS ORDERED: NEOSTIGMINE METHYLSULFATE 0.5 MG/ML - 10 ML MDV ONE (14:02)
[2017-05-31] MEDS ORDERED: BUPIVACAINE HCL/PF 0.5% (5MG/ML) 10 ML VIAL IJ ONE (14:16)
[2017-05-31] MEDS ORDERED: MAGNESIUM OXIDE 400 MG TABLET (FP) PO ONE ×2 (14:45→15:52)
[2017-05-31] MEDS ORDERED: ONDANSETRON 4 MG/2 ML VIAL IVPUSH PRN ×2 (15:05→15:52)
[2017-05-31] MEDS ORDERED: SODIUM CHLORIDE 1,000 ML IV SCH (15:15)
[2017-05-31] MEDS ORDERED: oxyCODONE HCL 5 MG TABLET PO PRN ×2 (15:23)
--- NOTE | 2017-05-31 15:36 | OP ---
Operative Note - Note: Operative Date: 05/31/17 Pre-Operative Diagnosis: T 12 fracture Operation: exploration of spinal fusion and removal of hardware with T11-L2 posterior spinal fusion. Post-Operative Diagnosis: Same as Pre-op Surgeon: Enmanuel Covarrubias Director Of Retail Analytics: Nallely Robledo Anesthesiologist/[employer] MANAGER: Donna Ponce Anesthesia: General Estimated Blood Loss (mls): 50 Fluid Volume Replaced (mls): 1,300 Operative Report Dictated: Yes
--- NOTE | 2017-05-31 15:37 | SURG ---
Surgery Supervisor Chemical Note Supervisor Chemical: Nallely Robledo PA-C Date of Service: 05/31/17 Diagnosis: T12 fracture Procedure: exploration of spinal fusion and removal of hardware with T11-L2 posterior spinal fusion. I was present for the entirety of the operative procedure. For further detail, please refer to operative report. Visit type - Case Type Case Type: ED Admission - Emergency Emergency Visit: Yes ED Registration Date: 05/24/17 Care time: The patient presented to the Emergency Department on the above date and was hospitalized for further evaluation of their emergent condition. - New patient This patient is new to me today: Yes Date on this admission: 05/31/17
[2017-05-31] MEDS: SODIUM CHLORIDE 1,000 ML IV SCH (17:00)
[2017-05-31] MEDS ORDERED: HEPARIN NA (PORCINE) 5,000 UNITS/ML 1ML VIAL SQ SCH (18:00)
[2017-05-31] MEDS: CEFAZOLIN 1 GM/D5W 1 GM/50 ML BAG IVPB SCH (19:01)
[2017-05-31] MEDS: oxyCODONE HCL 5 MG TABLET PO PRN (21:34)
[2017-05-31] MEDS: ATORVASTATIN CA 10 MG TABLET (FP) PO SCH (21:35)
[2017-06-01] MEDS: CEFAZOLIN 1 GM/D5W 1 GM/50 ML BAG IVPB SCH ×3 (02:37→18:09)
[2017-06-01] MEDS: SODIUM CHLORIDE 1,000 ML IV SCH (03:00)
[2017-06-01] MEDS: oxyCODONE HCL 5 MG TABLET PO PRN ×2 (06:00→22:09)
[2017-06-01] MEDS: DOCUSATE SODIUM 100 MG CAPSULE (FP) PO SCH ×3 (06:01→22:12)
[2017-06-01] MEDS: INSULIN SLIDING SCALE (NOVOLOG) 1 VIAL SQ SCH ×3 (06:57→16:56)
[2017-06-01 08:19] LABS: BASO % 0.1 % (0-2.0); HEMATOCRIT 28.3 % (35.4-49); HEMOGLOBIN 9.5 GM/dL (11.7-16.9); LYMPH % 19.8 % (8-40); MCHC 33.5 g/dl (32.0-35.9); MEAN CELL VOLUME 95.5 fl (80-96); MEAN PLT VOLUME 6.2 fl (7.5-11.1); MONO % 4.1 % (3.8-10.2); PLATELET COUNT 293 K/MM3 (134-434); RBC 2.96 M/mm3 (4.00-5.60); RDW 15.8 % (11.9-15.9); WHITE BLOOD COUNT 6.3 K/mm3 (4.0-10.0)
[2017-06-01 08:33] LABS: INR 1.15 (0.82-1.09)
[2017-06-01 08:42] LABS: ANION GAP 19 (8-16); BLOOD UREA NITROGEN 14 mg/dL (7-18); CHLORIDE 103 mmol/L (98-107); CO2 15 mmol/L (21-32); CREATININE 0.7 mg/dL (0.7-1.3); GLUCOSE,RANDOM 152 mg/dL (74-106); MAGNESIUM 1.5 mg/dL (1.8-2.4); POTASSIUM 5.3 mmol/L (3.5-5.1); SODIUM 137 mmol/L (136-145)
--- NOTE | 2017-06-01 09:20 | PN ---
Physical Exam: SUBJECTIVE: Patient seen and examined ; POD#1 from spinal fusion and removal of hardware T 11-L2; in some pain; but controlled; drain with blood; 25ml this am; OBJECTIVE: Vital Signs Period Temp Pulse Resp BP Sys/Uribe Pulse Ox Last 24 Hr 97.4 F-98.0 F 54-89 16-20 92-135/54-71 98-100 GENERAL: The patient is awake, alert, and fully oriented, sitting up in bed eating breakfast LUNGS: Breath sounds equal, clear to auscultation bilaterally, no wheezes, no crackles, no accessory muscle use. HEART: irregular rhythm; rate controlled, S1, S2 without murmur, rub or gallop. ABDOMEN: Soft, nontender, nondistended, normoactive bowel sounds, no guarding,+ hernia EXTREMITIES: 2+ pulses, warm, well-perfused, no edema. Back; dressing clean; with drain; Laboratory Results - last 24 hr 05/31/17 05/31/17 05/31/17 07:55 15:21 21:51 WBC RBC Hgb Hct MCV MCH MCHC RDW Plt Count MPV Neutrophils % Lymphocytes % Monocytes % Eosinophils % Basophils % PT with INR INR PTT (Actin FS) Sodium 136 Potassium 4.4 Chloride 102 Carbon Dioxide 28 Anion Gap 6 L BUN 11 Creatinine 0.6 L POC Glucometer 134 209 Random Glucose 115 H Calcium 9.8 Phosphorus 3.3 Magnesium 1.7 L 06/01/17 06/01/17 06/01/17 05:55 07:20 07:20 WBC 6.3 RBC 2.96 L Hgb 9.5 L Hct 28.3 L MCV 95.5 MCH 32.0 MCHC 33.5 RDW 15.8 Plt Count 293 MPV 6.2 L Neutrophils % 76.0 D Lymphocytes % 19.8 D Monocytes % 4.1 Eosinophils % 0.0 D Basophils % 0.1 PT with INR INR PTT (Actin FS) 30.9 Sodium Potassium Chloride Carbon Dioxide Anion Gap BUN Creatinine POC Glucometer 177 Random Glucose Calcium Phosphorus Magnesium 06/01/17 07:20 WBC RBC Hgb Hct MCV MCH MCHC RDW Plt Count MPV Neutrophils % Lymphocytes % Monocytes % Eosinophils % Basophils % PT with INR 13.00 H INR 1.15 H PTT (Actin FS) Sodium Potassium Chloride Carbon Dioxide Anion Gap BUN Creatinine POC Glucometer Random Glucose Calcium Phosphorus Magnesium Active Medications Generic Name Dose Route Start Last Admin Trade Name Freq PRN Reason Stop Dose Admin Acetaminophen 650 mg 05/31/17 15:52 Tylenol - PO Q4H PRN PAIN LEVEL 1-5 Atorvastatin Calcium 10 mg 05/31/17 22:00 05/31/17 21:35 Lipitor - PO 10 mg HS LEIDY Administration Carvedilol 6.25 mg 05/31/17 22:00 05/31/17 21:35 Coreg - PO 6.25 mg BID LEIDY Administration Digoxin 0.125 mg 06/01/17 10:00 Lanoxin - PO DAILY LEIDY Diltiazem HCl 120 mg 06/01/17 10:00 Cardizem Cd - PO DAILY LEIDY Docusate Sodium 100 mg 05/31/17 22:00 06/01/17 06:01 Colace - PO 100 mg TID LEIDY Administration Fentanyl 50 mcg 05/31/17 15:52 Sublimaze Injection - IVPUSH [id number] PRN PAIN-PACU ORDER X 4 DOSES ONLY Cefazolin Sodium 1 gm in 50 mls @ 100 mls/hr 05/31/17 20:00 06/01/17 02:37 Ancef 1 Gm Premixed Ivpb - IVPB 100 mls/hr Q8H-IV LEIDY Administration Sodium Chloride 1,000 mls @ 100 mls/hr 05/31/17 15:52 06/01/17 03:00 Normal Saline - IV 100 mls/hr ASDIR LEIDY Administration Insulin Aspart 1 vial 05/31/17 16:30 06/01/17 06:57 Novolog Vial Sliding Scale - SQ 2 units TIDAC LEIDY Administration Protocol Ondansetron HCl 4 mg 05/31/17 15:52 Zofran Injection IVPUSH Q6H PRN NAUSEA AND/OR VOMITING Oxycodone HCl 5 mg 05/31/17 15:23 Roxicodone - PO Q6H PRN PAIN LEVEL 1-5 Oxycodone HCl 10 mg 05/31/17 15:25 06/01/17 06:00 Roxicodone - PO 10 mg Q6H PRN Administration PAIN LEVEL 6-10 ASSESSMENT/PLAN: This is a 81 year old male with a history of multiple back surgeries and recent back trauma after falling off MRI table; found to have multiple stress fracture of spine; POD #1 spinal fusion and hardware removal. #POD#1 spinal fusion and hardware removal; -Pain controlled; eating ; passing flatus; -drain in place; still with blood -cefazolin IVPB day 2 -movement/PT as per neuro #hx of atrial fibrillation: -rate controlled; cont dig; coreg; cardizem -restart AC once adriana drain removed #htn; controlled -cont meds as above #hld: -cont atorvastatin #DM: -insulin SS; BGM Disposition: await neuro recs for dc plan ; when able to ambulate Case discussed with Dr. Derrick Ballesteros PGY-2 Problem List - Problems (1) A-fib Code(s): I48.91 - UNSPECIFIED ATRIAL FIBRILLATION (2) Diabetes Code(s): E11.9 - TYPE 2 DIABETES MELLITUS WITHOUT COMPLICATIONS (3) HLD (hyperlipidemia) Code(s): E78.5 - HYPERLIPIDEMIA, UNSPECIFIED (4) HTN (hypertension) Code(s): I10 - ESSENTIAL (PRIMARY) HYPERTENSION (5) Lumbar compression fracture Code(s): S32.000A - WEDGE COMPRESSION FRACTURE OF UNSP LUMBAR VERTEBRA, INIT Qualifiers: Encounter type: initial encounter Lumbar vertebra fracture level: L1 Fracture type: closed Qualified Code(s): S32.010A - Wedge compression fracture of first lumbar vertebra, initial encounter for closed fracture Visit type - Emergency Visit Emergency Visit: Yes ED Registration Date: 05/24/17 Care time: The patient presented to the Emergency Department on the above date and was hospitalized for further evaluation of their emergent condition. - New Patient This patient is new to me today: Yes Date on this admission: 06/01/17 - Critical Care Critical Care patient: No
[2017-06-01 09:22] LABS: CALCIUM 9.5 mg/dL (8.5-10.1)
[2017-06-01] MEDS: CARVEDILOL 6.25 MG TABLET (FP) PO SCH ×2 (10:20→22:11)
[2017-06-01] MEDS: DIGOXIN 0.125 MG TABLET (FP) PO SCH (10:21)
[2017-06-01] MEDS ORDERED: PT OWN MED DRAWER 7, Y5N ONE (10:22)
[2017-06-01 10:58] LABS: ALBUMIN 2.2 g/dl (3.4-5.0); ALK PHOS 71 U/L (45-117); BILIRUBIN,TOTAL 0.3 mg/dL (0.2-1.0); SGOT/AST 8 U/L (15-37); SGPT/ALT 16 U/L (12-78); TOT PROT 6.9 g/dl (6.4-8.2)
--- NOTE | 2017-06-01 11:39 | PN ---
Teaching Attending Note Name of Resident: Susan Ballesteros ATTENDING PHYSICIAN STATEMENT I saw and evaluated the patient. I reviewed the resident's note and discussed the case with the resident. I agree with the resident's findings and plan as documented. SUBJECTIVE: No fever or chills. Has pain in lower back when he moves. no numbness, weakness , or tingling in LE . no urine or stool incontinence OBJECTIVE: NAD Cv: RRR Lungs: CTAB Ext: no edema Neuro of LE : strength 4/5 in hip flexion, 5/5 in knee flexion and extension, ankle dorsiflexion and plantar flexion on both sides. nl sensation to light touch . Reflexes 2+ knee jerk b/l MS: surgical dressing on mid and lower back . GLORIA drainage with sanguinous fluid A/P : 81 y/o man with h/o DM II, HLP , A fib , Lumbar Fx s/p stabilization who presented with BAck pain and was found ot have T12, L4 new Fx 1- New T12, L4 Fx and old L1 Fx . S/p hardware removal and T11-L1 fusion . POD 1 - pain control with oxycodone - DC IVF - heparin SQ - monitor GLORIA drain . 2- H/o A fib: - cont dig, coreg and cardizem. - will resume coumadin when GLORIA drain is removed. 3- DM II: - Hold metformin - Cont SSI 4- dispo : HLOC
[2017-06-01] MEDS ORDERED: INSULIN (NOVOLOG) ASPART 100 UNITS/ML 10ML VIAL ONE (11:47)
[2017-06-01 12:40] LABS: ANION GAP 11 (8-16); BLOOD UREA NITROGEN 16 mg/dL (7-18); CALCIUM 9.4 mg/dL (8.5-10.1); CHLORIDE 100 mmol/L (98-107); CO2 26 mmol/L (21-32); CREATININE 0.8 mg/dL (0.7-1.3); GLUCOSE,RANDOM 171 mg/dL (74-106); POTASSIUM 4.3 mmol/L (3.5-5.1); SODIUM 137 mmol/L (136-145)
[2017-06-01] MEDS ORDERED: MAGNESIUM OXIDE 400 MG TABLET (FP) PO ONE (14:15)
[2017-06-01] MEDS: ACETAMINOPHEN 325 MG TABLET (FP) PO PRN (22:10)
[2017-06-01] MEDS: ATORVASTATIN CA 10 MG TABLET (FP) PO SCH (22:11)
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
[2017-06-02] MEDS: CEFAZOLIN 1 GM/D5W 1 GM/50 ML BAG IVPB SCH ×3 (01:54→18:02)
[2017-06-02] MEDS: oxyCODONE HCL 5 MG TABLET PO PRN ×3 (04:11→20:42)
[2017-06-02] MEDS: ACETAMINOPHEN 325 MG TABLET (FP) PO PRN (04:11)
[2017-06-02] MEDS: INSULIN SLIDING SCALE (NOVOLOG) 1 VIAL SQ SCH ×3 (06:04→17:02)
[2017-06-02] MEDS: DOCUSATE SODIUM 100 MG CAPSULE (FP) PO SCH ×3 (06:04→21:12)
[2017-06-02 08:01] LABS: BASO % 0.3 % (0-2.0); EOS % 0.9 % (0-4.5); HEMATOCRIT 25.4 % (35.4-49); HEMOGLOBIN 8.7 GM/dL (11.7-16.9); LYMPH % 33.8 % (8-40); MCH 32.8 pg (25.7-33.7); MCHC 34.3 g/dl (32.0-35.9); MEAN CELL VOLUME 95.7 fl (80-96); MEAN PLT VOLUME 5.9 fl (7.5-11.1); MONO % 4.7 % (3.8-10.2); NEUT % 60.3 % (42.8-82.8); PLATELET COUNT 257 K/MM3 (134-434); RBC 2.66 M/mm3 (4.00-5.60); RDW 15.9 % (11.9-15.9); WHITE BLOOD COUNT 6.4 K/mm3 (4.0-10.0)
[2017-06-02 11:00] LABS: CHLORIDE 101 mmol/L (98-107); SODIUM 136 mmol/L (136-145)
[2017-06-02 11:06] LABS: ALBUMIN 2.1 g/dl (3.4-5.0); ALK PHOS 70 U/L (45-117); ANION GAP 8 (8-16); BILIRUBIN,TOTAL 0.3 mg/dL (0.2-1.0); BLOOD UREA NITROGEN 16 mg/dL (7-18); CALCIUM 9.1 mg/dL (8.5-10.1); CO2 27 mmol/L (21-32); CREATININE 0.8 mg/dL (0.7-1.3); GLUCOSE,RANDOM 114 mg/dL (74-106); MAGNESIUM 1.7 mg/dL (1.8-2.4); PHOSPHOROUS 2.8 mg/dL (2.5-4.9); SGOT/AST 9 U/L (15-37); SGPT/ALT 10 U/L (12-78); TOT PROT 6.8 g/dl (6.4-8.2)
[2017-06-02] MEDS: CARVEDILOL 6.25 MG TABLET (FP) PO SCH ×2 (11:09→21:12)
[2017-06-02] MEDS: DIGOXIN 0.125 MG TABLET (FP) PO SCH (11:10)
[2017-06-02] MEDS ORDERED: INSULIN (NOVOLOG) ASPART 100 UNITS/ML 10ML VIAL ONE (11:49)
[2017-06-02] MEDS ORDERED: MAGNESIUM OXIDE 400 MG TABLET (FP) PO ONE (15:41)
--- NOTE | 2017-06-02 19:16 | PN ---
Progress Note (short form) - Note Progress Note: Subjective: back pain with movement , no weakness in LE . Objective: Vital Signs: Last Vital Signs Temp Pulse Resp BP Pulse Ox 98.4 F 82 20 102/62 96 06/02/17 18:00 06/02/17 18:00 06/02/17 18:00 06/02/17 18:00 06/01/17 21:00 Laboratory Results - last 24 hr 06/02/17 06/02/17 06/02/17 06:03 07:15 07:15 WBC 6.4 RBC 2.66 L Hgb 8.7 L Hct 25.4 L MCV 95.7 MCH 32.8 MCHC 34.3 RDW 15.9 Plt Count 257 MPV 5.9 L Neutrophils % 60.3 D Lymphocytes % 33.8 D Monocytes % 4.7 Eosinophils % 0.9 D Basophils % 0.3 PTT (Actin FS) 28.8 Sodium Potassium Chloride Carbon Dioxide Anion Gap BUN Creatinine Creat Clearance w eGFR POC Glucometer 134 Random Glucose Calcium Phosphorus Magnesium Total Bilirubin AST ALT Alkaline Phosphatase Total Protein Albumin 06/02/17 06/02/17 06/02/17 07:15 11:46 17:01 WBC RBC Hgb Hct MCV MCH MCHC RDW Plt Count MPV Neutrophils % Lymphocytes % Monocytes % Eosinophils % Basophils % PTT (Actin FS) Sodium 136 Potassium 5.0 Chloride 101 Carbon Dioxide 27 Anion Gap 8 BUN 16 Creatinine 0.8 Creat Clearance w eGFR > 60 POC Glucometer 185 126 Random Glucose 114 H D Calcium 9.1 Phosphorus 2.8 D Magnesium 1.7 L Total Bilirubin 0.3 AST 9 L ALT 10 L D Alkaline Phosphatase 70 Total Protein 6.8 Albumin 2.1 L Physical Exam: NAD Cv: RRR Lungs: CTAB Ext: no edema Neuro of LE : strength 4/5 in hip flexion, 4/5 in knee flexion and extension, 5 /5 ankle dorsiflexion and plantar flexion on both sides. nl sensation to light touch . Reflexes 2+ knee jerk b/l MS: surgical dressing on mid and lower back . GLORIA drainage with sanguinous fluid A/P : 81 y/o man with h/o DM II, HLP , A fib , Lumbar Fx s/p stabilization who presented with BAck pain and was found ot have T12, L4 new Fx 1- New T12, L4 Fx and old L1 Fx . S/p hardware removal and T11-L1 fusion . POD 2 - pain control with oxycodone - heparin SQ - monitor GLORIA drain . 2- H/o A fib: - cont dig, coreg and cardizem. - will resume coumadin when GLORIA drain is removed. 3- DM II: - Hold metformin - Cont SSI 4- dispo : HLOC need rehab at dc Visit type - Emergency Visit Emergency Visit: Yes ED Registration Date: 05/24/17 Care time: The patient presented to the Emergency Department on the above date and was hospitalized for further evaluation of their emergent condition. - New Patient This patient is new to me today: No - Critical Care Critical Care patient: No
[2017-06-02] MEDS: ATORVASTATIN CA 10 MG TABLET (FP) PO SCH (21:12)
[2017-06-03] MEDS: CEFAZOLIN 1 GM/D5W 1 GM/50 ML BAG IVPB SCH ×3 (01:58→17:17)
[2017-06-03] MEDS: INSULIN SLIDING SCALE (NOVOLOG) 1 VIAL SQ SCH ×3 (06:41→17:00)
[2017-06-03] MEDS: DOCUSATE SODIUM 100 MG CAPSULE (FP) PO SCH ×3 (06:41→21:49)
[2017-06-03 07:28] LABS: HEMATOCRIT 25.7 % (35.4-49); HEMOGLOBIN 8.7 GM/dL (11.7-16.9); MCH 32.4 pg (25.7-33.7); MEAN CELL VOLUME 95.5 fl (80-96); MEAN PLT VOLUME 6.1 fl (7.5-11.1); PLATELET COUNT 231 K/MM3 (134-434); RBC 2.69 M/mm3 (4.00-5.60); WHITE BLOOD COUNT 6.4 K/mm3 (4.0-10.0)
[2017-06-03 08:50] LABS: INR 1.13 (0.82-1.09); PROTHROMBIN TIME (PATIENT) 12.8 SEC (9.98-11.88)
[2017-06-03] MEDS: oxyCODONE HCL 5 MG TABLET PO PRN ×2 (09:27→19:43)
[2017-06-03] MEDS: CARVEDILOL 6.25 MG TABLET (FP) PO SCH ×2 (10:39→21:49)
[2017-06-03] MEDS: DIGOXIN 0.125 MG TABLET (FP) PO SCH (10:39)
[2017-06-03] MEDS ORDERED: INSULIN (NOVOLOG) ASPART 100 UNITS/ML 10ML VIAL ONE (11:30)
--- NOTE | 2017-06-03 12:17 | PN ---
Progress Note (short form) - Note Progress Note: Patient sleeping comfortably after GLORIA drain removal. Less pain at rest. M ay resume anticoagulation and continue with Physical Therapy. Patient clear for transfer to [facility] from Neurosurgery standpoint.
--- NOTE | 2017-06-03 12:33 | PROC ---
Procedure Note Procedure: Patient seen and examined at bedside. Midline dressing C/D/I with no evidence of tracking erythema, edema, collection or d/c. J/p drain removed with tip fully intact and 15cc of SS d/c in bulb. NO evidence of active d/c or bleeding at drain site a pressure dressing was applied to drain site. patient tolerated procedure.
--- NOTE | 2017-06-03 17:37 | PN ---
Physical Exam: SUBJECTIVE: Patient seen and examined No acute events overnight. Patient complaining of mild back pain when moving. Otherwise feeling well. OBJECTIVE: Vital Signs Period Temp Pulse Resp BP Sys/Uribe Pulse Ox Last 24 Hr 97.7 F-98.8 F 80-94 18-20 102-122/62-82 95-98 GENERAL: Awake, alert, and fully oriented, in no acute distress. HEAD: Normal with no signs of trauma. EYES: Pupils equal, round and reactive to light, extraocular movements intact, sclera anicteric, conjunctiva clear. No lid lag. EARS, NOSE, THROAT: Oropharynx clear without exudates. Moist mucous membranes. NECK: Normal range of motion, supple without lymphadenopathy, JVD, or masses. LUNGS: Breath sounds equal, clear to auscultation bilaterally. No wheezes, and no crackles. No accessory muscle use. HEART: Irregularly Irregular, normal S1 and S2 without murmur, rub or gallop. ABDOMEN: Soft, nontender, not distended, normoactive bowel sounds, no guarding, no rebound, no masses. No hepatomegaly or splenomegaly. MUSCULOSKELETAL: Normal range of motion at all joints. No bony deformities or tenderness. No CVA tenderness. +GLORIA DRAIN IN PLACE--DRAINING. drain pulled in the mid afternoon UPPER EXTREMITIES: 2+ pulses, warm, well-perfused. No cyanosis. No clubbing. No peripheral edema. LOWER EXTREMITIES: 2+ pulses, warm, well-perfused. No calf tenderness. 1-2+ edema b/l from prior cabg NEUROLOGICAL: Cranial nerves II-XII intact. Normal speech. Normal gait. Lower extremities 5/5 strength, sensation intact b/l, reflexes 2+ PSYCHIATRIC: Cooperative. Good eye contact. Appropriate mood and affect. SKIN: Warm, dry, normal turgor, no rashes or lesions noted, normal capillary refill. +Lumbar spine surgical scar c/d/i Laboratory Results - last 24 hr 06/02/17 06/03/17 06/03/17 17:01 06:39 07:05 WBC 6.4 RBC 2.69 L Hgb 8.7 L Hct 25.7 L MCV 95.5 MCH 32.4 MCHC 34.0 RDW 16.0 H Plt Count 231 MPV 6.1 L PT with INR INR PTT (Actin FS) POC Glucometer 126 137 06/03/17 06/03/17 06/03/17 07:05 07:05 11:48 WBC RBC Hgb Hct MCV MCH MCHC RDW Plt Count MPV PT with INR 12.80 H INR 1.13 PTT (Actin FS) 28.3 POC Glucometer 186 06/03/17 16:58 WBC RBC Hgb Hct MCV MCH MCHC RDW Plt Count MPV PT with INR INR PTT (Actin FS) POC Glucometer 185 Active Medications Generic Name Dose Route Start Last Admin Trade Name Freq PRN Reason Stop Dose Admin Acetaminophen 650 mg 05/31/17 15:52 06/02/17 04:11 Tylenol - PO 650 mg Q4H PRN Administration PAIN LEVEL 1-5 Atorvastatin Calcium 10 mg 05/31/17 22:00 06/02/17 21:12 Lipitor - PO 10 mg HS LEIDY Administration Carvedilol 6.25 mg 05/31/17 22:00 06/03/17 10:39 Coreg - PO 6.25 mg BID LEIDY Administration Digoxin 0.125 mg 06/01/17 10:00 06/03/17 10:39 Lanoxin - PO 0.125 mg DAILY LEIDY Administration Diltiazem HCl 120 mg 06/01/17 10:00 06/03/17 10:39 Cardizem Cd - PO 120 mg DAILY LEIDY Administration Docusate Sodium 100 mg 05/31/17 22:00 06/03/17 14:18 Colace - PO 100 mg TID LEIDY Administration Cefazolin Sodium 1 gm in 50 mls @ 100 mls/hr 05/31/17 20:00 06/03/17 17:17 Ancef 1 Gm Premixed Ivpb - IVPB 100 mls/hr Q8H-IV LEIDY Administration Insulin Aspart 1 vial 05/31/17 16:30 06/03/17 17:00 Novolog Vial Sliding Scale - SQ 2 units TIDAC LEIDY Administration Protocol Ondansetron HCl 4 mg 05/31/17 15:52 Zofran Injection IVPUSH Q6H PRN NAUSEA AND/OR VOMITING Warfarin Sodium 7.5 mg 06/03/17 18:00 06/03/17 17:17 Coumadin - PO 06/03/17 18:01 7.5 mg ONCE@1800 ONE Administration Warfarin Sodium 5 mg 06/04/17 18:00 Coumadin - PO DAILY@1800 PENDING SALE TO [facility] ASSESSMENT/PLAN: 81 year old M with pmh of NIDDM, HTN, HLD, Atrial fibrillation on Coumadin, colonic polyps, and 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 #POD 3 s/p t11-l1 fusion -Tylenol 650 mg q4h prn/Oxycodone 5mg q4h prn -Physical Therapy -Physician consultation, Dr. Covarrubias and Dr. Moreno -GLORIA drain pulled today, Restarted Coumadin 7.5 mg today and 5 mg tomorrow. #ABRAN, likely 2/2 to dehydration, resolved -Avoid nephrotoxic medications -Monitor cr -Monitor urine output #NIDDM -BGM ACHS -ISS ACHS #HTN -Coreg 6.125 mg bid -Cardizem CD 120 mg po daily #HLD -Lipitor 10 mg po hs #Atrial Fibrillation on coumadin -Digoxin 0.125mg po daily -Cardizem 120 mg po daily -Coreg 6.125 mg bid -Coumadin restarted today post GLORIA drain removal #FEN/GI -No IVF -Monitor electrolytes -Diabetic/Sodium Diet #PPx -Heparin 5000 u sq tid Dispo: dc to rehab. pending placement Visit type - Emergency Visit Emergency Visit: Yes ED Registration Date: 05/24/17 Care time: The patient presented to the Emergency Department on the above date and was hospitalized for further evaluation of their emergent condition. - New Patient This patient is new to me today: No - Critical Care Critical Care patient: No
[2017-06-03] MEDS ORDERED: WARFARIN NA 7.5 MG TABLET (FP) PO ONE (18:00)
--- NOTE | 2017-06-03 19:19 | PN ---
Teaching Attending Note Name of Resident: Niraj Belle ATTENDING PHYSICIAN STATEMENT I saw and evaluated the patient. I reviewed the resident's note and discussed the case with the resident. I agree with the resident's findings and plan as documented. SUBJECTIVE: no fever or chills. back pain is better . walked OBJECTIVE: NAD Cv: RRR Lungs: CTAB Ext: no edema Neuro of LE : strength 4/5 in hip flexion, 4/5 in knee flexion and extension, 5 /5 ankle dorsiflexion and plantar flexion on both sides. nl sensation to light touch . Reflexes 2+ knee jerk b/l A/P : 81 y/o man with h/o DM II, HLP , A fib , Lumbar Fx s/p stabilization who presented with BAck pain and was found ot have T12, L4 new Fx 1- New T12, L4 Fx and old L1 Fx . S/p hardware removal and T11-L1 fusion . POD 3 - pain control with oxycodone. - heparin SQ - drain is out 2- H/o A fib: - cont dig, coreg and cardizem. - will resume coumadin today start 7.5 mg today 3- DM II: - Hold metformin - Cont SSI 4- dispo : HLOC can dc pending rehab
[2017-06-03] MEDS: ATORVASTATIN CA 10 MG TABLET (FP) PO SCH (21:49)
[2017-06-04] MEDS: DOCUSATE SODIUM 100 MG CAPSULE (FP) PO SCH ×3 (05:58→21:30)
[2017-06-04] MEDS: oxyCODONE HCL 5 MG TABLET PO PRN ×2 (06:03→18:34)
[2017-06-04] MEDS: INSULIN SLIDING SCALE (NOVOLOG) 1 VIAL SQ SCH ×3 (06:06→17:29)
[2017-06-04 08:01] LABS: BASO % 0.3 % (0-2.0); EOS % 2.1 % (0-4.5); HEMATOCRIT 26.1 % (35.4-49); HEMOGLOBIN 9.1 GM/dL (11.7-16.9); LYMPH % 31.4 % (8-40); MCH 33.1 pg (25.7-33.7); MCHC 34.7 g/dl (32.0-35.9); MEAN CELL VOLUME 95.5 fl (80-96); MEAN PLT VOLUME 6.3 fl (7.5-11.1); MONO % 4.5 % (3.8-10.2); NEUT % 61.7 % (42.8-82.8); PLATELET COUNT 243 K/MM3 (134-434); RBC 2.73 M/mm3 (4.00-5.60); RDW 15.6 % (11.9-15.9); WHITE BLOOD COUNT 5.6 K/mm3 (4.0-10.0)
[2017-06-04 08:07] LABS: INR 1.14 (0.82-1.09); PROTHROMBIN TIME (PATIENT) 12.9 SEC (9.98-11.88)
[2017-06-04] MEDS: CARVEDILOL 6.25 MG TABLET (FP) PO SCH ×2 (09:16→21:30)
[2017-06-04] MEDS: DIGOXIN 0.125 MG TABLET (FP) PO SCH (09:16)
[2017-06-04] MEDS ORDERED: INSULIN (NOVOLOG) ASPART 100 UNITS/ML 10ML VIAL ONE (11:54)
--- NOTE | 2017-06-04 15:39 | PN ---
Teaching Attending Note Name of Resident: Asad Bedolla ATTENDING PHYSICIAN STATEMENT I saw and evaluated the patient. I reviewed the resident's note and discussed the case with the resident. I agree with the resident's findings and plan as documented. SUBJECTIVE: no fever or chills, no weakness in LE OBJECTIVE: NAD Cv: RRR Lungs: CTAB Ext: no edema Neuro of LE : strength 4/5 in hip flexion, 5/5 in knee flexion and extension, 5 /5 ankle dorsiflexion and plantar flexion on both sides. NL sensation to light touch . Reflexes 2+ knee jerk b/l A/P : 81 y/o man with h/o DM II, HLP , A fib , Lumbar Fx s/p stabilization who presented with BAck pain and was found ot have T12, L4 new Fx 1- New T12, L4 Fx and old L1 Fx. S/p hardware removal and T11-L1 fusion . POD 4 - pain control with oxycodone. - The surgical dressing will be removed at the time of staple removal. - to see Dr. Morillo in office on 06/19 2- H/o A fib: - cont dig, coreg and cardizem. - coumadin 5 mg PM, INR q 2 days , till INR 2-3. f/u with card as out pt 3- DM II: - cont po meds as ou tpt 4- dispo dc to [facility] as out pt
--- NOTE | 2017-06-04 16:23 | DS ---
Physical Exam: Laboratory Tests 05/24/17 06/01/17 06/02/17 10:25 07:20 07:15 WBC Hgb Hct Plt Count INR 1.15 H Sodium 136 Potassium 5.0 Chloride 101 Carbon Dioxide 27 BUN 16 Creatinine 0.8 Random Glucose 114 H D Digoxin 0.3425 L 06/03/17 06/04/17 06/04/17 07:05 06:35 06:35 WBC 5.6 Hgb 9.1 L Hct 26.1 L Plt Count 243 INR 1.13 1.14 Sodium Potassium Chloride Carbon Dioxide BUN Creatinine Random Glucose Digoxin Imaging: -Lumbar Spine MRI-- Mild T12 & L4 compression fx, no interval change otherwise HOSPITAL COURSE: Date of Admission:05/24/17 Date of Discharge: 06/04/17 81 year old M with pmh of NIDDM, HTN, HLD, Afib, Colonic polyps, and lumbar surgery 02/23/2017 presented with bilateral lower extremity weakness/back pain. Lumbar spine MRI as noted above. Patient evaluated by neurosurgery. Patient decided to go ahead with surgery. Patient underwent Spinal fusion of T11-L2 on without complication. GLORIA drain pulled on 06/03. Patient to go to [facility] rehab on 06/04. Patient's coumadin was held for the surgery. His INR on discharge was 1.14. He was restarted on Coumadin 5 mg daily and will follow up with INR checks q48h. He will f/u with neurosurgery on 06/19 and will have dressing removed at that time. Minutes to complete discharge: 45 Discharge Summary Reason For Visit: BACK PAIN,WEAKNESS OF LE Current Active Problems Back pain (Acute) Bilateral leg weakness (Acute) Lumbar compression fracture (Acute) Thoracic compression fracture (Acute) A-fib (Chronic) Diabetes (Chronic) Condition: Stable - Instructions Diet, Activity, Other Instructions: You were in the hospital for back pain and leg weakness. You were found to have a mild T12 and L4 compression fracture. You underwent an operation with Dr. Covarrubias. Please follow up with your PCP within 2 weeks follow up with bridge operator (Dr. Pizano), [address] Covarrubias 's ofice to schedule appointment on 06/19 Take your home medications as prescribed except the following: Take Coumadin 5 mg every evening . You will need your INR checked every other day until your INR is theraputic (INR goal between 2-3). Dr Covarrubias Discharge Instructions Dear OLEGARIO REYES, Post Operative Instructions Physical activity Resume your normal everyday activity as tolerated no heavy lifting or exercise until seen by your surgeon. You may walk unlimited amounts of and climb stairs. You may resume driving the car when you are no longer taking narcotic medication and can react to traffic patterns. Wear your brace at all times when up and out of bed. Wound care the surgical dressing will be removed by Dr. Morillo on the , when sara are removed . Diet There are no dietary restrictions. Eat healthy, high-fiber foods. Drink 6 to 8 glasses of liquid each day. This will assist in keeping your bowels are regular. Pain management You may take Tylenol or acetaminophen. Any pain prescription medication ordered should be taken as prescribed for moderate to severe pain. Call the office any of the following: Severe pain not relieved by medication Fever of 101 or higher Excessive bleeding or drainage on dressing Inability to urinate New or worsening symptoms If you experience Chest pain or shortness of breath seek emergency care immediately. Call the office to confirm your post operative appointment. Referrals: Enmanuel Covarrubias MD, [facility] [Staff Physician] - 06/19/17 Dilip Brewer MD [Primary Care Provider] - Alvin Pizano MD [Staff Physician] - Disposition: RESIDENTIAL FACILITY - Home Medications Comprehensive Discharge Medication List: Ambulatory Orders Carvedilol [Coreg -] 6.25 mg PO BID 05/24/17 Digoxin [Lanoxin -] 0.125 mg PO DAILY 05/24/17 Diltiazem Cd [Cardizem Cd -] 120 mg PO DAILY 05/24/17 Metformin HCl [Metformin HCl ER] 1,000 mg PO BID 05/24/17 Oxycodone HCl/Acetaminophen [Percocet 5-325 mg Tablet] 1 tab PO Q6H PRN Simvastatin [Zocor -] 10 mg PO HS 05/24/17 Sitagliptin Phosphate [Januvia] 100 mg PO DAILY 05/24/17 Zolpidem Tartrate [Ambien] 5 mg PO HS 05/24/17 Warfarin Sodium [Coumadin] 5 mg PO DAILY #30 tablet 06/04/17 This patient is new to me today: No Emergency Visit: Yes ED Registration Date: 05/24/17 Care time: The patient presented to the Emergency Department on the above date and was hospitalized for further evaluation of their emergent condition. Critical Care patient: No - Discharge Referral Referred to [facility] Med [facility].C[facility] Yes Physician Referral: Dilip Brewer MD (Int Med)
[2017-06-04] MEDS ORDERED: WARFARIN NA 5 MG TABLET (UD) PO SCH (18:00)
[2017-06-04] MEDS: ATORVASTATIN CA 10 MG TABLET (FP) PO SCH (21:30)
[2017-06-05] MEDS: oxyCODONE HCL 5 MG TABLET PO PRN (00:30)
[2017-06-05] MEDS: INSULIN SLIDING SCALE (NOVOLOG) 1 VIAL SQ SCH ×2 (06:34→12:26)
[2017-06-05] MEDS: DOCUSATE SODIUM 100 MG CAPSULE (FP) PO SCH ×2 (06:34→14:22)
[2017-06-05 09:15] VITALS: PULSE 101
[2017-06-05] MEDS: DIGOXIN 0.125 MG TABLET (FP) PO SCH (09:15)
[2017-06-05] MEDS: CARVEDILOL 6.25 MG TABLET (FP) PO SCH (09:15)
[2017-06-05 09:16] VITALS: BP 132/75
--- NOTE | 2017-06-05 13:33 | PN ---
Addendum entered and electronically signed by Asad Bedolla, RESIDENT 06/05/17 14:09: MUSCULOSKELETAL: Normal range of motion at all joints. No bony deformities or tenderness. No CVA tenderness. +GLORIA Drain pulled Original Note: Progress Note (short form) - Note Progress Note: No acute events overnight. Patient is asymptomatic this morning. Feels well this morning. Last Vital Signs Temp Pulse Resp BP Pulse Ox 97.8 F 101 H 20 132/75 96 06/05/17 05:57 06/05/17 09:15 06/05/17 09:00 06/05/17 09:00 06/04/17 20:54 GENERAL: Awake, alert, and fully oriented, in no acute distress. HEAD: Normal with no signs of trauma. EYES: Pupils equal, round and reactive to light, extraocular movements intact, sclera anicteric, conjunctiva clear. No lid lag. EARS, NOSE, THROAT: Oropharynx clear without exudates. Moist mucous membranes. NECK: Normal range of motion, supple without lymphadenopathy, JVD, or masses. LUNGS: Breath sounds equal, clear to auscultation bilaterally. No wheezes, and no crackles. No accessory muscle use. HEART: Irregularly Irregular, normal S1 and S2 without murmur, rub or gallop. ABDOMEN: Soft, nontender, not distended, normoactive bowel sounds, no guarding, no rebound, no masses. No hepatomegaly or splenomegaly. MUSCULOSKELETAL: Normal range of motion at all joints. No bony deformities or tenderness. No CVA tenderness. +GLORIA DRAIN IN PLACE--DRAINING. drain pulled in the mid afternoon UPPER EXTREMITIES: 2+ pulses, warm, well-perfused. No cyanosis. No clubbing. No peripheral edema. LOWER EXTREMITIES: 2+ pulses, warm, well-perfused. No calf tenderness. 1-2+ edema b/l from prior cabg NEUROLOGICAL: Cranial nerves II-XII intact. Normal speech. Normal gait. Lower extremities 5/5 strength, sensation intact b/l, reflexes 2+ PSYCHIATRIC: Cooperative. Good eye contact. Appropriate mood and affect. SKIN: Warm, dry, normal turgor, no rashes or lesions noted, normal capillary refill. 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 #POD 3 s/p t11-l1 fusion -Tylenol 650 mg q4h prn/Oxycodone 5mg q4h prn -Physical Therapy -Physician consultation, Dr. Covarrubias and Dr. Moreno -Patient d/c'ed #ABRAN, likely 2/2 to dehydration, resolved -Avoid nephrotoxic medications -Monitor cr -Monitor urine output #NIDDM -BGM ACHS -ISS ACHS #HTN -Coreg 6.125 mg bid -Cardizem CD 120 mg po daily #HLD -Lipitor 10 mg po hs #Atrial Fibrillation on coumadin -Digoxin 0.125mg po daily -Cardizem 120 mg po daily -Coreg 6.125 mg bid -Coumadin 5 mg po daily #FEN/GI -No IVF -Monitor electrolytes -Diabetic/Sodium Diet #PPx -Heparin 5000 u sq tid Dispo: PENDING PLACEMENT TO REHAB <Asad Bedolla - Last Filed: 06/05/17 14:05> - Note Progress Note: Patient was seen and examined. Patient was discharged to rehab. <Sasha Hedrick - Last Filed: 06/05/17 20:11>
[2017-06-05 15:04] VITALS: TEMP 98.1
== END 2017-06-05 15:55 | DRG 460 ==
LOC: JER 08:45 → JERBED 15:16 → J6S 16:32
PROVIDERS: ADMIT Internal Medicine; ATTEND Internal Medicine
PROC: 0JX70ZB Transfer Back Subcutaneous Tissue and Fascia with Skin and Subcutaneous Tissue, Open Approach (ICD-10-PCS; 2017-05-31)
PROC: 00PV0YZ Removal of Other Device from Spinal Cord, Open Approach (ICD-10-PCS; 2017-05-31)
PROC: 00JV0ZZ Inspection of Spinal Cord, Open Approach (ICD-10-PCS; 2017-05-31)
PROC: 0RG70AJ Fusion of 2 to 7 Thoracic Vertebral Joints with Interbody Fusion Device, Posterior Approach, Anterior Column, Open Approach (ICD-10-PCS; principal; 2017-05-31 12:00)
DX: S32.049A Unspecified fracture of fourth lumbar vertebra, initial encounter for closed fracture (principal); N17.9 Acute kidney failure, unspecified; E86.0 Dehydration; E11.9 Type 2 diabetes mellitus without complications; I10 Essential (primary) hypertension; E78.5 Hyperlipidemia, unspecified; I48.2 Chronic atrial fibrillation; W19.XXXA Unspecified fall, initial encounter; Y93.9 Activity, unspecified; Y92.89 Other specified places as the place of occurrence of the external cause; Y99.9 Unspecified external cause status
CPT/HCPCS: 36415; 71045-TC-FY; 71101-TC-FY; 71101-TC-RT-FY; 72131-TC; 72148-TC; 76000-TC-FY; 80048; 80053; 80162; 82550; 82962; 83735; 84100; 84484; 85025; 85027; 85610; 85730; 93005; 93010; 94760; 97116-GP; 97161-GP; 97162-GP; 99284-25; J1644; J7030